=== PATIENT | male | born 1945 | race Caucasian/White ===

== ENCOUNTER 2017-05-24 10:55 | Inpatient (IN) | payer OTHER ==
[~2017-05-24] VITALS: Ht 172.7 cm; Wt 96.8 kg
[2017-05-24] VITALS (8 sets, daily range): BP systolic 111–139; BP diastolic 64–91; PULSE 93–134; TEMP 36.8–38; O2SAT 93–95; Ht 172.7 cm; Wt 96.8 kg
[~2017-05-24 10:55] MED LIST: ALBUAER19 INH; CETI1CAP3 PO; FLUT0.15 NAE
[2017-05-24 11:47] LABS: HEMATOCRIT 45.3 % (42-52); MEAN CELL VOLUME 91.3 fL (80-100); MEAN CORPUSCULAR HEMOGLOBIN 31.9 pg (25-34); MEAN CORPUSCULAR HGB CONC 34.9 g/dl (32-36); PLATELET COUNT 234 K/uL (130-400); RED BLOOD COUNT 4.96 M/uL (4.7-6.1); WHITE BLOOD COUNT 8.53 K/uL (4.8-10.8)
--- NOTE | 2017-05-24 11:47 | DIAGNOSTIC IMAGING REPORT ---
CHEST ONE VIEW PORTABLE CLINICAL HISTORY: Rapid HR cardiac arrhythmia COMPARISON STUDY: 12/06/2015 FINDINGS: Unchanging high density nodule right cardiophrenic angle. Mild fullness of the right hilar pulmonary vasculature. Left hemithoracic region. Unremarkable. IMPRESSION: Possible early congestive failure versus right hilar mass. CT the chest is suggested as follow-up. Electronically signed by: Yon Clifton M.D. 05/24/2017 11:46 AM Dictated Date/Time: 05/24/2017 11:45 AM
[2017-05-24] MEDS ORDERED: IBUP-1050 PO (11:54)
[2017-05-24] MEDS ORDERED: VITACAP26 PO (11:54)
[2017-05-24 11:55] LABS: INR 0.9 (0.9-1.1); PARTIAL THROMBOPLASTIN RATIO 1.1; PROTHROMBIN TIME (PATIENT) 10.1 SECONDS (9.0-12.0)
[2017-05-24] MEDS ORDERED: FEXO1TAB45 PO (11:55)
[2017-05-24] MEDS ORDERED: VANCOMYCIN INJ 2,400 MG in SODIUM CHLORIDE 0.9% 500ML 500 ML IV STA (11:55)
[2017-05-24 11:56] LABS: BUN/CREATININE RATIO 12.7 (10-20); CALCIUM 9.3 mg/dl (8.5-10.1); CREATININE 0.82 mg/dl (0.60-1.40); POTASSIUM 4.1 mmol/L (3.5-5.1)
[2017-05-24] MEDS ORDERED: OPTIRAY 320 IV PRN (12:00)
[2017-05-24 12:01] LABS: ALB/GLOB RATIO 0.8 (0.9-2); CKMB/CK RATIO 0.9 (0-3.0)
[2017-05-24] MEDS ORDERED: METOPROLOL TARTRATE 1 MG/ML VIAL IV STA ×2 (12:12→13:51)
[2017-05-24] MEDS ORDERED: METOPROLOL TARTRATE 1 MG/ML VIAL ONE (12:21)
--- NOTE | 2017-05-24 13:41 | DIAGNOSTIC IMAGING REPORT ---
CT ANGIOGRAM OF THE CHEST CLINICAL HISTORY: Rapid A. fib. Abnormal chest x-ray. Possible hilar mass. COMPARISON STUDY: Chest x-ray dated 05/24/2017 TECHNIQUE: Following the IV administration of 94 mL of Optiray-320, CT angiogram of the thorax was performed from the thoracic inlet to the lung bases utilizing the pulmonary embolus protocol. Images are reviewed in the axial, sagittal, and coronal planes. IV contrast was administered without complication. MIP imaging was performed. CT DOSE: 454.40 mGycm FINDINGS: There is probable cholelithiasis. There is a 32 mm right hilar mass. There is enlarged subcarinal lymph node measuring 15 mm in short axis. Paratracheal lymph nodes are the upper limits of normal in size. There is no evidence of pathologic axillary lymphadenopathy. There is mild ectasia of the ascending thoracic aorta which measures 37 mm in diameter. There were no pulmonary artery filling defects to indicate acute pulmonary embolism. No pleural effusions are visualized. There is lower lobe bronchial wall thickening. There are nodular airspace opacities within the superior segment of the right lower lobe, likely representing a postobstructive pneumonitis.. IMPRESSION: 1. No evidence of acute pulmonary embolism. 2. 32 mm right lower lobe/hilar mass. This should be presumed neoplastic until proven otherwise. Pulmonary consultation is recommended. 3. Lower lobe bronchial wall thickening 4. Mild mediastinal lymphadenopathy 5. Minor nodular airspace opacities within the superior segment of the right lower lobe, likely representing a postobstructive pneumonitis Electronically signed by: Von Jasso M.D. 05/24/2017 1:40 PM Dictated Date/Time: 05/24/2017 1:31 PM
[2017-05-24] MEDS ORDERED: DILTIAZEM HCL 5 MG/ML 5 ML VIAL IV STA (14:20)
--- NOTE | 2017-05-24 14:32 | EMERGENCY ROOM VISIT NOTE ---
History Report prepared by Chelsi: Sammy Muñiz Under the Supervision of: Dr. Susanne Keen M.D. First contact with patient: 11:30 Chief Complaint: CARDIAC ASSESSMENT Stated Complaint: ABNORMAL EKG Nursing Triage Summary: I was sent by [facility] because I have an infection in my right leg, and my heart rate was really fast. nohx of afib. I have no symptoms besides the pain in upper right thigh. hx MRSA. [id number] chest pain, SOB or other cardiac symptoms. History of Present Illness The patient is a 72 year old male who presents to the Emergency Room for evaluation of an abnormal ECG. He was seen at [facility] just prior to arrival for evaluation of an infection of his right thigh, and had an ECG done due to having a rapid heart rate. His ECG appeared to reveal A-fib. The patient has no history of A-fib. He denies any abdominal pain, nausea, vomiting, diarrhea, chest pain, or SOB. He states that his only pain is present in his right thigh. The patient has a history of MRSA. He noticed his infection initially one week ago. He states that he had a fever two and three days ago. The patient is not on any blood thinners. Source of History: patient Onset: Just prior to arrival Quality: other (Abnormal ECG) Timing: other (episode) Associated Symptoms: + fevers (two and three days ago), No chest pain, No SOB, No nausea, No vomiting, No diarrhea Review of Systems See HPI for pertinent positives & negatives. A total of 10 systems reviewed and were otherwise negative. Past Medical & Surgical Medical Problems: (1) Asthma Family History No pertinent family history stated. Social History Smoking Status: Never Smoker Marital Status: Housing Status: lives with family Occupation Status: retired Current/Historical Medications Scheduled Cetirizine Hcl (All Day Allergy), 1 CAP PO DAILY Miscellaneous Medications Fexofenadine Hcl (Cindy), 60 MG PO Ibuprofen (Advil), 200 MG PO Vitamins C & E (Vitamin C) Allergies Coded Allergies: Cat Dander (Verified Allergy, Intermediate, congestion, 12/06/15) Dog Dander (Verified Allergy, Intermediate, asthma, 12/06/15) Molds & Smuts (Verified Allergy, Intermediate, congestion, 12/06/15) POLLEN (Verified Allergy, Intermediate, congestion, 1/17/16) Physical Exam Vital Signs Date Time Temp Pulse Resp B/P (MAP) Pulse Ox O2 Delivery O2 Flow Rate FiO2 05/24/17 14:31 123 18 117/81 94 Room Air 05/24/17 14:14 113 18 121/88 93 Room Air 05/24/17 14:07 125 18 122/77 95 Room Air 05/24/17 14:06 125 122/77 05/24/17 13:49 132 05/24/17 13:48 133 18 126/87 95 Room Air 05/24/17 13:00 142 18 121/73 95 Room Air 05/24/17 12:45 134 18 135/90 95 Room Air 05/24/17 12:31 137 16 115/82 94 Room Air 05/24/17 12:30 146 135/87 05/24/17 12:28 146 18 135/87 96 Room Air 05/24/17 12:07 160 18 120/90 95 Room Air 05/24/17 11:30 163 18 118/90 95 Room Air 05/24/17 11:26 156 18 125/96 94 Room Air 05/24/17 11:22 165 05/24/17 11:15 95 Room Air 05/24/17 11:02 37.1 134 18 131/83 92 Room Air Physical Exam Vital signs reviewed. General: Well-appearing male, in no significant distress. HEENT: No scleral icterus, PERRLA, neck supple. Atraumatic. Cardiovascular: Tachycardic rate with an irregular rhythm Pulmonary: Clear to auscultation bilaterally, normal work of breathing. Abdomen: Soft, nontender, nondistended, positive bowel sounds. Musculoskeletal: Atraumatic, no peripheral edema. Neurologic: Patient awake alert and oriented x 3 Skin: Warm, dry. 6 cm erythematous area with 3 central ulceration-type lesions to the right thigh. No fluctuance or drainage. Medical Decision & Procedures ER Provider Diagnostic Interpretation: Radiology results as stated below per my review and radiologist interpretation: CT ANGIOGRAM OF THE CHEST FINDINGS: There is probable cholelithiasis. There is a 32 mm right hilar mass. There is enlarged subcarinal lymph node measuring 15 mm in short axis. Paratracheal lymph nodes are the upper limits of normal in size. There is no evidence of pathologic axillary lymphadenopathy. There is mild ectasia of the ascending thoracic aorta which measures 37 mm in diameter. There were no pulmonary artery filling defects to indicate acute pulmonary embolism. No pleural effusions are visualized. There is lower lobe bronchial wall thickening. There are nodular airspace opacities within the superior segment of the right lower lobe, likely representing a postobstructive pneumonitis.. IMPRESSION: 1. No evidence of acute pulmonary embolism. 2. 32 mm right lower lobe/hilar mass. This should be presumed neoplastic until proven otherwise. Pulmonary consultation is recommended. 3. Lower lobe bronchial wall thickening 4. Mild mediastinal lymphadenopathy 5. Minor nodular airspace opacities within the superior segment of the right lower lobe, likely representing a postobstructive pneumonitis Electronically signed by: Von Jasso M.D. CHEST ONE VIEW PORTABLE FINDINGS: Unchanging high density nodule right cardiophrenic angle. Mild fullness of the right hilar pulmonary vasculature. Left hemithoracic region. Unremarkable. IMPRESSION: Possible early congestive failure versus right hilar mass. CT the chest is suggested as follow-up. Electronically signed by: Yon Clifton M.D. Laboratory Results 05/24/17 11:20 05/24/17 11:20 Test 05/24/17 11:20 05/24/17 11:23 05/24/17 12:27 Red Blood Count 4.96 M/uL (4.7-6.1) Mean Corpuscular Volume 91.3 fL (80-100) Mean Corpuscular Hemoglobin 31.9 pg (25-34) Mean Corpuscular Hemoglobin Concent 34.9 g/dl (32-36) RDW Standard Deviation 43.8 fL (36.4-46.3) RDW Coefficient of Variation 13.1 % (11.5-14.5) Mean Platelet Volume 9.0 fL (7.4-10.4) Prothrombin Time 10.1 SECONDS (9.0-12.0) Prothromb Time International Ratio 0.9 (0.9-1.1) Activated Partial Thromboplast Time 29.4 SECONDS (21.0-31.0) Partial Thromboplastin Ratio 1.1 Anion Gap 7.0 mmol/L (3-11) Est Creatinine Clear Calc Drug Dose 94.5 ml/min Estimated GFR () 103.8 Estimated GFR (Non- 89.6 BUN/Creatinine Ratio 12.7 (10-20) Calcium Level 9.3 mg/dl (8.5-10.1) Total Bilirubin 0.6 mg/dl (0.2-1) Aspartate Amino Transf (AST/SGOT) 63 U/L (15-37) Alanine Aminotransferase (ALT/SGPT) 124 U/L (12-78) Alkaline Phosphatase 102 U/L (45-117) Total Creatine Kinase 174 U/L (39-308) Total Protein 7.6 gm/dl (6.4-8.2) Albumin 3.3 gm/dl (3.4-5.0) Globulin 4.3 gm/dl (2.5-4.0) Albumin/Globulin Ratio 0.8 (0.9-2) Bedside Troponin I < 0.030 ng/ml (0-0.045) Bedside Lactic Acid Venous 0.82 mmol/L (0.90-1.70) Laboratory results per my review. Medications Administered Medications (Trade) Dose Ordered Sig/Dalia Route Start Time Stop Time Status Last Admin Dose Admin Vancomycin HCl 2400 mg/Sodium Chloride 548 ml @ 200 mls/hr ONE STAT IV 05/24/17 11:55 05/24/17 14:39 DC 05/24/17 12:30 200 MLS/HR Metoprolol Tartrate (Lopressor Iv) 5 mg STK-MED ONCE .ROUTE 05/24/17 12:21 05/24/17 12:22 DC 05/24/17 12:30 5 MG Metoprolol Tartrate (Lopressor Iv) 10 mg NOW STAT IV 05/24/17 13:51 05/24/17 13:52 DC 05/24/17 14:06 10 MG Diltiazem HCl (Cardizem Inj) 20 mg NOW STAT IV 05/24/17 14:20 05/24/17 14:21 DC 05/24/17 14:31 20 MG Sodium Chloride 1,000 ml @ 75 mls/hr [id number] IV 05/24/17 14:42 06/23/17 14:41 05/24/17 16:40 75 MLS/HR ECG Indication: tachycardia Rate (beats per minute): 165 Rhythm: atrial fibrillation (with RVR) Findings: no acute ischemic change, other (previous septal infarct. Non- specific ST changes. ) ED Course 1139: Past medical records reviewed. The patient was evaluated in room A4B. A complete history and physical examination was performed. 1155: Ordered Vancomycin HCl 2400 mg/Sodium Chloride 548 ml @ 200 mls/hr IV. 1212: Ordered Lopressor 5 mg IV. 1351: Ordered Lopressor 10 mg IV. 1416: Upon reevaluation, the patient is resting comfortably. I discussed laboratory and radiographic results with him. He verbalized agreement of the treatment plan. I spoke with Dr. Bean of the [facility] Hospitalist Service. The patient will be evaluated for further management and care. 1420: Ordered Cardizem Inj 20 mg IV. Medical Decision Differential diagnosis: Etiologies such as premature contractions, electrolyte abnormality, cardiac dysrhythmia, thyroid dysfunction, pulmonary embolism, infection, cellulitis, abscess, DVT, gastrointestinal, as well as others were entertained. Blood Pressure Screening: Patient was found to have normal blood pressure on screening and does not require follow-up. Medication Reconciliation: I attest that I have personally reviewed the patient' s current medication list. This patient was evaluated and appeared to be in no significant distress. Patient is found to be in a rapid atrial fib with a rate in the 140s. IV access was obtained and laboratory work was drawn. Patient was given IV metoprolol for rate control. Chest x-ray was performed and reveals a right perihilar mass. EKG reveals nonspecific ST changes. CT scan was performed in follow-up, negative for PE, there is a hilar mass that is concerning. Patient' s laboratory work reveals a normal troponin. Patient was given 20 g of IV Cardizem for rate control after a total of 15 mg of metoprolol was not effective. Patient was given IV vancomycin for the right thigh cellulitis. The patient's case was discussed with the hospitalist service who evaluated him for further management. Consults Time Called: 1401 Consulting Physician: Dr. Vikas Richmond Returned Call: 1400 I reviewed the patient's case with Dr. Bean. Haim will evaluate the patient for further management. Impression Primary Impression: New onset atrial fibrillation Additional Impressions: Pulmonary mass Cellulitis of right thigh History of MRSA infection Critical Care I have personally spent greater than 35 minutes of critical care time in the direct management of this patient. This includes bedside care, interpretation of diagnostic studies, and testing, discussion with consultants, patient, and family members, and other required patient management activities. This 35 minutes is in excess of all separately billable procedures. Scribe Attestation The scribe's documentation has been prepared under my direction and personally reviewed by me in its entirety. I confirm that the note above accurately reflects all work, treatment, procedures, and medical decision making performed by me. Departure Information Dispostion Being Evaluated By Hospitalist Referrals Steffany Curran PA-C (PCP) Patient Instructions My [facility] Problem Qualifiers
[2017-05-24] MEDS ORDERED: ONDANSETRON INJ 2 MG/ML 2 ML VIAL IV PRN (14:45)
--- NOTE | 2017-05-24 15:01 | History and Physical ---
History & Physical Date & Time of Service: May 24, 2017 at 15:01 Chief Complaint: Abnormal Ekg Primary Care Physician: Steffany Curran PA-C History of Present Illness Source: patient Patient is a 72 Yr male with PMH of asthma, allergies,former smoker, H/O MRSA and other problems presents with history of right thigh swelling, redness and discharge. He was initially evaluated at Urgent care center and was thought to have rapid heart rate and was sent to ED for further evaluation. Patient was found to be in Afib with RVR. He states 4 days ago while moving his lawn, he had an injury to his right thigh which resulted in a blister and was oozing some white discharge yesterday. Denies any nausea, vomiting, chest pain, SOB, abd pain, Dizziness, palpitations, wheezing, diarrhea, urinary symptoms. Reports he has postnasal drip, intermittent dry cough and had fever, chills 2 days ago which resolved after taking Advil. He has been following with his [facility] for management of his allergies. Past Medical/Surgical History Medical Problems: (1) Asthma Status: Resolved PMH of asthma, allergies,former smoker, H/O MRSA Past Surgical history: Right hip replacement Family History Father: Prostate Cancer Social History Smoking Status: Former Smoker (Quit in 2012) Alcohol Use: socially Drug Use: none Marital Status: Occupational Status: retired Allergies Coded Allergies: Cat Dander (Verified Allergy, Intermediate, congestion, 12/06/15) Dog Dander (Verified Allergy, Intermediate, asthma, 12/06/15) Molds & Smuts (Verified Allergy, Intermediate, congestion, 12/06/15) POLLEN (Verified Allergy, Intermediate, congestion, 12/06/15) Home Medications Scheduled Cetirizine Hcl (All Day Allergy), 1 CAP PO DAILY Miscellaneous Medications Fexofenadine Hcl (Cindy), 60 MG PO Ibuprofen (Advil), 200 MG PO Vitamins C & E (Vitamin C) Review of Systems See HPI for pertinent positives & negatives. A total of 10 systems reviewed and were otherwise negative. Physical Exam Vital Signs Date Time Temp Pulse Resp B/P (MAP) Pulse Ox O2 Delivery O2 Flow Rate FiO2 05/24/17 14:54 83 18 108/71 95 Room Air 05/24/17 14:31 123 18 117/81 94 Room Air 05/24/17 14:14 113 18 121/88 93 Room Air 05/24/17 14:07 125 18 122/77 95 Room Air 05/24/17 14:06 125 122/77 05/24/17 13:49 132 05/24/17 13:48 133 18 126/87 95 Room Air 05/24/17 13:00 142 18 121/73 95 Room Air 05/24/17 12:45 134 18 135/90 95 Room Air 05/24/17 12:31 137 16 115/82 94 Room Air 05/24/17 12:30 146 135/87 05/24/17 12:28 146 18 135/87 96 Room Air 05/24/17 12:07 160 18 120/90 95 Room Air 05/24/17 11:30 163 18 118/90 95 Room Air 05/24/17 11:26 156 18 125/96 94 Room Air 05/24/17 11:22 165 05/24/17 11:15 95 Room Air 05/24/17 11:02 37.1 134 18 131/83 92 Room Air General Appearance: WD/WN, no apparent distress Head: normocephalic, atraumatic Eyes: normal inspection, PERRL, EOMI, sclerae normal ENT: normal ENT inspection, hearing grossly normal Neck: supple, trachea midline Respiratory/Chest: chest non-tender, no respiratory distress, + wheezing, + pertinent finding (Mild decreased breath sounds) Cardiovascular: no edema, no murmur, + irregularly irregular Abdomen/GI: normal bowel sounds, non tender, soft Back: normal inspection Extremities/Musculoskelatal: normal inspection, no pedal edema, + pertinent finding (erythematous area with central ulceration type lesion on R thigh ) 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1 11.5-14.5 % Platelet Count 234 130-400 K/uL Mean Platelet Volume 9.0 7.4-10.4 fL Prothrombin Time 10.1 9.0-12.0 SECONDS Prothromb Time International Ratio 0.9 0.9-1.1 Activated Partial Thromboplast Time 29.4 21.0-31.0 SECONDS Partial Thromboplastin Ratio 1.1 Sodium Level 136 136-145 mmol/L Potassium Level 4.1 3.5-5.1 mmol/L Chloride Level 103 98-107 mmol/L Carbon Dioxide Level 26 21-32 mmol/L Anion Gap 7.0 3-11 mmol/L Blood Urea Nitrogen 10 7-18 mg/dl Creatinine 0.82 0.60-1.40 mg/dl Est Creatinine Clear Calc Drug Dose 94.5 ml/min Estimated GFR () 103.8 Estimated GFR (Non- 89.6 BUN/Creatinine Ratio 12.7 10-20 Random Glucose 106 70-99 mg/dl Calcium Level 9.3 8.5-10.1 mg/dl Total Bilirubin 0.6 0.2-1 mg/dl Aspartate Amino Transf (AST/SGOT) 63 15-37 U/L Alanine Aminotransferase (ALT/SGPT) 124 12-78 U/L Alkaline Phosphatase 102 45-117 U/L Total Creatine Kinase 174 39-308 U/L Creatine Kinase MB 1.6 0.5-3.6 ng/ml Creatine Kinase MB Ratio 0.9 0-3.0 Total Protein 7.6 6.4-8.2 gm/dl Albumin 3.3 3.4-5.0 gm/dl Globulin 4.3 2.5-4.0 gm/dl Albumin/Globulin Ratio 0.8 0.9-2 Bedside Troponin I < 0.030 0-0.045 ng/ml Bedside Lactic Acid Venous 0.82 0.90-1.70 mmol/L Microbiology Results 05/24/17 Blood Culture, Received Pending 05/24/17 Blood Culture, Received Pending Diagnostic Radiology CXR: Possible early congestive failure versus right hilar mass. CT the chest is suggested as follow-up. CTA: 1. No evidence of acute pulmonary embolism. 2. 32 mm right lower lobe/hilar mass. This should be presumed neoplastic until proven otherwise. Pulmonary consultation is recommended. 3. Lower lobe bronchial wall thickening 4. Mild mediastinal lymphadenopathy 5. Minor nodular airspace opacities within the superior segment of the right lower lobe, likely representing a postobstructive pneumonitis EKG EKG: Atrial fibrillation with rapid ventricular response Impression Assessment and Plan Right Leg Cellulitis H/O MRSA Start on IV vancomycin Will obtain blood/wound cultures No signs of sepsis, Lactate wnl Afib with RVR: New onset Currently rate controlled in ED CHADVasc score:1. will start on Aspirin Lopressor PRN for rate control Check ECHO, cardiac enzymes Consult Cardiology Will consider Cardizem ggt if uncontrolled Right lung mass: ? malignancy Mediastinal adenopathy Former smoker Incidental Finding on CT Will consult Pulmonology for possible bronchoscopy Asthma: Denies any acute issues Mild expiratory wheezing on exam Will start on bronchodilators Continue home inhalers H/O allergies: Follows with an [facility] as outpatient DVT Px: Heparin SQ Code Status: Full code Disposition: Admit in Tele VTE Prophylaxis VTE Risk Assessment Done? Y/N: Yes Risk Level: Moderate
[2017-05-24] MEDS ORDERED: VANCOMYCIN CONSULT ACTIVE PRN (15:26)
[2017-05-24] MEDS ORDERED: ALBUT/IPRATROP 3MG/0.5MG NEB 3 ML VIAL INH SCH (16:00)
[2017-05-24] MEDS ORDERED: ASPIRIN 81 MG ECTAB PO SCH (16:00)
--- NOTE | 2017-05-24 16:21 | Pharmacy Progress Note ---
Pharmacy Abx Initial Consult Date of Service May 24, 2017. Pharmacy Dosing Scope Date of Consult: 05/24/17 Consultation requested by: Dr. Bean Pharmacy is consulted to initiate Vancomycin IV dosing therapy, order appropriate labs and adjust drug dose/frequency. Subjective The patient is a 72 year old male admitted on May 24, 2017 at 14:47. Objective Height (Feet): 5 Height (Inches): 8.00 Weight (Kilograms): 96.600 Vital Signs (Past 12Hrs) Vital Signs Past 12 Hours Date Time Temp Pulse Resp B/P (MAP) Pulse Ox O2 Delivery O2 Flow Rate FiO2 05/24/17 15:58 36.8 93 16 128/85 (99) 95 Room Air 05/24/17 15:15 89 18 120/85 94 Room Air 05/24/17 14:54 83 18 108/71 95 Room Air 05/24/17 14:31 123 18 117/81 94 Room Air 05/24/17 14:14 113 18 121/88 93 Room Air 05/24/17 14:07 125 18 122/77 95 Room Air 05/24/17 14:06 125 122/77 05/24/17 13:49 132 05/24/17 13:48 133 18 126/87 95 Room Air 05/24/17 13:00 142 18 121/73 95 Room Air 05/24/17 12:45 134 18 135/90 95 Room Air 05/24/17 12:31 137 16 115/82 94 Room Air 05/24/17 12:30 146 135/87 05/24/17 12:28 146 18 135/87 96 Room Air 05/24/17 12:07 160 18 120/90 95 Room Air 05/24/17 11:30 163 18 118/90 95 Room Air 05/24/17 11:26 156 18 125/96 94 Room Air 05/24/17 11:22 165 05/24/17 11:15 95 Room Air 05/24/17 11:02 37.1 134 18 131/83 92 Room Air Lab Results (24Hrs) Laboratory Tests (24 Hours) Test 05/24/17 11:20 Total Creatine Kinase 174 U/L (39-308) White Blood Count 8.53 K/uL (4.8-10.8) Micro Results Date/Time Source Procedure Growth Status 05/24/17 12:20 Blood Blood Culture Pending Received 05/24/17 12:10 Blood Blood Culture Pending Received Risk Factors for Resistance * History of MRSA Assessment & Plan Assessment 72 year old male with R thigh Cellulitis. Plan Vancomycin for treatment of Cellulitis. Vancomycin IV * Loading dose: 2400 mg (~ 25 mg/kg) * Maintenance dose: 1500 mg IV (~15 mg/kg) every 12 hours * Goal trough level: 15 to 20 mcg/mL * Estimated P'kinetics: ke = 0.082 /hr, t1/2 = 8.5 hrs. * Trough Vanco level ordered for 05/26/17 before dose at 1200. Pharmacy will continue to follow and will adjust dose/frequency as necessary. Thank you.
[2017-05-24] MEDS: SODIUM CHLORIDE 0.9% 1000ML 1,000 ML IV SCH (16:40)
[2017-05-24] MEDS: METOPROLOL TARTRATE 1 MG/ML VIAL IV PRN ×2 (17:10→18:16)
--- NOTE | 2017-05-24 17:58 | Pulmonary Consultation ---
History General Date of Service: May 24, 2017. Stated Complaint: Cellulitis Of Right Thigh HPI The patient is a 72 year old male who presents to [facility] with complaints of Cellulitis Of Right Thigh. The patient's primary care provider is Steffany Curran PA-C. Pulmonary consultation is requested regarding an abnormal chest x-ray and CAT scan. The history is that the patient was driving his lawn tractor about a week prior to admission. The right side of his leg got scraped with some type of vegetation. He developed some redness and soreness in the area. He developed a pustule. The patient had a history of MRSA infection involving the knee about 8 years ago. He developed a fever 2 or 3 days ago. [facility]. They found that he had a significant elevation of his heart rate. They immediately referred him to the emergency room. Apparently they wanted him to be taken by ambulance but the patient refused and drove to the ER. He was found to have atrial fibrillation with a rapid ventricular response rate. The patient has not noticed any palpitations. He did not have any chest pains. He overall has been feeling well recently. During part of his workup the patient had a chest x-ray done. This suggested a right hilar prominence. Subsequently he had a CAT scan of the chest done. This showed what appears to be a 3.2 cm right hilar mass with an enlarged subcarinal lymph node. Was also an area of probable postobstructive pneumonitis. Patient has a history of asthma since childhood. He states that he grew out of the asthma for his teen years but then it seemed to recur somewhat. He was on allergy shots for many years. When he got off the shots his symptoms recurred. He was back on allergy shots for quite a while. He notices wheezing with exposure to a number of different things including various smells or aromas. Smoke bothers him. Turner's neuroma bother him. Perfumes bother him. He may have also environmental allergies that bother him. He is listed as allergic to cats, dogs, mold, and pollen. The patient has a history of smoking for about 34 years. He averaged between one half and one pack per day. He quit smoking 6 years ago. Patient has not noticed any difficulty with his breathing more than normal. He states he is not significantly short of breath. He has just an occasional cough. This is usually in response to something that he is exposed to he believes. He has never coughed up any blood. His weight has been stable. His appetite is good. His energy level is generally good although it is not as good as he was 15 years ago he states. 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 Review of Systems Gen.: Energy level is fairly good as noted above. The patient lives with his . He's had no recent illnesses. Neurologic: No syncope or near syncope Ophthalmic: No visual complaints ENT some nasal congestion and coryza. The patient states he snores but not as much as his snores. There has been no observed apneas. Cardiac: As noted above in history of present illness Pulmonary: As noted in history of present illness GI: Appetite is good. His been no weight loss. Denies nausea vomiting diarrhea constipation. : The patient noticed in the recent past and increase the frequency of his urination. He also felt that his urine smelled somewhat. He thought he was getting a urine infection. He states he simply increased his water intake. Dermatologic: No rashes Musculoskeletal: No myalgias or arthralgias Endocrine: No lymphadenopathy Past Medical History Past Medical History: Asthma Allergic rhinitis MRSA infection of the knee Past Surgical History: Right total hip replacement 2013 Family History Mother age 88 had CVA Father age 92 heart disease Social History Tobacco-1/2-1 pack per day 34 years EtOH-occasional Smoking Status: Never Smoker Marital status: Occupational Status: retired Allergies Coded Allergies: Cat Dander (Verified Allergy, Intermediate, congestion, 12/06/15) Dog Dander (Verified Allergy, Intermediate, asthma, 12/06/15) Molds & Smuts (Verified Allergy, Intermediate, congestion, 12/06/15) POLLEN (Verified Allergy, Intermediate, congestion, 12/06/15) Current Medications Reported Home Medications Medications Dose Route/Sig Max Daily Dose Days Date Category Cindy (Fexofenadine Hcl) 60 Mg Tab 60 Mg PO 05/24/17 Reported Advil (Ibuprofen) 200 Mg Tab 200 Mg PO 05/24/17 Reported Vitamin C (Vitamins C & E) 1 Cap Cap 05/24/17 Reported All Day Allergy (Cetirizine Hcl) 10 Mg Cap 1 Cap PO DAILY 12/06/15 Reported Physical Physical Exam Vital Signs: Date Time Temp Pulse Resp B/P (MAP) Pulse Ox O2 Delivery O2 Flow Rate FiO2 05/24/17 17:10 117 128/85 05/24/17 15:58 36.8 93 16 128/85 (99) 95 Room Air 05/24/17 15:15 89 18 120/85 94 Room Air 05/24/17 14:54 83 18 108/71 95 Room Air 05/24/17 14:31 123 18 117/81 94 Room Air 05/24/17 14:14 113 18 121/88 93 Room Air 05/24/17 14:07 125 18 122/77 95 Room Air 05/24/17 14:06 125 122/77 05/24/17 13:49 132 05/24/17 13:48 133 18 126/87 95 Room Air 05/24/17 13:00 142 18 121/73 95 Room Air 05/24/17 12:45 134 18 135/90 95 Room Air 05/24/17 12:31 137 16 115/82 94 Room Air 05/24/17 12:30 146 135/87 05/24/17 12:28 146 18 135/87 96 Room Air 05/24/17 12:07 160 18 120/90 95 Room Air 05/24/17 11:30 163 18 118/90 95 Room Air 05/24/17 11:26 156 18 125/96 94 Room Air 05/24/17 11:22 165 05/24/17 11:15 95 Room Air 05/24/17 11:02 37.1 134 18 131/83 92 Room Air The patient is a 72-year-old male who was cooperative alert and oriented. He was in no distress. Pupils were reactive to light. Nasal passages were clear. Mouth exam showed no erythema or exudate. Palpation of the neck reveals no lymph nodes or masses. The chest was of normal expansion development. The heart rate was 112/m. The rhythm was irregularly irregular. The blood pressure was 128/85. Auscultation of the lungs revealed mild wheeze bilaterally on expiration. The breath sounds were diminished. The patient did cough I asked him to set up and take deep breaths. Respiratory rate was 16 breaths per minute and was not labored. The oxygen saturation was 95% on room air. The abdomen is soft. Bowel sounds were present. There was no tenderness to palpation, masses, or organomegaly. Extremities showed no cyanosis clubbing or edema. Diagnostics Labs Results Past 24 Hours Test 05/24/17 11:20 05/24/17 11:23 05/24/17 12:27 05/24/17 17:00 Range/Units White Blood Count 8.53 4.8-10.8 K/uL Red Blood Count 4.96 4.7-6.1 M/uL Hemoglobin 15.8 14.0-18.0 g/dL Hematocrit 45.3 42-52 % Mean Corpuscular Volume 91.3 80-100 fL Mean Corpuscular Hemoglobin 31.9 25-34 pg Mean Corpuscular Hemoglobin Concent 34.9 32-36 g/dl RDW Standard Deviation 43.8 36.4-46.3 fL RDW Coefficient of Variation 13.1 11.5-14.5 % Platelet Count 234 130-400 K/uL Mean Platelet Volume 9.0 7.4-10.4 fL Prothrombin Time 10.1 9.0-12.0 SECONDS Prothromb Time International Ratio 0.9 0.9-1.1 Activated Partial Thromboplast Time 29.4 21.0-31.0 SECONDS Partial Thromboplastin Ratio 1.1 Sodium Level 136 136-145 mmol/L Potassium Level 4.1 3.5-5.1 mmol/L Chloride Level 103 98-107 mmol/L Carbon Dioxide Level 26 21-32 mmol/L Anion Gap 7.0 3-11 mmol/L Blood Urea Nitrogen 10 7-18 mg/dl Creatinine 0.82 0.60-1.40 mg/dl Est Creatinine Clear Calc Drug Dose 94.5 ml/min Estimated GFR () 103.8 Estimated GFR (Non- 89.6 BUN/Creatinine Ratio 12.7 10-20 Random Glucose 106 70-99 mg/dl Calcium Level 9.3 8.5-10.1 mg/dl Total Bilirubin 0.6 0.2-1 mg/dl Aspartate Amino Transf (AST/SGOT) 63 15-37 U/L Alanine Aminotransferase (ALT/SGPT) 124 12-78 U/L Alkaline Phosphatase 102 45-117 U/L Total Creatine Kinase 174 39-308 U/L Creatine Kinase MB 1.6 0.5-3.6 ng/ml Creatine Kinase MB Ratio 0.9 0-3.0 Total Protein 7.6 6.4-8.2 gm/dl Albumin 3.3 3.4-5.0 gm/dl Globulin 4.3 2.5-4.0 gm/dl Albumin/Globulin Ratio 0.8 0.9-2 Bedside Troponin I < 0.030 0-0.045 ng/ml Bedside Lactic Acid Venous 0.82 0.90-1.70 mmol/L Microbiology Results 05/24/17 Blood Culture, Received Pending 05/24/17 Blood Culture, Received Pending Impression Assessment and Plan Impressions: #1 right lung mass-superior segment right lower lobe-suspicious for malignancy #2 mediastinal adenopathy #3 bronchial asthma #4 atrial fibrillation with rapid ventricular response #5 elevation of liver function tests. #6 infection right thigh Comments and recommendations: Patient needs management of his cardiac status. Once his status is stabilized his lung mass should be addressed. Bronchoscopy with EBUS would be advised based upon the x-ray findings. I spoke with Dr. Hines about This patient. Obviously we want to wait until he is cleared from a cardiac perspective. If the patient needs anticoagulation for the atrial fibrillation we would prefer something that could be readily discontinued to do bronchoscopy when the time comes. The patient has had rapid atrial fibrillation. He is ordered nebulizer treatments with albuterol/ipratropium. In light of the rapid rates it would be advised that he be given levalbuterol/ ipratropium for less cardiac irritability.
[2017-05-24] MEDS ORDERED: NURSING VERBAL MED ORDER ONE (18:00)
[2017-05-24] MEDS ORDERED: METOPROLOL TARTRATE 1 MG/ML VIAL IV ONE (18:30)
[2017-05-24] MEDS: LEVALBUTEROL 0.63MG/3 ML NEB INH SCH (19:10)
[2017-05-24] MEDS ORDERED: DILTIAZEM BOLUS / DRIP IV STA (19:40)
[2017-05-24] MEDS: ACETAMINOPHEN 325 MG TAB PO PRN (20:32)
[2017-05-24] MEDS: BUDESONIDE/FORMOTEROL FUMARATE 160/4.5 60 PUFFS/INHALER INH SCH (20:33)
[2017-05-24] MEDS: HEPARIN SOD 5000 UNIT/0.5 ML CARP SQ SCH (22:16)
[2017-05-24] MEDS: DILTIAZEM HCL INJ 125 MG in DEXTROSE 5% 100ML IV PRN (22:17)
[2017-05-25] VITALS (9 sets, daily range): BP systolic 102–124; BP diastolic 63–73; PULSE 54–109; TEMP 36.7–36.9; O2SAT 95–98
[2017-05-25] MEDS ORDERED: VANCOMYCIN INJ 1,500 MG in SODIUM CHLORIDE 0.9% 500ML 500 ML IV SCH ×2
[2017-05-25] MEDS: LEVALBUTEROL 0.63MG/3 ML NEB INH SCH ×4 (01:47→19:00)
[2017-05-25] MEDS ORDERED: NURSING VERBAL MED ORDER ONE ×2 (02:45→14:15)
[2017-05-25] MEDS: DILTIAZEM HCL INJ 125 MG in DEXTROSE 5% 100ML IV PRN ×2 (02:50→11:16)
[2017-05-25] MEDS: ACETAMINOPHEN 325 MG TAB PO PRN ×3 (03:44→19:25)
[2017-05-25] MEDS: SODIUM CHLORIDE 0.9% 1000ML 1,000 ML IV SCH ×2 (06:00→16:35)
[2017-05-25] MEDS: HEPARIN SOD 5000 UNIT/0.5 ML CARP SQ SCH ×2 (06:02→14:35)
[2017-05-25 06:48] LABS: BASO % 0.1 %; BASO ABS # 0.01 K/uL (0-0.2); COMPLETE YES; EOS % 1.7 %; HEMATOCRIT 40.6 % (42-52); IG% 0.2 %; LYMPH ABS # 0.79 K/uL (1.2-3.4); MEAN CELL VOLUME 91.9 fL (80-100); MEAN CORPUSCULAR HEMOGLOBIN 30.1 pg (25-34); MEAN CORPUSCULAR HGB CONC 32.8 g/dl (32-36); MEAN PLATELET VOLUME 8.8 fL (7.4-10.4); MONO % 11.4 %; NEUT % 77.6 %; PLATELET COUNT 213 K/uL (130-400); RED BLOOD COUNT 4.42 M/uL (4.7-6.1); WHITE BLOOD COUNT 8.78 K/uL (4.8-10.8)
[2017-05-25 07:35] LABS: BUN/CREATININE RATIO 14.1 (10-20); CALCIUM 7.9 mg/dl (8.5-10.1); CREATININE 0.74 mg/dl (0.60-1.40); MAGNESIUM 2.3 mg/dl (1.8-2.4); POTASSIUM 3.7 mmol/L (3.5-5.1)
[2017-05-25] MEDS: CETIRIZINE HCL 10 MG TAB PO SCH (08:33)
[2017-05-25] MEDS: FLUTICASONE PROPIONATE NA SPR 16 GM BTL SCH (08:33)
[2017-05-25] MEDS: ASPIRIN 81 MG ECTAB PO SCH (09:33)
[2017-05-25] MEDS: BUDESONIDE/FORMOTEROL FUMARATE 160/4.5 60 PUFFS/INHALER INH SCH ×2 (09:34→20:51)
--- NOTE | 2017-05-25 10:32 | ECHOCARDIOGRAM REPORT ---
*NOTICE TO RECEIVING [employer] This information is strictly Confidential and protected under [place] law. [place] law prohibits you from making any further disclosure of this information unless further disclosure is expressly permitted by the written consent of the person to whom it pertains or is authorized by law. A general authorization for the release of medical or other information is not sufficient for this purpose. Hospital accepts no responsibility if the information is made available to any other person, INCLUDING THE PATIENT. Interpretation Summary * Name: CEE GOEL Study Date: 05/25/2017 07:00 AM BP: 102/65 mmHg * Patient Location: .2E\S\E211\S\1 HR: 71 * : 1945 (M/d/yyy) Gender: Male Height: 68 in * Age: 72 yrs Ethnicity: CA Weight: 212 lb * Ordering Physician: Mak Bean * Referring Physician: Self, Referred * Performed By: Marpiosa Carlson RDCS * * Reason For Study: A-fib * BSA: 2.1 m2 * -- Conclusions -- * The left ventricle is normal in size. * Left ventricular systolic function is normal. * Ejection Fraction = 55-60%. * The right ventricular systolic function is normal. * The left atrial size is normal. * Right atrial size is normal. * No significant valvular pathology. Procedure Details * A complete two-dimensional transthoracic echocardiogram was performed (2D, M-mode, Doppler and color flow Doppler). Left Ventricle * The left ventricle is normal in size. * There is normal left ventricular wall thickness. * Ejection Fraction = 55-60%. * Left ventricular systolic function is normal. * The left ventricular wall motion is normal. Right Ventricle * The right ventricle is normal size. * The right ventricular systolic function is normal. Atria * The left atrial size is normal. * Right atrial size is normal. * There is no evidence of atrial septal defect, but resolution does not allow assessment for a patent foramen ovale. Mitral Valve * The mitral valve anatomy is normal. * Significant mitral regurgitation is absent. Tricuspid Valve * The tricuspid valve is not well visualized, but is grossly normal. * Significant tricuspid regurgitation is absent. Aortic Valve * The aortic valve is tricuspid. The leaflet thickness if normal. There is no aortic stenosis, and no significant insufficiency. * No hemodynamically significant valvular aortic stenosis. * There is no significant aortic regurgitation. Pulmonic Valve * The pulmonic valve is not well visualized. Great Vessels * The aortic root and proximal ascending aorta are normal sized. Pericardium/Pleural * There is no pericardial effusion. MMode 2D Measurements and Calculations IVSd 0.97 cm LVIDd 3.8 cm LVIDs 2.6 cm LVPWd 1.3 cm IVS/LVPW 0.75 FS 33.0 % EDV(Teich) 62.8 ml ESV(Teich) 23.7 ml EF(Teich) 62.3 % EDV(cubed) 55.8 ml ESV(cubed) 16.8 ml EF(cubed) 69.9 % LV mass(C)d 142.0 grams LV mass(C)dI 67.8 grams/m\S\2 CO(Teich) 2.4 l/min CI(Teich) 1.2 l/min/m\S\2 SV(Teich) 39.1 ml SI(Teich) 18.7 ml/m\S\2 CO(cubed) 2.4 l/min CI(cubed) 1.2 l/min/m\S\2 SV(cubed) 39.0 ml SI(cubed) 18.6 ml/m\S\2 Ao root diam 3.3 cm Ao root area 8.8 cm\S\2 ACS 1.9 cm LA dimension 3.0 cm asc Aorta Diam 3.7 cm LA/Ao 0.90 LVOT diam 2.0 cm LVOT area 3.1 cm\S\2 LVAd ap4 23.4 cm\S\2 LVLd ap4 7.5 cm EDV(MOD-sp4) 63.0 ml LVAs ap4 14.2 cm\S\2 LVLs ap4 6.3 cm ESV(MOD-sp4) 27.0 ml EF(MOD-sp4) 57.1 % LVAd ap2 18.3 cm\S\2 LVLd ap2 7.2 cm EDV(MOD-sp2) 41.0 ml LVAs ap2 11.5 cm\S\2 LVLs ap2 6.1 cm ESV(MOD-sp2) 19.0 ml EF(MOD-sp2) 53.7 % CO(MOD-sp4) 2.2 l/min CI(MOD-sp4) 1.1 l/min/m\S\2 SV(MOD-sp4) 36.0 ml SI(MOD-sp4) 17.2 ml/m\S\2 CO(MOD-sp2) 1.4 l/min CI(MOD-sp2) 0.65 l/min/m\S\2 SV(MOD-sp2) 22.0 ml SI(MOD-sp2) 10.5 ml/m\S\2 Doppler Measurements and Calculations MV E max modesta 113.0 cm/sec MV dec time 0.14 sec Ao V2 max 115.4 cm/sec Ao max PG 5.3 mmHg Ao max PG (full) 1.9 mmHg CYNTHIA(V,A) 2.5 cm\S\2 CYNTHIA(V,D) 2.5 cm\S\2 LV V1 max PG 3.4 mmHg LV V1 max 92.3 cm/sec PA V2 max 77.4 cm/sec PA max PG 2.4 mmHg PA acc slope 461.2 cm/sec\S\2 PA acc time 0.11 sec PA pr(Accel) 29.9 mmHg
[2017-05-25] MEDS: VANCOMYCIN INJ 1,750 MG in SODIUM CHLORIDE 0.9% 500ML 500 ML IV SCH ×2 (10:54→23:21)
--- NOTE | 2017-05-25 10:55 | Pulmonology Progress Note ---
Pulmonary Progress Note Date of Service May 25, 2017. Attending Dr. Quiros Subjective The patient denies shortness of breath. He denies any cough. He was moved to a different telemetry unit. His cardiac rates have been more controlled. He remains asymptomatic from a cardiac and pulmonary perspective. Objective The patient is a 72-year-old male who looks younger than his chronologic age. He is cooperative alert and oriented. He is in no distress. Pupils were reactive to light. Palpation of the neck reveals no lymph nodes. Temperature is 36.8. Cardiac rate is 100/m. The rhythm is irregular. Blood pressure was 109/63. Lung navas today revealed less wheezing than yesterday. There is just a very faint end expiratory wheeze. This is related to his known asthma. Oxygen saturation is 96% on room air. Respiratory rate is 16 breaths per minute. Extremities showed no cyanosis clubbing or edema. CBC today shows the hemoglobin is 13.3. It had been 15.8 yesterday. There has been no evidence of bleeding. Assessment & Plan Impressions: #1 right lung mass-superior segment right lower lobe-suspicious for malignancy with possible postobstructive pneumonitis #2 mediastinal adenopathy #3 bronchial asthma #4 atrial fibrillation with rapid ventricular response #5 elevation of liver function tests #6 infection right thigh Comments and recommendations: As noted on the consult yesterday the patient needs to have management of the cardiac status. Once the cardiac problem is stable he should have bronchoscopy done with EBUS. I have spoken with Dr. Hines about performing that procedure. It can be done as an outpatient following discharge. We'll add azithromycin for the possible pneumonitis. He does not have any symptoms suggesting pneumonitis. Data Medications: Current Inpatient Medications Medications (Trade) Dose Ordered Sig/Dalia Route Start Time Stop Time Status Last Admin Dose Admin Ioversol (Optiray 320) 125 ml UD PRN IV 05/24/17 12:00 05/28/17 11:59 Heparin Sodium (Porcine) (Heparin Sq 5000 Unit/0.5ml) 5,000 unit Q8 SQ 05/24/17 22:00 06/23/17 21:59 05/25/17 06:02 5,000 UNIT Sodium Chloride 1,000 ml @ 75 mls/hr [id number] IV 05/24/17 14:42 06/23/17 14:41 05/25/17 06:00 75 MLS/HR Acetaminophen (Tylenol Tab) 650 mg Q4H PRN PO 05/24/17 14:45 06/23/17 14:44 05/25/17 03:44 650 MG Ondansetron HCl (Zofran Inj) 4 mg Q6H PRN IV 05/24/17 14:45 06/23/17 14:44 Vancomycin HCl (Consult) 1 ea UD PRN N/A 05/24/17 15:26 06/23/17 15:25 Metoprolol Tartrate (Lopressor Iv) 2.5 mg Q6 PRN IV 05/24/17 15:00 06/23/17 14:59 05/24/17 18:16 5 MG Aspirin (Ecotrin Tab) 81 mg QAM PO 05/25/17 09:00 06/24/17 08:59 05/25/17 09:33 81 MG Cetirizine HCl (zyrTEC TAB) 10 mg DAILY PO 05/25/17 09:00 06/24/17 08:59 05/25/17 08:33 10 MG Fluticasone Propionate (Flonase Nasal [place]) 2 sprays DAILY NA 05/25/17 09:00 06/24/17 08:59 05/25/17 08:33 2 SPRAYS Budesonide/ Formoterol Fumarate (Symbicort 160/ 4.5 Inh) 2 puffs BID INH 05/24/17 21:00 06/23/17 20:59 05/25/17 09:34 2 PUFFS Levalbuterol (Xopenex 0.63 Mg/ 3 Ml Neb) 0.63 mg Q6R INH 05/24/17 21:00 06/23/17 20:59 05/25/17 07:24 0.63 MG Diltiazem HCl 125 mg/Dextrose 125 ml @ 0 mls/hr Q0M PRN IV 05/24/17 20:30 06/23/17 20:29 05/25/17 02:50 10 MLS/HR Vancomycin HCl 1750 mg/Sodium Chloride 535 ml @ 200 mls/hr Q12H IV 05/25/17 11:00 06/03/17 11:59 Vital Signs: Date Time Temp Pulse Resp B/P (MAP) Pulse Ox O2 Delivery O2 Flow Rate FiO2 05/25/17 08:32 36.8 88 18 109/63 (78) 96 05/25/17 08:00 Room Air 05/25/17 07:24 71 17 96 Room Air 05/25/17 04:29 36.9 101 18 102/65 (77) 96 Room Air 05/25/17 04:00 Room Air 05/25/17 01:47 109 16 96 Room Air 05/24/17 23:59 Room Air 05/24/17 23:51 36.9 107 18 111/64 (80) 93 Room Air 05/24/17 21:17 94 05/24/17 20:20 38.0 124 16 131/82 (98) 94 Room Air 05/24/17 19:26 36.8 134 16 134/84 94 Room Air 05/24/17 19:25 124 20 94 Room Air 05/24/17 19:19 134/84 (101) 05/24/17 18:16 134 139/91 05/24/17 18:14 134 139/91 (107) 94 Room Air 05/24/17 17:10 117 128/85 05/24/17 15:58 36.8 93 16 128/85 (99) 95 Room Air 05/24/17 15:15 89 18 120/85 94 Room Air 05/24/17 14:54 83 18 108/71 95 Room Air 05/24/17 14:31 123 18 117/81 94 Room Air 05/24/17 14:14 113 18 121/88 93 Room Air 05/24/17 14:07 125 18 122/77 95 Room Air 05/24/17 14:06 125 122/77 05/24/17 13:49 132 05/24/17 13:48 133 18 126/87 95 Room Air 05/24/17 13:00 142 18 121/73 95 Room Air 05/24/17 12:45 134 18 135/90 95 Room Air 05/24/17 12:31 137 16 115/82 94 Room Air 05/24/17 12:30 146 135/87 05/24/17 12:28 146 18 135/87 96 Room Air 05/24/17 12:07 160 18 120/90 95 Room Air 05/24/17 11:30 163 18 118/90 95 Room Air 05/24/17 11:26 156 18 125/96 94 Room Air 05/24/17 11:22 165 05/24/17 11:15 95 Room Air 05/24/17 11:02 37.1 134 18 131/83 92 Room Air Laboratory Results: Last 24 Hours Test 05/24/17 11:20 05/24/17 11:23 05/24/17 12:27 05/24/17 17:00 White Blood Count 8.53 K/uL Red Blood Count 4.96 M/uL Hemoglobin 15.8 g/dL Hematocrit 45.3 % Mean Corpuscular Volume 91.3 fL Mean Corpuscular Hemoglobin 31.9 pg Mean Corpuscular Hemoglobin Concent 34.9 g/dl RDW Standard Deviation 43.8 fL RDW Coefficient of Variation 13.1 % Platelet Count 234 K/uL Mean Platelet Volume 9.0 fL Prothrombin Time 10.1 SECONDS Prothromb Time International Ratio 0.9 Activated Partial Thromboplast Time 29.4 SECONDS Partial Thromboplastin Ratio 1.1 Sodium Level 136 mmol/L Potassium Level 4.1 mmol/L Chloride Level 103 mmol/L Carbon Dioxide Level 26 mmol/L Anion Gap 7.0 mmol/L Blood Urea Nitrogen 10 mg/dl Creatinine 0.82 mg/dl Est Creatinine Clear Calc Drug Dose 94.5 ml/min Estimated GFR () 103.8 Estimated GFR (Non- 89.6 BUN/Creatinine Ratio 12.7 Random Glucose 106 mg/dl Calcium Level 9.3 mg/dl Total Bilirubin 0.6 mg/dl Aspartate Amino Transf (AST/SGOT) 63 U/L Alanine Aminotransferase (ALT/SGPT) 124 U/L Alkaline Phosphatase 102 U/L Total Creatine Kinase 174 U/L Creatine Kinase MB 1.6 ng/ml Creatine Kinase MB Ratio 0.9 Total Protein 7.6 gm/dl Albumin 3.3 gm/dl Globulin 4.3 gm/dl Albumin/Globulin Ratio 0.8 Bedside Troponin I < 0.030 ng/ml Bedside Lactic Acid Venous 0.82 mmol/L Test 05/24/17 17:55 05/24/17 23:00 05/24/17 23:13 05/25/17 06:37 Creatine Kinase MB 1.6 ng/ml 1.3 ng/ml Troponin I < 0.015 ng/ml 0.016 ng/ml Creatine Kinase MB Ratio White Blood Count 8.78 K/uL Red Blood Count 4.42 M/uL Hemoglobin 13.3 g/dL Hematocrit 40.6 % Mean Corpuscular Volume 91.9 fL Mean Corpuscular Hemoglobin 30.1 pg Mean Corpuscular Hemoglobin Concent 32.8 g/dl Platelet Count 213 K/uL Mean Platelet Volume 8.8 fL Neutrophils (%) (Auto) 77.6 % Lymphocytes (%) (Auto) 9.0 % Monocytes (%) (Auto) 11.4 % Eosinophils (%) (Auto) 1.7 % Basophils (%) (Auto) 0.1 % Neutrophils # (Auto) 6.81 K/uL Lymphocytes # (Auto) 0.79 K/uL Monocytes # (Auto) 1.00 K/uL Eosinophils # (Auto) 0.15 K/uL Basophils # (Auto) 0.01 K/uL RDW Standard Deviation 44.3 fL RDW Coefficient of Variation 13.2 % Immature Granulocyte % (Auto) 0.2 % Immature Granulocyte # (Auto) 0.02 K/uL Sodium Level 141 mmol/L Potassium Level 3.7 mmol/L Chloride Level 109 mmol/L Carbon Dioxide Level 25 mmol/L Anion Gap 7.0 mmol/L Blood Urea Nitrogen 10 mg/dl Creatinine 0.74 mg/dl Est Creatinine Clear Calc Drug Dose 104.8 ml/min Estimated GFR () 108.3 Estimated GFR (Non- 93.5 BUN/Creatinine Ratio 14.1 Random Glucose 103 mg/dl Calcium Level 7.9 mg/dl Magnesium Level 2.3 mg/dl
[2017-05-25] MEDS ORDERED: VANCOMYCIN TROUGH ONE (11:30)
[2017-05-25] MEDS ORDERED: AZITHROMYCIN 250 MG TAB PO ONE (11:45)
--- NOTE | 2017-05-25 12:07 | Progress Note ---
Medicine Progress Note Date & Time of Visit: May 25, 2017 at 11:38. Subjective Pt was seen and examined getting ready to walk in the hallway Pt said that he feels fine he denies any chest pain, palpitation, dizziness and SOB Objective Last 8 Hrs Date Time Temp Pulse Resp B/P (MAP) Pulse Ox O2 Delivery O2 Flow Rate FiO2 05/25/17 11:33 36.9 54 18 124/66 (85) 96 05/25/17 08:32 36.8 88 18 109/63 (78) 96 05/25/17 08:00 Room Air 05/25/17 07:24 71 17 96 Room Air 05/25/17 04:29 36.9 101 18 102/65 (77) 96 Room Air 05/25/17 04:00 Room Air Physical Exam: General- No acute distress Head- atraumatic Eyes- PERRL, EOMI ENT- oropharynx clear Neck- supple, no JVD Lungs- No crackles, no rales Heart- irregular rhythm; no murmur Abdomen- normal bowel sounds, soft Extremities- no calf tenderness, right anterior thigh erythema cover with dressing Neuro- alert, oriented x 3; PERRL, EOMI; no facial palsy Skin- warm & dry Laboratory Results: Last 24 Hours Test 05/24/17 12:27 05/24/17 17:00 05/24/17 17:55 05/24/17 23:00 Bedside Lactic Acid Venous 0.82 mmol/L Creatine Kinase MB Ratio Creatine Kinase MB 1.6 ng/ml Troponin I < 0.015 ng/ml Test 05/24/17 23:13 05/25/17 06:37 Creatine Kinase MB 1.3 ng/ml Troponin I 0.016 ng/ml White Blood Count 8.78 K/uL Red Blood Count 4.42 M/uL Hemoglobin 13.3 g/dL Hematocrit 40.6 % Mean Corpuscular Volume 91.9 fL Mean Corpuscular Hemoglobin 30.1 pg Mean Corpuscular Hemoglobin Concent 32.8 g/dl Platelet Count 213 K/uL Mean Platelet Volume 8.8 fL Neutrophils (%) (Auto) 77.6 % Lymphocytes (%) (Auto) 9.0 % Monocytes (%) (Auto) 11.4 % Eosinophils (%) (Auto) 1.7 % Basophils (%) (Auto) 0.1 % Neutrophils # (Auto) 6.81 K/uL Lymphocytes # (Auto) 0.79 K/uL Monocytes # (Auto) 1.00 K/uL Eosinophils # (Auto) 0.15 K/uL Basophils # (Auto) 0.01 K/uL RDW Standard Deviation 44.3 fL RDW Coefficient of Variation 13.2 % Immature Granulocyte % (Auto) 0.2 % Immature Granulocyte # (Auto) 0.02 K/uL Sodium Level 141 mmol/L Potassium Level 3.7 mmol/L Chloride Level 109 mmol/L Carbon Dioxide Level 25 mmol/L Anion Gap 7.0 mmol/L Blood Urea Nitrogen 10 mg/dl Creatinine 0.74 mg/dl Est Creatinine Clear Calc Drug Dose 104.8 ml/min Estimated GFR () 108.3 Estimated GFR (Non- 93.5 BUN/Creatinine Ratio 14.1 Random Glucose 103 mg/dl Calcium Level 7.9 mg/dl Magnesium Level 2.3 mg/dl Date/Time Source Procedure Growth Status 05/24/17 12:20 Blood Blood Culture Pending Received 05/24/17 12:10 Blood Blood Culture Pending Received Assessment & Plan Right Leg Cellulitis H/O MRSA Continue IV vancomycin has been afebrile for about 12hrs blood cx pending WBC normal, lactate normal Afib with RVR Rate is btw 95 to 120 CHADVasc score:1, was starting on Aspirin will let cardiology decide for anticoagulant Lopressor PRN for rate control Will consider to start on cardizem drip if rate is uncontrolled Cardiology consulted ECHO showed The left ventricle is normal in size. * Left ventricular systolic function is normal. * Ejection Fraction = 55-60%. * The right ventricular systolic function is normal. * The left atrial size is normal. * Right atrial size is normal. * No significant valvular pathology. Right lung mass Incidental finding on CT scan Mediastinal adenopathy Former smoker Incidental Finding on CT Pulmonary on board recommended bronchoscopy done with EBUS once stable by cardiology Asthma: Denies any acute issues Mild expiratory wheezing on exam albuterol changed to levalbuterol inh stable H/O allergies: Follows with an Transport Aide as outpatient DVT Px: Heparin SQ Code Status: Full code Disposition: continue monitor in telemetry Consultants: cardiology pulmonary Current Inpatient Medications: Current Inpatient Medications Medications (Trade) Dose Ordered Sig/Dalia Route Start Time Stop Time Status Last Admin Dose Admin Ioversol (Optiray 320) 125 ml UD PRN IV 05/24/17 12:00 05/28/17 11:59 Heparin Sodium (Porcine) (Heparin Sq 5000 Unit/0.5ml) 5,000 unit Q8 SQ 05/24/17 22:00 06/23/17 21:59 05/25/17 06:02 5,000 UNIT Sodium Chloride 1,000 ml @ 75 mls/hr [id number] IV 05/24/17 14:42 06/23/17 14:41 05/25/17 06:00 75 MLS/HR Acetaminophen (Tylenol Tab) 650 mg Q4H PRN PO 05/24/17 14:45 06/23/17 14:44 05/25/17 03:44 650 MG Ondansetron HCl (Zofran Inj) 4 mg Q6H PRN IV 05/24/17 14:45 06/23/17 14:44 Vancomycin HCl (Consult) 1 ea UD PRN N/A 05/24/17 15:26 06/23/17 15:25 Metoprolol Tartrate (Lopressor Iv) 2.5 mg Q6 PRN IV 05/24/17 15:00 06/23/17 14:59 05/24/17 18:16 5 MG Aspirin (Ecotrin Tab) 81 mg QAM PO 05/25/17 09:00 06/24/17 08:59 05/25/17 09:33 81 MG Cetirizine HCl (zyrTEC TAB) 10 mg DAILY PO 05/25/17 09:00 06/24/17 08:59 05/25/17 08:33 10 MG Fluticasone Propionate (Flonase Nasal [place]) 2 sprays DAILY NA 05/25/17 09:00 06/24/17 08:59 05/25/17 08:33 2 SPRAYS Budesonide/ Formoterol Fumarate (Symbicort 160/ 4.5 Inh) 2 puffs BID INH 05/24/17 21:00 06/23/17 20:59 05/25/17 09:34 2 PUFFS Levalbuterol (Xopenex 0.63 Mg/ 3 Ml Neb) 0.63 mg Q6R INH 05/24/17 21:00 06/23/17 20:59 05/25/17 07:24 0.63 MG Diltiazem HCl 125 mg/Dextrose 125 ml @ 0 mls/hr Q0M PRN IV 05/24/17 20:30 06/23/17 20:29 05/25/17 11:16 10 MLS/HR Vancomycin HCl 1750 mg/Sodium Chloride 535 ml @ 200 mls/hr Q12H IV 05/25/17 11:00 06/03/17 11:59 05/25/17 10:54 200 MLS/HR Azithromycin (Zithromax Tab) 500 mg 1145 ONCE PO 05/25/17 11:45 05/25/17 11:46 Azithromycin (Zithromax Tab) 250 mg QAM PO 05/26/17 09:00 06/02/17 08:59
[2017-05-25] MEDS ORDERED: METOPROLOL TARTRATE 25 MG TAB PO STA (13:39)
--- NOTE | 2017-05-25 18:13 | Anesthesiology Progress Note ---
Anesthesia Progress Note Date of Service May 25, 2017. Progress Notes 72-year-old male with history significant for asthma well-controlled, atrial fibrillation with RVR on admission currently rate controlled on IV diltiazem and oral metoprolol scheduled for an endobronchial ultrasound for tissue diagnosis of a lung mass tomorrow. The patient is currently rate controlled and asymptomatic and able to obtain at least 4 METS exercise tolerance. Spoke with the patient about performing the E BUS during this admission versus as an outpatient after discharge. Due to the need for tissue diagnosis for further workup of lung mass, agreeable to proceed during this admission. Patient advised on the risks of anesthesia and all questions were answered prior to the close of my interview. Consent was obtained.
[2017-05-25] MEDS: HEPARIN 25,000 UNIT/500ML D5W 500 ML IV PRN (20:52)
[2017-05-25] MEDS ORDERED: METOPROLOL TARTRATE 25 MG TAB PO SCH (21:00)
[2017-05-25 21:06] LABS: BASO % 0.1 %; BASO ABS # 0.01 K/uL (0-0.2); EOS % 3.4 %; HEMATOCRIT 38.7 % (42-52); IG% 0.1 %; LYMPH % 13.8 %; LYMPH ABS # 0.92 K/uL (1.2-3.4); MEAN CORPUSCULAR HEMOGLOBIN 31.3 pg (25-34); MONO % 13.9 %; NEUT % 68.7 %; PLATELET COUNT 221 K/uL (130-400); RED BLOOD COUNT 4.16 M/uL (4.7-6.1); WHITE BLOOD COUNT 6.67 K/uL (4.8-10.8)
[2017-05-25 21:24] LABS: PARTIAL THROMBOPLASTIN RATIO 1.1; PROTHROMBIN TIME (PATIENT) 10.3 SECONDS (9.0-12.0)
[2017-05-25 22:03] LABS: COMPLETE YES; MEAN CORPUSCULAR HGB CONC 33.6 g/dl (32-36)
[2017-05-26] VITALS (11 sets, daily range): BP systolic 96–152; BP diastolic 60–87; PULSE 80–130; TEMP 36.5–37.2; O2SAT 93–96
[2017-05-26] MEDS: DILTIAZEM HCL INJ 125 MG in DEXTROSE 5% 100ML IV PRN ×3 (00:08→18:38)
[2017-05-26] MEDS: LEVALBUTEROL 0.63MG/3 ML NEB INH SCH ×4 (01:44→18:50)
[2017-05-26 03:41] LABS: PARTIAL THROMBOPLASTIN RATIO 1.7
[2017-05-26 03:47] LABS: BUN/CREATININE RATIO 14.1 (10-20); CALCIUM 8.2 mg/dl (8.5-10.1); CREATININE 0.62 mg/dl (0.60-1.40); POTASSIUM 3.8 mmol/L (3.5-5.1)
[2017-05-26] MEDS ORDERED: HEPARIN IV BOLUS 3,000 UNIT in SYRINGE 0 ML IV ONE ×2 (04:00→13:15)
[2017-05-26] MEDS ORDERED: NURSING VERBAL MED ORDER ONE ×2 (04:45)
--- NOTE | 2017-05-26 07:35 | Pulmonology Progress Note ---
Pulmonary Progress Note Date of Service May 26, 2017. Attending Dr. Quiros Subjective Patient noted a mild increasing SOB starting last night with some chest pressure but denies radiation to the neck or left arm Objective 72 male admitted with A-fib and found to have RLL lung mass with me VS: I/O's: +5L Pulse: 88-136 RR: 16-18 Sao2: 93-96 (RA) GEN: Ox3 RESP: bilateral crackles greatest at the basis Thoracic US: Blue protocol: B-lines up the rome-thorax bilaterally Medications: 1) Heparin gtt (currently on) 2) ASA 81mg 3) Vancomycin 4) Flonase 5) Symbicort 6) Xopenex Neb 7) Diltiazem gtt (current @ 15mg/hr) Assessment & Plan 72 male admitted with A-fib and found to have RLL lung mass with mediastinal lymphadenopathy on thoracic CT: 1) Lung Mass: At this time the EBUS/Flexible bronchoscopy which was to be perfromed today is cancealed. The patient is currently on a heparin gtt and via history, physical exam and thoracic US the patient appears to be in mild heart failure. I have placed a consult into Thoracic sugery as I will be out of town next week and the patient still requires evaluation of this mass. 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 I do suggest we place the patient on Lovenox SC at this time to decrease the over all volume of fluid the patient is receiving as he is 5L positive at this time. . Data Medications: Current Inpatient Medications Medications (Trade) Dose Ordered Sig/Dalia Route Start Time Stop Time Status Last Admin Dose Admin Ioversol (Optiray 320) 125 ml UD PRN IV 05/24/17 12:00 05/28/17 11:59 Sodium Chloride 1,000 ml @ 75 mls/hr [id number] IV 05/24/17 14:42 06/23/17 14:41 Future Hold 05/25/17 16:35 75 MLS/HR Acetaminophen (Tylenol Tab) 650 mg Q4H PRN PO 05/24/17 14:45 06/23/17 14:44 05/25/17 19:25 650 MG Ondansetron HCl (Zofran Inj) 4 mg Q6H PRN IV 05/24/17 14:45 06/23/17 14:44 Vancomycin HCl (Consult) 1 ea UD PRN N/A 05/24/17 15:26 06/23/17 15:25 Metoprolol Tartrate (Lopressor Iv) 2.5 mg Q6 PRN IV 05/24/17 15:00 06/23/17 14:59 05/24/17 18:16 5 MG Aspirin (Ecotrin Tab) 81 mg QAM PO 05/25/17 09:00 06/24/17 08:59 05/25/17 09:33 81 MG Cetirizine HCl (zyrTEC TAB) 10 mg DAILY PO 05/25/17 09:00 06/24/17 08:59 05/25/17 08:33 10 MG Fluticasone Propionate (Flonase Nasal [place]) 2 sprays DAILY NA 05/25/17 09:00 06/24/17 08:59 05/25/17 08:33 2 SPRAYS Budesonide/ Formoterol Fumarate (Symbicort 160/ 4.5 Inh) 2 puffs BID INH 05/24/17 21:00 06/23/17 20:59 05/25/17 20:51 2 PUFFS Levalbuterol (Xopenex 0.63 Mg/ 3 Ml Neb) 0.63 mg Q6R INH 05/24/17 21:00 06/23/17 20:59 05/26/17 07:08 0.63 MG Diltiazem HCl 125 mg/Dextrose 125 ml @ 0 mls/hr Q0M PRN IV 05/24/17 20:30 06/23/17 20:29 05/26/17 00:08 10 MLS/HR Vancomycin HCl 1750 mg/Sodium Chloride 535 ml @ 200 mls/hr Q12H IV 05/25/17 11:00 06/03/17 11:59 05/25/17 23:21 200 MLS/HR Azithromycin (Zithromax Tab) 250 mg QAM PO 05/26/17 09:00 06/02/17 08:59 Metoprolol Tartrate (Lopressor Tab) 12.5 mg BID PO 05/25/17 21:00 06/24/17 20:59 05/25/17 20:56 12.5 MG Heparin Sodium/ Dextrose 500 ml @ 32 mls/hr [id number] PRN IV 05/25/17 20:30 06/24/17 20:29 05/25/17 20:52 29 MLS/HR Vital Signs: Date Time Temp Pulse Resp B/P (MAP) Pulse Ox O2 Delivery O2 Flow Rate FiO2 05/26/17 07:08 114 16 93 Room Air 05/26/17 04:26 36.9 113 18 152/87 (108) 93 Room Air 05/26/17 04:00 Room Air 05/26/17 01:44 88 16 95 Room Air 05/26/17 00:06 36.6 94 18 96/77 (83) 95 Room Air 05/25/17 23:59 Room Air 05/25/17 20:00 Room Air 05/25/17 19:26 36.7 91 18 121/73 (89) 98 Room Air 05/25/17 19:00 78 16 96 Room Air 05/25/17 16:04 36.8 94 16 117/72 (87) 95 Room Air 05/25/17 16:00 Room Air 05/25/17 14:20 79 17 96 Room Air 05/25/17 12:00 Room Air 05/25/17 11:33 36.9 54 18 124/66 (85) 96 05/25/17 08:32 36.8 88 18 109/63 (78) 96 05/25/17 08:00 Room Air Laboratory Results: Last 24 Hours Test 05/25/17 20:44 05/26/17 03:19 05/26/17 06:49 White Blood Count 6.67 K/uL Red Blood Count 4.16 M/uL Hemoglobin 13.0 g/dL Hematocrit 38.7 % Mean Corpuscular Volume 93.0 fL Mean Corpuscular Hemoglobin 31.3 pg Mean Corpuscular Hemoglobin Concent 33.6 g/dl Platelet Count 221 K/uL Mean Platelet Volume 9.0 fL Neutrophils (%) (Auto) 68.7 % Lymphocytes (%) (Auto) 13.8 % Monocytes (%) (Auto) 13.9 % Eosinophils (%) (Auto) 3.4 % Basophils (%) (Auto) 0.1 % Neutrophils # (Auto) 4.57 K/uL Lymphocytes # (Auto) 0.92 K/uL Monocytes # (Auto) 0.93 K/uL Eosinophils # (Auto) 0.23 K/uL Basophils # (Auto) 0.01 K/uL RDW Standard Deviation 44.9 fL RDW Coefficient of Variation 13.2 % Immature Granulocyte % (Auto) 0.1 % Immature Granulocyte # (Auto) 0.01 K/uL Prothrombin Time 10.3 SECONDS Prothromb Time International Ratio 1.0 Activated Partial Thromboplast Time 28.2 SECONDS 45.0 SECONDS Partial Thromboplastin Ratio 1.1 1.7 Sodium Level 142 mmol/L Potassium Level 3.8 mmol/L Chloride Level 110 mmol/L Carbon Dioxide Level 26 mmol/L Anion Gap 6.0 mmol/L Blood Urea Nitrogen 9 mg/dl Creatinine 0.62 mg/dl Est Creatinine Clear Calc Drug Dose 125.1 ml/min Estimated GFR () 116.5 Estimated GFR (Non- 100.5 BUN/Creatinine Ratio 14.1 Random Glucose 123 mg/dl Calcium Level 8.2 mg/dl
[2017-05-26] MEDS: ASPIRIN 81 MG ECTAB PO SCH (09:18)
[2017-05-26] MEDS: CETIRIZINE HCL 10 MG TAB PO SCH (09:18)
[2017-05-26] MEDS: FLUTICASONE PROPIONATE NA SPR 16 GM BTL SCH (09:18)
[2017-05-26] MEDS: AZITHROMYCIN 250 MG TAB PO SCH (09:18)
[2017-05-26] MEDS: BUDESONIDE/FORMOTEROL FUMARATE 160/4.5 60 PUFFS/INHALER INH SCH ×2 (09:18→20:41)
[2017-05-26] MEDS: METOPROLOL TARTRATE 1 MG/ML VIAL IV PRN (09:27)
--- NOTE | 2017-05-26 09:44 | Cardiology Follow-Up ---
Subjective General Date of Service: May 26, 2017. Pt evaluation today including: conversation w/ patient, physical exam, chart review, lab review, review of studies, conversation w/ oracle drm consultant, review of inpatient medication list History of Present Illness The patient is a 72 year old male admitted with cellulitis of LE. Incidental finding of atrial fib with RVR and a lung mass. Pt was hemodynamically stable yesterday and I felt he could go to bronchoscopy for biopsy and definitive diagnosis of lung mass before fully A/C and potential cardioversion. Unfortunately, bronchoscopy postponed this AM due to high heart rates perhaps due to volume from IV meds including antibiotics. Pt. comfortable without SOB or NARANJO. No new complaints. Allergies Coded Allergies: Cat Dander (Verified Allergy, Intermediate, congestion, 12/06/15) Dog Dander (Verified Allergy, Intermediate, asthma, 12/06/15) Molds & Smuts (Verified Allergy, Intermediate, congestion, 12/06/15) POLLEN (Verified Allergy, Intermediate, congestion, 12/06/15) Social History Smoking Status: Former Smoker (Quit in 2012) Hx Tobacco Use In Past Year?: No Hx Alcohol Use - Type And Amou: Yes (occasional beer) Hx Substance Use - Type And Am: No Problem List Medical Problems: (1) Asthma exacerbation Status: Acute (2) Cellulitis of right thigh Status: Acute (3) Environmental allergies Status: Acute (4) History of MRSA infection Status: Acute (5) New onset atrial fibrillation Status: Acute (6) Pulmonary mass Status: Acute (7) Pulmonary nodule Status: Acute Physical Exam Vital Signs Last Vital Signs Documentation Date Time Temp Pulse Resp B/P (MAP) Pulse Ox O2 Delivery O2 Flow Rate FiO2 05/26/17 07:46 36.8 130 18 149/66 (93) 96 05/26/17 07:08 Room Air Physical Exam Head: normocephalic ENMT: normal ENT inspection Neck: supple, trachea midline, no masses (No JVD) Lungs: Respiratory effort: good air movement Auscultation: breath sounds normal, no wheezing, no rales/crackles, no rhonchi Cardiovascular: Heart Auscultation: normal S1, normal S2, no murmurs, irregular rate rhythm Abdomen: Inspection & Palpation: soft, non-distended, no masses Liver: no hepatomegaly Musculoskeletal: normal strength (5/5 throughout) Extremities: no edema (cellulitis improving) Neurologic: Gait & Station: normal gait Cranial Nerves: grossly intact Sensation: grossly intact Assessment and Plan Assessment and Plan Meds Administered (Past 24Hrs) Medications (Trade) Dose Ordered Sig/Dalia Route Start Time Stop Time Status Last Admin Dose Admin Vancomycin HCl 2400 mg/Sodium Chloride 548 ml @ 200 mls/hr ONE STAT IV 05/24/17 11:55 05/24/17 14:39 DC 05/24/17 12:30 200 MLS/HR Metoprolol Tartrate (Lopressor Iv) 5 mg STK-MED ONCE .ROUTE 05/24/17 12:21 05/24/17 12:22 DC 05/24/17 12:30 5 MG Metoprolol Tartrate (Lopressor Iv) 10 mg NOW STAT IV 05/24/17 13:51 05/24/17 13:52 DC 05/24/17 14:06 10 MG Diltiazem HCl (Cardizem Inj) 20 mg NOW STAT IV 05/24/17 14:20 05/24/17 14:21 DC 05/24/17 14:31 20 MG Heparin Sodium (Porcine) (Heparin Sq 5000 Unit/0.5ml) 5,000 unit Q8 SQ 05/24/17 22:00 05/25/17 19:32 DC 05/25/17 14:35 5,000 UNIT Sodium Chloride 1,000 ml @ 75 mls/hr [id number] IV 05/24/17 14:42 05/26/17 09:09 DC 05/25/17 16:35 75 MLS/HR Acetaminophen (Tylenol Tab) 650 mg Q4H PRN PO 05/24/17 14:45 06/23/17 14:44 05/25/17 19:25 650 MG Metoprolol Tartrate (Lopressor Iv) 2.5 mg Q6 PRN IV 05/24/17 15:00 06/23/17 14:59 05/24/17 18:16 5 MG Aspirin (Ecotrin Tab) 81 mg TODAY@1600 PO 05/24/17 16:00 05/24/17 23:59 DC 05/24/17 17:07 81 MG Aspirin (Ecotrin Tab) 81 mg QAM PO 05/25/17 09:00 06/24/17 08:59 05/25/17 09:33 81 MG Cetirizine HCl (zyrTEC TAB) 10 mg DAILY PO 05/25/17 09:00 06/24/17 08:59 05/25/17 08:33 10 MG Fluticasone Propionate (Flonase Nasal [place]) 2 sprays DAILY NA 05/25/17 09:00 06/24/17 08:59 05/25/17 08:33 2 SPRAYS Budesonide/ Formoterol Fumarate (Symbicort 160/ 4.5 Inh) 2 puffs BID INH 05/24/17 21:00 06/23/17 20:59 05/25/17 20:51 2 PUFFS Vancomycin HCl 1500 mg/Sodium Chloride 530 ml @ 200 mls/hr Q12H IV 05/25/17 00:00 05/25/17 10:28 DC 05/25/17 00:31 200 MLS/HR Levalbuterol (Xopenex 0.63 Mg/ 3 Ml Neb) 0.63 mg Q6R INH 05/24/17 21:00 06/23/17 20:59 05/26/17 07:08 0.63 MG Diltiazem HCl 125 mg/Dextrose 125 ml @ 0 mls/hr Q0M PRN IV 05/24/17 20:30 06/23/17 20:29 05/26/17 00:08 10 MLS/HR Vancomycin HCl 1750 mg/Sodium Chloride 535 ml @ 200 mls/hr Q12H IV 05/25/17 11:00 06/03/17 11:59 05/25/17 23:21 200 MLS/HR Azithromycin (Zithromax Tab) 500 mg 1145 ONCE PO 05/25/17 11:45 05/25/17 11:46 DC 05/25/17 12:40 500 MG Metoprolol Tartrate (Lopressor Tab) 12.5 mg NOW STAT PO 05/25/17 13:39 05/25/17 14:09 DC 05/25/17 14:30 12.5 MG Metoprolol Tartrate (Lopressor Tab) 12.5 mg BID PO 05/25/17 21:00 05/26/17 09:11 DC 05/25/17 20:56 12.5 MG Heparin Sodium/ Dextrose 500 ml @ 32 mls/hr [id number] PRN IV 05/25/17 20:30 06/24/17 20:29 05/25/17 20:52 29 MLS/HR Diphenhydramine HCl (Benadryl Cap) 25 mg ONE STAT PO 05/25/17 23:53 05/25/17 23:54 DC 05/26/17 00:05 25 MG Heparin Sodium (Porcine) 3000 unit/Syringe 3 ml @ 10 mls/min NOW ONCE IV 05/26/17 04:00 05/26/17 04:01 DC 05/26/17 04:31 10 MLS/MIN Impression: Atrial Fib with RVR Mild CHF due to IV Lung Mass Cellulitis LE Recommendations:Give Lasix this AM. Stop heparin and give DOAC-patient likely to have multiple procedures for lung mass in the future. Additional lopressor for rate control. May go to [facility] and early cardioversion- possibly Monday. Laboratory Results Last 24 Hours Test 05/25/17 20:44 05/26/17 03:19 05/26/17 08:45 White Blood Count 6.67 K/uL Red Blood Count 4.16 M/uL Hemoglobin 13.0 g/dL Hematocrit 38.7 % Mean Corpuscular Volume 93.0 fL Mean Corpuscular Hemoglobin 31.3 pg Mean Corpuscular Hemoglobin Concent 33.6 g/dl Platelet Count 221 K/uL Mean Platelet Volume 9.0 fL Neutrophils (%) (Auto) 68.7 % Lymphocytes (%) (Auto) 13.8 % Monocytes (%) (Auto) 13.9 % Eosinophils (%) (Auto) 3.4 % Basophils (%) (Auto) 0.1 % Neutrophils # (Auto) 4.57 K/uL Lymphocytes # (Auto) 0.92 K/uL Monocytes # (Auto) 0.93 K/uL Eosinophils # (Auto) 0.23 K/uL Basophils # (Auto) 0.01 K/uL RDW Standard Deviation 44.9 fL RDW Coefficient of Variation 13.2 % Immature Granulocyte % (Auto) 0.1 % Immature Granulocyte # (Auto) 0.01 K/uL Prothrombin Time 10.3 SECONDS Prothromb Time International Ratio 1.0 Activated Partial Thromboplast Time 28.2 SECONDS 45.0 SECONDS Partial Thromboplastin Ratio 1.1 1.7 Sodium Level 142 mmol/L Potassium Level 3.8 mmol/L Chloride Level 110 mmol/L Carbon Dioxide Level 26 mmol/L Anion Gap 6.0 mmol/L Blood Urea Nitrogen 9 mg/dl Creatinine 0.62 mg/dl Est Creatinine Clear Calc Drug Dose 125.1 ml/min Estimated GFR () 116.5 Estimated GFR (Non- 100.5 BUN/Creatinine Ratio 14.1 Random Glucose 123 mg/dl Calcium Level 8.2 mg/dl
[2017-05-26] MEDS ORDERED: VANCOMYCIN TROUGH ONE ×3 (10:30→22:30)
[2017-05-26] MEDS ORDERED: FUROSEMIDE INJ 20 MG in SYRINGE 0 ML IV ONE (10:30)
[2017-05-26] MEDS: METOPROLOL TARTRATE 25 MG TAB PO SCH ×2 (10:55→20:41)
[2017-05-26] MEDS: HEPARIN 25,000 UNIT/500ML D5W 500 ML IV PRN ×2 (11:01→13:25)
[2017-05-26] MEDS: VANCOMYCIN INJ 1,750 MG in SODIUM CHLORIDE 0.9% 500ML 500 ML IV SCH ×2 (11:06→23:21)
--- NOTE | 2017-05-26 11:51 | Medical Consult ---
Consultation Note Date of Service May 26, 2017. Consultation Note Thoracic Surgical consultation This is a 72-year-old male who is remarkably active. He quit smoking several years ago. Patient was cutting his grass on a riding tractor and suffered an abrasion to his right thigh which became infected. He had a superficial skin infection with methicillin-resistant staph aureus in the past was concerned about this. He has no other symptoms. He denies fevers or chills although he thinks he may have had a UTI couple weeks ago. When a pustule developed was anterior thigh he went to an urgent care and was sent to the emergency room as he was noted to be in atrial fibrillation. His rate was as high as 160. He was admitted. Chest x-ray and subsequent CT scan showed the patient has a mass involving his bronchus intermedius and right lower lobe and middle lobe. He also has a large subcarinal node. He was seen by Dr. Delroy Quiros and then by Dr. Neal Hines. Plans were made for an endobronchial ultrasound however this was canceled today as his heart rate was in the 120s to 130s and even though he was hemodynamically stable without symptoms anesthesia was concerned about putting him to sleep. I was asked to see him soon after this as Dr. Hines is going on vacation. The patient has no symptoms from this mass. He denies hemoptysis. He's had no productive cough or shortness of breath. He has gained weight. Interestingly enough, he has no symptoms whatsoever with his atrial fibrillation either. Echocardiogram shows normal LV function. I discussed this case with Dr. Pope. Past medical history: Asthma History of cigarette smoking quit 2012 Osteoarthritis MRSA infection of skin over right knee in the past Past surgical history: Right hip replacement Medications: Cetirizine Ibuprofen Questionable allergy shots Allergies: Multiple environmental but no medication allergies Family medical history: The patient's one daughter is healthy. He has no grandchildren. History of prostate cancer in his father. Social history: Patient lives with his . He is physically active. He quit smoking 4 years ago. He is retired. He is independent with activities daily living. Review of systems: Patient denies weight loss. He's had no night sweats. He's had no productive cough. He denies dyspnea on exertion. He's had no bone pain. He denies any GI or symptoms. He did have this pustule on his right anterior thigh which is essentially resurfaced now. He has no erythema. He denies any neurologic symptoms such as amaurosis fugax or transient ischemic attacks. He' s had no seizures. He denies any visual or auditory symptoms. He denies palpitations or chest pain despite the fact these can rapid atrial fibrillation. He's had no visual or auditory symptoms. Physical exam: This is a well-developed well-nourished male who appears younger than his stated age of 72. He is awake conversant and pleasant. His extraocular movements are intact. His pupils are equally round reactive. His sclerae are anicteric. He has no super clavicular cervical lymphadenopathy. He has no nasolabial flattening. His teeth are in excellent repair. He has no oral mucosal lesions. Tongue is midline. He has no carotid bruits. His lungs are clear. He has a regular irregular rhythm at about 100 bpm. He has no significant rub. His abdomen is soft and nontender. He has no evidence of hepatosplenomegaly or ascites. I detect no evidence of abdominal aortic aneurysm. He has no peripheral edema. He has no joint effusions. He has good peripheral pulses. Neurologically he is completely awake alert and oriented. Cranial nerves II through XII are intact. Studies: I reviewed his CT scan and this is almost certainly a non-small lung carcinoma involving the right lower lobe extending up to the bronchus intermedius. Also his subcarinal node (level VII) is enlarged. Assessment/plan: Right lower lobe mass extending up to bronchus intermedius with subcarinal adenopathy. 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 We are probably dealing with a squamous cell carcinoma. He will need pulmonary function studies, a PET scan, and tissue sampling. I explained that an endobronchial ultrasound is in order and I discussed this case with Dr. Pope. I will see him back in the office and set him up for a biopsy in the next week or so. He appears to be an excellent candidate for tri-modality therapy (chemotherapy, radiation, followed by surgery ) in the event his subcarinal node is positive for carcinoma. If the biopsies of the subcarinal node are negative, we will proceed directly with a thoracoscopic were robotic lobectomy in all likelihood.
[2017-05-26 12:51] LABS: PARTIAL THROMBOPLASTIN RATIO 1.7
[2017-05-26] MEDS ORDERED: COUGH DROP (SUGAR FREE) LOZ 24 LOZ/1 BOX ONE (13:50)
[2017-05-26] MEDS: ACETAMINOPHEN 325 MG TAB PO PRN ×2 (13:52→23:22)
[2017-05-26] MEDS ORDERED: WARFARIN SOD 5 MG TAB PO SCH (16:00)
--- NOTE | 2017-05-26 17:45 | Progress Note ---
Medicine Progress Note Date & Time of Visit: May 26, 2017 at 17:23. Subjective Pt was seen and examined Sitting in chair with no distress Pt was upset this morning because his bronchoscopy was cancelled this morning He is on Afib and his HR was not control and fluid overload, bronch had to postponed Pt wanted to transfer to [facility] in [place] because he was not happy with the care he is been getting here I called the admitted physician Dr. Blanton at [facility] and discussed the case with At this time they do not have any bed available at [facility] Dr. Blanton recommended to continue managing the pt in our facility ([facility]) Pt was made aware and agreed to stay to our facility He is been walking in the Hallway Denies any chest pain, palpitation, dizziness and SOB Objective Last 8 Hrs Date Time Temp Pulse Resp B/P (MAP) Pulse Ox O2 Delivery O2 Flow Rate FiO2 05/26/17 16:00 Room Air 05/26/17 14:24 100 16 95 Room Air 05/26/17 12:00 Room Air 05/26/17 11:47 36.5 80 16 138/68 (91) 96 05/26/17 09:27 140 121/81 Physical Exam: General- No acute distress Head- atraumatic Eyes- PERRL, EOMI ENT- oropharynx clear Neck- supple, no JVD Lungs- No crackles, no rales Heart- irregular rhythm; no murmur Abdomen- normal bowel sounds, soft Extremities- no calf tenderness, right anterior thigh erythema cover with dressing Neuro- alert, oriented x 3; PERRL, EOMI; no facial palsy Skin- warm & dry Laboratory Results: Last 24 Hours Test 05/25/17 20:44 05/26/17 03:19 05/26/17 08:45 05/26/17 10:10 White Blood Count 6.67 K/uL Red Blood Count 4.16 M/uL Hemoglobin 13.0 g/dL Hematocrit 38.7 % Mean Corpuscular Volume 93.0 fL Mean Corpuscular Hemoglobin 31.3 pg Mean Corpuscular Hemoglobin Concent 33.6 g/dl Platelet Count 221 K/uL Mean Platelet Volume 9.0 fL Neutrophils (%) (Auto) 68.7 % Lymphocytes (%) (Auto) 13.8 % Monocytes (%) (Auto) 13.9 % Eosinophils (%) (Auto) 3.4 % Basophils (%) (Auto) 0.1 % Neutrophils # (Auto) 4.57 K/uL Lymphocytes # (Auto) 0.92 K/uL Monocytes # (Auto) 0.93 K/uL Eosinophils # (Auto) 0.23 K/uL Basophils # (Auto) 0.01 K/uL RDW Standard Deviation 44.9 fL RDW Coefficient of Variation 13.2 % Immature Granulocyte % (Auto) 0.1 % Immature Granulocyte # (Auto) 0.01 K/uL Prothrombin Time 10.3 SECONDS Prothromb Time International Ratio 1.0 Activated Partial Thromboplast Time 28.2 SECONDS 45.0 SECONDS 42.9 SECONDS Partial Thromboplastin Ratio 1.1 1.7 1.7 Sodium Level 142 mmol/L Potassium Level 3.8 mmol/L Chloride Level 110 mmol/L Carbon Dioxide Level 26 mmol/L Anion Gap 6.0 mmol/L Blood Urea Nitrogen 9 mg/dl Creatinine 0.62 mg/dl Est Creatinine Clear Calc Drug Dose 125.1 ml/min Estimated GFR () 116.5 Estimated GFR (Non- 100.5 BUN/Creatinine Ratio 14.1 Random Glucose 123 mg/dl Calcium Level 8.2 mg/dl Troponin I < 0.015 ng/ml Pro-B-Type Natriuretic Peptide 1513 pg/ml Assessment & Plan Right Leg Cellulitis H/O MRSA Continue IV vancomycin has been afebrile for about 12hrs blood cx shown no growth Wound cx growth coag negative staph WBC normal, lactate normal Afib with RVR Rate is btw 95 to 120 CHADVasc score:1, was starting on Aspirin Was starting on heparin drip that changed to eliquis On lopressor 12.5mg Continue cardizem drip Cardiology consulted plan for CHARMAINE on Monday and possible cardiovert if he does not convert back to NSR Continue monitor in Telemetry ECHO showed The left ventricle is normal in size. * Left ventricular systolic function is normal. * Ejection Fraction = 55-60%. * The right ventricular systolic function is normal. * The left atrial size is normal. * Right atrial size is normal. * No significant valvular pathology. Right lung mass Incidental finding on CT scan Mediastinal adenopathy Former smoker Incidental Finding on CT Pulmonary on board recommended bronchoscopy done with EBUS once stable by cardiology Bronchoscopy postponed this morning Dr. Calvert believes the mass could be carcinoma Pt will undergo many pulmonary workup and procedure in the next few weeks. Asthma: Denies any acute issues Mild expiratory wheezing on exam albuterol changed to levalbuterol inh stable H/O allergies: Follows with an [employer] as outpatient DVT Px: On Eliquis Code Status: Full code Disposition: continue monitor in telemetry Consultants: cardiology pulmonary Thoracic surgeon Current Inpatient Medications: Current Inpatient Medications Medications (Trade) Dose Ordered Sig/Dalia Route Start Time Stop Time Status Last Admin Dose Admin Ioversol (Optiray 320) 125 ml UD PRN IV 05/24/17 12:00 05/28/17 11:59 Acetaminophen (Tylenol Tab) 650 mg Q4H PRN PO 05/24/17 14:45 06/23/17 14:44 05/26/17 13:52 650 MG Ondansetron HCl (Zofran Inj) 4 mg Q6H PRN IV 05/24/17 14:45 06/23/17 14:44 Vancomycin HCl (Consult) 1 ea UD PRN N/A 05/24/17 15:26 06/23/17 15:25 Metoprolol Tartrate (Lopressor Iv) 2.5 mg Q6 PRN IV 05/24/17 15:00 06/23/17 14:59 05/26/17 09:27 2.5 MG Aspirin (Ecotrin Tab) 81 mg QAM PO 05/25/17 09:00 06/24/17 08:59 05/26/17 09:18 81 MG Cetirizine HCl (zyrTEC TAB) 10 mg DAILY PO 05/25/17 09:00 06/24/17 08:59 05/26/17 09:18 10 MG Fluticasone Propionate (Flonase Nasal [place]) 2 sprays DAILY NA 05/25/17 09:00 06/24/17 08:59 05/26/17 09:18 2 SPRAYS Budesonide/ Formoterol Fumarate (Symbicort 160/ 4.5 Inh) 2 puffs BID INH 05/24/17 21:00 06/23/17 20:59 05/26/17 09:18 2 PUFFS Levalbuterol (Xopenex 0.63 Mg/ 3 Ml Neb) 0.63 mg Q6R INH 05/24/17 21:00 06/23/17 20:59 05/26/17 14:24 0.63 MG Diltiazem HCl 125 mg/Dextrose 125 ml @ 0 mls/hr Q0M PRN IV 05/24/17 20:30 06/23/17 20:29 05/26/17 11:00 15 MLS/HR Vancomycin HCl 1750 mg/Sodium Chloride 535 ml @ 200 mls/hr Q12H IV 05/25/17 11:00 06/03/17 11:59 05/26/17 11:06 200 MLS/HR Azithromycin (Zithromax Tab) 250 mg QAM PO 05/26/17 09:00 05/31/17 09:01 05/26/17 09:18 250 MG Heparin Sodium/ Dextrose 500 ml @ 35 mls/hr [id number] PRN IV 05/25/17 20:30 05/26/17 20:00 05/26/17 13:25 35 MLS/HR Metoprolol Tartrate (Lopressor Tab) 25 mg BID PO 05/26/17 09:00 06/24/17 08:59 05/26/17 10:55 25 MG Apixaban (Eliquis Tab) 5 mg BID PO 05/26/17 21:00 06/25/17 20:59 Miscellaneous (Stop Order) 1 ea TODAY@1999 ONCE N/A 05/26/17 20:00 05/26/17 20:01
[2017-05-26] MEDS: APIXABAN 2.5 MG TAB PO SCH (20:41)
[2017-05-27] VITALS (8 sets, daily range): BP systolic 104–129; BP diastolic 62–79; PULSE 58–102; TEMP 36.4–36.9; O2SAT 92–96
[2017-05-27] MEDS: LEVALBUTEROL 0.63MG/3 ML NEB INH SCH ×4 (02:16→19:45)
[2017-05-27] MEDS: DILTIAZEM HCL INJ 125 MG in DEXTROSE 5% 100ML IV PRN ×3 (03:21→20:44)
[2017-05-27 06:53] LABS: HEMATOCRIT 39.3 % (42-52); MEAN CELL VOLUME 91.8 fL (80-100); MEAN CORPUSCULAR HEMOGLOBIN 30.6 pg (25-34); MEAN CORPUSCULAR HGB CONC 33.3 g/dl (32-36); MEAN PLATELET VOLUME 8.8 fL (7.4-10.4); PLATELET COUNT 251 K/uL (130-400); RED BLOOD COUNT 4.28 M/uL (4.7-6.1); WHITE BLOOD COUNT 6.94 K/uL (4.8-10.8)
[2017-05-27 07:03] LABS: PROTHROMBIN TIME (PATIENT) 10.4 SECONDS (9.0-12.0)
[2017-05-27 07:26] LABS: BUN/CREATININE RATIO 12.2 (10-20); CALCIUM 8.5 mg/dl (8.5-10.1); CREATININE 0.68 mg/dl (0.60-1.40); POTASSIUM 3.6 mmol/L (3.5-5.1)
[2017-05-27] MEDS: FLUTICASONE PROPIONATE NA SPR 16 GM BTL SCH (08:04)
[2017-05-27] MEDS: BUDESONIDE/FORMOTEROL FUMARATE 160/4.5 60 PUFFS/INHALER INH SCH ×2 (08:04→20:35)
[2017-05-27] MEDS: ASPIRIN 81 MG ECTAB PO SCH (08:04)
[2017-05-27] MEDS: AZITHROMYCIN 250 MG TAB PO SCH (08:05)
[2017-05-27] MEDS: CETIRIZINE HCL 10 MG TAB PO SCH (08:05)
[2017-05-27] MEDS: APIXABAN 2.5 MG TAB PO SCH ×2 (08:05→20:36)
[2017-05-27] MEDS: METOPROLOL TARTRATE 25 MG TAB PO SCH ×4 (08:05→23:33)
--- NOTE | 2017-05-27 08:29 | Progress Note ---
Progress Note Date of Service May 27, 2017. Progress Note Patient's rate still not well controlled. He remains asymptomatic. His only complaint is he is unable to sleep in the telemetry unit because of the noise and lites. Dr. Pope has brought up the topic of a CHARMAINE and cardioversion which may well be the best step from my standpoint. If this is done on Monday then I will perform an endobronchial ultrasound with biopsy and staging of this cancer on Monday afternoon or Monday. I will coordinate this based on the cardioversion. I explained this to the patient. He understands. Simply holding the NOAC on the day of the procedure would be adequate.
--- NOTE | 2017-05-27 08:31 | Pharmacy Progress Note ---
Pharmacy Abx Dose Progress Nt Date of Service May 27, 2017. Pharmacy Dosing Scope The patient is currently receiving the following antimicrobial agents per Pharmacy consult: Vancomycin 1750 mg IV every 12 hours Objective Height (Feet): 5 Height (Inches): 8.00 Weight (Kilograms): 97.100 Vital Signs (Past 12Hrs) Vital Signs Past 12 Hours Date Time Temp Pulse Resp B/P (MAP) Pulse Ox O2 Delivery O2 Flow Rate FiO2 05/27/17 08:21 36.9 84 18 122/79 (93) 96 05/27/17 07:07 76 15 92 Room Air 05/27/17 04:25 Room Air 05/27/17 03:40 36.6 81 18 108/62 (77) 93 Room Air 05/27/17 00:03 Room Air 05/26/17 23:25 37.2 90 18 99/70 (80) 94 Room Air Lab Results (24Hrs) Laboratory Tests (24 Hours) Test 05/27/17 06:21 White Blood Count 6.94 K/uL (4.8-10.8) Micro Results Date/Time Source Procedure Growth Status 05/24/17 12:20 Blood Blood Culture - Preliminary NO GROWTH TO DATE. Resulted 05/24/17 12:10 Blood Blood Culture - Preliminary NO GROWTH TO DATE. Resulted 05/25/17 12:40 Drainage - Surface Thigh , Right Gram Stain - Final Resulted 05/25/17 12:40 Wound Culture - Preliminary Coag Neg Staphylococcus Resulted Risk Factors for Resistance * Current hospitalization > 5 days * History of infection with a multidrug-resistant organism: MRSA Assessment & Plan Assessment * 72 year old male receiving vancomycin IV for treatment of R thigh cellulitis w/ drainage * Patient does have reported h/o MRSA infxn, however site of this infxn was not mentioned in medical record * Currently BLCX's are negative to date and drainage cx is growing CoN staph * Today is Day # 4 of antimicrobial therapy for cellulitis * Patient is currently afebrile, no leukocytosis noted on labs, HR elevated at times however pt does have a fib * Renal fxn improved over the last 3 days based upon SCr/BUN Plan Vancomycin IV * Trough level of 10.3 mcg/mL is low-therapeutic. Level was drawn prior to the 4th maintenance dose of current regimen. Prior doses hung at appropriate times and level also drawn at appropriate time. * Change to 1600 mg (~16.5mg/kg) IV every 8 hours * Goal trough level for cellulitis : ~15 mcg/mL * Trough level ordered for: 05/28/17 with 4th dose of new regimen Pharmacy will continue to follow and will adjust dose/frequency as necessary. Thank you.
[2017-05-27] MEDS: VANCOMYCIN INJ 1,600 MG in SODIUM CHLORIDE 0.9% 500ML 500 ML IV SCH ×2 (09:46→17:42)
--- NOTE | 2017-05-27 11:23 | Cardiology Follow-Up ---
Subjective Subjective Date of Service: May 27, 2017. Pt evaluation today including: conversation w/ patient, physical exam, chart review, lab review, review of studies, review of inpatient medication list Additional Details: Pt seen and examined, ambulating in hallway. States that he fells great. Denies cp, sob, palpitations, lightheadedness or dizziness. Tele reviewed: afib in 100's-110's. Problem List Medical Problems: (1) Asthma exacerbation Status: Acute (2) Cellulitis of right thigh Status: Acute (3) Environmental allergies Status: Acute (4) History of MRSA infection Status: Acute (5) New onset atrial fibrillation Status: Acute (6) Pulmonary mass Status: Acute (7) Pulmonary nodule Status: Acute Review of Systems Respiratory: No see HPI, No cough, No sputum, No wheezing, No shortness of breath, No dyspnea on exertion, No dyspnea at rest, No hemoptysis, No problem reported Cardiac: No see HPI, No chest pain, No orthopnea, No PND, No edema, No claudication, No palpitations, No problem reported Objective Vital Signs Last Vital Signs Documentation Date Time Temp Pulse Resp B/P (MAP) Pulse Ox O2 Delivery O2 Flow Rate FiO2 05/27/17 08:21 36.9 84 18 122/79 (93) 96 05/27/17 08:00 Room Air Physical Exam: General Appearance: WD/WN, no apparent distress Eyes: bilateral eyes normal inspection, bilateral eyes PERRL, bilateral eyes EOMI ENT: normal ENT inspection, hearing grossly normal, pharynx normal Neck: supple, no adenopathy, thyroid normal, no JVD, no carotid bruits, trachea midline Respiratory/Chest: chest non-tender, lungs clear, normal breath sounds, no respiratory distress, no accessory muscle use Cardiovascular: + irregularly irregular Abdomen: normal bowel sounds, non tender, soft, no organomegaly Extremities: normal inspection, no pedal edema, no calf tenderness 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 new onset afib unclear duration asymptomatic rates remain elevated will increase metoprolol to 25mg q6hrs along with cardizem gtt heparin d/c'ed, haroldo started plan for CHARMAINE directed cardioversion on 05/29
[2017-05-27] MEDS: ACETAMINOPHEN 325 MG TAB PO PRN ×2 (11:37→22:16)
[2017-05-27] MEDS ORDERED: ZOLPIDEM TARTRATE 5 MG TAB PO PRN (12:45)
--- NOTE | 2017-05-27 14:36 | Progress Note ---
Medicine Progress Note Date & Time of Visit: May 27, 2017 at 14:30. Subjective Pt was seen and examined Sitting in chair comfortable with no distress Pt said that he did not sleep well because of the noise and too much in/out in his room Denies any chest pain, palpitation, dizziness and SOB Objective Last 8 Hrs Date Time Temp Pulse Resp B/P (MAP) Pulse Ox O2 Delivery O2 Flow Rate FiO2 05/27/17 14:23 86 15 95 Room Air 05/27/17 12:00 Room Air 05/27/17 11:38 36.8 93 16 129/72 (91) 95 05/27/17 08:21 36.9 84 18 122/79 (93) 96 05/27/17 08:00 Room Air 05/27/17 07:07 76 15 92 Room Air Physical Exam: General- No acute distress Head- atraumatic Eyes- PERRL, EOMI ENT- oropharynx clear Neck- supple, no JVD Lungs- No crackles, no rales Heart- irregular rhythm; no murmur Abdomen- normal bowel sounds, soft Extremities- no calf tenderness, right anterior thigh erythema cover with dressing Neuro- alert, oriented x 3; PERRL, EOMI; no facial palsy Skin- warm & dry Laboratory Results: Last 24 Hours Test 05/26/17 22:27 05/27/17 06:21 Vancomycin Level Trough 10.3 mcg/ml White Blood Count 6.94 K/uL Red Blood Count 4.28 M/uL Hemoglobin 13.1 g/dL Hematocrit 39.3 % Mean Corpuscular Volume 91.8 fL Mean Corpuscular Hemoglobin 30.6 pg Mean Corpuscular Hemoglobin Concent 33.3 g/dl RDW Standard Deviation 44.2 fL RDW Coefficient of Variation 13.2 % Platelet Count 251 K/uL Mean Platelet Volume 8.8 fL Prothrombin Time 10.4 SECONDS Prothromb Time International Ratio 1.0 Sodium Level 141 mmol/L Potassium Level 3.6 mmol/L Chloride Level 107 mmol/L Carbon Dioxide Level 28 mmol/L Anion Gap 6.0 mmol/L Blood Urea Nitrogen 8 mg/dl Creatinine 0.68 mg/dl Est Creatinine Clear Calc Drug Dose 114.2 ml/min Estimated GFR () 112.1 Estimated GFR (Non- 96.8 BUN/Creatinine Ratio 12.2 Random Glucose 94 mg/dl Calcium Level 8.5 mg/dl Assessment & Plan Right Leg Cellulitis H/O MRSA Continue IV vancomycin has been afebrile for about 12hrs blood cx shown no growth Wound cx growth coag negative staph WBC normal, lactate normal significantly improved Plan to change abx to po Afib with RVR Rate is btw 90 to 110 CHADVasc score:1, was starting on Aspirin Was starting on heparin drip that changed to eliquis On lopressor increase to 25mg Continue cardizem drip Cardiology consulted plan for CHARMAINE on Monday and possible cardiovert if he does not convert back to NSR Continue monitor in Telemetry ECHO showed The left ventricle is normal in size. * Left ventricular systolic function is normal. * Ejection Fraction = 55-60%. * The right ventricular systolic function is normal. * The left atrial size is normal. * Right atrial size is normal. * No significant valvular pathology. Right lung mass Incidental finding on CT scan Mediastinal adenopathy Former smoker Incidental Finding on CT Pulmonary on board recommended bronchoscopy done with EBUS once stable by cardiology Bronchoscopy postponed this morning Dr. Calvert believes the mass could be carcinoma Pt will undergo many pulmonary workup and procedure in the next few weeks. 05/[address] Calvert that plan to do bronch with biopsy once rate control Dr. Calvert might consider to get the bronch done on Monday afternoon or next Monday Asthma Denies any acute issues Mild expiratory wheezing on exam albuterol changed to levalbuterol inh stable H/O allergies: Follows with an Radiologist Physician as outpatient DVT Px: On Eliquis Code Status Full code Disposition: continue monitor in telemetry Consultants: cardiology pulmonary Thoracic surgeon Current Inpatient Medications: Current Inpatient Medications Medications (Trade) Dose Ordered Sig/Dalia Route Start Time Stop Time Status Last Admin Dose Admin Ioversol (Optiray 320) 125 ml UD PRN IV 05/24/17 12:00 05/28/17 11:59 Acetaminophen (Tylenol Tab) 650 mg Q4H PRN PO 05/24/17 14:45 06/23/17 14:44 05/27/17 11:37 650 MG Ondansetron HCl (Zofran Inj) 4 mg Q6H PRN IV 05/24/17 14:45 06/23/17 14:44 Vancomycin HCl (Consult) 1 ea UD PRN N/A 05/24/17 15:26 06/23/17 15:25 Metoprolol Tartrate (Lopressor Iv) 2.5 mg Q6 PRN IV 05/24/17 15:00 06/23/17 14:59 05/26/17 09:27 2.5 MG Aspirin (Ecotrin Tab) 81 mg QAM PO 05/25/17 09:00 06/24/17 08:59 05/27/17 08:04 81 MG Cetirizine HCl (zyrTEC TAB) 10 mg DAILY PO 05/25/17 09:00 06/24/17 08:59 05/27/17 08:05 10 MG Fluticasone Propionate (Flonase Nasal [place]) 2 sprays DAILY NA 05/25/17 09:00 06/24/17 08:59 05/27/17 08:04 2 SPRAYS Budesonide/ Formoterol Fumarate (Symbicort 160/ 4.5 Inh) 2 puffs BID INH 05/24/17 21:00 06/23/17 20:59 05/27/17 08:04 2 PUFFS Levalbuterol (Xopenex 0.63 Mg/ 3 Ml Neb) 0.63 mg Q6R INH 05/24/17 21:00 06/23/17 20:59 05/27/17 14:22 0.63 MG Diltiazem HCl 125 mg/Dextrose 125 ml @ 0 mls/hr Q0M PRN IV 05/24/17 20:30 06/23/17 20:29 05/27/17 11:35 15 MLS/HR Azithromycin (Zithromax Tab) 250 mg QAM PO 05/26/17 09:00 05/31/17 09:01 05/27/17 08:05 250 MG Apixaban (Eliquis Tab) 5 mg BID PO 05/26/17 21:00 06/25/17 20:59 05/27/17 08:05 5 MG Vancomycin HCl 1600 mg/Sodium Chloride 532 ml @ 200 mls/hr Q8H IV 05/27/17 10:00 05/29/17 11:59 05/27/17 09:46 200 MLS/HR Metoprolol Tartrate (Lopressor Tab) 25 mg Q6 PO 05/27/17 12:00 06/24/17 08:59 05/27/17 12:17 25 MG Zolpidem Tartrate (Ambien Tab) 5 mg HS PRN PO 05/27/17 12:45 06/26/17 12:44
[2017-05-28] VITALS (8 sets, daily range): BP systolic 111–145; BP diastolic 64–79; PULSE 67–97; TEMP 36.4–36.6; O2SAT 93–95
[2017-05-28] MEDS: LEVALBUTEROL 0.63MG/3 ML NEB INH SCH ×4 (01:45→19:00)
[2017-05-28] MEDS: VANCOMYCIN INJ 1,600 MG in SODIUM CHLORIDE 0.9% 500ML 500 ML IV SCH ×2 (02:13→11:14)
[2017-05-28] MEDS: ACETAMINOPHEN 325 MG TAB PO PRN ×2 (03:07→19:50)
[2017-05-28] MEDS: METOPROLOL TARTRATE 25 MG TAB PO SCH ×3 (06:14→17:16)
[2017-05-28 06:34] LABS: PROTHROMBIN TIME (PATIENT) 10.7 SECONDS (9.0-12.0)
[2017-05-28] MEDS: BUDESONIDE/FORMOTEROL FUMARATE 160/4.5 60 PUFFS/INHALER INH SCH ×2 (07:41→19:50)
[2017-05-28] MEDS: ASPIRIN 81 MG ECTAB PO SCH (07:42)
[2017-05-28] MEDS: CETIRIZINE HCL 10 MG TAB PO SCH (07:42)
[2017-05-28] MEDS: AZITHROMYCIN 250 MG TAB PO SCH (07:42)
[2017-05-28] MEDS: FLUTICASONE PROPIONATE NA SPR 16 GM BTL SCH (07:42)
[2017-05-28] MEDS ORDERED: VANCOMYCIN TROUGH SCH (09:30)
[2017-05-28] MEDS: APIXABAN 2.5 MG TAB PO SCH ×2 (10:17→19:50)
[2017-05-28] MEDS ORDERED: VANCOMYCIN INJ 1,500 MG in SODIUM CHLORIDE 0.9% 500ML 500 ML IV SCH (11:30)
--- NOTE | 2017-05-28 11:43 | Cardiology Follow-Up ---
Subjective Subjective Date of Service: May 28, 2017. Pt evaluation today including: conversation w/ patient, physical exam, chart review, lab review, review of studies, review of inpatient medication list Additional Details: Pt seen and examined, states that he's feeling well, anxious to have all procedures completed and go home. Denies cp, sob, palpitations, lightheadedness or dizziness. Tele reviewed: atrial fibrillation, rate controlled, without other arrhythmia. Problem List Medical Problems: (1) Asthma exacerbation Status: Acute (2) Cellulitis of right thigh Status: Acute (3) Environmental allergies Status: Acute (4) History of MRSA infection Status: Acute (5) New onset atrial fibrillation Status: Acute (6) Pulmonary mass Status: Acute (7) Pulmonary nodule Status: Acute Review of Systems Respiratory: No see HPI, No cough, No sputum, No wheezing, No shortness of breath, No dyspnea on exertion, No dyspnea at rest, No hemoptysis, No problem reported Cardiac: No see HPI, No chest pain, No orthopnea, No PND, No edema, No claudication, No palpitations, No problem reported Objective Vital Signs Last Vital Signs Documentation Date Time Temp Pulse Resp B/P (MAP) Pulse Ox O2 Delivery O2 Flow Rate FiO2 05/28/17 08:00 Room Air 05/28/17 07:29 36.5 77 18 111/78 (89) 95 Physical Exam: General Appearance: WD/WN, no apparent distress Eyes: bilateral eyes normal inspection, bilateral eyes PERRL, bilateral eyes EOMI ENT: normal ENT inspection, hearing grossly normal, pharynx normal Neck: supple, no adenopathy, thyroid normal, no JVD, no carotid bruits, trachea midline Respiratory/Chest: chest non-tender, lungs clear, normal breath sounds, no respiratory distress, no accessory muscle use Cardiovascular: + irregularly irregular Abdomen: normal bowel sounds, non tender, soft, no organomegaly Extremities: normal inspection, no pedal edema, no calf tenderness 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 new onset afib unclear duration asymptomatic rates improved with changing metoprolo to q6hrs on Eliquis anticoagulation, will cont for CHIQUIS/cardioversion will need to hold prior to biopsy plan for chiquis/cardioversion in AM lung biopsy on 05/30 npo after midnight cont to monitor on tele
--- NOTE | 2017-05-28 12:55 | Progress Note ---
Medicine Progress Note Date & Time of Visit: May 28, 2017 at 12:47. Subjective Pt was seen and examined Sitting in chair with no distress watching TV Denies any chest pain, palpitation, dizziness and SOB Pt is looking forward to have CHARMAINE done and cardioversion in am. Objective Last 8 Hrs Date Time Temp Pulse Resp B/P (MAP) Pulse Ox O2 Delivery O2 Flow Rate FiO2 05/28/17 12:01 36.5 89 18 119/79 (92) 94 05/28/17 08:00 Room Air 05/28/17 07:29 36.5 77 18 111/78 (89) 95 Room Air 05/28/17 06:59 67 14 93 Room Air Physical Exam: General- No acute distress Head- atraumatic Eyes- PERRL, EOMI ENT- oropharynx clear Neck- supple, no JVD Lungs- No crackles, no rales Heart- irregular rhythm; no murmur Abdomen- normal bowel sounds, soft Extremities- no calf tenderness, right anterior thigh erythema cover with dressing Neuro- alert, oriented x 3; PERRL, EOMI; no facial palsy Skin- warm & dry Laboratory Results: Last 24 Hours Test 05/28/17 05:58 05/28/17 09:16 Prothrombin Time 10.7 SECONDS Prothromb Time International Ratio 1.0 Vancomycin Level Trough 19.6 mcg/ml Assessment & Plan Right Leg Cellulitis H/O MRSA Continue IV vancomycin has been afebrile for about 12hrs blood cx shown no growth Wound cx growth coag negative staph WBC normal, lactate normal significantly improved Plan to change vanco to PO doxy and Augmentin Afib with RVR Rate is btw 80 to 90, better controlled CHADVasc score:1, was starting on Aspirin Was starting on heparin drip that changed to eliquis On lopressor increase to 25mg Continue cardizem drip Continue Eliquis NPO after midnight for CHARMAINE/ Cardioversion in am Cardiology consulted plan for CHARMAINE on Monday and possible cardiovert if he does not convert back to NSR Continue monitor in Telemetry ECHO showed The left ventricle is normal in size. * Left ventricular systolic function is normal. * Ejection Fraction = 55-60%. * The right ventricular systolic function is normal. * The left atrial size is normal. * Right atrial size is normal. * No significant valvular pathology. Right lung mass Incidental finding on CT scan Mediastinal adenopathy Former smoker Incidental Finding on CT Pulmonary on board recommended bronchoscopy done with EBUS once stable by cardiology Bronchoscopy postponed this morning Dr. Calvert believes the mass could be carcinoma Pt will undergo many pulmonary workup and procedure in the next few weeks. 05/[address] Calvert that plan to do bronch with biopsy once rate control Dr. 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 DVT Px: On Eliquis Code Status Full code Disposition: continue monitor in telemetry Consultants: cardiology pulmonary Thoracic surgeon Current Inpatient Medications: Current Inpatient Medications Medications (Trade) Dose Ordered Sig/Dalia Route Start Time Stop Time Status Last Admin Dose Admin Acetaminophen (Tylenol Tab) 650 mg Q4H PRN PO 05/24/17 14:45 06/23/17 14:44 05/28/17 03:07 650 MG Ondansetron HCl (Zofran Inj) 4 mg Q6H PRN IV 05/24/17 14:45 06/23/17 14:44 Vancomycin HCl (Consult) 1 ea UD PRN N/A 05/24/17 15:26 06/23/17 15:25 Metoprolol Tartrate (Lopressor Iv) 2.5 mg Q6 PRN IV 05/24/17 15:00 06/23/17 14:59 05/26/17 09:27 2.5 MG Aspirin (Ecotrin Tab) 81 mg QAM PO 05/25/17 09:00 06/24/17 08:59 05/28/17 07:42 81 MG Cetirizine HCl (zyrTEC TAB) 10 mg DAILY PO 05/25/17 09:00 06/24/17 08:59 05/28/17 07:42 10 MG Fluticasone Propionate (Flonase Nasal [place]) 2 sprays DAILY NA 05/25/17 09:00 06/24/17 08:59 05/28/17 07:42 2 SPRAYS Budesonide/ Formoterol Fumarate (Symbicort 160/ 4.5 Inh) 2 puffs BID INH 05/24/17 21:00 06/23/17 20:59 05/28/17 07:41 2 PUFFS Levalbuterol (Xopenex 0.63 Mg/ 3 Ml Neb) 0.63 mg Q6R INH 05/24/17 21:00 06/23/17 20:59 05/28/17 06:58 0.63 MG Diltiazem HCl 125 mg/Dextrose 125 ml @ 0 mls/hr Q0M PRN IV 05/24/17 20:30 06/23/17 20:29 05/27/17 20:44 15 MLS/HR Azithromycin (Zithromax Tab) 250 mg QAM PO 05/26/17 09:00 05/31/17 09:01 05/28/17 07:42 250 MG Apixaban (Eliquis Tab) 5 mg BID PO 05/26/17 21:00 06/25/17 20:59 05/28/17 10:17 5 MG Metoprolol Tartrate (Lopressor Tab) 25 mg Q6 PO 05/27/17 12:00 06/24/17 08:59 05/28/17 06:14 25 MG Zolpidem Tartrate (Ambien Tab) 5 mg HS PRN PO 05/27/17 12:45 06/26/17 12:44 Vancomycin HCl 1500 mg/Sodium Chloride 530 ml @ 200 mls/hr Q8H IV 05/28/17 20:00 06/03/17 19:59
--- NOTE | 2017-05-28 13:36 | Pharmacy Progress Note ---
Pharmacy Abx Dose Progress Nt Date of Service May 28, 2017. Pharmacy Dosing Scope The patient is currently receiving the following antimicrobial agents per Pharmacy consult: Vancomycin 1600 mg IV every 8 hours Objective Height (Feet): 5 Height (Inches): 8.00 Weight (Kilograms): 97.100 Vital Signs (Past 12Hrs) Vital Signs Past 12 Hours Date Time Temp Pulse Resp B/P (MAP) Pulse Ox O2 Delivery O2 Flow Rate FiO2 05/28/17 12:01 36.5 89 18 119/79 (92) 94 05/28/17 08:00 Room Air 05/28/17 07:29 36.5 77 18 111/78 (89) 95 Room Air 05/28/17 06:59 67 14 93 Room Air 05/28/17 04:25 36.6 70 18 122/68 (86) 95 Room Air 05/28/17 04:25 95 Room Air Micro Results Date/Time Source Procedure Growth Status 05/24/17 12:20 Blood Blood Culture - Preliminary NO GROWTH TO DATE. Resulted 05/24/17 12:10 Blood Blood Culture - Preliminary NO GROWTH TO DATE. Resulted 05/25/17 12:40 Drainage - Surface Thigh , Right Gram Stain - Final Complete 05/25/17 12:40 Wound Culture - Final Coag Neg Staphylococcus Complete Risk Factors for Resistance * Current hospitalization > 5 days * History of infection with a multidrug-resistant organism: MRSA Assessment & Plan Assessment * 72 year old male receiving vancomycin IV for treatment of R thigh cellulitis in a patient w/ a h/o R hip replacement * Today is day # 5 of antimicrobial therapy * The patient is currently afebrile and WBC was WNL on last CBC (yesterday); VS are also stable * CoN Staph growing in surface drainage cx; BLCX's are negative * Renal fxn stable/unchanged Plan Vancomycin IV * Trough level of 19.6 mcg/mL is therapeutic however at upper end of goal range. Level drawn at appropriate time. Prior doses also hung at appropriate times. * Change to 1500 mg IV every 8 hours * Goal trough level for cellulitis : 10 to 20 mcg/mL * Trough level ordered for: 05/30/17 Pharmacy will continue to follow and will adjust dose/frequency as necessary. Thank you.
--- NOTE | 2017-05-28 15:06 | Pulmonology Progress Note ---
Pulmonary Progress Note Date of Service May 28, 2017. Attending Dr. Hines Subjective Patient is doing well today able ambulate with no signs of respiratory insufficiency Objective VS: I/O's: +10L Pulse: 67-89 RR: 14-18 Sao2: 93-95 (RA) GEN: Ox3 RESP: Minimal crackles at the bases bilaterally otherwise clear to auscultation CARDS: Irregularly irregular Assessment & Plan 72 male admitted with A-fib and found to have RLL lung mass with mediastinal lymphadenopathy on thoracic CT: 1) Lung Mass: This will be out next week on vacation workup of the right lower lobe mass in the mediastinal lymphadenopathy will be performed by Dr. Potts with [facility] of the thoracic surgery Department. 2) Sign Off: At this time pulmonary will sign off. Please contact us if new issues pankaj . Data Medications: Current Inpatient Medications Medications (Trade) Dose Ordered Sig/Dalia Route Start Time Stop Time Status Last Admin Dose Admin Acetaminophen (Tylenol Tab) 650 mg Q4H PRN PO 05/24/17 14:45 06/23/17 14:44 05/28/17 03:07 650 MG Ondansetron HCl (Zofran Inj) 4 mg Q6H PRN IV 05/24/17 14:45 06/23/17 14:44 Vancomycin HCl (Consult) 1 ea UD PRN N/A 05/24/17 15:26 06/23/17 15:25 Metoprolol Tartrate (Lopressor Iv) 2.5 mg Q6 PRN IV 05/24/17 15:00 06/23/17 14:59 05/26/17 09:27 2.5 MG Aspirin (Ecotrin Tab) 81 mg QAM PO 05/25/17 09:00 06/24/17 08:59 05/28/17 07:42 81 MG Cetirizine HCl (zyrTEC TAB) 10 mg DAILY PO 05/25/17 09:00 06/24/17 08:59 05/28/17 07:42 10 MG Fluticasone Propionate (Flonase Nasal [place]) 2 sprays DAILY NA 05/25/17 09:00 06/24/17 08:59 05/28/17 07:42 2 SPRAYS Budesonide/ Formoterol Fumarate (Symbicort 160/ 4.5 Inh) 2 puffs BID INH 05/24/17 21:00 06/23/17 20:59 05/28/17 07:41 2 PUFFS Levalbuterol (Xopenex 0.63 Mg/ 3 Ml Neb) 0.63 mg Q6R INH 05/24/17 21:00 06/23/17 20:59 05/28/17 14:05 0.63 MG Diltiazem HCl 125 mg/Dextrose 125 ml @ 0 mls/hr Q0M PRN IV 05/24/17 20:30 06/23/17 20:29 05/27/17 20:44 15 MLS/HR Azithromycin (Zithromax Tab) 250 mg QAM PO 05/26/17 09:00 05/31/17 09:01 05/28/17 07:42 250 MG Apixaban (Eliquis Tab) 5 mg BID PO 05/26/17 21:00 06/25/17 20:59 05/28/17 10:17 5 MG Metoprolol Tartrate (Lopressor Tab) 25 mg Q6 PO 05/27/17 12:00 06/24/17 08:59 05/28/17 06:14 25 MG Zolpidem Tartrate (Ambien Tab) 5 mg HS PRN PO 05/27/17 12:45 06/26/17 12:44 Vancomycin HCl 1500 mg/Sodium Chloride 530 ml @ 200 mls/hr Q8H IV 05/28/17 20:00 06/03/17 19:59 I & O: 24-Hour Column 05/29/17 08:00 Intake Total 828 ml Output Total 300 ml Balance 528 ml Vital Signs: Date Time Temp Pulse Resp B/P (MAP) Pulse Ox O2 Delivery O2 Flow Rate FiO2 05/28/17 14:05 76 16 93 Room Air 05/28/17 12:01 36.5 89 18 119/79 (92) 94 05/28/17 08:00 Room Air 05/28/17 07:29 36.5 77 18 111/78 (89) 95 Room Air 05/28/17 06:59 67 14 93 Room Air 05/28/17 04:25 36.6 70 18 122/68 (86) 95 Room Air 05/28/17 04:25 95 Room Air 05/28/17 00:00 36.4 79 18 126/64 (84) 95 Room Air 05/28/17 00:00 95 Room Air 05/27/17 20:15 36.4 73 18 119/70 (86) 94 Room Air 05/27/17 20:15 94 Room Air 05/27/17 19:50 102 18 95 Room Air 05/27/17 16:00 36.7 58 18 104/71 (82) 94 05/27/17 16:00 Room Air Laboratory Results: Last 24 Hours Test 05/28/17 05:58 05/28/17 09:16 Prothrombin Time 10.7 SECONDS Prothromb Time International Ratio 1.0 Vancomycin Level Trough 19.6 mcg/ml
[2017-05-28] MEDS: VANCOMYCIN INJ 1,500 MG in SODIUM CHLORIDE 0.9% 500ML 500 ML IV SCH (19:54)
[2017-05-29] VITALS (9 sets, daily range): BP systolic 100–130; BP diastolic 64–80; PULSE 68–114; TEMP 36.3–37.6; O2SAT 93–95
[2017-05-29] MEDS: METOPROLOL TARTRATE 25 MG TAB PO SCH ×3 (00:23→12:00)
[2017-05-29] MEDS: LEVALBUTEROL 0.63MG/3 ML NEB INH SCH ×4 (02:13→19:21)
[2017-05-29] MEDS: VANCOMYCIN INJ 1,500 MG in SODIUM CHLORIDE 0.9% 500ML 500 ML IV SCH ×2 (04:15→20:00)
[2017-05-29 06:55] LABS: CREATININE 0.75 mg/dl (0.60-1.40)
[2017-05-29 07:06] LABS: PROTHROMBIN TIME (PATIENT) 10.7 SECONDS (9.0-12.0)
[2017-05-29] MEDS: BUDESONIDE/FORMOTEROL FUMARATE 160/4.5 60 PUFFS/INHALER INH SCH ×2 (08:36→20:35)
[2017-05-29] MEDS: FLUTICASONE PROPIONATE NA SPR 16 GM BTL SCH (08:36)
[2017-05-29] MEDS: APIXABAN 2.5 MG TAB PO SCH ×2 (08:37→20:42)
[2017-05-29] MEDS: CETIRIZINE HCL 10 MG TAB PO SCH (08:37)
[2017-05-29] MEDS: ASPIRIN 81 MG ECTAB PO SCH (08:37)
[2017-05-29] MEDS: AZITHROMYCIN 250 MG TAB PO SCH (08:38)
--- NOTE | 2017-05-29 09:02 | Progress Note ---
Progress Note Date of Service May 29, 2017. Progress Note Mr. Zuleta was seen today prior to his CHARMAINE and tentative cardioversion. At this point, he is eager to be discharged. I will discuss this with cardiology however the lung biopsy to be done as an outpatient. If the plan on cardiology' s part is to keep him overnight for monitoring, I can do the EBUS tomorrow and then discharge him or I can simply bring him back later in the week. He is eager to go home and I may allow him to be discharged and simply bring him back which is his preference. Clinically he is stable.
--- NOTE | 2017-05-29 11:26 | Progress Note ---
Progress Note Date of Service May 29, 2017. Progress Note Discussed with Dr. Flores from cardiology. He is extremely concerned about not stopping anticoagulation for 1 month after performing cardioversion, with good reason. At this point I'm going to go ahead and take him to the operating room and perform an endobronchial ultrasound to stage this cancer. He will not be required to miss any anticoagulation for the next month while we work him up the pulmonary function studies and a PET scan. As he is nothing by mouth I have discussed this with the operating room we will go ahead and do this today.
[2017-05-29] MEDS ORDERED: PROPOFOL IV EMULSION 10 MG/ML 20 ML VIAL IV ONE ×2 (11:46→12:57)
[2017-05-29] MEDS ORDERED: LIDOCAINE HCL 2% 2 ML VIAL (20MG/ML) ONE (11:46)
[2017-05-29] MEDS ORDERED: ONDANSETRON INJ 2 MG/ML 2 ML VIAL ONE (11:46)
[2017-05-29] MEDS ORDERED: FENTANYL CITRATE INJ 50 MCG/1 ML 2 ML VIAL ONE (11:46)
--- NOTE | 2017-05-29 12:07 | Cardiology Follow-Up ---
Subjective General Date of Service: May 29, 2017. Chief Complaint: follwo up AF Pt evaluation today including: conversation w/ patient, physical exam History of Present Illness The patient is a 72 year old male seen in follow up. Patient states he's feeling well today. He denies any subjective palpitations. He denies any cough. He denies shortness of breath. The wound on his thigh which prompted his initial medical evaluation is improving well on vancomycin and azithromycin. Allergies Coded Allergies: Cat Dander (Verified Allergy, Intermediate, congestion, 12/06/15) Dog Dander (Verified Allergy, Intermediate, asthma, 12/06/15) Molds & Smuts (Verified Allergy, Intermediate, congestion, 12/06/15) POLLEN (Verified Allergy, Intermediate, congestion, 12/06/15) Social History Smoking Status: Former Smoker (Quit in 2012) Hx Tobacco Use In Past Year?: No Hx Alcohol Use - Type And Amou: Yes (occasional beer) Hx Substance Use - Type And Am: No Problem List Medical Problems: (1) Asthma exacerbation Status: Acute (2) Cellulitis of right thigh Status: Acute (3) Environmental allergies Status: Acute (4) History of MRSA infection Status: Acute (5) New onset atrial fibrillation Status: Acute (6) Pulmonary mass Status: Acute (7) Pulmonary nodule Status: Acute Physical Exam Vital Signs Last Vital Signs Documentation Date Time Temp Pulse Resp B/P (MAP) Pulse Ox O2 Delivery O2 Flow Rate FiO2 05/29/17 11:40 36.6 82 18 130/76 (94) 94 05/29/17 08:55 Room Air Physical Exam Head: normocephalic ENMT: normal ENT inspection Neck: supple, trachea midline, no masses (No JVD) Lungs: Respiratory effort: good air movement Auscultation: breath sounds normal, no wheezing, no rales/crackles, no rhonchi Cardiovascular: Heart Auscultation: normal S1, normal S2, no murmurs, irregular rate rhythm Abdomen: Inspection & Palpation: soft, non-distended, no masses Liver: no hepatomegaly Musculoskeletal: normal strength (5/5 throughout) Extremities: no edema (cellulitis improving) Neurologic: Gait & Station: normal gait Cranial Nerves: grossly intact Sensation: grossly intact Assessment and Plan Assessment and Plan Impression: 72-year-old male who initially presented to an urgent care center on 05/24/17 for concerns of a wound to his right upper thigh. He had a past MRSA infection and this made him concerned when he saw drainage from his eye wound which took place from a puncture from a stick while he was doing yard work. He had initially been assessed at an urgent care center and when his vital signs were taken history found to have a rapid and irregular heart rate of 160+ beats per minute. He was referred to the emergency department and EKG performed on arrival confirm the diagnosis of atrial fibrillation with rapid ventricular response. CT of the chest performed initially to rule out pulmonary embolism noted findings of a 3 cm lung mass. Mass biopsy by endobronchial ultrasound was canceled earlier this hospital stay due to atrial fibrillation with rapid ventricular rate. The patient has been asymptomatic from a heart rate/cardiac standpoint with no symptoms of angina, palpitations, or heart failure, and his heart rates are now better controlled although he is still on high-dose diltiazem infusion at 12.5 mg per hour. His metoprolol tartrate 25 mg every 6 hours, and I anticipate that he has finally had enough doses of metoprolol that this has reached more of a steady state and his body and therefore at the rate is controlled at rest at 70 bpm. Discussion/recommendations: Earlier this hospital stay and had been discussed that since his atrial fibrillation was of unknown chronicity that transesophageal echocardiogram would be necessary before any cardioversion. When his heart rates remain elevated, there is discussion about proceeding with transesophageal echocardiogram cardioversion to help stabilize his heart rate prior to repeat attempt at lung biopsy. I discussed the case with Dr. Calvert of thoracic surgery however, as per treatment guidelines, typically anticoagulation should not be discontinued or held in for a brief interval of time for 1 month post cardioversion due to high risk of embolic stroke in the first days after cardioversion and therefore if we proceeded with cardioversion we would have to delay his lung biopsy for 4 weeks. After having this discussion, it was determined that it would be prudent to proceed with another attempt at lung biopsy today with his heart rates well controlled with medications and then we can turn our attention back to the AF. Patient is agreeable. Will reassess patient post biopsy and determine if rate control and anticoagulation with future CV (if deemed necessary) after 3-4 weeks of anticoagulation would be prudent or CHARMAINE CV this admission after biopsy results are back will be best. It is noted that once cardioversion takes place , would not want to hold his anticoagulation within next 30 days, so biopsy results may be necessary to guide if we need additional invasive procedure to the lung mass. Master Flores, DO Laboratory Results Last 24 Hours Test 05/29/17 06:11 Prothrombin Time 10.7 SECONDS Prothromb Time International Ratio 1.0 Creatinine 0.75 mg/dl Est Creatinine Clear Calc Drug Dose 103.5 ml/min Estimated GFR () 107.7 Estimated GFR (Non- 92.9
[2017-05-29] MEDS ORDERED: CEFAZOLIN SOD 1 GM VIAL ONE (12:40)
[2017-05-29] MEDS ORDERED: LARYING-O-JET KIT (LTA) ONE ×2 (12:40)
[2017-05-29] MEDS ORDERED: PHENYLEPHRINE HCL INJ 10 MG/ML VIAL ONE ×2 (12:41→12:57)
[2017-05-29] MEDS ORDERED: ONDANSETRON INJ 2 MG/ML 2 ML VIAL IV PRN (12:45)
[2017-05-29] MEDS ORDERED: FENTANYL CITRATE INJ 50 MCG/1 ML 2 ML VIAL IV PRN (12:45)
[2017-05-29] MEDS ORDERED: EpHEDrine SULFATE INJ 50 MG/ML AMP IV PRN (12:45)
[2017-05-29] MEDS ORDERED: ATROPINE SULFATE 0.1 MG/ML 5ML SYR IV PRN (12:45)
--- NOTE | 2017-05-29 14:26 | Anesthesiology Progress Note ---
Anesthesia Post Op Note Date & Time May 29, 2017 at 14:26 Vital Signs Pain Intensity: 0 Vital Signs Past 12 Hours Date Time Temp Pulse Resp B/P (MAP) Pulse Ox O2 Delivery O2 Flow Rate FiO2 05/29/17 14:20 92 16 117/71 96 Oxymask 10 05/29/17 14:10 90 16 117/78 97 Oxymask 10 05/29/17 14:00 90 16 114/65 96 Oxymask 10 05/29/17 13:51 36.2 87 16 128/74 91 Oxymask 10 05/29/17 12:00 Room Air 05/29/17 11:40 36.6 82 18 130/76 (94) 94 05/29/17 08:55 68 20 94 Room Air 05/29/17 08:00 Room Air 05/29/17 07:41 36.3 82 18 125/72 (89) 95 Room Air 05/29/17 04:15 Room Air 05/29/17 04:15 36.9 78 16 114/74 (87) 95 Room Air Notes Mental Status: alert / awake / arousable, participated in evaluation Pt Amnestic to Procedure: Yes Nausea / Vomiting: adequately controlled Pain: adequately controlled Airway Patency, RR, SpO2: stable & adequate BP & HR: stable & adequate Hydration State: stable & adequate Anesthetic Complications: no major complications apparent
--- NOTE | 2017-05-29 14:28 | DIAGNOSTIC IMAGING REPORT ---
CHEST ONE VIEW PORTABLE CLINICAL HISTORY: Post bronchoscopy. COMPARISON STUDY: Chest CT May 24, 2017. FINDINGS: There is no pneumothorax. Asymmetric right hilar enlargement due to the right lower lobe mass shown on exam of May 24, 2017 is again noted. Cardiac size is normal. Mild left basilar opacity favors atelectasis. There is mild interstitial thickening. IMPRESSION: 1. No pneumothorax. 2. Redemonstration of the right lower lobe mass with asymmetric right hilar enlargement. Electronically signed by: Clifford Nunes M.D. 05/29/2017 2:27 PM Dictated Date/Time: 05/29/2017 2:11 PM
--- NOTE | 2017-05-29 15:02 | Cardiology Progress Note ---
Cardiology Progress Note Date of Service May 29, 2017. Cardiology Progress Note Pt has returned to room 211 from the OR s/p EBUS with biopsy. Telemetry reveals continued AF at 88 -101 bpm. BP is stable. Remains on diltiazem infusion at 12.5 mg /hour. Plan: Wean diltiazem gtt from 12.5 mg/hr to 7.5 mg /hour. Change metoprolol tartrate from 25 mg PO 6 hours to 50 mg BID. Start short acting oral diltiazem , 30 mg TID, first dose now. Will reassess heart rates as we come down on metoprolol. Master Flores, DO
[2017-05-29] MEDS ORDERED: DILTIAZEM HCL 30 MG TAB PO ONE (15:30)
--- NOTE | 2017-05-29 16:07 | [facility] Operative Report ---
Operative Report Date of Service May 29, 2017. 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 Gen. anesthesia was induced. A laryngeal mask airway was placed however, he did not get a good seal. We then converted him over to endotracheal intubation with a 8.5 endotracheal tube. Endobronchial ultrasound scope was then placed. I did see an endobronchial lesion in the right lower lobe bronchus. Attention was first turned towards the left. A cell no other endobronchial lesions down into the tertiary airways. Under ultrasound guidance I biopsied the left level X lymph nodes as well as the left level IV lymph nodes. Level X nodes were small and I did not get good biopsy specimens over we get good biopsy specimens from the left level IV lymph nodes and these appear to be negative. I then biopsied the level VII area under ultrasound guidance per 10 separate biopsies 5 on the left and 5 on the right. I was happy that we had good biopsy specimens with no evidence of malignancy. I then biopsied the right level IV nodes as well as the right level II. Again we had good lymph node specimens but did not see evidence of malignancy. I finally biopsied the mass itself under ultrasound guidance and this indeed is non-small cell lung cancer. As we had a diagnosis I did not feel that we needed to biopsy this endobronchial abnormality. I suctioned out some blood from both airways but it was really quite a dry procedure with very little in the way of any bleeding. He tolerated quite well and was extubated in the room. He was stable and was transferred to the postanesthesia care unit. I attest to the content of the Intraoperative Record and any orders documented therein. Any exceptions are noted below.
--- NOTE | 2017-05-29 16:50 | Cardiology Progress Note ---
Cardiology Progress Note Date of Service May 29, 2017. Cardiology Progress Note Patient reassessed post EBUS/ biopsy. Findings compatible with non small cell lung CA, lymph note negative. Surgical resection planned as outpt, but will need a PET scan and PFTs prior. Will plan to try to wean cardizem and rate control with oral metoprolol and ditiazem overnight, but I anticipate that if rates remain elevated off of IV diltiazem will need CHARMAINE CV tomorrow, then 4 weeks of uninterrupted anticoagulation prior to stopping anticoagulation for lung surgery. Cardioversion would be performed to allow adequate HR control for lung surgery. If we can rate control the AF effectively without the IV diltiazem , rate control would be another option, and we would revisit the idea of CV if necessary after lung surgery. Will make NPO after MN and plan on CHARMAINE CV tomorrow, 05/30. I discussed plan with Dr Calvert by telephone, and he is OK with resuming Eliquis. Master Flores, DO
--- NOTE | 2017-05-29 18:16 | Progress Note ---
Medicine Progress Note Date & Time of Visit: May 29, 2017 at 18:03. Subjective Pt was seen and examined sitting in bed with no distress he is very eager to go home Denies any chest pain, palpitation, dizziness and SOB Objective Last 8 Hrs Date Time Temp Pulse Resp B/P (MAP) Pulse Ox O2 Delivery O2 Flow Rate FiO2 05/29/17 16:00 Room Air 05/29/17 15:37 36.4 92 20 119/72 (88) 93 Oxymask 10.0 05/29/17 14:30 36.2 97 16 118/78 98 Oxymask 10 05/29/17 14:20 92 16 117/71 96 Oxymask 10 05/29/17 14:10 90 16 117/78 97 Oxymask 10 05/29/17 14:00 90 16 114/65 96 Oxymask 10 05/29/17 13:51 36.2 87 16 128/74 91 Oxymask 10 05/29/17 12:00 Room Air 05/29/17 11:40 36.6 82 18 130/76 (94) 94 Physical Exam: General- No acute distress Head- atraumatic Eyes- PERRL, EOMI ENT- oropharynx clear Neck- supple, no JVD Lungs- No crackles, no rales Heart- irregular rhythm; no murmur Abdomen- normal bowel sounds, soft Extremities- no calf tenderness, right anterior thigh erythema cover with dressing Neuro- alert, oriented x 3; PERRL, EOMI; no facial palsy Skin- warm & dry Laboratory Results: Last 24 Hours Test 05/29/17 06:11 Prothrombin Time 10.7 SECONDS Prothromb Time International Ratio 1.0 Creatinine 0.75 mg/dl Est Creatinine Clear Calc Drug Dose 103.5 ml/min Estimated GFR () 107.7 Estimated GFR (Non- 92.9 Assessment & Plan Right Leg Cellulitis H/O MRSA Continue IV vancomycin has been afebrile for about 12hrs blood cx shown no growth Wound cx growth coag negative staph WBC normal, lactate normal significantly improved Abx changed from vanco to PO doxy and Augmentin Afib with RVR Rate is btw 90 to 100 CHADVasc score:1, was starting on Aspirin Was starting on heparin drip that changed to eliquis On lopressor increase to 25mg Continue cardizem drip Continue Eliquis NPO after midnight for CHARMAINE/ Cardioversion in am Cardiology consulted plan for CHARMAINE on Monday and possible cardiovert if he does not convert back to NSR Continue monitor in Telemetry 05/[address] Flores No recommendation to stop the eliquis after the CHARMAINE and cardiovert to perform lung biopsy Will plan for CHARMAINE and Cardioversion tomorrow NPO after midnight Cardiology Plan to wean him off the cardizem drip ECHO showed The left ventricle is normal in size. * Left ventricular systolic function is normal. * Ejection Fraction = 55-60%. * The right ventricular systolic function is normal. * The left atrial size is normal. * Right atrial size is normal. * No significant valvular pathology. Right lung mass Incidental finding on CT scan Mediastinal adenopathy Former smoker Incidental Finding on CT Pulmonary on board recommended bronchoscopy done with EBUS once stable by cardiology Bronchoscopy postponed this morning Dr. Calvert believes the mass could be carcinoma Pt will undergo many pulmonary workup and procedure in the next few weeks. 05/[address] 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 hope to convert back to NSR when we can do the eliquis for about 4-6 weeks Asthma Denies any acute issues Mild expiratory wheezing on exam albuterol changed to levalbuterol inh stable H/O allergies: Follows with an [employer] as outpatient DVT Px: On Eliquis Code Status Full code Disposition: continue monitor in telemetry Consultants: cardiology pulmonary Thoracic surgeon Current Inpatient Medications: Current Inpatient Medications Medications (Trade) Dose Ordered Sig/Dalia Route Start Time Stop Time Status Last Admin Dose Admin Acetaminophen (Tylenol Tab) 650 mg Q4H PRN PO 05/24/17 14:45 06/23/17 14:44 05/28/17 19:50 650 MG Ondansetron HCl (Zofran Inj) 4 mg Q6H PRN IV 05/24/17 14:45 06/23/17 14:44 Vancomycin HCl (Consult) 1 ea UD PRN N/A 05/24/17 15:26 06/23/17 15:25 Metoprolol Tartrate (Lopressor Iv) 2.5 mg Q6 PRN IV 05/24/17 15:00 06/23/17 14:59 05/26/17 09:27 2.5 MG Aspirin (Ecotrin Tab) 81 mg QAM PO 05/25/17 09:00 06/24/17 08:59 05/29/17 08:37 81 MG Cetirizine HCl (zyrTEC TAB) 10 mg DAILY PO 05/25/17 09:00 06/24/17 08:59 05/29/17 08:37 10 MG Fluticasone Propionate (Flonase Nasal [place]) 2 sprays DAILY NA 05/25/17 09:00 06/24/17 08:59 05/28/17 07:42 2 SPRAYS Budesonide/ Formoterol Fumarate (Symbicort 160/ 4.5 Inh) 2 puffs BID INH 05/24/17 21:00 06/23/17 20:59 05/29/17 08:36 2 PUFFS Levalbuterol (Xopenex 0.63 Mg/ 3 Ml Neb) 0.63 mg Q6R INH 05/24/17 21:00 06/23/17 20:59 05/29/17 08:55 0.63 MG Diltiazem HCl 125 mg/Dextrose 125 ml @ 0 mls/hr Q0M PRN IV 05/24/17 20:30 06/23/17 20:29 05/27/17 20:44 15 MLS/HR Azithromycin (Zithromax Tab) 250 mg QAM PO 05/26/17 09:00 05/31/17 09:01 05/29/17 08:38 250 MG Apixaban (Eliquis Tab) 5 mg BID PO 05/26/17 21:00 06/25/17 20:59 Future hold 05/29/17 08:37 5 MG Zolpidem Tartrate (Ambien Tab) 5 mg HS PRN PO 05/27/17 12:45 06/26/17 12:44 Vancomycin HCl 1500 mg/Sodium Chloride 530 ml @ 200 mls/hr Q8H IV 05/28/17 20:00 06/03/17 19:59 05/29/17 04:15 200 MLS/HR Ondansetron HCl (Zofran Inj) 4 mg ONE PRN IV 05/29/17 12:45 Metoprolol Tartrate (Lopressor Tab) 50 mg BID PO 05/29/17 21:00 06/28/17 20:59 Diltiazem HCl (Cardizem Tab) 30 mg TID PO 05/29/17 21:00 06/28/17 20:59
[2017-05-29] MEDS: DILTIAZEM HCL 30 MG TAB PO SCH (20:41)
[2017-05-29] MEDS: METOPROLOL TARTRATE 50 MG TAB PO SCH (20:42)
[2017-05-29] MEDS: ACETAMINOPHEN 325 MG TAB PO PRN (20:43)
[2017-05-29] MEDS: DILTIAZEM HCL INJ 125 MG in DEXTROSE 5% 100ML IV PRN (20:59)
[2017-05-30] VITALS (9 sets, daily range): BP systolic 94–120; BP diastolic 54–92; PULSE 73–108; TEMP 36.6–36.8; O2SAT 93–97
[2017-05-30] MEDS: VANCOMYCIN INJ 1,500 MG in SODIUM CHLORIDE 0.9% 500ML 500 ML IV SCH ×2 (01:37→10:09)
[2017-05-30] MEDS ORDERED: COUGH DROP (SUGAR FREE) LOZ 24 LOZ/1 BOX ONE (01:46)
[2017-05-30] MEDS: LEVALBUTEROL 0.63MG/3 ML NEB INH SCH ×3 (01:53→14:36)
[2017-05-30] MEDS ORDERED: VANCOMYCIN TROUGH ONE ×3 (03:30→07:30)
[2017-05-30] MEDS: BUDESONIDE/FORMOTEROL FUMARATE 160/4.5 60 PUFFS/INHALER INH SCH (06:14)
[2017-05-30 07:25] LABS: HEMATOCRIT 40.7 % (42-52); MEAN CELL VOLUME 93.6 fL (80-100); MEAN CORPUSCULAR HEMOGLOBIN 30.8 pg (25-34); MEAN CORPUSCULAR HGB CONC 32.9 g/dl (32-36); MEAN PLATELET VOLUME 8.7 fL (7.4-10.4); PLATELET COUNT 288 K/uL (130-400); RED BLOOD COUNT 4.35 M/uL (4.7-6.1); WHITE BLOOD COUNT 9.44 K/uL (4.8-10.8)
[2017-05-30 07:34] LABS: PROTHROMBIN TIME (PATIENT) 10.8 SECONDS (9.0-12.0)
[2017-05-30 08:00] LABS: BUN/CREATININE RATIO 17.1 (10-20); CALCIUM 8.6 mg/dl (8.5-10.1); CREATININE 0.79 mg/dl (0.60-1.40); POTASSIUM 4.2 mmol/L (3.5-5.1)
[2017-05-30] MEDS ORDERED: PROPOFOL IV EMULSION 10 MG/ML 20 ML VIAL IV ONE ×2 (08:10→08:14)
[2017-05-30] MEDS ORDERED: LIDOCAINE HCL 1% 20 ML VIAL ONE (08:11)
[2017-05-30] MEDS ORDERED: LIDOCAINE 2% 20 MG/ML 5ML SYR ONE (08:12)
[2017-05-30] MEDS ORDERED: LIDOCAINE HCL 2% VISC SOLN 20 ML UDC ONE (08:16)
[2017-05-30] MEDS: APIXABAN 2.5 MG TAB PO SCH (08:17)
--- NOTE | 2017-05-30 08:45 | Cardiology Procedure Brief Nt ---
Preliminary Cardiology Note Procedure Date May 30, 2017. Pre-Procedure Diagnosis atrial fibrillation Post-Procedure Diagnosis No LA, RUPALI thrombus, successful cardioversion to SR Procedure(s) Performed CHARMAINE guided CV Senior Clinical Study Manager Ruth Flores DO Quality Control Scientist(s) NA Estimated Blood Loss none Preliminary Findings No LA, RUPALI appendage thrombus. Countershocks of 300 J, 360 J administered, with successful conversion from AF to SR with the second (360 J dose) synchronized shock. Recommendations continue metoprolol, Eliquis, and oral cardizem, DC IV cardizem. 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
[2017-05-30] MEDS: METOPROLOL TARTRATE 1 MG/ML VIAL IV PRN (08:50)
--- NOTE | 2017-05-30 08:56 | Anesthesiology Progress Note ---
Anesthesia Post Op Note Date & Time May 30, 2017 at 08:56 Vital Signs Pain Intensity: 0 Vital Signs Past 12 Hours Date Time Temp Pulse Resp B/P (MAP) Pulse Ox O2 Delivery O2 Flow Rate FiO2 05/30/17 08:52 69 16 112/73 (86) 93 Room Air 73 05/30/17 08:41 75 16 106/88 (94) 93 Room Air 05/30/17 08:36 77 16 100/70 97 Nasal Cannula 4 05/30/17 08:30 77 16 103/72 97 Nasal Cannula 4 05/30/17 08:23 108 16 120/87 97 Nasal Cannula 4 05/30/17 04:00 36.6 83 17 100/64 (76) 95 Nasal Cannula 3.0 05/30/17 04:00 Nasal Cannula 3.0 05/30/17 01:54 81 16 95 Nasal Cannula 3.0 05/30/17 00:00 36.8 76 18 94/54 (67) 94 Nasal Cannula 3.0 05/29/17 23:59 Nasal Cannula 3.0 05/29/17 23:21 36.6 83 16 100/64 95 Nasal Cannula 3.0 Notes Mental Status: alert / awake / arousable, participated in evaluation Pt Amnestic to Procedure: Yes Nausea / Vomiting: adequately controlled Pain: adequately controlled Airway Patency, RR, SpO2: stable & adequate BP & HR: stable & adequate Hydration State: stable & adequate Anesthetic Complications: no major complications apparent
[2017-05-30] MEDS ORDERED: VANCOMYCIN INJ 1,500 MG in SODIUM CHLORIDE 0.9% 500ML 500 ML IV SCH (09:00)
[2017-05-30] MEDS ORDERED: EpHEDrine SULFATE INJ 50 MG/ML AMP IV PRN (09:00)
[2017-05-30] MEDS ORDERED: FENTANYL CITRATE INJ 50 MCG/1 ML 2 ML VIAL IV PRN (09:00)
[2017-05-30] MEDS ORDERED: ATROPINE SULFATE 0.1 MG/ML 5ML SYR IV PRN (09:00)
[2017-05-30] MEDS ORDERED: METOPROLOL TARTRATE 1 MG/ML VIAL IV STA (09:14)
--- NOTE | 2017-05-30 09:19 | Procedure Note ---
Procedure Note Procedure Date May 30, 2017. Procedure Description Procedure Name: CHARMAINE guided direct current cardioversion Procedure time out: side/site verified, patient ID confirmed, correct procedure Consent obtained: written Time of procedure: 07:24 Performed by: attending Indications: diagnostic, therapeutic Contraindications: none Description: Pre-Procedure Diagnosis atrial fibrillation of unknown chronicity with rapid ventricular rate, refractory to medication therapy Post-Procedure Diagnosis No LA, RUPALI thrombus, successful cardioversion to SR Procedure(s) Performed CHARMAINE guided CV Sponsorship Coordinator Ruth Flores DO Store Shopper(s) not apical Estimated Blood Loss none Procedure: No LA, RUPALI appendage thrombus. Countershocks of 300 J, 360 J administered, with successful conversion from AF to SR with the second (360 J dose) synchronized shock. Recommendations continue metoprolol, Eliquis, and oral cardizem, DC IV cardizem. 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
[2017-05-30] MEDS ORDERED: VANCOMYCIN TROUGH SCH (09:30)
[2017-05-30] MEDS: CETIRIZINE HCL 10 MG TAB PO SCH (09:32)
[2017-05-30] MEDS: DILTIAZEM HCL 30 MG TAB PO SCH (09:32)
[2017-05-30] MEDS: AZITHROMYCIN 250 MG TAB PO SCH (09:32)
[2017-05-30] MEDS: ASPIRIN 81 MG ECTAB PO SCH (09:32)
--- NOTE | 2017-05-30 09:32 | Progress Note ---
Progress Note Date of Service May 30, 2017. Progress Note Pt. currently off floor getting cardioversion. Discussed with his at bedside--he will need a PET scan and PFT an then follow-up with Dr. Calvert ( approx. 1 month from now) Our office will arrange the previously mentioned studies and appointment.
[2017-05-30] MEDS: METOPROLOL TARTRATE 50 MG TAB PO SCH (09:33)
[2017-05-30] MEDS: FLUTICASONE PROPIONATE NA SPR 16 GM BTL SCH (09:34)
--- NOTE | 2017-05-30 10:29 | Progress Note ---
Progress Note Date of Service May 30, 2017. Progress Note I had a long discussion with the patient and his this morning. He is now in sinus rhythm after his cardioversion. I also discussed this case with Dr. Flores. I explained the preliminary reports on the fine-needle aspirations of multiple lymph node levels do not indicate metastatic disease. I also explained that we had to wait until the cellblock came out to know for sure however. My plan at this point would be to offer surgery initially and then determine our course based on the pathology. I believe this patient is going to need a bilobectomy. I also believe he is resectable. We do want to do a PET scan and a MRI of his brain in addition to pulmonary function studies before proceeding. We will also check a Biodesix once he is out of the hospital. I will see him back in the office in about 2 weeks.
--- NOTE | 2017-05-30 11:01 | Cardiology Follow-Up ---
Subjective General Date of Service: May 30, 2017. Chief Complaint: follwo up AF History of Present Illness The patient is a 72 year old male seen in follow-up. Patient tolerated transesophageal echocardiogram guided cardioversion well today and remains in sinus rhythm. Post procedure EKG performed this morning revealed sinus rhythm at 74 bpm, age-indeterminate septal infarction pattern, corrected QT interval 439 ms. Compared to prior EKG sinus rhythm had replaced atrial fibrillation and the ventricular rate was 45 bpm lower. Allergies Coded Allergies: Cat Dander (Verified Allergy, Intermediate, congestion, 12/06/15) Dog Dander (Verified Allergy, Intermediate, asthma, 12/06/15) Molds & Smuts (Verified Allergy, Intermediate, congestion, 12/06/15) POLLEN (Verified Allergy, Intermediate, congestion, 12/06/15) Social History Smoking Status: Former Smoker Hx Tobacco Use In Past Year?: No Hx Alcohol Use - Type And Amou: Yes (occasional beer) Hx Substance Use - Type And Am: No Problem List Medical Problems: (1) Asthma exacerbation Status: Acute (2) Cellulitis of right thigh Status: Acute (3) Environmental allergies Status: Acute (4) History of MRSA infection Status: Acute (5) New onset atrial fibrillation Status: Acute (6) Pulmonary mass Status: Acute (7) Pulmonary nodule Status: Acute Physical Exam Vital Signs Last Vital Signs Documentation Date Time Temp Pulse Resp B/P (MAP) Pulse Ox O2 Delivery O2 Flow Rate FiO2 05/30/17 08:52 69 16 112/73 (86) 93 Room Air 73 05/30/17 08:36 4 05/30/17 04:00 36.6 Physical Exam Head: normocephalic ENMT: normal ENT inspection Neck: supple, trachea midline, no masses (No JVD) Lungs: Respiratory effort: good air movement Auscultation: breath sounds normal, no wheezing, no rales/crackles, no rhonchi Cardiovascular: Heart Auscultation: RRR, normal S1, normal S2, no murmurs Abdomen: Inspection & Palpation: soft, non-distended, no masses Liver: no hepatomegaly Musculoskeletal: normal strength (5/5 throughout) Extremities: pertinent finding (trace ankle edema) Neurologic: Gait & Station: normal gait Cranial Nerves: grossly intact Sensation: grossly intact Assessment and Plan Assessment and Plan Impression: 72-year-old male who initially presented to an urgent care center on 05/24/17 for concerns of a wound to his right upper thigh. He had a past MRSA infection and this made him concerned when he saw drainage from his eye wound which took place from a puncture from a stick while he was doing yard work. He had initially been assessed at an urgent care center and when his vital signs were taken history found to have a rapid and irregular heart rate of 160+ beats per minute. He was referred to the emergency department and EKG performed on arrival confirm the diagnosis of atrial fibrillation with rapid ventricular response. CT of the chest performed initially to rule out pulmonary embolism noted findings of a 3 cm right lower lobe lung mass. -Biopsy performed 05/30/17 suggest non-small cell lung carcinoma, preliminary results reveal clean lymph nodes. -Thoracic surgery plans bilobectomy, surgery will have to be delayed until 4 weeks post cardioversion to allow 4 weeks of uninterrupted anticoagulation. Recommendations: Discontinue aspirin 81 mg daily. Discontinue IV and oral Cardizem. . From an atrial fibrillation standpoint and plan on discharging patient on metoprolol tartrate 100 mg twice a day and Eliquis 5 mg twice a day for stroke prophylaxis. Outpatient cardiology follow-up with me has been requested for 2 weeks from now. If the patient remains in sinus rhythm, he to delay surgery until one month post cardioversion to allow for weeks of uninterrupted anticoagulation with Eliquis. Pt to complete course of oral antibiotics for cellulitis. Terms of preoperative evaluation. The patient has normal wall motion on his resting echo and no symptoms to suggest angina. I believe that the septal infarction pattern noted on his EKG post-cardioversion is likely false positive finding. Her preoperative cardiac assessment will be reassessed as an outpatient in 2 weeks. Hopeful that we will be old to proceed to thoracic surgery without further cardiac testing. Laboratory Results Last 24 Hours Test 05/30/17 07:02 05/30/17 09:15 White Blood Count 9.44 K/uL Red Blood Count 4.35 M/uL Hemoglobin 13.4 g/dL Hematocrit 40.7 % Mean Corpuscular Volume 93.6 fL Mean Corpuscular Hemoglobin 30.8 pg Mean Corpuscular Hemoglobin Concent 32.9 g/dl RDW Standard Deviation 46.0 fL RDW Coefficient of Variation 13.3 % Platelet Count 288 K/uL Mean Platelet Volume 8.7 fL Prothrombin Time 10.8 SECONDS Prothromb Time International Ratio 1.0 Sodium Level 140 mmol/L Potassium Level 4.2 mmol/L Chloride Level 105 mmol/L Carbon Dioxide Level 29 mmol/L Anion Gap 6.0 mmol/L Blood Urea Nitrogen 14 mg/dl Creatinine 0.79 mg/dl Est Creatinine Clear Calc Drug Dose 98.2 ml/min Estimated GFR () 105.4 Estimated GFR (Non- 91.0 BUN/Creatinine Ratio 17.1 Random Glucose 101 mg/dl Calcium Level 8.6 mg/dl Vancomycin Level Trough 19.1 mcg/ml
--- NOTE | 2017-05-30 11:57 | TEE ---
*NOTICE TO RECEIVING [employer] This information is strictly Confidential and protected under [place] law. [place] law prohibits you from making any further disclosure of this information unless further disclosure is expressly permitted by the written consent of the person to whom it pertains or is authorized by law. A general authorization for the release of medical or other information is not sufficient for this purpose. Hospital accepts no responsibility if the information is made available to any other person, INCLUDING THE PATIENT. Interpretation Summary * Name: CEE GOEL Study Date: 05/30/2017 07:24 AM BP: 108/76 mmHg * Patient Location: .2E\S\E211\S\1 HR: 93 * : 1945 (M/d/yyy) Gender: Male Height: 68 in * Age: 72 yrs Ethnicity: CA Weight: 214 lb * Ordering Physician: Daniel Flores * Referring Physician: Self, Referred * Performed By: Mariposa Carlson RDCS * * Reason For Study: Focused CHARMAINE evaluation of left atrial appendage prior to cardioversion * BSA: 2.1 m2 * -- Conclusions -- * A focussed study was performed to exclude the presence of left atrial and left atrial appendage thrombus prior to direct current cardioversion. * Limited 2D views were obtained. * No left atrial mass or thrombus visualized. * No thrombus is detected in the left atrial appendage. Procedure Details * The transesophageal portion of this study was personally supervised by the undersigned interpreting physician. * CHARMAINE Probe #2 utilized for procedure. * The study was performed in Cardiac Catheterization Lab. * Time out was conducted by the physician, nurse, and health records technology teacher with positive identification of patient and procedure. * Informed consent for Transesophageal Echocardiogram was obtained prior to the procedure. * An intravenous line was placed. A topical anesthetic agent was used for oropharangeal anesthesia. A bite block was inserted. * Sedation performed by the anesthesia department. * The patient's vital signs, including blood pressure, heart rate, pulse oximetry and cardiac rhythm were monitored throughout the procedure . * The posterior oropharynx was anesthetized using a topical anesthetic spray. A bite guard was inserted. * A multifrequency, multiplane transesopheageal echocardiographic endoscope was inserted and manipulated in the standard fashion to achieve multiplane views. * The transesophageal probe was passed without difficulty. * Limited views were obtained. * The patient tolerated the procedure well without evidence of orophangeal or esophageal trauma. * 08:18 Sedation start time 08:23 Probe inserted 08:36 Probe out * A 2D transesophageal echocardiogram was performed. Atria * The left atrial size is normal. * No left atrial mass or thrombus visualized. * No thrombus is detected in the left atrial appendage.
[2017-05-30] MEDS ORDERED: METOPROLOL TARTRATE 25 MG TAB PO SCH (12:00)
--- NOTE | 2017-05-30 14:07 | Progress Note ---
Medicine Progress Note Date & Time of Visit: May 30, 2017 at 13:48. Subjective Pt was seen and examined Sitting in chair very comfortable with no distress Pt is very eager to go home today upon entered his room he said that is ready to leave he had a fever last night and does not want to stay in the hospital longer denies any chest pain, palpitation, dizziness, SOB, fever and chills Objective Last 8 Hrs Date Time Temp Pulse Resp B/P (MAP) Pulse Ox O2 Delivery O2 Flow Rate FiO2 05/30/17 12:00 36.8 73 16 118/92 (101) 96 Nasal Cannula 3.0 05/30/17 12:00 Nasal Cannula 3.0 05/30/17 08:52 69 16 112/73 (86) 93 Room Air 73 05/30/17 08:50 75 111/60 05/30/17 08:41 75 16 106/88 (94) 93 Room Air 05/30/17 08:36 77 16 100/70 97 Nasal Cannula 4 05/30/17 08:30 77 16 103/72 97 Nasal Cannula 4 05/30/17 08:23 108 16 120/87 97 Nasal Cannula 4 05/30/17 08:00 Nasal Cannula 3.0 Physical Exam: General- No acute distress Head- atraumatic Eyes- PERRL, EOMI ENT- oropharynx clear Neck- supple, no JVD Lungs- No crackles, no rales Heart- irregular rhythm; no murmur Abdomen- normal bowel sounds, soft Extremities- no calf tenderness, right anterior thigh erythema cover with dressing Neuro- alert, oriented x 3; PERRL, EOMI; no facial palsy Skin- warm & dry Laboratory Results: Last 24 Hours Test 05/30/17 07:02 05/30/17 09:15 White Blood Count 9.44 K/uL Red Blood Count 4.35 M/uL Hemoglobin 13.4 g/dL Hematocrit 40.7 % Mean Corpuscular Volume 93.6 fL Mean Corpuscular Hemoglobin 30.8 pg Mean Corpuscular Hemoglobin Concent 32.9 g/dl RDW Standard Deviation 46.0 fL RDW Coefficient of Variation 13.3 % Platelet Count 288 K/uL Mean Platelet Volume 8.7 fL Prothrombin Time 10.8 SECONDS Prothromb Time International Ratio 1.0 Sodium Level 140 mmol/L Potassium Level 4.2 mmol/L Chloride Level 105 mmol/L Carbon Dioxide Level 29 mmol/L Anion Gap 6.0 mmol/L Blood Urea Nitrogen 14 mg/dl Creatinine 0.79 mg/dl Est Creatinine Clear Calc Drug Dose 98.2 ml/min Estimated GFR () 105.4 Estimated GFR (Non- 91.0 BUN/Creatinine Ratio 17.1 Random Glucose 101 mg/dl Calcium Level 8.6 mg/dl Vancomycin Level Trough 19.1 mcg/ml Date/Time Source Procedure Growth Status 05/30/17 09:33 Blood Blood Culture Pending Received 05/30/17 09:15 Blood Blood Culture Pending Received Assessment & Plan Right Leg Cellulitis H/O MRSA Continue IV vancomycin has been afebrile for about 12hrs blood cx shown no growth Wound cx growth coag negative staph WBC normal, lactate normal significantly improved Received vanco for 7 days Abx changed from vanco to PO doxy and Augmentin upon discharge Afib with RVR Rate is btw 90 to 100 CHADVasc score:1, was starting on Aspirin Was starting on heparin drip that changed to eliquis On lopressor increase to 25mg Continue cardizem drip Continue Eliquis NPO after midnight for CHARMAINE/ Cardioversion in am Cardiology consulted plan for CHARMAINE on Monday and possible cardiovert if he does not convert back to NSR Continue monitor in Telemetry 05/[address] Flores No recommendation to stop the eliquis after the CHARMAINE and cardiovert to perform lung biopsy Will plan for CHARMAINE and Cardioversion tomorrow NPO after midnight Cardiology Plan to wean him off the cardizem drip 05/30 s/p CHARMAINE and cardioversion this morning CHARMAINE showed * No left atrial mass or thrombus visualized. * No thrombus is detected in the left atrial appendage. remain on NSR Cardizem drip and Cardizem PO discontinued case discussed with cardiology Dr. Flores who recommended to discharge on metoprol 100 mg BID and eliquis 5 mg BID for stoke prophylaxis Outpatient cardiology follow-up with Cardiology in 2 weeks from now. ECHO showed The left ventricle is normal in size. * Left ventricular systolic function is normal. * Ejection Fraction = 55-60%. * The right ventricular systolic function is normal. * The left atrial size is normal. * Right atrial size is normal. * No significant valvular pathology. Right lung mass Incidental finding on CT scan Mediastinal adenopathy Former smoker Incidental Finding on CT Pulmonary on board recommended bronchoscopy done with EBUS once stable by cardiology Bronchoscopy postponed this morning Dr. Calvert believes the mass could be carcinoma Pt will undergo many pulmonary workup and procedure in the next few weeks. 05/30 S/P bronch day [address] Calvert Bronch showed: Non-small cell lung carcinoma right lower lobe No evidence of mediastinal metastases on rapid on-site evaluation preliminary report showed multiple lymph node levels that do not indicate metastatic disease. Surgical resection planned as outpt, but pt will need pulmonary work up such as PET scan and PFTs Eliquis will need to hold for the surgery. Follow up with thoracic surgery Dr. valderrama in 2 weeks Will plan for bilobectomy surgery Preoperative cardiac assessment will be reassessed as an outpatient in 2 weeks for the lung surgery Asthma Denies any acute issues Mild expiratory wheezing on exam albuterol changed to levalbuterol inh stable H/O allergies: Follows with an Recreation Officer as outpatient DVT Px: On Eliquis Code Status Full code Disposition: D/C home today Consultants: cardiology pulmonary Thoracic surgeon Current Inpatient Medications: Current Inpatient Medications Medications (Trade) Dose Ordered Sig/Dalia Route Start Time Stop Time Status Last Admin Dose Admin Acetaminophen (Tylenol Tab) 650 mg Q4H PRN PO 05/24/17 14:45 06/23/17 14:44 05/29/17 20:43 650 MG Ondansetron HCl (Zofran Inj) 4 mg Q6H PRN IV 05/24/17 14:45 06/23/17 14:44 Vancomycin HCl (Consult) 1 ea UD PRN N/A 05/24/17 15:26 06/23/17 15:25 Metoprolol Tartrate (Lopressor Iv) 2.5 mg Q6 PRN IV 05/24/17 15:00 06/23/17 14:59 05/30/17 08:50 5 MG Cetirizine HCl (zyrTEC TAB) 10 mg DAILY PO 05/25/17 09:00 06/24/17 08:59 05/30/17 09:32 10 MG Fluticasone Propionate (Flonase Nasal [place]) 2 sprays DAILY NA 05/25/17 09:00 06/24/17 08:59 05/30/17 09:34 2 SPRAYS Budesonide/ Formoterol Fumarate (Symbicort 160/ 4.5 Inh) 2 puffs BID INH 05/24/17 21:00 06/23/17 20:59 05/30/17 06:14 2 PUFFS Levalbuterol (Xopenex 0.63 Mg/ 3 Ml Neb) 0.63 mg Q6R INH 05/24/17 21:00 06/23/17 20:59 05/30/17 01:53 0.63 MG Azithromycin (Zithromax Tab) 250 mg QAM PO 05/26/17 09:00 05/31/17 09:01 05/30/17 09:32 250 MG Apixaban (Eliquis Tab) 5 mg BID PO 05/26/17 21:00 06/25/17 20:59 Future hold 05/30/17 08:17 5 MG Zolpidem Tartrate (Ambien Tab) 5 mg HS PRN PO 05/27/17 12:45 06/26/17 12:44 Ondansetron HCl (Zofran Inj) 4 mg ONE PRN IV 05/29/17 12:45 Vancomycin HCl 1500 mg/Sodium Chloride 530 ml @ 200 mls/hr Q8H IV 05/30/17 02:00 06/03/17 19:59 05/30/17 10:09 200 MLS/HR Fentanyl Citrate (Fentanyl Inj) 50 mcg Q5M PRN IV 05/30/17 09:00 05/30/17 14:00 Ephedrine Sulfate (EpHEDrine SULFATE INJ) 5 mg Q5M PRN IV 05/30/17 09:00 05/30/17 14:00 Atropine Sulfate (Atropine Sulfate 0.1MG/Ml Inj) 0.5 mg Q1M PRN IV 05/30/17 09:00 05/30/17 14:00 Metoprolol Tartrate (Lopressor Tab) 100 mg BID PO 05/30/17 21:00 06/29/17 20:59
[2017-05-30] MEDS ORDERED: LPR100 PO (14:15)
[2017-05-30] MEDS ORDERED: DOXY-300 PO (14:19)
[2017-05-30] MEDS ORDERED: APIX1TAB3 PO (14:19)
[2017-05-30] MEDS ORDERED: AMOX875T PO (14:19)
--- NOTE | 2017-05-30 14:33 | Discharge Instructions ---
Discharge Instructions Date of Service May 30, 2017. Admission Reason for Admission: Cellulitis Of Right Thigh To Be Done In Or Discharge Discharge Diagnosis / Problem: Right Thight Cellulitis, New Onset of Afib, Non- small cell lung carcinoma Discharge Goals Goal(s): Improve function, Improve disease control Activity Recommendations Activity Limitations: resume your previous activity (as tolerated) . Instructions / Follow-Up Instructions / Follow-Up Follow up with your primary care provider Dr. Adkins (February's colleague) on @ 10:35 am Follow up with Cardiology Dr. Flores in 2 weeks Follow up with thoracic surgery Dr. Calvert in 2 weeks Complete course of antibiotic with Augmentin and Doxycycline No NSAIDs while on Eliquis ( aspirin, ibuprofen, motrin, naproxen, aleve) Medication Instructions: Eliquis It is an anticoagulant for stroke prophylaxis. Anticoagulants will thin your blood to help prevent new clots. * You should take her medication exactly as directed. * Never skip a dose. * Never take a double dose. If you miss a dose, take it as soon as you remember. Call your Primary Care doctor if you experience any of the following: * Swelling or Pain in your leg * Sudden, continuous pain deep in a muscle * Pain that worsens when you are active or when you stand still for a long time * Chest Pain * Sudden Shortness of Breath * Rapid or pounding heart beat * Fainting * Dizziness * Cough with blood or bloody sputum * Sweating more than normal * Bruises * Heavy or uncontrolled bleeding * Blood in your urine, stool or vomit * Black or tarry stools Follow Up: It is important for you to keep your follow up appointments with your medical provider. Current Hospital Diet Patient's current hospital diet: AHA Diet (Heart Healthy) Discharge Diet Recommended Diet: AHA Diet (Heart Healthy) Procedures Procedures Performed: Endobronchial Ultrasound with biopsies Pending Studies Studies pending at discharge: yes List of pending studies: Lung biopsy report Medical Emergencies . Who to Call and When: Medical Emergencies: If at any time you feel your situation is an emergency, please call 911 immediately. . Non-Emergent Contact Non-Emergency issues call your: Primary Care Provider Call Non-Emergent contact if: you have a fever, you have any medication questions . . "Provider Documentation" section prepared by Pilo Smith. . VTE Core Measure Inpt VTE Proph given/why not?: Other Anticoagulation
[2017-05-30] MEDS ORDERED: METOPROLOL TARTRATE 100 MG TAB PO SCH (21:00)
[2017-05-31] MEDS ORDERED: VANCOMYCIN TROUGH ONE (09:30)
--- NOTE | 2017-06-02 08:04 | Discharge Summary ---
Discharge Summary Date of Service Jun 02, 2017. Discharge Summary Admission Date: May 24, 2017 at 14:47 Discharge Date: May 30, 2017 Discharge Disposition: Home Principal Diagnosis: New Onset of Afib Secondary Diagnoses/Problems: Right Thigh Cellulitis Non-small cell lung carcinoma Asthma Procedures: CHARMAINE with cardioversion Bronch with biopsy CT ANGIOGRAM OF THE CHEST CLINICAL HISTORY: Rapid A. fib. Abnormal chest x-ray. Possible hilar mass. COMPARISON STUDY: Chest x-ray dated 05/24/2017 TECHNIQUE: Following the IV administration of 94 mL of Optiray-320, CT angiogram of the thorax was performed from the thoracic inlet to the lung bases utilizing the pulmonary embolus protocol. Images are reviewed in the axial, sagittal, and coronal planes. IV contrast was administered without complication. MIP imaging was performed. CT DOSE: 454.40 mGycm FINDINGS: There is probable cholelithiasis. There is a 32 mm right hilar mass. There is enlarged subcarinal lymph node measuring 15 mm in short axis. Paratracheal lymph nodes are the upper limits of normal in size. There is no evidence of pathologic axillary lymphadenopathy. There is mild ectasia of the ascending thoracic aorta which measures 37 mm in diameter. There were no pulmonary artery filling defects to indicate acute pulmonary embolism. No pleural effusions are visualized. There is lower lobe bronchial wall thickening. There are nodular airspace opacities within the superior segment of the right lower lobe, likely representing a postobstructive pneumonitis.. IMPRESSION: 1. No evidence of acute pulmonary embolism. 2. 32 mm right lower lobe/hilar mass. This should be presumed neoplastic until proven otherwise. Pulmonary consultation is recommended. 3. Lower lobe bronchial wall thickening 4. Mild mediastinal lymphadenopathy 5. Minor nodular airspace opacities within the superior segment of the right lower lobe, likely representing a postobstructive pneumonitis Electronically signed by: Von Jasso M.D. 05/24/2017 1:40 PM Dictated Date/Time: 05/24/2017 1:31 PM Consultations: cardiology pulmonary Thoracic surgeon Medication Reconciliation New Medications: Amoxicillin & Pot Clavulanate (Augmentin 875-125 mg) 1 Tab Tab 875 MG PO BID for 3 Days, #6 TAB Doxycycline (Monohydrate) (Doxycycline) 100 Mg Cap 1 TAB PO BID for 3 Days Apixaban (Eliquis) 5 Mg Tab 5 MG PO BID for 30 Days, #60 TAB Metoprolol Tartrate (Metoprolol Tartrate) 100 Mg Tab 100 MG PO BID for 30 Days, #60 TAB Continued Medications: Cetirizine Hcl (All Day Allergy) 10 Mg Cap 1 CAP PO DAILY Fexofenadine Hcl (Cindy) 60 Mg Tab 60 MG PO, TAB Vitamins C & E (Vitamin C) 1 Cap Cap Discontinued Medications: Ibuprofen (Advil) 200 Mg Tab 200 MG PO, TAB Admission Information HPI (per Admitting provider): Patient is a 72 Yr male with PMH of asthma, allergies,former smoker, H/O MRSA and other problems presents with history of right thigh swelling, redness and discharge. He was initially evaluated at Urgent care center and was thought to have rapid heart rate and was sent to ED for further evaluation. Patient was found to be in Afib with RVR. He states 4 days ago while moving his lawn, he had an injury to his right thigh which resulted in a blister and was oozing some white discharge yesterday. Denies any nausea, vomiting, chest pain, SOB, abd pain, Dizziness, palpitations, wheezing, diarrhea, urinary symptoms. Reports he has postnasal drip, intermittent dry cough and had fever, chills 2 days ago which resolved after taking Advil. 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 Physical Exam (per Admitting): General Appearance: WD/WN, no apparent distress Head: normocephalic, atraumatic Eyes: normal inspection, PERRL, EOMI, sclerae normal ENT: normal ENT inspection, hearing grossly normal Neck: supple, trachea midline Respiratory/Chest: chest non-tender, no respiratory distress, + wheezing, + pertinent finding (Mild decreased breath sounds) Cardiovascular: no edema, no murmur, + irregularly irregular Abdomen/GI: normal bowel sounds, non tender, soft Back: normal inspection Extremities/Musculoskelatal: normal inspection, no pedal edema, + pertinent finding (erythematous area with central ulceration type lesion on R thigh ) Neurologic/Psych: 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, no motor/sensory deficits, alert , normal mood/affect, oriented x 3 Skin: normal color, warm/dry, + pertinent finding (Erythematous lesion on R thigh ) Hospital Course Right Leg Cellulitis H/O MRSA Continue IV vancomycin has been afebrile for about 12hrs blood cx shown no growth Wound cx growth coag negative staph WBC normal, lactate normal significantly improved Received vanco for 7 days Abx changed from vanco to PO doxy and Augmentin upon discharge Afib with RVR Rate is btw 90 to 100 CHADVasc score:1, was starting on Aspirin Was starting on heparin drip that changed to eliquis On lopressor increase to 25mg Continue cardizem drip Continue Eliquis NPO after midnight for CHARMAINE/ Cardioversion in am Cardiology consulted plan for CHARMAINE on Monday and possible cardiovert if he does not convert back to NSR Continue monitor in Telemetry 05/[address] Flores No recommendation to stop the eliquis after the CHARMAINE and cardiovert to perform lung biopsy Will plan for CHARMAINE and Cardioversion tomorrow NPO after midnight Cardiology Plan to wean him off the cardizem drip 05/30 s/p CHARMAINE and cardioversion this morning CHARMAINE showed * No left atrial mass or thrombus visualized. * No thrombus is detected in the left atrial appendage. remain on NSR Cardizem drip and Cardizem PO discontinued case discussed with cardiology Dr. lFores who recommended to discharge on metoprol 100 mg BID and eliquis 5 mg BID for stoke prophylaxis Outpatient cardiology follow-up with Cardiology in 2 weeks from now. ECHO showed The left ventricle is normal in size. * Left ventricular systolic function is normal. * Ejection Fraction = 55-60%. * The right ventricular systolic function is normal. * The left atrial size is normal. * Right atrial size is normal. * No significant valvular pathology. Right lung mass Incidental finding on CT scan Mediastinal adenopathy Former smoker Incidental Finding on CT Pulmonary on board recommended bronchoscopy done with EBUS once stable by cardiology Bronchoscopy postponed this morning Dr. Calvert believes the mass could be carcinoma Pt will undergo many pulmonary workup and procedure in the next few weeks. 05/30 S/P bronch day [address] Calvert Bronch showed: Non-small cell lung carcinoma right lower lobe No evidence of mediastinal metastases on rapid on-site evaluation preliminary report showed multiple lymph node levels that do not indicate metastatic disease. Surgical resection planned as outpt, but pt will need pulmonary work up such as PET scan and PFTs Eliquis will need to hold for the surgery. Follow up with thoracic surgery Dr. valderrama in 2 weeks Will plan for bilobectomy surgery Preoperative cardiac assessment will be reassessed as an outpatient in 2 weeks for the lung surgery Asthma Denies any acute issues Mild expiratory wheezing on exam albuterol changed to levalbuterol inh stable H/O allergies: Follows with an [employer] Car [employer]ic as outpatient DVT Px: On Eliquis Code Status Full code Disposition: D/C home today Total time spent on discharge = 35 minutes This includes examination of the patient, discharge planning, medication reconciliation, and communication with other providers. Discharge Instructions Discharge Instructions Date of Service May 30, 2017. Admission Reason for Admission: Cellulitis Of Right Thigh To Be Done In Or Discharge Discharge Diagnosis / Problem: Right Thigh Cellulitis, New Onset of Afib, Non- small cell lung carcinoma Discharge Goals Goal(s): Improve function, Improve disease control Activity Recommendations Activity Limitations: resume your previous activity (as tolerated) . Instructions / Follow-Up Instructions / Follow-Up Follow up with your primary care provider Dr. Adkins (February's colleague) on @ 10:35 am Follow up with Cardiology Dr. Flores in 2 weeks Follow up with thoracic surgery Dr. Calvert in 2 weeks Complete course of antibiotic with Augmentin and Doxycycline No NSAIDs while on Eliquis ( aspirin, ibuprofen, motrin, naproxen, aleve) Medication Instructions: Eliquis It is an anticoagulant for stroke prophylaxis. Anticoagulants will thin your blood to help prevent new clots. * You should take her medication exactly as directed. * Never skip a dose. * Never take a double dose. If you miss a dose, take it as soon as you remember. Call your Primary Care doctor if you experience any of the following: * Swelling or Pain in your leg * Sudden, continuous pain deep in a muscle * Pain that worsens when you are active or when you stand still for a long time * Chest Pain * Sudden Shortness of Breath * Rapid or pounding heart beat * Fainting * Dizziness * Cough with blood or bloody sputum * Sweating more than normal * Bruises * Heavy or uncontrolled bleeding * Blood in your urine, stool or vomit * Black or tarry stools Follow Up: It is important for you to keep your follow up appointments with your medical provider. Current Hospital Diet Patient's current hospital diet: AHA Diet (Heart Healthy) Discharge Diet Recommended Diet: AHA Diet (Heart Healthy) Procedures Procedures Performed: Endobronchial Ultrasound with biopsies Pending Studies Studies pending at discharge: yes List of pending studies: Lung biopsy report Medical Emergencies . Who to Call and When: Medical Emergencies: If at any time you feel your situation is an emergency, please call 911 immediately. . Non-Emergent Contact Non-Emergency issues call your: Primary Care Provider Call Non-Emergent contact if: you have a fever, you have any medication questions . . "Provider Documentation" section prepared by Pilo Smith. . VTE Core Measure Inpt VTE Proph given/why not?: Other Anticoagulation Signed: Signed: The status of this report is Draft * If report status is Draft, the document has not been finalized by the responsible provider. Additional Copies To Cecily Adkins,Steffany Kennedy PA-C
[2017-06-20] MEDS ORDERED: CHOL1000 PO (09:05)
[2017-06-20] MEDS ORDERED: B-CO1CAP3 PO (09:05)
[2017-07-28] MEDS ORDERED: ASCA500 PO (09:36)
[2017-07-28] MEDS ORDERED: VNTHFA/IN INH (09:36)
[2017-07-28] MEDS ORDERED: SYMIN160 INH (09:36)
[2017-07-28] MEDS ORDERED: ONDA8TAB6 PO (09:37)
[2017-07-28] MEDS ORDERED: PROC1TAB5 PO (09:37)
[2017-07-28] MEDS ORDERED: FLUT0.15 INTNAS (10:07)
[2017-07-28] MEDS ORDERED: APIX1TAB3 PO (10:07)
[2017-07-28] MEDS ORDERED: IPRASOL4 INH (10:07)
[2017-07-28] MEDS ORDERED: TRAM-10 PO (10:07)
[2017-07-28] MEDS ORDERED: DIPH25CA65 PO (10:07)
[2017-07-28] MEDS ORDERED: DXM/4 PO (10:07)
[2017-07-28] MEDS ORDERED: ALBUAER INH (10:07)
[2017-07-28] MEDS ORDERED: ACET325T96 PO (10:07)
== END 2017-05-30 14:59 | disposition home or self-care (01) | DRG 264 ==
LOC: C.EDB 10:57 → C.MED 14:47 → EDBEDREQ 14:50 → ENRESERV 15:22 → C.2E 21:38
PROVIDERS: ADMIT Internal Medicine; ATTEND Internal Medicine
PROC: 07B74ZX Excision of Thorax Lymphatic, Percutaneous Endoscopic Approach, Diagnostic (ICD-10-PCS; principal; 2017-05-29 07:30)
PROC: 0BBF8ZX Excision of Right Lower Lung Lobe, Via Natural or Artificial Opening Endoscopic, Diagnostic (ICD-10-PCS; principal; 2017-05-29 07:30)
PROC: 5A2204Z Restoration of Cardiac Rhythm, Single (ICD-10-PCS; 2017-05-30)
DX: I48.91 Unspecified atrial fibrillation (principal); L03.115 Cellulitis of right lower limb; C34.31 Malignant neoplasm of lower lobe, right bronchus or lung; B95.8 Unspecified staphylococcus as the cause of diseases classified elsewhere; J45.909 Unspecified asthma, uncomplicated; Z87.891 Personal history of nicotine dependence; Z86.14 Personal history of Methicillin resistant Staphylococcus aureus infection

== ENCOUNTER → 2017-06-08 | Outpatient (CLI) | payer OTHER ==
[~2017-06-08] MED LIST changes: +ACET325T96 PO; +ALBUAER INH; -ALBUAER19 INH; +APIX1TAB3 PO; +ASCA500 PO; +B-CO1CAP3 PO; +CHOL1000 PO; +DIPH25CA65 PO; +DOXY-300 PO; +DXM/4 PO; +FEXO1TAB45 PO; +FLUT0.15 INTNAS; -FLUT0.15 NAE; +GADAVIST IV PRN; +IPRASOL4 INH; +LPR100 PO; +ONDA8TAB6 PO; +PROC1TAB5 PO; +SYMIN160 INH; +TRAM-10 PO; +VITACAP26 PO; +VNTHFA/IN INH
--- NOTE | 2017-06-08 10:07 | DIAGNOSTIC IMAGING REPORT ---
BRAIN COMBO CLINICAL HISTORY: 72 years-old Male presenting with lung cancer, clinical concern for metastatic disease. TECHNIQUE: Multisequence, multiplanar MR imaging of the brain was performed before and after the administration of intravenous contrast. IV contrast: 9.5 mL of Gadavist. COMPARISON: None. FINDINGS: Normal midline sagittal structures. Sandoval-white matter differentiation preserved. No restricted diffusion to suggest acute ischemia. No midline shift or mass effect. No hemorrhage or extra-axial fluid collection. Apparent focus of enhancement along the medial right temporal lobe is felt to most likely represent volume averaging of a crossing vessel. No convincing evidence of suspicious nodular enhancement to suggest intracranial metastatic disease. T2 skull base flow voids preserved. Bone marrow signal intensity within the calvarium normal. Paranasal sinuses and mastoid air cells grossly clear. Orbits normal. Upper cervical spine demonstrates degenerative changes of the atlantoaxial articulation. IMPRESSION: No evidence of intracranial metastatic disease. No acute intracranial pathology. Electronically signed by: Erasmo Huang M.D. 06/08/2017 10:06 AM Dictated Date/Time: 06/08/2017 9:57 AM
== END | disposition home or self-care (01) ==
LOC: C.MRIBC 09:07
PROVIDERS: ATTEND Surgery
DX: C34.90 Malignant neoplasm of unspecified part of unspecified bronchus or lung (principal)

== ENCOUNTER → 2017-06-14 | Outpatient (CLI) | payer OTHER ==
[~2017-06-14] MED LIST changes: -GADAVIST IV PRN
--- NOTE | 2017-06-14 13:26 | DIAGNOSTIC IMAGING REPORT ---
PET/CT CLINICAL HISTORY: Non-small cell lung cancer. COMPARISON STUDY: Chest CT dated 05/24/2017. TECHNIQUE: One hour following the IV administration of 12.20 mCi of F-18 FDG, PET/CT examination was performed from the orbital meatal line through the bony pelvis. Noncontrast CT is performed for the purposes of anatomic correlation and attenuation correction. Note that this does not reflect a diagnostic CT examination. Images were reviewed on a separate [employer] independent workstation. Fused images were obtained. Standard uptake values reported are maximum values within the region of interest expressed in gm/mL. FINDINGS: PET FINDINGS: Head and neck: There is expected physiologic activity within the visualized brain parenchyma at the skull base and the salivary glands. Thorax: Evaluation of the thorax demonstrates expected physiologic myocardial activity. There is a 3.9 x 3.3 cm spiculated mass lesion the infrahilar right lower lobe along the major fissure. This is markedly FDG avid with a maximum SUV of 9.8 and approaches the right hilum. No FDG avid mediastinal or hilar lymph nodes are identified. No additional pulmonary lesion is seen. Prominent AP window nodes measure up to 10 mm in short axis a subcarinal node on image #74 measures 1.5 cm in short axis. These were not demonstrably FDG avid. Abdomen and pelvis: There is expected activity within the liver, spleen, kidneys, renal collecting system, and bladder. Low-level bowel activity is likely within physical limits. Unenhanced CT images: The salivary glands and thyroid gland are normal as imaged. No cervical lymphadenopathy is seen. There is atherosclerotic calcification of the thoracic aorta which is normal in caliber and demonstrates bovine variant arch anatomy. The heart is mildly enlarged and without pericardial effusion. There are coronary artery calcifications. No axillary lymphadenopathy is seen. Emphysema is noted. There is no airspace consolidation typical for pneumonia or pleural effusion. See above under PET findings for assessment of pulmonary lesions. The unenhanced liver, gallbladder, spleen, adrenal glands, pancreas, and kidneys are grossly unremarkable. The abdominal aorta is normal in caliber noting mild to moderate atherosclerotic calcification. There is no bowel obstruction. Colonic fecal retention is observed. No intraperitoneal free air or abdominal ascites is identified. There is a small fat-containing umbilical hernia. There is no abdominal, pelvic, or inguinal lymphadenopathy. A fat-containing left inguinal hernia is identified. A bladder calculus is noted. The prostate and seminal vesicles are normal as imaged. A right hip arthroplasty is in place. There are healed right-sided rib fractures. No lytic or blastic lesions are seen. Mild mucosal thickening is seen in the left maxillary antrum. IMPRESSION: 1. There is a 3.9 cm spiculated infrahilar mass in the right lower lobe. This is FDG avid and consistent with the reported history of lung cancer. 2. No FDG avid mediastinal or hilar lymph nodes are identified. Prominent mediastinal lymph nodes detailed above showed no discernible FDG uptake. 3. There is no evidence of extrathoracic metastatic disease. 4. Cardiomegaly and emphysema. 5. Additional findings as above. Electronically signed by: Luis Antonio Ruiz M.D. 06/14/2017 1:25 PM Dictated Date/Time: 06/14/2017 1:14 PM
== END | disposition home or self-care (01) ==
LOC: C.PET 09:00
PROVIDERS: ATTEND Surgery
DX: C34.31 Malignant neoplasm of lower lobe, right bronchus or lung (principal)

== ENCOUNTER 2017-10-19 20:23 | Emergency (ER) | payer OTHER ==
[~2017-10-19] VITALS: Ht 172.7 cm; Wt 97.4 kg
[~2017-10-19 20:23] MED LIST changes: -CETI1CAP3 PO; -DOXY-300 PO; -VITACAP26 PO; -VNTHFA/IN INH
[2017-10-19 20:49] VITALS: TEMP 36.4; Ht 172.7 cm; Wt 97.4 kg
[2017-10-19 21:32] LABS: URINE APPEARANCE CLEAR (CLEAR); URINE BILIRUBIN NEG (NEG); URINE COLOR YELLOW; URINE EPITHELIAL CELL AUTO 0-5 /lpf (0-5); URINE NITRITE NEG (NEG); URINE PH 6.5 (4.5-7.5); UROBILINOGEN NEG (NEG); ZZURINE CULT IF INDIC CATH NO
--- NOTE | 2017-10-19 22:02 | EMERGENCY ROOM VISIT NOTE ---
History First contact with patient: 21:41 Chief Complaint: UNABLE TO VOID Stated Complaint: CONSTIPATION,BLADDER WON'T DRAIN Nursing Triage Summary: Patient had a surgical right endarterectomy yesterday at [facility]. Patient states "I haven't really been able to urinate well since I was discharged home. I am dribbling some but not urinating a stream. I have a lot of abdominal distention and pain. I have a lot of rectal pressure. I can't tell if I need to move my bowels or just urinate." Last BM was on Monday. History of Present Illness The patient is a 72 year old male who presents to the Emergency Room with complaints of unable to urinate for the last 2 days. The patient reports having an endarterectomy performed at [facility] yesterday morning. He underwent general anesthesia. The patient had some dribbling of urine yesterday morning. He has been unable to urinate since. He denies any blood or dysuria. He denies any flank pain, fever or chills. No nausea or vomiting. He is passing gas. No bowel movements yet. Review of Systems 10 system review performed and negative unless noted in HPI or below Past Medical/Surgical History Medical Problems: (1) Asthma Paroxysmal A. fib Heart disease Vascular disease Social History Smoking Status: Former Smoker Drug Use: none Marital Status: Housing Status: lives with family Occupation Status: retired Current/Historical Medications Scheduled Apixaban (Eliquis), 5 MG PO BID Ascorbic Acid (Vitamin C), 1 TAB PO DAILY B-Complex Vitamins (B Complex), 1 CAP PO DAILY Budesonide/Formoterol Fumarate (Symbicort 160/4.5 Inhaler ), 2 PUFFS INH BID Cholecalciferol (Vitamin D3), 1 TAB PO DAILY Dexamethasone (Decadron), 20 MG PO DIRECTED Lisinopril (Prinivil), 1 TAB PO DAILY Metoprolol Tartrate (Metoprolol Tartrate), 100 MG PO BID Scheduled PRN Acetaminophen Tab (Tylenol), 650 MG PO Q6H PRN for Pain Albuterol Sulfate (Proventil Hfa), 2 PUFFS INH Q4H PRN for SOB/Wheezing Diphenhydramine Hcl (Benadryl Allergy), 2 CAP PO HS PRN for Nasal Congestion Fexofenadine Hcl (Cindy), 180 MG PO DAILY PRN for Seasonal Allergies Fluticasone Propionate (Nasal) (Flonase Allergy Relief), 1 SPRAY INTNAS DAILY PRN for Nasal Congestion Ipratropium-Albuterol (Duoneb), 1 TREATMENT INH Q4H PRN for SOB/Wheezing Ondansetron Hcl (Zofran), 8 MG PO Q8 PRN for Nausea Prochlorperazine Maleate (Compazine), 1 TAB PO Q6 PRN for Nausea or Vomiting Physical Exam Vital Signs Date Time Temp Pulse Resp B/P (MAP) Pulse Ox O2 Delivery O2 Flow Rate FiO2 10/19/17 22:21 78 18 131/69 94 Room Air 10/19/17 20:49 36.4 81 18 119/74 89 Room Air Physical Exam VITALS: Vitals are noted on the nurse's note and reviewed by myself. Vital signs stable. GENERAL: 72-year-old male, in no acute distress, nondiaphoretic, well-developed well-nourished. SKIN: Large surgical incision noted over the right carotid. The incision is intact. No drainage noted. HEAD: Normocephalic atraumatic. HEART: Regular rate and rhythm without murmurs gallops or rubs. LUNGS: Clear to auscultation bilaterally without wheezes, rales or rhonchi. No accessory muscle use. ABDOMEN: Positive bowel sounds x 4.Soft, nontender, without organomegaly. No guarding or rebound tenderness. MUSCULOSKELETAL: No muscle atrophy, erythema, or edema noted. Strength 5/5 throughout. NEURO: Patient was alert and oriented to person place and time. Normal sensation to touch. No focal neurological deficits. Medical Decision & Procedures Laboratory Results Test 10/19/17 21:10 Urine Color YELLOW Urine Appearance CLEAR (CLEAR) Urine pH 6.5 (4.5-7.5) Urine Specific [place] 1.010 (1.000-1.030) Urine Protein NEG (NEG) Urine Glucose (UA) NEG (NEG) Urine Ketones NEG (NEG) Urine Occult Blood 1+ (NEG) Urine Nitrite NEG (NEG) Urine Bilirubin NEG (NEG) Urine Urobilinogen NEG (NEG) Urine Leukocyte Esterase NEG (NEG) Urine WBC (Auto) 0 /hpf (0-5) Urine RBC (Auto) 0-4 /hpf (0-4) Urine Hyaline Casts (Auto) 0 /lpf (0-5) Urine Epithelial Cells (Auto) 0-5 /lpf (0-5) Urine Bacteria (Auto) NEG (NEG) ED Course The patient was seen and examined A Durant catheter was inserted A urinalysis was performed and reviewed. The case was discussed with supervising physician, Dr. Massey, who is in agreement with my plan. The Durant catheter was removed Discharge instructions were reviewed, and the patient was discharged in good condition Medical Decision Differential diagnosis: Urinary retention, infection, neurologic compromise, adverse effect of medication, renal failure This patient is a 72-year-old male that presents to the emergency department with complaints of difficulty urinating for the last 2 days. He underwent a right endarterectomy yesterday. He had not urinated normally since yesterday morning. The patient has had difficulty urinating with general anesthesia in the past. It does not seem to be pain medication related, as the patient has not taken any narcotics. A Durant catheter was inserted in the emergency department. He put out over a liter of urine. He felt much better. His urinalysis does not appear infected. He does not have any systemic symptoms such as fever, chills, dysuria, hematuria, flank pain, nausea or vomiting. I believe he is stable to be discharged home. I did suggest that the patient be discharged with a Durant catheter. The patient was not in agreement with this plan. He was cautioned on the risks of having to return to the emergency department for insertion of another catheter if he cannot urinate in the next 8 hours. He is willing to take this risk. I also suggested self-catheterization , which she also was resistant to. He was also instructed to follow-up with his primary care physician, and contact a surgeon to let him know that he was evaluated here for this problem. This chart was completed in part utilizing [employer] Speech Voice Recognition software. Attempts were made to minimize the grammatical errors, random word insertions, pronoun errors and incomplete sentences. Any formal questions or concerns about the content, text or information contained within the body of this dictation should be directly addressed to the provider for clarification. Medication Reconcilliation Current Medication List: was personally reviewed by me Blood Pressure Screening Patient's blood pressure: Normal blood pressure Impression Primary Impression: Postoperative urinary retention Departure Information Dispostion Home / Self-Care Condition GOOD Referrals Steffany Curran PA-C (PCP) Patient Instructions My [facility] Additional Instructions You were evaluated in the emergency department for difficulty urinating. A Durant catheter was inserted. A large amount of urine was relieved from your bladder. Your difficulty urinating is likely related to surgery/general anesthesia Please follow-up with your primary care physician in the next 48 hours for recheck. Please return to the emergency department if you are unable to urinate for 8 hours, experience any significant abdominal pain, or any other new or concerning symptoms.
[2017-10-19] MEDS ORDERED: LISI10TA PO (22:05)
[2017-10-19 22:19] LABS: MANUAL MICROSCOPIC REQUIRED? NO; REVIEW REQ? NO
[2017-10-19 22:21] VITALS: BP 131/69; PULSE 78; O2SAT 94
== END 2017-10-19 22:55 | disposition home or self-care (01) ==
LOC: C.EDB 20:24
DX: R33.9 Retention of urine, unspecified (principal); J45.909 Unspecified asthma, uncomplicated; I48.91 Unspecified atrial fibrillation; I51.9 Heart disease, unspecified; I99.9 Unspecified disorder of circulatory system; Z87.891 Personal history of nicotine dependence

== ENCOUNTER → 2017-10-31 | Outpatient (CLI) | payer OTHER ==
[~2017-10-31] MED LIST changes: +ACET-1693 PO; -ACET325T96 PO; +IPRA-64 INH; -IPRASOL4 INH; +LISI10TA PO; +ONDA-170 PO; -ONDA8TAB6 PO; +PROC10TA PO; -PROC1TAB5 PO; -TRAM-10 PO
[2017-10-31 14:32] VITALS: BP 131/74; PULSE 92; TEMP 37.5; O2SAT 91
--- NOTE | 2017-10-31 16:08 | Radiation Oncology Follow-Up ---
Radiation Oncology Follow-Up Date of Visit Oct 31, 2017. 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 Radiation completed 09/25/2017. He received 7000 cGy. Last Edited By: Kaylyn Aggarwal on Oct 03, 2017 08:42 History of Present Illness Mr. Zuleta has a prior smoking history having smoked half pack a day for 30 years. He quit 6 years ago. The patient was being seen for a skin cellulitis and went to a medical clinic. They noted a rapid heart rate and elevated blood pressure and send him to [facility] for further evaluation and workup. A chest x-ray was performed on 05/24/2017 as part of the standard workup. This showed fullness in the right hilar region. CT scan was suggested. A CT angiogram of the chest was performed on 05/24/2017. This revealed a 3.2 cm right hilar mass. There was an enlarged subcarinal lymph node measuring 1.5 cm. Paratracheal lymph nodes with the upper limit of normal in size. There was no evidence of pathologic axillary adenopathy. He was also found to have an elevated or grade and a rhythm that was irregularly irregular and was found to be in A. fib. On 05/29/2017 patient underwent an endobronchial ultrasound with biopsies by Dr. Calvert. An endobronchial lesion was noted in the right lower lobe bronchus. No other endobronchial lesions were identified. Biopsies of the right lower lobe mass and lymph nodes were performed. Fine-needle EBUS of the L 10 lymph node showed no malignant cells. Fine-needle EBUS of the L4 lymph node showed rare clusters of epithelial cells suspicious for metastatic carcinoma. Fine-needle EBUS of station 7 was negative for metastatic carcinoma. Fine-needle EBUS of the R4 endobronchial lymph node was negative for metastatic carcinoma. Fine-needle biopsy the right lower lobe mass revealed moderately differentiated squamous cell carcinoma. Case: [id number]. Fine-needle EBUS of the R2 lymph nodes were suspicious for metastatic carcinoma and the fine-needle EBUS of the R 10 lymph node revealed atypical squamous cells consistent with metastatic carcinoma. Patient went on to have additional staging procedures. On June 08 he underwent an MRI of the brain which showed no evidence of intracranial metastatic disease. On 06/14/2017 the patient underwent a PET/CT scan. This showed a 3.9 x 3.3 cm spiculated mass lesion in the infra-hilar right lower lobe along the major fissure. There was marked FDG avidity with a maximum SUV of 9.8 and approaches the right hilum. There was no FDG avid mediastinal or hilar lymph nodes identified. No additional pulmonary lesions were seen. Prominent AP window nodes up to 1 cm in short axis and a subcarinal node measuring 1.5 cm in short axis were noted. These were not demonstrably FDG avid. The remainder of the PET scan was unremarkable. The patient was seen by Dr. Nick Tapia on 06/15/2017. He noted that the patient had at least a T2a N1 M0 squamous cell carcinoma, stage IIA and very possibly a T2a N3b, stage IIIB squamous cell carcinoma. Patient has been scheduled to see Dr. Leo at [facility], thoracic surgeon, to evaluate the role of surgery. We were asked to see the patient to evaluate the potential role of adjuvant or definitive radiation along with chemotherapy if appropriate. He completed combined radiation and chemotherapy. Radiation was completed 09/25. He received 7000 cGy. Interim History Over this past month he feels that his respiratory status is stable. He has not had any increased shortness of breath. Denies any dysphagia. He had some redness to the skin on his back which resolved. He had some mild itching. He had seen his laser beam color scanner operator Dr. Mondragon. He evaluated his carotids and her bruit. He was referred to Dr. Cordero in [place]. He recently underwent a right carotid endarterectomy. He has done well post surgery. He did have an episode of urinary retention and presented to the emergency room. Straight catheterization was performed. Following this he has had some urinary difficulty. He stated he is steadily improving. He is now being followed in medical oncology by Dr. Brunson. He has 3 remaining cycles of chemotherapy. He is tolerating this well. He is anxious to know his current outcome from treatment. Allergies Coded Allergies: Molds & Smuts (Verified Allergy, Intermediate, congestion, 10/19/17) POLLEN (Verified Allergy, Intermediate, congestion, 10/19/17) Home Medications Scheduled Apixaban (Eliquis), 5 MG PO BID Ascorbic Acid (Vitamin C), 1 TAB PO DAILY B-Complex Vitamins (B Complex), 1 CAP PO DAILY Budesonide/Formoterol Fumarate (Symbicort 160/4.5 Inhaler ), 2 PUFFS INH BID Cholecalciferol (Vitamin D3), 1 TAB PO DAILY Dexamethasone (Decadron), 20 MG PO DIRECTED Lisinopril (Prinivil), 1 TAB PO DAILY Metoprolol Tartrate (Metoprolol Tartrate), 100 MG PO BID Scheduled PRN Acetaminophen Tab (Tylenol), 650 MG PO Q6H PRN for Pain Albuterol Sulfate (Proventil Hfa), 2 PUFFS INH Q4H PRN for SOB/Wheezing Diphenhydramine Hcl (Benadryl Allergy), 2 CAP PO HS PRN for Nasal Congestion Fexofenadine Hcl (Cindy), 180 MG PO DAILY PRN for Seasonal Allergies Fluticasone Propionate (Nasal) (Flonase Allergy Relief), 1 SPRAY INTNAS DAILY PRN for Nasal Congestion Ipratropium-Albuterol (Duoneb), 1 TREATMENT INH Q4H PRN for SOB/Wheezing Ondansetron Hcl (Zofran), 8 MG PO Q8 PRN for Nausea Prochlorperazine Maleate (Compazine), 1 TAB PO Q6 PRN for Nausea or Vomiting Review of Systems Gastrointestinal: Symptoms: Constipation GI Comments: takes meds as needed Oral: Other Oral Symptoms: "sore throat has gone since surgery " Respiratory: Symptoms: Dry Cough, SOB With Exertion, Productive Cough Sputum Character: occ clear sputum Other Respiratory: " nose is dripping now " Urinary: Symptoms: Nocturia Comments: pain when [address] st starts to urinate, getting better , nocturia times 2 -3 Skin: Other Skin Symptoms: right neck incision is healing from surgery Physical Exam Vital Signs Date Time Temp Pulse Resp B/P (MAP) Pulse Ox O2 Delivery O2 Flow Rate FiO2 10/31/17 14:32 37.5 92 20 131/74 91 Fatigue: None General Appearance: no apparent distress Eyes: normal inspection, EOMI ENT: normal ENT inspection, hearing grossly normal Neck: + pertinent finding (healing incision of the right neck from recent carotid endarterectomy) Respiratory/Chest: lungs clear, no respiratory distress, no accessory muscle use, + decreased breath sounds Cardiovascular: regular rate, rhythm, no gallop, no murmur Extremities: no pedal edema Neurologic/Psychiatric: no motor/sensory deficits, alert, normal mood/affect Skin: warm/dry Pain Management Patient Reports Pain: No Side: Bilateral Patient Preferred Pain Scale: 0 - 10 Initial Pain Intensity: 0.0 Pain Management Plan He denies pain therefore requires no pain management. Laboratory Laboratory Results: not applicable Pathology Pathology Results: not applicable Imaging Imaging Studies: not applicable Assessment & Plan Plan: Patient was seen and examined by Dr. Cavazos. He wished to review his response to treatment. He'll be continuing chemotherapy with Dr. Brunson. He has 3 remaining cycles. We discussed that he will have follow-up imaging. This is usually ordered through medical oncology. We asked him to return to our office in 6 months. Today we completed a cancer survivorship care plan. A copy of the document was given to the patient. Assessment & Plan (Attending) Mr. Zuleta has completed radiation and continues with systemic chemotherapy under the care of Dr. Ru Brunson. He was seen today for his one-month follow- up and is doing well. He was very interested in receiving information on the response of his tumor to the treatment he has received to date. I was able to pull up are imaging that we took on the first day of treatment and compared it to the imaging that we took on the final day of treatment. I reviewed these images with him on the screen. They clearly showed a very good response with marked reduction in tumor volume. I also told him that it was likely that he would continue to have a response due to the ongoing effects of the radiation and the ongoing chemotherapy that she is receiving. Patient wanted to know what his status was today as the images I reviewed were from a month ago. I told him that it is customary to complete his course of chemotherapy prior to performing additional imaging. However I suggested that he raised this issue with Dr. Brunson. He was to receive a course of chemotherapy this week but due to a cold it has been put off until next week. He indicated that he would talk with either Dr. Boy is a nurse when he goes in next week for his next course of chemotherapy. We will continue to see him in follow-up in 6 months time or earlier if requested. Thank you for allowing us to participate in the care of this patient. This chart was completed in part utilizing [employer] Speech Voice Recognition software. Attempts were made to minimize the grammatical errors, random word insertions, pronoun errors and incomplete sentences. Any formal questions or concerns about the content, text or information contained within the body of this dictation should be directly addressed to the provider for clarification. Manny Cavazos MD Department of Radiation Oncology [facility] Total Time In Follow-Up I spent 15 minutes speaking to the patient and performing examination. I spent 15 minutes reviewing information in completing this note. Total Time (Attending) In Follow-Up I spent 15 minutes reviewing his images with him and 5 minutes reviewing his records and preparation of this document. WAGNER Copy To Daniel Gaming M.D.; Ru Brunson M.D.; Steffany Curran PA-C
== END | disposition home or self-care (01) ==
LOC: C.ONC 14:26
PROVIDERS: ATTEND Physician Assistant Medical
DX: Z08 Encounter for follow-up examination after completed treatment for malignant neoplasm (principal); Z92.3 Personal history of irradiation; Z85.118 Personal history of other malignant neoplasm of bronchus and lung

== ENCOUNTER → 2018-01-01 | Outpatient (CLI) | payer OTHER ==
[~2018-01-01] MED LIST changes: -IPRA-64 INH; +IPRASOL4 INH; -ONDA-170 PO; +ONDA8TAB6 PO; -PROC10TA PO; +PROC1TAB5 PO
--- NOTE | 2018-01-01 14:45 | DIAGNOSTIC IMAGING REPORT ---
PET/CT HISTORY: LUNG CANCER TECHNIQUE: PET/CT was performed from the base of the skull through the pelvis following the intravenous administration of 10.9 mCi of F18-FDG. Non-contrast CT imaging was performed over the same range without breath-hold for attenuation correction of PET images and anatomic correlation, but not for primary interpretation as it is not of standard diagnostic quality. CT DOSE: COMPARISON: PET CT 06/14/2017. FINDINGS: HEAD AND NECK: There is no FDG-avid disease or significant lymphadenopathy in the imaged portions of the head and the neck. CHEST: Interval development of a small to moderate right pleural effusion. This demonstrates minimal FDG uptake with an SUV max of 1.8. The right infrahilar mass has significantly decreased in size and FDG uptake. This is difficult to measure due to the motion artifact but is approximately 1.7 cm, previous measuring 3.9 cm. This demonstrates an SUV max of 2.6. There are new patchy groundglass airspace opacities within the right midlung zone which demonstrate mild FDG uptake with SUV max of 2.4. This favors a radiation pneumonitis. No FDG avid or enlarged mediastinal or hilar lymph nodes. Subcentimeter mediastinal lymph nodes do not meet CT criteria for pathologic involvement. These have decreased in size. ABDOMEN/PELVIS: Below the diaphragm, tracer is distributed physiologically in the gastrointestinal and genitourinary tracts. There is no significant lymphadenopathy and no FDG-avid disease. MUSCULOSKELETAL: There is no FDG-avid or destructive bone lesion. Right total hip arthroplasty. IMPRESSION: 1. Decrease in size and FDG uptake within the 1.7 cm right infrahilar mass. 2. Decrease in size in the subcentimeter mediastinal lymph nodes. No abnormal FDG uptake. 3. Interval development of a small to moderate right pleural effusion. 4. New patchy groundglass airspace opacities demonstrating mild FDG uptake within the right lung. This favors radiation pneumonitis. Electronically signed by: Robi Marinelli M.D. 01/01/2018 2:43 PM Dictated Date/Time: 01/01/2018 2:20 PM
== END | disposition home or self-care (01) ==
LOC: C.PET 09:36
PROVIDERS: ATTEND Internal Medicine Hematology
DX: C34.31 Malignant neoplasm of lower lobe, right bronchus or lung (principal); C77.1 Secondary and unspecified malignant neoplasm of intrathoracic lymph nodes

== ENCOUNTER → 2018-03-28 | Outpatient (CLI) | payer OTHER ==
[~2018-03-28] MED LIST changes: +ONDA-170 PO; -ONDA8TAB6 PO; +OPTIRAY 320 IV PRN
--- NOTE | 2018-03-28 08:57 | DIAGNOSTIC IMAGING REPORT ---
CT (CHEST) THORAX WITH CT DOSE: 642.16 mGy.cm HISTORY: Lung carcinoma RT LUNG CA,METS TO INTRATHORACIC TECHNIQUE: Multiaxial CT images of the chest were performed following the intravenous administration of contrast. A dose lowering technique was utilized adhering to the principles of ALARA. COMPARISON: 01/01/2018 FINDINGS: Mild interval decrease in volume of right pleural effusion. The 1.7 cm right hilar lesion is considerably diminished in volume with minimal residual. There are findings of persistent right perihilar interstitial change is statistically felt to Ray relate to radiation fibrotic change. The left lung is considered clear. There is no significant left parenchymal nodularity. Several small mediastinal nodes are present which appear stable. There is no progressive mediastinal adenopathy. Thoracic aorta is unremarkable in overall course and caliber. Moderate degenerative changes thoracic spine with no true lytic or blastic process. IMPRESSION: 1. Improved exam. 2. Right pleural effusion is diminished in volume. 3. 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 4. Considerable decrease and or near complete resolution of a right hilar lesion. 5. Unchanging mild mediastinal adenopathy. The above report was generated using voice recognition software. It may contain grammatical, syntax or spelling errors. Electronically signed by: Yon Clifton M.D. 03/28/2018 8:55 AM Dictated Date/Time: 03/28/2018 8:39 AM
== END | disposition home or self-care (01) ==
LOC: C.CTS 08:11
PROVIDERS: ATTEND Internal Medicine Hematology
DX: C34.31 Malignant neoplasm of lower lobe, right bronchus or lung (principal); C77.1 Secondary and unspecified malignant neoplasm of intrathoracic lymph nodes; J90 Pleural effusion, not elsewhere classified; R91.8 Other nonspecific abnormal finding of lung field

== ENCOUNTER 2021-11-26 05:55 | Inpatient (IN) ==
[2021-11-26 06:03] VITALS: TEMP 97.7
[2021-11-26 06:30] LABS: Base Excess ABG 5.1 mEq/L (-9-1.8); HCO3 ABG 31 mmol/L (19-24); PCO2 ABG 49 mmHg (35-46); PO2 ABG 81 mmHg (80-95); pH ABG 7.42 (7.35-7.45)
[2021-11-26 06:34] LABS: Allen Test POS (Pos)
[2021-11-26 06:35] LABS: Basophils # (auto) 0.01 K/uL (0-0.2); Basophils % (auto) 0.1 %; Eosinophils # (auto) 0.21 K/uL (0-0.5); Eosinophils % (auto) 1.7 %; Hematocrit (blood only) 45.7 % (42-52); Hemoglobin 14.9 g/dL (14.0-18.0); Immature Granulocytes # (auto) 0.03 K/uL (0.00-0.02); Immature Granulocytes % (auto) 0.2 %; Lymphocytes # (auto) 0.81 K/uL (1.2-3.4); Lymphocytes % (auto) 6.5 %; Mean Corpuscular Hgb Conc 32.6 g/dL (32-36); Mean Corpuscular Volume 98.3 fL (80-100); Mean Platelet Volume 9.1 fL (7.4-10.4); Monocytes # (auto) 1.38 K/uL (0.11-0.59); Monocytes % (auto) 11.2 %; Neutrophils # (auto) 9.93 K/uL (1.4-6.5); Neutrophils % (auto) 80.3 %; Platelet Count 282 K/uL (130-400); RDW Coefficient of Variation 13.7 % (11.5-14.5); RDW Standard Deviation 48.7 fL (36.4-46.3); Red Blood Count 4.65 M/uL (4.7-6.1); White Blood Count 12.37 K/uL (4.8-10.8)
--- NOTE | 2021-11-26 06:39 | Emergency Department Note ---
Impression & Plan Acute respiratory failure with hypoxia, Community acquired pneumonia, COPD (chronic obstructive pulmonary disease) ED Provider Note NAME: CEE GOEL AGE: 76 SEX: M : 1945 ARRIVES VIA: Walk-In INFORMANT: Patient, ED PROVIDER(S): Willy Keating MD Chief Complaint: Shortness of breath, cough HPI: Patient does state that he was developing a upper respiratory infection just beginning over the weekend. The patient felt as though he had some postnasal drip and then developed a productive cough. Patient subsequently had increasing rhinorrhea. Patient does have a history of COPD. The patient denies any chest pains with the exception of a coughing fit that caused some left-sided chest discomfort last night and believes that he pulled a muscle. Patient denies any fevers or chills. Patient is vaccinated for Covid and flu. Patient is compliant with his medications and does take his Coumadin. No history of DVT or PE. Patient denies any leg swelling calf pain recent surgeries procedures or hospitalizations or recent travel. Patient did take a nebulizer treatment prior to arrival and had improvement in symptoms. ROS: See HPI for pertinent positives and negatives. A total of 10 systems were reviewed and otherwise negative. Past medical history: See below Surgical history: See below Social history: See below Physical Exam: GENERAL: NAD, [wearing a mask,] non-toxic. EYE EXAM: Normal conjunctiva. PERRL, no anisocoria and EOM's grossly intact w/o pain. NECK: Supple, no nuchal rigidity, no adenopathy, non-tender. No signs of meningismus. LUNGS: Scant wheezes throughout. Normal chest wall mechanics. HEART: NSR, no MRG. ABDOMEN: Abdomen soft, non-tender, normo-active bowel sounds, no masses, no rebound or guarding. BACK: No CVA TTP. SKIN: No rashes and no bruising. UPPER EXTREMITIES: Upper extremities are grossly normal. LOWER EXTREMITIES: Grossly normal, no edema. NEURO EXAM: A&O x3, cranial nerves II-XII grossly intact, normal speech, moves all 4 extremities on command w/o issue. Differential diagnoses: Reactive airway disease, pneumonia, pneumothorax, COPD, CHF, infections, cardiac ischemia, pulmonary embolism, musculoskeletal, gastrointestinal, as well as other pathologies. Course: Patient was seen and evaluated the bedside. Full history physical exam was performed. [EKG interpreted by me] Normal sinus rhythm, rate of 70, normal intervals, normal axis, T wave inversion in aVL T wave inversion in V6. Slight depressions in the lateral leads. Depressions are slightly changed from comparison EKG completed July 11, 2021. Imaging Studies: See Below [Cardiac monitoring: An order was placed for continuous cardiac monitoring. The monitor shows a rate of 65 with sinus rhythm.] MDM: Patient was seen due to concern for possible infectious process and associated COPD exacerbation. Blood work was obtained patient did have a chest x-ray completed. Patient was treated symptomatically but declined a DuoNeb as he had taken 1 just prior to arrival.. The patient's kidney function is unremarkable with mild hypokalemia. Patient did have an ABG showed normal PO2 and pH on 2 L. Patient's INR was 3.7. Troponin not detectable. Urinalysis does not show evidence of blood or infection. RSV flu and Covid negative patient did have a CTA of the chest which showed no evidence of PE but does have possible infectious or inflammatory process. Patient did receive Rocephin and azithromycin. I did speak the on-call hospitalist AZ Lugo and the patient was to be admitted by Dr. Collado. After consultation with the hospitalist the patient wanted to leave AGAINST MEDICAL ADVICE. I did discuss the risks and benefits of inpatient versus outpatient treatment after discussing the possible risks of leaving he would still prefer to leave AGAINST MEDICAL ADVICE. Patient reportedly had already had cefdinir and prednisone sent as an outpatient so azithromycin was also sent. There were difficulty in having the patient discharge instructions sent. I did call the pharmacy noted to have the prescription displayed. The patient did undergo a two-step and did have oxygen written for which the patient was supplied with at the time that he left AGAINST MEDICAL ADVICE. Patient is to have a follow-up on Monday per inpatient [facility] team. Critical Care: I have personally spent 36 minutes of critical care time in direct management of this patient. This includes bedside care, interpretation of diagnostic studies, and testing, discussion with consultants, patient, and family members, and other require inpatient management activities. This 36 minutes is in excess of all separately billable procedures. 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 IMMUNIZATION THERAPY. Surgical History History of CEA (carotid endarterectomy) RIGHT History of colonoscopy History of total hip arthroplasty RIGHT Family History Mother Stroke Social History Smoking Status: Former smoker Second Hand Exposure: No; Hx Alcohol Use: Yes Alcohol type: beer Hx Substance Use: No Preferred Language: Wallisian Communication Ability: Effective Visual Impairment: Limited Microsoft Developer Required: No Beliefs That Will Affect Care: None Current Living Situation: Spouse Feels Safe at Home: Yes Assistive Devices: Walker Allergies Allergies Allergy/AdvReac Type Severity Reaction Status Date / Time mold Allergy Intermediate congestion Verified 07/11/21 10:03 pollen extracts Allergy Intermediate congestion Verified 07/11/21 10:03 Home Meds Home Medications Medication Instructions Recorded Confirmed albuterol sulfate 90 mcg/actuation 2 puff INHALATION Q4H PRN 10/25/18 11/26/21 aerosol inhaler (Ventolin HFA) ascorbic acid (vitamin C) 1,000 mg 1 g PO QAM 10/25/18 11/26/21 tablet (Vitamin C) budesonide-formoterol HFA 160 2 puff INHALATION BID 10/25/18 11/26/21 mcg-4.5 mcg/actuation aerosol inhaler metoprolol tartrate 100 mg tablet 100 mg PO BID 10/25/18 11/26/21 montelukast 10 mg tablet 10 mg PO QAM 10/25/18 11/26/21 vitamin B complex 1 tab PO QAM 10/25/18 11/26/21 warfarin 5 mg tablet (Jantoven) See Rx Instructions .ROUTE .COMPLEX 10/25/18 11/26/21 aspirin 81 mg chewable tablet 81 mg PO QAM 10/29/18 11/26/21 atorvastatin 20 mg tablet (Lipitor) 20 mg PO QAM 07/11/21 11/26/21 furosemide 20 mg tablet (Lasix) 40 mg PO BID 07/11/21 11/26/21 potassium chloride 10 mEq 10 meq PO DAILY 11/26/21 11/26/21 capsule,extended release tamsulosin 0.4 mg capsule 0.4 mg PO HS 11/26/21 11/26/21 Results & Data (ED) Vital Signs Vital Signs - 24 hr 11/26/21 06:00 11/26/21 06:15 11/26/21 06:17 Temperature 36.5 C Temperature Source Temporal Artery Scan Pulse Rate 71 68 Pulse Rate [Finger] 68 Pulse Rhythm Regular Respiratory Rate 22 Respiratory Depth Normal Blood Pressure 132/70 Blood Pressure [Right Arm] 132/77 Blood Pressure Mean 90 Blood Pressure Mean [Right Arm] 95 Pulse Oximetry 84 L 96 95 Oxygen Delivery Method Room Air Nasal Cannula Nasal Cannula Oxygen Flow Rate 2 2 Sepsis Recent Fever Within 48 Hours No Sepsis New/Unexplained Change in Mental Status N/A Sepsis Action Taken by Nursing No Action Required Oxygen Flow Rate - Titration 2 Pulse Oximetry Post Tiitration 96 Home Medications Current Medication List: was personally reviewed by me Laboratory Data Attestation: I reviewed the patient's lab results. Result diagrams: 11/26/21 06:20 11/26/21 06:20 Lab Results 11/26/21 11/26/21 11/26/21 Range/Units 06:16 06:20 06:20 WBC 12.37 H (4.8-10.8) K/uL RBC 4.65 L (4.7-6.1) M/uL Hgb 14.9 (14.0-18.0) g/dL Hct 45.7 (42-52) % MCV 98.3 (80-100) fL MCH 32.0 (25-34) pg MCHC 32.6 (32-36) g/dL RDW Std Deviation 48.7 H (36.4-46.3) fL RDW Coeff of Marco Antonio 13.7 (11.5-14.5) % Plt Count 282 (130-400) K/uL MPV 9.1 (7.4-10.4) fL Immature Gran % (Auto) 0.2 % Neut % (Auto) 80.3 % Lymph % (Auto) 6.5 % Young % (Auto) 11.2 % Eos % (Auto) 1.7 % Baso % (Auto) 0.1 % Neut # (Auto) 9.93 H (1.4-6.5) K/uL Lymph # (Auto) 0.81 L (1.2-3.4) K/uL Young # (Auto) 1.38 H (0.11-0.59) K/uL Eos # (Auto) 0.21 (0-0.5) K/uL Baso # (Auto) 0.01 (0-0.2) K/uL Immature Gran # (Auto) 0.03 H (0.00-0.02) K/uL PT 33.7 H (9.0-12.0) Seconds INR 3.7 H (0.9-1.1) APTT 50.6 H* (21.0-31.0) Seconds PTT Ratio 1.9 ABG pH 7.42 (7.35-7.45) ABG pCO2 49 H (35-46) mmHg ABG pO2 81 (80-95) mmHg ABG HCO3 31 H (19-24) mmol/L ABG O2 Saturation 96.0 H (90-95) % ABG Base Excess 5.1 H (-9-1.8) mEq/L Huy Test POS (Pos) Barometric Pressure 728.9 mm/Hg Oxygen Given 2 L/MIN Sodium (136-145) mmol/L Potassium (3.5-5.1) mmol/L Chloride (98-107) mmol/L Carbon Dioxide (21-32) mmol/L Anion Gap (3-11) BUN (7-18) mg/dl Creatinine (0.6-1.4) mg/dl Est Cr Clr Drug Dosing ml/min Est GFR ( Amer) ml/min Est GFR (Non-Af Amer) ml/min BUN/Creatinine Ratio (10-20) Glucose (70-99) mg/dl Calcium (8.5-10.1) mg/dl Total Bilirubin (0.2-1) mg/dl AST (15-37) U/L ALT (12-78) Alkaline Phosphatase (45-117) U/L Troponin I (0-0.045) ng/ml NT-Pro-B Natriuret Pep (0-900) pg/ml Total Protein (6.4-8.2) gm/dl Albumin (3.4-5.0) gm/dl Globulin (2.5-4.0) gm/dl Albumin/Globulin Ratio (0.9-2) 11/26/21 Range/Units 06:20 WBC (4.8-10.8) K/uL RBC (4.7-6.1) M/uL Hgb (14.0-18.0) g/dL Hct (42-52) % MCV (80-100) fL MCH (25-34) pg MCHC (32-36) g/dL RDW Std Deviation (36.4-46.3) fL RDW Coeff of Marco Antonio (11.5-14.5) % Plt Count (130-400) K/uL MPV (7.4-10.4) fL Immature Gran % (Auto) % Neut % (Auto) % Lymph % (Auto) % Young % (Auto) % Eos % (Auto) % Baso % (Auto) % Neut # (Auto) (1.4-6.5) K/uL Lymph # (Auto) (1.2-3.4) K/uL Young # (Auto) (0.11-0.59) K/uL Eos # (Auto) (0-0.5) K/uL Baso # (Auto) (0-0.2) K/uL Immature Gran # (Auto) (0.00-0.02) K/uL PT (9.0-12.0) Seconds INR (0.9-1.1) APTT (21.0-31.0) Seconds PTT Ratio ABG pH (7.35-7.45) ABG pCO2 (35-46) mmHg ABG pO2 (80-95) mmHg ABG HCO3 (19-24) mmol/L ABG O2 Saturation (90-95) % ABG Base Excess (-9-1.8) mEq/L Huy Test (Pos) Barometric Pressure mm/Hg Oxygen Given Sodium 134 L (136-145) mmol/L Potassium 3.3 L (3.5-5.1) mmol/L Chloride 97 L (98-107) mmol/L Carbon Dioxide 30 (21-32) mmol/L Anion Gap 7.0 (3-11) BUN 13 (7-18) mg/dl Creatinine 1.06 (0.6-1.4) mg/dl Est Cr Clr Drug Dosing 67.7 ml/min Est GFR ( Amer) 79.7 ml/min Est GFR (Non-Af Amer) 68.8 ml/min BUN/Creatinine Ratio 12.6 (10-20) Glucose 103 H (70-99) mg/dl Calcium 9.4 (8.5-10.1) mg/dl Total Bilirubin 0.8 (0.2-1) mg/dl AST 32 (15-37) U/L ALT 33 (12-78) Alkaline Phosphatase 85 (45-117) U/L Troponin I < 0.015 (0-0.045) ng/ml NT-Pro-B Natriuret Pep 157 (0-900) pg/ml Total Protein 8.2 (6.4-8.2) gm/dl Albumin 2.9 L (3.4-5.0) gm/dl Globulin 5.3 H (2.5-4.0) gm/dl Albumin/Globulin Ratio 0.5 L (0.9-2) Administered Medications Discontinued Medications Azithromycin (Azithromycin 250 Mg Tab) 500 mg PO NOW ONE Stop: 11/26/21 07:16 Last Admin: 11/26/21 07:57 Dose: 500 mg Documented by: [id number] Magnesium Sulfate/Dextrose (Magnesium Sulfate / D5w) 1 gm in 100 mls @ 100 mls/hr IV NOW STA Stop: 11/26/21 07:43 Last Infusion: 11/26/21 07:52 Dose: 0 mls/hr Documented by: [id number] Admin: 11/26/21 06:51 Dose: 100 mls/hr Documented by: [id number] Ceftriaxone Sodium (Rocephin) 2,000 mg in 70 mls @ 140 mls/hr IV NOW STA Stop: 11/26/21 07:44 Last Infusion: 11/26/21 08:32 Dose: 0 mls/hr Documented by: [id number] Admin: 11/26/21 07:57 Dose: 140 mls/hr Documented by: [id number] Ioversol (Optiray 320 125ml) 121 ml IV ONCE ONE Stop: 11/26/21 08:13 Last Admin: 11/26/21 08:13 Dose: 121 ml Documented by: [id number] Methylprednisolone (Methylprednisolone 125 Mg/2 Ml Vial) 60 mg IV NOW STA Stop: 11/26/21 06:44 Last Admin: 11/26/21 06:51 Dose: 60 mg Documented by: [id number] Potassium Chloride (Potassium Chloride Crtab 20 Meq Tabcr) 40 meq PO ONE ONE Stop: 11/26/21 08:44 Last Admin: 11/26/21 09:44 Dose: 40 meq Documented by: [id number] Imaging Data Radiologist's Impression: Chest X-Ray 11/26/21 06:05 XR chest 1V portable HISTORY: 76 years-old Male sob acute shortness of breath COMPARISON: CTA chest and chest radiograph 07/11/2021 TECHNIQUE: Portable AP view of the chest FINDINGS: Cardiac silhouette is enlarged. Masslike opacity of the right hilum has mildly decreased in size from prior. Small right pleural effusion with persistent right lung base consolidation. No pneumothorax. There are new ill-defined airspace opacities of the left lung base. Emphysema with chronic interstitial coarsening. Degenerative changes of the shoulders and spine. IMPRESSION: 1. Masslike opacity of the right hilum is redemonstrated and appears mildly decreased in size from prior. 2. Small right pleural effusion with right lung base consolidation redemonstrated. 3. Emphysema with new ill-defined left basilar opacities which should be correlated clinically to exclude an infectious or inflammatory pneumonitis. ACT 112: Negative or not required by law. The above report was generated using voice recognition software. It may contain grammatical, syntax or spelling errors. Electronically signed by: Iraj Eng M.D. 11/26/2021 6:56 AM Chest CTA 11/26/21 07:13 CT angio chest PE protocol CLINICAL HISTORY: PE TECHNIQUE: Multidetector row helical CT of the chest was performed. Coronal and sagittal reformations were obtained. Coronal and sagittal MIPS were obtained from the axial data set and were submitted for review. Automated dose lowering techniques and/or adjustment according to patient size were utilized for this exam. Comparison: Comparison is made to CT chest 07/11/2021 FINDINGS: Lungs and pleura: Scarring and pleural thickening most prominent in the right perihilar region is again seen compatible with postradiation changes. There are a few scattered groundglass opacities most prominent most prominent in the left lung. Heart and pericardium: Heart size is normal. No pericardial effusion. Vessels: No evidence of pulmonary embolism. Mediastinum and fara: Subcentimeter lymph nodes are seen. Chest wall and lower neck: Unremarkable. Abdomen: Unremarkable. Bones: Degenerative changes in the thoracic spine. IMPRESSION: 1. Redemonstration of posttreatment scarring changes. There is no evidence of pulmonary embolism. 2. A few scattered groundglass opacities are seen which may be secondary to infectious/inflammatory process. ACT 112: Negative or not required by law. Electronically signed by: Woo Can M.D. 11/26/2021 8:38 AM Discharge Plan Visit Data Chief Complaint: Respiratory Problems Stated Complaint: PNEUMONIA-COUGH,SOB,ACHES ED Provider: Willy Keating Discharge Problem: Acute respiratory failure with hypoxia, Community acquired pneumonia, COPD (chronic obstructive pulmonary disease) Patient Disposition: Against Medical Advice Condition: Fair Discharge Instructions Interventions: ED AMA/LWBS Discharge Assessment Last Done: 11/26/21 12:52
[2021-11-26] MEDS ORDERED: methylPREDNISolone 125 MG/2 ML VIAL IV STA (06:43)
[2021-11-26] MEDS ORDERED: MAGNESIUM SULFATE / D5W 1 GM/100 ML BAG IV STA (06:44)
--- NOTE | 2021-11-26 06:58 | XRay Report ---
XR chest 1V portable HISTORY: 76 years-old Male sob acute shortness of breath COMPARISON: CTA chest and chest radiograph 07/11/2021 TECHNIQUE: Portable AP view of the chest FINDINGS: Cardiac silhouette is enlarged. Masslike opacity of the right hilum has mildly decreased in size from prior. Small right pleural effusion with persistent right lung base consolidation. No pneumothorax. There are new ill-defined airspace opacities of the left lung base. Emphysema with chronic interstiti al coarsening. Degenerative changes of the shoulders and spine. IMPRESSION: 1. Masslike opacity of the right hilum is redemonstrated and appears mildly decreased in size from pr ior. 2. Small right pleural effusion with right lung base consolidation redemonstrated. 3. Emphysema with new ill-defined left basilar opacities which should be correlated clinically to exc lude an infectious or inflammatory pneumonitis. ACT 112: Negative or not required by law. The above report was generated using voice recognition software. It may contain grammatical, syntax o r spelling errors. Electronically signed by: Iraj Eng M.D. 11/26/2021 6:56 AM
[2021-11-26 07:01] LABS: Alanine Aminotransferase 33 (12-78); Albumin Level 2.9 gm/dl (3.4-5.0); Aspartate Aminotransferase 32 U/L (15-37); BUN Creatinine Ratio 12.6 (10-20); Blood Urea Nitrogen 13 mg/dl (7-18); Calcium 9.4 mg/dl (8.5-10.1); Carbon Dioxide 30 mmol/L (21-32); Chloride 97 mmol/L (98-107); Creatinine Clr Calc Pharmacy 67.7 ml/min; Est GFR (African American) 79.7 ml/min; Est GFR (Non-African American) 68.8 ml/min; Glucose 103 mg/dl (70-99); Potassium 3.3 mmol/L (3.5-5.1); Sodium 134 mmol/L (136-145)
[2021-11-26 07:06] LABS: Albumin Globulin Ratio 0.5 (0.9-2); Alkaline Phosphatase 85 U/L (45-117); Bilirubin,Total 0.8 mg/dl (0.2-1); Globulin 5.3 gm/dl (2.5-4.0); INR 3.7 (0.9-1.1); NT Pro B Type Natriuretic Pept 157 pg/ml (0-900); Partial Thromboplastin Ratio 1.9; Prothrombin Time 33.7 Seconds (9.0-12.0); Total Protein 8.2 gm/dl (6.4-8.2); Troponin I < 0.015 ng/ml (0-0.045)
[2021-11-26 07:11] LABS: Partial Thromboplastin Time 50.6 Seconds (21.0-31.0)
[2021-11-26] MEDS ORDERED: AZITHROMYCIN 250 MG TAB PO ONE (07:15)
[2021-11-26] MEDS ORDERED: cefTRIAXone SODIUM 2,000 MG/70 ML BAG IV STA (07:15)
[2021-11-26 07:16] LABS: Influenza A virus by PCR Negative (Neg); Influenza B virus by PCR Negative (Neg); RSV by PCR Negative (Neg); SARS CoV2 RNA(COVID-19) InHosp NEGATIVE (Negative)
[2021-11-26] MEDS ORDERED: OPTIRAY 320 125ml IV ONE (08:12)
[2021-11-26 08:37] LABS: Appearance Urine Clear (Clear); Bilirubin Urine Negative (Negative); Blood Urine Negative (Negative); Color Urine Yellow; Glucose Urine UA Negative (Negative); Ketones Urine Negative (Negative); Leukocyte Esterase Urine Negative (Negative); Nitrite Urine Negative (Negative); Protein Urine Negative (Negative); Specific Gravity Urine 1.019 (1.000-1.030); Urobilinogen Urine Negative (Negative); pH Urine 6.5 (4.5-7.5)
--- NOTE | 2021-11-26 08:40 | CT Scan Report ---
CT angio chest PE protocol CLINICAL HISTORY: PE TECHNIQUE: Multidetector row helical CT of the chest was performed. Coronal and sagittal reformations were obtained. Coronal and sagittal MIPS were obtained from the axial data set and were submitted fo r review. Automated dose lowering techniques and/or adjustment according to patient size were utiliz ed for this exam. Comparison: Comparison is made to CT chest 07/11/2021 FINDINGS: Lungs and pleura: Scarring and pleural thickening most prominent in the right perihilar region is aga in seen compatible with postradiation changes. There are a few scattered groundglass opacities most p rominent most prominent in the left lung. Heart and pericardium: Heart size is normal. No pericardial effusion. Vessels: No evidence of pulmonary embolism. Mediastinum and fara: Subcentimeter lymph nodes are seen. Chest wall and lower neck: Unremarkable. Abdomen: Unremarkable. Bones: Degenerative changes in the thoracic spine. IMPRESSION: 1. Redemonstration of posttreatment scarring changes. There is no evidence of pulmonary embolism. 2. A few scattered groundglass opacities are seen which may be secondary to infectious/inflammatory process. ACT 112: Negative or not required by law. Electronically signed by: Woo Can M.D. 11/26/2021 8:38 AM
[2021-11-26] MEDS ORDERED: POTASSIUM CHLORIDE CRTAB 20 MEQ TABCR PO ONE (08:43)
--- NOTE | 2021-11-26 10:24 | Hospitalist Consultation ---
Date of Consultation November 26, 2021 Assessment & Plan (1) Acute respiratory failure with hypoxia: (2) Community acquired pneumonia: (3) Chronic diastolic CHF (congestive heart failure): (4) Paroxysmal atrial fibrillation: (5) COPD (chronic obstructive pulmonary disease): 76-year-old male with PMH lung cancer s/p radiation, chemotherapy, immunotherapy under observation since June 2019, COPD, history of right-sided pleural effusion, paroxysmal atrial fibrillation anticoagulated on Coumadin, chronic diastolic CHF, and other problems listed below who presents to the ED for evaluation of cough and shortness of breath. Patient was notably hypoxic on room air at 87%, currently requiring 2 L of oxygen via nasal cannula to maintain saturations. Hypoxia likely multifactorial due to left basilar pneumonia and mild COPD exacerbation. Patient eager to be discharged home. Patient is also insisting on driving himself home. Would recommend admission to the hospital for acute hypoxic respiratory failure due to pneumonia and COPD exacerbation however patient insists on going home. Patient is agreeable to sign AMA papers. Risks were explained to the patient and he was instructed to return back to the ED with worsening symptoms. Two-step oxygen evaluation was ordered and patient requires 2 L of oxygen via nasal cannula at rest and with ambulation. Prescription for oxygen was provided to case management who will arrange for home O2. Patient's PCP has already sent the patient cefdinir and prednisone taper, would recommend adding a azithromycin. PCP follow-up appointment was also made for the patient on 11/29/2021. Plan was discussed with Dr. Keating in the ED who will arrange for AMA paperwork and will send the prescription for a azithromycin to patient's pharmacy. Supervising Physician Co-Signing Physician Notes Attending Addendum: delayed entry date of service noted above care coordinated with [place] hermosillo please refer to her notes for full details, I agree with her notes patient chart and records reviewed by myself as well patient not seen as he already left the hospital before I was able to see him ASSESSMENT AND PLAN Left sided Pneumonia Hypoxia Cefdinir + Azithro, Prednisone taper, oxygen supplement ff up with PCP within 1 week patient signed out AMA despite explanation of risks other diagnoses and plan of care as per [place] Hermosillo's notes Erasmo Collado MD History of Present Illness Reason for Consultation: Pneumonia, hypoxia, evaluate for admission Requesting Physician: Dr. Keating Attending Physician: Erasmo Collado MD History of Present Illness 76-year-old male with PMH lung cancer s/p radiation, chemotherapy, immunotherapy under observation since June 2019, COPD, history of right-sided pleural effusion, paroxysmal atrial fibrillation anticoagulated on Coumadin, chronic diastolic CHF, and other problems listed below who presents to the ED for evaluation of cough and shortness of breath. Patient reports he has been feeling sick for the past 1 week. He reports progressive worsening shortness of breath and cough. Cough has been mostly nonproductive. Patient denies fevers and chills. Had a telehealth visit with PCP yesterday and was prescribed cefdinir and prednisone taper. Patient has not picked up this prescription yet. Patient denies chest pain and palpitations. No lower extremity edema or orthopnea. No lightheadedness, dizziness, diaphoresis, syncopal events. Reports a good appetite and denies abdominal pain, nausea, vomiting, diarrhea. No urinary symptoms. In the ED, patient was found to be hypoxic on room air at 87% and is requiring 2 L of oxygen via nasal cannula to maintain saturations. CXR is suggestive of a left basilar pneumonia. WBC 12 K, does not appear septic. Patient was given p.o. azithromycin, IV ceftriaxone, IV magnesium, IV Solu- Medrol. Allergies Allergy/AdvReac Type Severity Reaction Status Date / Time mold Allergy Intermediate congestion Verified 07/11/21 10:03 pollen extracts Allergy Intermediate congestion Verified 07/11/21 10:03 Home Medications Medication Instructions Recorded Confirmed Type albuterol sulfate 90 mcg/actuation 2 puff INHALATION Q4H PRN 10/25/18 11/26/21 History aerosol inhaler (Ventolin HFA) ascorbic acid (vitamin C) 1,000 mg 1 g PO QAM 10/25/18 11/26/21 History tablet (Vitamin C) budesonide-formoterol HFA 160 2 puff INHALATION BID 10/25/18 11/26/21 History mcg-4.5 mcg/actuation aerosol inhaler metoprolol tartrate 100 mg tablet 100 mg PO BID 10/25/18 11/26/21 History montelukast 10 mg tablet 10 mg PO QAM 10/25/18 11/26/21 History vitamin B complex 1 tab PO QAM 10/25/18 11/26/21 History warfarin 5 mg tablet (Jantoven) See Rx Instructions .ROUTE .COMPLEX 10/25/18 11/26/21 History aspirin 81 mg chewable tablet 81 mg PO QAM 10/29/18 11/26/21 History atorvastatin 20 mg tablet (Lipitor) 20 mg PO QAM 07/11/21 11/26/21 History furosemide 20 mg tablet (Lasix) 40 mg PO BID 07/11/21 11/26/21 History potassium chloride 10 mEq 10 meq PO DAILY 11/26/21 11/26/21 History capsule,extended release tamsulosin 0.4 mg capsule 0.4 mg PO HS 11/26/21 11/26/21 History Patient History Medical History Chronic diastolic CHF (congestive heart failure) COPD (chronic obstructive pulmonary disease) Obesity Osteoarthritis Paroxysmal atrial fibrillation Pleural effusion 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 IMMUNIZATION THERAPY. Surgical History History of CEA (carotid endarterectomy) RIGHT History of colonoscopy History of total hip arthroplasty RIGHT Family History Mother Stroke Social History Smoking Status: Former smoker Second Hand Exposure: No; Hx Alcohol Use: Yes Alcohol type: beer Hx Substance Use: No Preferred Language: Citizen Of [place] Communication Ability: Effective Visual Impairment: Limited Mortgage Field Inspector Required: No Beliefs That Will Affect Care: None Current Living Situation: Spouse Feels Safe at Home: Yes Assistive Devices: Walker Review of Systems Review of Systems: ROS per HPI, all other systems reviewed and negative Physical Exam Constitutional: WD/WN, vitals as above Eyes: PERRL, conjunctivae normal, anicteric sclerae ENMT: external ear and nose normal, oropharynx normal Respiratory: normal respiratory effort; no respiratory distress Auscultation: + diminished lung sounds (Left base) Cardiovascular: Rate/Rhythm: regular rate and regular rhythm Vessels: normal peripheral pulses Extremities: no edema Gastrointestinal (Abdomen): normal bowel sounds, soft, nontender, no hepatosplenomegaly Musculoskeletal: no cyanosis or clubbing, extremities motor strength 5/5 Skin: no rashes, warm and dry Neurologic: PERRL, EOMI, accommodation nl, no face palsy, no dysarthria Psychiatric: A+Ox3, euthymic affect Results & Data Results & Data ([facility]) Vital Signs (Past 12 Hours) Vital Signs Temp Pulse Pulse Pulse Pulse Pulse Pulse 11/26/21 09:20 71 78 78 70 11/26/21 08:00 72 11/26/21 06:17 68 11/26/21 06:15 68 11/26/21 06:00 36.5 C 71 Resp Resp Resp Resp Resp BP BP 11/26/21 09:20 16 20 18 16 11/26/21 08:00 19 148/87 H 11/26/21 06:17 11/26/21 06:15 132/77 11/26/21 06:00 22 132/70 Pulse Ox Pulse Ox Pulse Ox Pulse Ox Pulse Ox 11/26/21 09:20 90 91 90 87 L 11/26/21 08:00 94 11/26/21 06:17 95 11/26/21 06:15 96 11/26/21 06:00 84 L Laboratory Results Short CBC 11/26/21 Range/Units 06:20 WBC 12.37 H (4.8-10.8) K/uL Hgb 14.9 (14.0-18.0) g/dL Hct 45.7 (42-52) % Plt Count 282 (130-400) K/uL BMP 11/26/21 06:20 Sodium 134 L Potassium 3.3 L Chloride 97 L Carbon Dioxide 30 BUN 13 Creatinine 1.06 Glucose 103 H Calcium 9.4 Cardiac Enzymes 11/26/21 Range/Units 06:20 Troponin I < 0.015 (0-0.045) ng/ml Liver Function 11/26/21 Range/Units 06:20 Total Bilirubin 0.8 (0.2-1) mg/dl AST 32 (15-37) U/L ALT 33 (12-78) Alkaline Phosphatase 85 (45-117) U/L Albumin 2.9 L (3.4-5.0) gm/dl Urine 11/26/21 Range/Units 08:30 Urine Color Yellow Urine Appearance Clear (Clear) Urine pH 6.5 (4.5-7.5) Ur Specific [place] 1.019 (1.000-1.030) Urine Protein Negative (Negative) Urine Glucose (UA) Negative (Negative) Diagnostic Findings Chest X-Ray 11/26/21 06:05 XR chest 1V portable HISTORY: 76 years-old Male sob acute shortness of breath COMPARISON: CTA chest and chest radiograph 07/11/2021 TECHNIQUE: Portable AP view of the chest FINDINGS: Cardiac silhouette is enlarged. Masslike opacity of the right hilum has mildly decreased in size from prior. Small right pleural effusion with persistent right lung base consolidation. No pneumothorax. There are new ill-defined airspace opacities of the left lung base. Emphysema with chronic interstitial coarsening. Degenerative changes of the shoulders and spine. IMPRESSION: 1. Masslike opacity of the right hilum is redemonstrated and appears mildly decreased in size from prior. 2. Small right pleural effusion with right lung base consolidation redemonstrated. 3. Emphysema with new ill-defined left basilar opacities which should be correlated clinically to exclude an infectious or inflammatory pneumonitis. ACT 112: Negative or not required by law. The above report was generated using voice recognition software. It may contain grammatical, syntax or spelling errors. Electronically signed by: Iraj Eng M.D. 11/26/2021 6:56 AM Chest CTA 11/26/21 07:13 CT angio chest PE protocol CLINICAL HISTORY: PE TECHNIQUE: Multidetector row helical CT of the chest was performed. Coronal and sagittal reformations were obtained. Coronal and sagittal MIPS were obtained from the axial data set and were submitted for review. Automated dose lowering techniques and/or adjustment according to patient size were utilized for this exam. Comparison: Comparison is made to CT chest 07/11/2021 FINDINGS: Lungs and pleura: Scarring and pleural thickening most prominent in the right perihilar region is again seen compatible with postradiation changes. There are a few scattered groundglass opacities most prominent most prominent in the left lung. Heart and pericardium: Heart size is normal. No pericardial effusion. Vessels: No evidence of pulmonary embolism. Mediastinum and fara: Subcentimeter lymph nodes are seen. Chest wall and lower neck: Unremarkable. Abdomen: Unremarkable. Bones: Degenerative changes in the thoracic spine. IMPRESSION: 1. Redemonstration of posttreatment scarring changes. There is no evidence of pulmonary embolism. 2. A few scattered groundglass opacities are seen which may be secondary to infectious/inflammatory process. ACT 112: Negative or not required by law. Electronically signed by: Woo Can M.D. 11/26/2021 8:38 AM
[2021-11-26 12:55] VITALS: BP 138/74; PULSE 74; O2SAT 95
--- NOTE | 2021-11-26 16:15 | Electrocardiogram Report ---
Test Reason : Blood Pressure : / mmHG Vent. Rate : 070 BPM Atrial Rate : 070 BPM P-R Int : 160 ms QRS Dur : 094 ms QT Int : 368 ms P-R-T Axes : 060 059 105 degrees QTc Int : 397 ms Normal sinus rhythm Anteroseptal infarct , age undetermined Nonspecific ST and T wave abnormality Abnormal ECG When compared with ECG of 11-JUL-2021 08:29, Anteroseptal infarct is now Present ST now depressed in Lateral leads Nonspecific T wave abnormality now evident in Lateral leads Confirmed by Grabeil Myrick ([id number]) on 11/26/2021 4:15:17 PM Referred By: Confirmed By:Grabiel Myrick
== END 2021-11-26 12:53 | disposition left against medical advice (07) | DRG 189 ==
LOC: ED 05:55 → EDINP 07:33 → UNDODISIN 09:56 → EDINP 12:52
DX: J18.9 Pneumonia, unspecified organism; J44.1 Chronic obstructive pulmonary disease with (acute) exacerbation; Z68.31 Body mass index [BMI] 31.0-31.9, adult; E66.9 Obesity, unspecified; I50.32 Chronic diastolic (congestive) heart failure; Z87.891 Personal history of nicotine dependence; Z96.641 Presence of right artificial hip joint; Z79.01 Long term (current) use of anticoagulants; Z85.118 Personal history of other malignant neoplasm of bronchus and lung; J44.0 Chronic obstructive pulmonary disease with (acute) lower respiratory infection; J96.01 Acute respiratory failure with hypoxia; I48.0 Paroxysmal atrial fibrillation

== ENCOUNTER 2024-04-30 12:38 | Inpatient (IN) ==
--- NOTE | 2024-04-30 13:06 | Emergency Department Note ---
Impression & Plan Acute respiratory failure with hypoxia and hypercapnia, COPD (chronic obstructive pulmonary disease), Shortness of breath, Hypokalemia, Paroxysmal atrial fibrillation ED Provider Note NAME: CEE GOEL AGE: 79 SEX: M : 1945 ARRIVES VIA: Walk-In INFORMANT: Patient ED PROVIDER(S): Jose Francisco Chaney MD CHIEF COMPLAINT: shortness of breath, chest pain PLAN: Disposition: Admit MEDICAL DECISION MAKING: The patient is a pleasant 79-year-old gentleman with past medical history of COPD, diastolic CHF, paroxysmal atrial fibrillation on warfarin who presents to the department via walk-in for evaluation of worsening shortness of breath and chest tightness/pain since Monday reports developing a flare of his allergies and sinus congestion which then went to his chest. Reports thick productive grayish sputum. He denies fevers. He denies nausea, vomiting, diarrhea or urinary symptoms. He reports he does have 2 L home oxygen which he uses mostly at night and rarely during the day. He reports he continues to take his diuretic and his weight has remained consistently stable. He reports his INR is also consistently stable around 2.2 On my evaluation the patient is in no acute distress, afebrile with O2 saturation 94% on room air placed on oxymask. Respiratory rate is 26. He has wheezes and rhonchi bilateral mid to lower lung navas. He appears clinically dry. EKG without overt acute ischemia. Chest x-ray demonstrates stable similar findings compared to 2022 with right lung volume loss with right Alexi diaphragmatic elevation and trace right pleural effusion along the right midlung and right basilar consolidation. This is better characterized on CT described as scarring and pleural thickening in the right perihilar region and right lower lung compatible with posttreatment changes. Atelectasis is seen in the left lower lung with superimposed pneumonia considered but interpreted to be less likely. WBC 15 K with neutrophil predominance though no left shift. H/H and platelets normal limits. INR subtherapeutic 1.6. VBG with mild CO2 retention with normal pH. Chemistry with bicarbonate 35 suggestive of chronic hypercapnia. Potassium 3.3 and electrolytes otherwise unremarkable. Total bilirubin 2.0, nonspecific and LFTs otherwise normal. High-sensitivity troponin 10.8, within normal limits. BNP is 430 in setting of the patient's history of CHF and atrial fibrillation. Lipase is not elevated. Procalcitonin is not elevated. Respiratory viral consuls BioFire was negative. Blood cultures were obtained and empiric treatment for community-acquired pneumonia was initiated with ceftriaxone and doxycycline at this time. Patient was additionally treated with Solu-Medrol, DuoNeb quadrant, guaifenesin. Given the patient's increased oxygen requirement he does agree with plan for admission for further management. Case was discussed with Mila Baker PAC with [facility] hospitalist, who will evaluate the patient for admission. Further management per admitting team. Triage Nursing notes reviewed and agree them. Prior/external medical records reviewed Vital Signs: reviewed Differential diagnosis: Reactive airway disease, pneumonia, pneumothorax, COPD, CHF, infections, cardiac ischemia, pulmonary embolism, musculoskeletal, gastrointestinal, as well as other pathologies. ER treatment provided: See below. Diagnostics interpreted by me: ECG: Normal sinus rhythm, 73 bpm, nonspecific ST abnormality, no overt ST elevation or depression, QTc 409, QRS 84. Cardiac Monitoring: An order for continuous cardiac monitoring was placed and demonstrated Normal sinus rhythm, 73 bpm Laboratory studies: See below Imaging studies: See below Consultation(s): Case was discussed with Mila Whitmore PAC with [facility] hospitalist, who will evaluate the patient for admission. HPI: The patient is a pleasant 79-year-old gentleman with past medical history of COPD, diastolic CHF, paroxysmal atrial fibrillation on warfarin who presents to the department via walk-in for evaluation of worsening shortness of breath and chest tightness/pain since Monday reports developing a flare of his allergies and sinus congestion which then went to his chest. Reports thick productive grayish sputum. He denies fevers. He denies nausea, vomiting, diarrhea or urinary symptoms. He reports he does have 2 L home oxygen which he uses mostly at night and rarely during the day. He reports he continues to take his diuretic and his weight has remained consistently stable. He reports his INR is also consistently stable around 2.2 ROS: See above HPI for pertinent positives & negatives. A total of 10 systems reviewed and were otherwise negative. VITALS:See Below PHYSICAL EXAMINATION: GENERAL: Awake, alert, in no distress HENT: Normocephalic, atraumatic. Oropharynx with dry mucous membranes and otherwise unremarkable. EYES: Normal conjunctiva. Sclera non-icteric. NECK: Supple. No nuchal rigidity. FROM. No JVD. RESPIRATORY: Wheezing rhonchi bilateral mid to lower lung navas. CARDIAC: Regular rate, normal rhythm. Extremities warm and well perfused. Pulses equal. ABDOMEN: Soft, non-distended. No tenderness to palpation. No rebound or guarding. No masses. MUSCULOSKELETAL: Chest examination reveals no tenderness. The back is symmetrical on inspection without obvious abnormality. There is no CVA tenderness to palpation. No joint edema. LOWER EXTREMITIES: Calves are equal size bilaterally and non-tender. No edema. No discoloration. NEURO: Normal sensorium. No sensory or motor deficits noted. SKIN: No rash or jaundice noted. Jose Francisco Chaney MD Past Med/Surg History Problem List (Updated 05/01/24 @ 03:33 by Jose Francisco Chaney MD) Paroxysmal atrial fibrillation (Acute) Acute respiratory failure with hypoxia and hypercapnia (Acute) Acute respiratory failure with hypercapnia Hypokalemia (Acute) COPD exacerbation Encounter for pre-operative examination HLD (hyperlipidemia) Obesity (BMI 30-39.9) Community acquired pneumonia (Acute) Acute respiratory failure with hypoxia (Acute) Environmental allergies Pneumonia Shortness of breath (Acute) COPD (chronic obstructive pulmonary disease) (Acute) Medical History Chronic diastolic CHF (congestive heart failure) Paroxysmal atrial fibrillation 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 IMMUNIZATION THERAPY. Carotid artery disease s/p right CEA 2017 BPH (benign prostatic hyperplasia) Atrial fibrillation follows with [facility] Cardiology. on warfarin. History of cardioversion On home O2 2 lpm qHS and PRN Asthma pt reports rare use of PRN inh Obesity Surgical History History of thoracentesis History of left knee surgery History of CEA (carotid endarterectomy) RIGHT History of total hip arthroplasty RIGHT History of colonoscopy Family History Mother Stroke Social History Smoking Status: Former smoker Tobacco Type: Cigarettes Age Quit Using Tobacco: 62; packs per day: 0.5; Cigarettes Per Day: 1 PPD; Second Hand Exposure: No; Do You Dip or Chew Tobacco: No; Hx Alcohol Use: Yes Alcohol type: beer Hx Substance Use: No Preferred Language: Burkinan Communication Ability: Effective Visual Impairment: Limited Hospice Care Consultant Required: No Beliefs That Will Affect Care: None Current Living Situation: Alone Feels Safe at Home: Yes Assistive Devices: Glasses and Oxygen - at Night Allergies Allergies Allergy/AdvReac Type Severity Reaction Status Date / Time mold Allergy Intermediate congestion Verified 07/31/23 10:05 pollen extracts Allergy Intermediate congestion Verified 07/31/23 10:05 Home Meds Home Medications Medication Instructions Recorded Confirmed metoprolol tartrate 100 mg tablet 100 mg PO BID 10/25/18 04/30/24 montelukast 10 mg tablet 10 mg PO QAM 10/25/18 04/30/24 warfarin 5 mg tablet (Jantoven) See Rx Instructions .Route .COMPLEX 10/25/18 04/30/24 atorvastatin 20 mg tablet (Lipitor) 20 mg PO QAM 07/11/21 04/30/24 furosemide 20 mg tablet (Lasix) 40 mg PO PM 07/11/21 04/30/24 potassium chloride 10 mEq 10 meq PO QAM 11/26/21 04/30/24 capsule,extended release tamsulosin 0.4 mg capsule 0.4 mg PO QAM 11/26/21 04/30/24 albuterol sulfate 90 mcg/actuation 2 puff inhalation Q4H PRN 06/02/22 04/30/24 aerosol inhaler (Proventil HFA) shortness of breath or wheezing ascorbic acid (vitamin C) 500 mg 500 mg PO QAM 06/02/22 04/30/24 capsule aspirin 81 mg tablet,delayed 81 mg PO QPM 06/02/22 04/30/24 release (Enteric Coated Aspirin) budesonide 160 mcg-glycopyr 9 2 inh inhalation BID 06/02/22 04/30/24 mcg-formot 4.8 mcg/actuation HFA inhaler (Breztri Aerosphere) cholecalciferol (vitamin D3) 25 25 mcg PO QAM 06/02/22 04/30/24 mcg (1,000 unit) tablet cyanocobalamin (vitamin B-12) 250 250 mcg PO QAM 06/02/22 04/30/24 mcg tablet diphenhydramine HCl 25 mg capsule 50 mg PO HS PRN Rhinitis 06/02/22 04/30/24 (Allergy (diphenhydramine)) fexofenadine 180 mg tablet 180 mg PO DAILY PRN allergies 06/02/22 04/30/24 (Allergy Relief (fexofenadine)) fluticasone propionate 50 1 spray intranasal DAILY PRN nasal 06/02/22 04/30/24 mcg/actuation nasal congestion spray,suspension (Allergy Relief (fluticasone)) ipratropium 0.5 mg-albuterol 3 mg 3 ml inhalation Q6H PRN sob 06/02/22 04/30/24 (2.5 mg base)/3 mL nebulization soln furosemide 20 mg tablet 60 mg PO DAILY 04/30/24 04/30/24 levothyroxine 50 mcg capsule 50 mcg PO DAILY 04/30/24 04/30/24 Results & Data (ED) Vital Signs Vital Signs - 24 hr 04/30/24 12:41 04/30/24 12:52 04/30/24 13:00 Temperature 36.5 C Temperature Source Temporal Artery Scan Pulse Rate 75 Pulse Rate from SpO2 Sensor Pulse Rhythm Regular Respiratory Rate 26 H Respiratory Effort / Characteristics Short of Breath Respiratory Depth Normal Blood Pressure 103/64 Blood Pressure Mean 77 Pulse Oximetry 82 L 94 84 L Oxygen Delivery Method Nasal Cannula Oxymask Nasal Cannula Oxygen Flow Rate 4 8 4 Sepsis Recent Fever Within 48 Hours No Sepsis New/Unexplained Change in Mental Status No Sepsis Action Taken by Nursing No Action Required Oxygen Flow Rate - Titration 8 Pulse Oximetry Post Tiitration 94 04/30/24 13:09 04/30/24 13:41 Temperature Temperature Source Pulse Rate 71 70 Pulse Rate from SpO2 Sensor 71 Pulse Rhythm Respiratory Rate 21 Respiratory Effort / Characteristics Respiratory Depth Blood Pressure 121/75 Blood Pressure Mean 90 Pulse Oximetry 94 Oxygen Delivery Method Oxygen Flow Rate Sepsis Recent Fever Within 48 Hours Sepsis New/Unexplained Change in Mental Status Sepsis Action Taken by Nursing Oxygen Flow Rate - Titration Pulse Oximetry Post Tiitration Laboratory Data Attestation: I reviewed the patient's lab results. 04/30/24 12:56 04/30/24 12:56 Lab Results 04/30/24 04/30/24 Range/Units 12:56 15:22 WBC 15.05 H (4.8-10.8) K/ul RBC 4.92 (4.70-6.10) M/uL Hgb 15.2 (14.0-18.0) g/dl Hct 46.3 (42.0-52.0) % MCV 94.1 (80.0-100.0) fL MCH 30.9 (25.0-34.0) pg MCHC 32.8 (32.0-36.0) g/dL RDW Std Deviation 48.2 H (36.4-46.3) fL RDW Coeff of Marco Antonio 14.0 (11.5-14.5) % Plt Count 189 (130-400) K/uL MPV 9.7 (9.4-12.4) fL Immature Gran % (Auto) 0.4 % Neut % (Auto) 88.2 % Lymph % (Auto) 2.9 % [place] % (Auto) 8.3 % Eos % (Auto) 0.1 % Baso % (Auto) 0.1 % Neut # (Auto) 13.26 H (1.40-6.50) K/uL Lymph # (Auto) 0.44 L (1.20-3.40) K/uL [place] # (Auto) 1.25 H (0.11-0.59) K/uL Eos # (Auto) 0.02 (0.00-0.50) K/uL Baso # (Auto) 0.02 (0.00-0.20) K/uL Immature Gran # (Auto) 0.06 (0.01-0.20) K/uL PT 16.2 H (9.0-12.0) Seconds INR 1.6 H (0.9-1.1) VBG pH 7.40 (7.36-7.41) VBG pCO2 61 H (38-50) mmHg VBG pO2 26 mmHg VBG HCO3 38 mmol/L VBG O2 Saturation < 60.0 % VBG Base Excess 10.5 mEq/L Sodium 138 (136-145) mmol/L Potassium 3.3 L (3.5-5.1) mmol/L Chloride 95 L (98-107) mmol/L Carbon Dioxide 35 H (21-32) mmol/L Anion Gap 8 (3-11) BUN 19 (6-23) mg/dl Creatinine 1.16 (0.6-1.4) mg/dl Est Cr Clr Drug Dosing 60.0 ml/min Est GFR ( Amer) 70.0 ml/min Est GFR (Non-Af Amer) 60.4 ml/min BUN/Creatinine Ratio 16.4 (10-20) Glucose 135 H (70-99(Fasting)) mg/dl Lactate 1.7 (0.4-2.0) mmol/L Calcium 9.2 (8.6-10.3) mg/dl Magnesium 1.8 (1.7-2.4) mg/dl Total Bilirubin 2.0 H (0.2-1.0) mg/dl AST 15 (13-39) U/L ALT 14 (7-52) U/L Alkaline Phosphatase 64 (34-104) U/L Troponin I High Sens 10.8 (0-20) pg/ml B-Natriuretic Peptide 436 H (0-100) pg/ml Total Protein 7.7 (6.0-8.3) gm/dl Albumin 4.1 (3.4-5.0) gm/dl Globulin 3.6 (2.5-4.0) gm/dl Albumin/Globulin Ratio 1.1 (0.9-2) Lipase < 3 L (11-82) U/L Procalcitonin 0.10 (0-0.5) ng/ml Adenovirus (PCR) Not Detected (NotDetected) B. pertussis DNA (PCR) Not Detected (NotDetected) B.parapertussis DNA PCR Not Detected (NotDetected) C. pneumoniae DNA (PCR) Not Detected (NotDetected) Coronavirus OC43 (PCR) Not Detected (NotDetected) Coronavirus HKU1 (PCR) Not Detected (NotDetected) Coronavirus 229E (PCR) Not Detected (NotDetected) SARS-CoV-2 (PCR) Not Detected (NotDetected) Coronavirus NL63 (PCR) Not Detected (NotDetected) Human Metapneumovir PCR Not Detected (NotDetected) Influenza Type A (PCR) Not Detected (NotDetected) Influenza Type B (PCR) Not Detected (NotDetected) M. pneumoniae (PCR) Not Detected (NotDetected) Parainfluenza 1 (PCR) Not Detected (NotDetected) Parainfluenza 2 (PCR) Not Detected (NotDetected) Parainfluenza 3 (PCR) Not Detected (NotDetected) Parainfluenza 4 (PCR) Not Detected (NotDetected) RSV (PCR) Not Detected (NotDetected) Entero/Rhino (PCR) Not Detected (NotDetected) Administered Medications Albuterol (Albut/Ipratrop 3mg/0.5mg Neb 3 Ml Vial) 3 ml NEB QIDR SABAS; Protocol Stop: 05/30/24 19:07 Last Admin: 04/30/24 20:13 Dose: Not Given Documented By: KYP Aspirin (Aspirin 81 Mg Ectab) 81 mg PO QPM [facility] Stop: 05/30/24 20:59 Last Admin: 04/30/24 20:02 Dose: 81 mg Documented By: SRW Budesonide (Budesonide 0.5 Mg/2 Ml Vial (Pulmicort)) 0.5 mg NEB BIDR [facility] Stop: 05/30/24 18:59 Last Admin: 04/30/24 20:12 Dose: 0.5 mg Documented By: AUGUST Fexofenadine HCl (Fexofenadine Hcl 180 Mg Tab) 180 mg PO DAILY [facility] Stop: 05/30/24 18:37 Last Admin: 04/30/24 20:04 Dose: 180 mg Documented By: SRW Formoterol Fumarate (Formoterol 20 Mcg/2 Ml Vial) 20 mcg NEB BIDR [facility] Stop: 05/30/24 20:59 Last Admin: 04/30/24 20:12 Dose: 20 mcg Documented By: AUGUST Guaifenesin (Guaifenesin 600 Mg Tabcr) 1,200 mg PO Q12 [facility] Stop: 05/30/24 20:59 Last Admin: 04/30/24 20:03 Dose: 1,200 mg Documented By: SRW Metoprolol Tartrate (Metoprolol Tartrate 100 Mg Tab) 100 mg PO BID [facility] Stop: 05/30/24 20:59 Last Admin: 04/30/24 20:02 Dose: 100 mg Documented By: SRW Warfarin Sodium (Warfarin Sod 5 Mg Tab) 7.5 mg PO [id number] [facility] Stop: 05/30/24 19:29 Last Admin: 04/30/24 20:03 Dose: 7.5 mg Documented By: SRW Discontinued Medications Albuterol (Albut/Ipratrop 3mg/0.5mg Neb 3 Ml Vial) 3 ml NEB NOW STA; Protocol Stop: 04/30/24 13:06 Last Admin: 04/30/24 13:32 Dose: 3 ml Documented By: ADRIANNA Guaifenesin (Guaifenesin 600 Mg Tabcr) 1,200 mg PO NOW STA Stop: 04/30/24 13:06 Last Admin: 04/30/24 13:32 Dose: 1,200 mg Documented By: ADRIANNA Sodium Chloride (Nss) 500 mls @ 999 mls/hr IV .Q31M ONE Stop: 04/30/24 13:37 Last Infusion: 04/30/24 14:38 Dose: Infused Documented By: Admin: 04/30/24 13:38 Dose: 999 mls/hr Documented By: ADRIANNA Potassium Chloride (K Pilo / Wtr) 10 meq in 100 mls @ 100 mls/hr IV Q1H SABAS Stop: 04/30/24 15:59 Last Infusion: 04/30/24 16:52 Dose: Infused Documented By: Admin: 04/30/24 15:43 Dose: 100 mls/hr Documented By: Infusion: 04/30/24 15:43 Dose: Infused Documented By: Admin: 04/30/24 14:43 Dose: 100 mls/hr Documented By: MIGUELITO Ceftriaxone Sodium (Rocephin) 2,000 mg in 50 mls @ 100 mls/hr IV NOW STA Stop: 04/30/24 16:07 Last Infusion: 04/30/24 16:31 Dose: Infused Documented By: Admin: 04/30/24 15:49 Dose: 100 mls/hr Documented By: MIGUELITO Doxycycline Hyclate 100 mg/ (Dextrose) 100 mls @ 50 mls/hr IV ONE ONE Stop: 04/30/24 20:44 Last Infusion: 04/30/24 21:36 Dose: Infused Documented By: Admin: 04/30/24 19:40 Dose: 50 mls/hr Documented By: ISMAEL Azithromycin 500 mg/ Dextrose 255 mls @ 127.5 mls/hr IV NOW STA Stop: 04/30/24 21:06 Last Infusion: 04/30/24 23:50 Dose: Infused Documented By: Admin: 04/30/24 20:51 Dose: 127.5 mls/hr Documented By: ISMAEL Ioversol (Optiray 320 150ml) 112 ml IV ONCE ONE Stop: 04/30/24 14:28 Last Admin: 04/30/24 14:28 Dose: 112 ml Documented By: DILMA Methylprednisolone (Methylprednisolone 125 Mg/2 Ml Vial) 125 mg IV NOW STA Stop: 04/30/24 13:06 Last Admin: 04/30/24 13:32 Dose: 125 mg Documented By: ADRIANNA Metoprolol Tartrate (Metoprolol Tartrate 1 Mg/Ml Vial) 5 mg IV NOW STA Stop: 04/30/24 16:10 Last Admin: 04/30/24 16:35 Dose: Not Given Documented By: NRB Imaging Data Radiologist's Impression: Chest CTA 04/30/24 13:54 CT angio chest PE protocol CLINICAL HISTORY: cp, sob, hypoxia, r/o PE TECHNIQUE: Multidetector row helical CT of the chest was performed with angiographic protocol. Coronal and sagittal reformations were obtained. Coronal and sagittal MIPS were obtained from the axial data set and were submitted for review. Automated dose lowering techniques and/or adjustment according to patient size were utilized for this exam. CT DOSE: 754.16 mGy.cm Comparison: Comparison is made to CTA chest 11/26/2021 FINDINGS: Lungs and pleura: Scarring and pleural thickening in the right perihilar region and right lower lung compatible with posttreatment changes. Atelectasis in the left lower lobe is increased from prior exam. Heart and pericardium: Cardiomegaly is seen with biatrial enlargement. Vessels: No evidence of pulmonary embolism. Mediastinum and fara: Subcentimeter lymph nodes are seen. Chest wall and lower neck: Unremarkable. Abdomen: Unremarkable. Bones: Mild degenerative changes are seen. IMPRESSION: No evidence of pulmonary embolus. Redemonstration of postradiation changes. Atelectasis in the left lower lung is seen, superimposed pneumonia is considered less likely. ACT 112: Negative or not required by law. Electronically signed by: Woo Can M.D. 04/30/2024 2:59 PM Discharge Plan Visit Data Chief Complaint: Shortness of Breath/Dyspnea Stated Complaint: TROUBLE BREATHING, SINUS, PAIN IN CHEST ED Provider: Jose Francisco Chaney Discharge Problem: Acute respiratory failure with hypoxia and hypercapnia, COPD (chronic obstructive pulmonary disease), Shortness of breath, Hypokalemia, Paroxysmal atrial fibrillation Patient Disposition: Admitted As Inpatient Discharge Instructions Interventions: ED Discharge Assessment Last Done: 04/30/24 17:44 Discharge Problem: COPD (chronic obstructive pulmonary disease) Qualifiers: COPD type: COPD with acute exacerbation Qualified Code(s): J44.1 - Chronic obstructive pulmonary disease with (acute) exacerbation
[2024-04-30 13:24] LABS: Basophils # (auto) 0.02 K/uL (0.00-0.20); Basophils % (auto) 0.1 %; Eosinophils # (auto) 0.02 K/uL (0.00-0.50); Eosinophils % (auto) 0.1 %; Hematocrit (blood only) 46.3 % (42.0-52.0); Hemoglobin 15.2 g/dl (14.0-18.0); Immature Granulocytes # (auto) 0.06 K/uL (0.01-0.20); Immature Granulocytes % (auto) 0.4 %; Lymphocytes # (auto) 0.44 K/uL (1.20-3.40); Lymphocytes % (auto) 2.9 %; Mean Corpuscular Hemoglobin 30.9 pg (25.0-34.0); Mean Corpuscular Hgb Conc 32.8 g/dL (32.0-36.0); Mean Corpuscular Volume 94.1 fL (80.0-100.0); Mean Platelet Volume 9.7 fL (9.4-12.4); Monocytes # (auto) 1.25 K/uL (0.11-0.59); Monocytes % (auto) 8.3 %; Neutrophils # (auto) 13.26 K/uL (1.40-6.50); Neutrophils % (auto) 88.2 %; Platelet Count 189 K/uL (130-400); RDW Standard Deviation 48.2 fL (36.4-46.3); Red Blood Count 4.92 M/uL (4.70-6.10); White Blood Count 15.05 K/ul (4.8-10.8)
[2024-04-30 13:31] LABS: Anion Gap 8 (3-11); BUN Creatinine Ratio 16.4 (10-20); Blood Urea Nitrogen 19 mg/dl (6-23); Calcium 9.2 mg/dl (8.6-10.3); Carbon Dioxide 35 mmol/L (21-32); Chloride 95 mmol/L (98-107); Est GFR (Non-African American) 60.4 ml/min; Glucose 135 mg/dl (70-99(Fasting)); Potassium 3.3 mmol/L (3.5-5.1); Sodium 138 mmol/L (136-145)
[2024-04-30] MEDS: methylPREDNISolone 125 MG/2 ML VIAL IV STA (13:32)
[2024-04-30] MEDS: ALBUT/IPRATROP 3MG/0.5MG NEB 3 ML VIAL NEB STA (13:32)
[2024-04-30] MEDS: guaiFENesin 600 MG TABCR PO STA (13:32)
--- NOTE | 2024-04-30 13:36 | XRay Report ---
XR chest 1V portable HISTORY: 79 years-old Male Chest pain, nonspecific COMPARISON: Chest CT 03/06/2023 TECHNIQUE: AP view of the chest FINDINGS: Masslike right hilar prominence redemonstrated. The heart is upper limits of normal in size. Pulmonar y emphysema. Right lung volume loss with right hemidiaphragmatic elevation and trace right pleural ef fusion redemonstrated along with right midlung and right basilar consolidation. The left lung is gene rally clear. Bones appear grossly intact. IMPRESSION: 1. Emphysema without acute process of the chest. 2. Unchanged appearance of the right hemithorax and right hilum. ACT 112: Negative or not required by law. The above report was generated using voice recognition software. It may contain grammatical, syntax o r spelling errors. Electronically signed by: Iraj Eng M.D. 04/30/2024 1:35 PM
[2024-04-30 13:37] LABS: Troponin I High Sensitivity 10.8 pg/ml (0-20)
[2024-04-30 13:38] LABS: Alanine Aminotransferase 14 U/L (7-52); Albumin Globulin Ratio 1.1 (0.9-2); Albumin Level 4.1 gm/dl (3.4-5.0); Alkaline Phosphatase 64 U/L (34-104); Aspartate Aminotransferase 15 U/L (13-39); Globulin 3.6 gm/dl (2.5-4.0); Lipase < 3 U/L (11-82); Total Protein 7.7 gm/dl (6.0-8.3)
[2024-04-30] MEDS: SODIUM CHLORIDE 0.9% 500 ML IV ONE (13:38)
[2024-04-30 13:39] LABS: INR 1.6 (0.9-1.1); Prothrombin Time 16.2 Seconds (9.0-12.0)
[2024-04-30 14:01] LABS: Adenovirus PCR Not Detected (NotDetected); Bordetella parapertussis PCR Not Detected (NotDetected); Bordetella pertussis PCR Not Detected (NotDetected); Chlamydia pneumoniae PCR Not Detected (NotDetected); Coronavirus 229E PCR Not Detected (NotDetected); Coronavirus CoV-2 (COVID19)PCR Not Detected (NotDetected); Coronavirus HKU1 PCR Not Detected (NotDetected); Coronavirus NL63 PCR Not Detected (NotDetected); Coronavirus OC43PCR Not Detected (NotDetected); Human Metapneumovirus PCR Not Detected (NotDetected); Influenza A PCR Not Detected (NotDetected); Influenza B PCR Not Detected (NotDetected); Mycoplasma pneumoniae PCR Not Detected (NotDetected); Parainfluenza Virus 1 PCR Not Detected (NotDetected); Parainfluenza Virus 2 PCR Not Detected (NotDetected); Parainfluenza Virus 3 PCR Not Detected (NotDetected); Parainfluenza Virus 4 PCR Not Detected (NotDetected); Respiratory Syncytial VirusPCR Not Detected (NotDetected); Rhinovirus/Enterovirus PCR Not Detected (NotDetected)
[2024-04-30] MEDS: OPTIRAY 320 150ml IV ONE (14:28)
[2024-04-30] MEDS: POTASSIUM CHLORIDE / WTR 10 MEQ/100 ML PLCT IV SCH (14:43)
--- NOTE | 2024-04-30 15:01 | CT Scan Report ---
CT angio chest PE protocol CLINICAL HISTORY: cp, sob, hypoxia, r/o PE TECHNIQUE: Multidetector row helical CT of the chest was performed with angiographic protocol. [place] l and sagittal reformations were obtained. Coronal and sagittal MIPS were obtained from the axial ramses a set and were submitted for review. Automated dose lowering techniques and/or adjustment according to patient size were utilized for this exam. CT DOSE: 754.16 mGy.cm Comparison: Comparison is made to CTA chest 11/26/2021 FINDINGS: Lungs and pleura: Scarring and pleural thickening in the right perihilar region and right lower lung compatible with posttreatment changes. Atelectasis in the left lower lobe is increased from prior exa m. Heart and pericardium: Cardiomegaly is seen with biatrial enlargement. Vessels: No evidence of pulmonary embolism. Mediastinum and fara: Subcentimeter lymph nodes are seen. Chest wall and lower neck: Unremarkable. Abdomen: Unremarkable. Bones: Mild degenerative changes are seen. IMPRESSION: No evidence of pulmonary embolus. Redemonstration of postradiation changes. Atelectasis in the left l ower lung is seen, superimposed pneumonia is considered less likely. ACT 112: Negative or not required by law. Electronically signed by: Woo Can M.D. 04/30/2024 2:59 PM
[2024-04-30 15:10] LABS: Magnesium 1.8 mg/dl (1.7-2.4)
[2024-04-30 15:32] LABS: Base Excess VBG 10.5 mEq/L; HCO3 VBG 38 mmol/L; Oxygen Saturation VBG < 60.0 %; PCO2 VBG 61 mmHg (38-50); PO2 VBG 26 mmHg
[2024-04-30] MEDS ORDERED: DOXYCYCLINE HYCLATE 100 MG in DEXTROSE 5% MINI-B 100 ML IV STA (15:37)
[2024-04-30] MEDS: cefTRIAXone SODIUM 2,000 MG/50 ML BAG IV STA (15:49)
--- NOTE | 2024-04-30 16:21 | History & Physical Report ---
Date of Service April 30, 2024 Assessment & Plan (1) Acute respiratory failure with hypercapnia: (2) COPD exacerbation: (3) Hypokalemia: (4) Chronic diastolic CHF (congestive heart failure): (5) Paroxysmal atrial fibrillation: (6) HLD (hyperlipidemia): (7) Carotid artery disease: Plan This is a 79-year-old male who has a significant past medical history of PAF, chronic diastolic CHF, R carotid stenosis s/p CEA 2017, COPD, right lower lobe lung CA, HLD, hypothyroidism, tobacco use disorder who presents to ED 2/2 SOB. Acute hypoxic respiratory failure with hypercapnia COPD exacerbation Admit to telemetry Continue supplemental oxygen, titrate for saturations between 90 and 92% He is on oxygen at baseline, 2 L at at bedtime & 3 to 4 L with exertion IV Solu-Medrol 40 mg every 8 hours IV azithromycin 500 mg x 1 now followed by 250 mg orally for the next 4 days Pulmonary toilet with incentive spirometer, flutter valve and Mucinex Budesonide/formoterol nebulizers Scheduled DuoNeb PAF Continue metoprolol and warfarin INR is subtherapeutic at 1.6 Continue home regimen of 5 mg Monday, 7.5 mg all other days Chronic diastolic heart failure slightly dry on exam hold lasix this evening, re evaluate in a.m. to determine when to resume continue metoprolol, asa, statin daily weight strict intake and output R carotid artery stenosis s/p CEA continue statin, follows [facility] Hx of RLL Lung ca in 2017 s/p chemo, radiation and immunotherapy on observation status with oncology, Dr. cha Hypothyroidism continue levothyroxine DVT ppx: Continue warfarin, INR in a.m. Dispo: tele PCP: Steffany Curran PA-C FULL CODE Pt was seen and examined in collaboration with Dr. Shane, please see addendum A total of 65 minutes was spent coordinating, documenting, and providing care for this patient excluding time spent in the performance of separately billed services. This included personally viewing all current laboratories and imaging studies, medication reconciliation, outpatient chart review, and discussion with specialists. History of Present Illness Chief Complaint: Increasing SOB. Primary Care Provider: Steffany Curran PA-C This is a 79-year-old male who has a significant past medical history of PAF, chronic diastolic CHF, R carotid stenosis s/p CEA 2016, COPD, right lower lobe lung CA, HLD, hypothyroidism, tobacco use disorder who presents to ED 2/2 SOB. He recently had to stop his allergy injections. Last Monday he sat on the porch and it was very windy. The next day he woke up he had a lot of sinus drainage. This then progressed to his chest. He has been complaining of increased SOB with exertion and at rest. Upon arrival to ED he was hypoxic requiring supplemental oxygen. He does utilize 2L at HS, and during the day depends on activity. With activity he uses 3-4L. He has hx of COPD exac in the past. He states he requires antibiotics and steroids. He has never required hospitalized for COPD in the past. Spring and fall tend to be the worst. He does have a productive cough. "I feel I have a sinus infection." He denies any sick contacts as he lives alone. He has been compliant with his maintenance inhaler. He also has been using nebulizer 4x a day. 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 He underwent chemotherapy with paclitaxel and carboplatin and concomitant radiation therapy as well as 1 year of immunotherapy. He is currently on observation followed by Dr. Cha. He was last seen and evaluated by Dr. Cha in March. He last had a follow up CT in February of 2024 and will have a repeat in 6 months. Allergies Allergy/AdvReac Type Severity Reaction Status Date / Time mold Allergy Intermediate congestion Verified 07/31/23 10:05 pollen extracts Allergy Intermediate congestion Verified 07/31/23 10:05 Home Medications Medication Instructions Recorded Confirmed Type metoprolol tartrate 100 mg tablet 100 mg PO BID 10/25/18 04/30/24 History montelukast 10 mg tablet 10 mg PO QAM 10/25/18 04/30/24 History warfarin 5 mg tablet (Jantoven) See Rx Instructions .Route .COMPLEX 10/25/18 04/30/24 History atorvastatin 20 mg tablet (Lipitor) 20 mg PO QAM 07/11/21 04/30/24 History furosemide 20 mg tablet (Lasix) 40 mg PO PM 07/11/21 04/30/24 History potassium chloride 10 mEq 10 meq PO QAM 11/26/21 04/30/24 History capsule,extended release tamsulosin 0.4 mg capsule 0.4 mg PO QAM 11/26/21 04/30/24 History albuterol sulfate 90 mcg/actuation 2 puff inhalation Q4H PRN 06/02/22 04/30/24 History aerosol inhaler (Proventil HFA) shortness of breath or wheezing ascorbic acid (vitamin C) 500 mg 500 mg PO QAM 06/02/22 04/30/24 History capsule aspirin 81 mg tablet,delayed 81 mg PO QPM 06/02/22 04/30/24 History release (Enteric Coated Aspirin) budesonide 160 mcg-glycopyr 9 2 inh inhalation BID 06/02/22 04/30/24 History mcg-formot 4.8 mcg/actuation HFA inhaler (Breztri Aerosphere) cholecalciferol (vitamin D3) 25 25 mcg PO QAM 06/02/22 04/30/24 History mcg (1,000 unit) tablet cyanocobalamin (vitamin B-12) 250 250 mcg PO QAM 06/02/22 04/30/24 History mcg tablet diphenhydramine HCl 25 mg capsule 50 mg PO HS PRN Rhinitis 06/02/22 04/30/24 History (Allergy (diphenhydramine)) fexofenadine 180 mg tablet 180 mg PO DAILY PRN allergies 06/02/22 04/30/24 History (Allergy Relief (fexofenadine)) fluticasone propionate 50 1 spray intranasal DAILY PRN nasal 06/02/22 04/30/24 History mcg/actuation nasal congestion spray,suspension (Allergy Relief (fluticasone)) ipratropium 0.5 mg-albuterol 3 mg 3 ml inhalation Q6H PRN sob 06/02/22 04/30/24 History (2.5 mg base)/3 mL nebulization soln furosemide 20 mg tablet 60 mg PO DAILY 04/30/24 04/30/24 History levothyroxine 50 mcg capsule 50 mcg PO DAILY 04/30/24 04/30/24 History Past Med/Surg History Problem List (Updated 04/30/24 @ 17:02 by Mlia Govea PA-C) Acute respiratory failure with hypercapnia Hypokalemia COPD exacerbation Encounter for pre-operative examination HLD (hyperlipidemia) Obesity (BMI 30-39.9) Community acquired pneumonia (Acute) Acute respiratory failure with hypoxia (Acute) Environmental allergies Pneumonia Shortness of breath COPD (chronic obstructive pulmonary disease) (Acute) Medical History (Updated 04/30/24 @ 17:02 by Mila Govea PA-C) Chronic diastolic CHF (congestive heart failure) Paroxysmal atrial fibrillation 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 IMMUNIZATION THERAPY. Carotid artery disease s/p right CEA 2017 BPH (benign prostatic hyperplasia) Atrial fibrillation follows with [facility] Cardiology. on warfarin. History of cardioversion On home O2 2 lpm qHS and PRN Asthma pt reports rare use of PRN inh Obesity Surgical History History of thoracentesis History of left knee surgery History of CEA (carotid endarterectomy) RIGHT History of total hip arthroplasty RIGHT History of colonoscopy Family History Mother Stroke Social History Smoking Status: Never smoker Tobacco Type: Cigarettes Age Quit Using Tobacco: 62; packs per day: 0.5; Second Hand Exposure: No; Do You Dip or Chew Tobacco: No; Hx Alcohol Use: Yes Alcohol type: beer and wine Hx Substance Use: No Preferred Language: [place] Communication Ability: Effective Visual Impairment: Limited Outfitter Cabin Required: No Beliefs That Will Affect Care: None Current Living Situation: Spouse Feels Safe at Home: Yes Assistive Devices: Glasses and Oxygen - at Night Review of Systems Review of Systems: All systems reviewed & are unremarkable except as noted in HPI & below Physical Exam Physical Exam: please refer to Dr. Shane addendum for physical exam findings. Results & Data Results & Data Vital Signs (Past 12 Hours) Vital Signs Temp Pulse Resp BP Pulse Ox O2 Del Method O2 Flow Rate 04/30/24 13:41 70 04/30/24 13:00 84 L Nasal Cannula 4 04/30/24 12:52 94 Oxymask 8 04/30/24 12:41 36.5 C 75 26 H 103/64 82 L Nasal Cannula 4 Diagnostic Findings Chest X-Ray 04/30/24 12:47 XR chest 1V portable HISTORY: 79 years-old Male Chest pain, nonspecific COMPARISON: Chest CT 03/06/2023 TECHNIQUE: AP view of the chest FINDINGS: Masslike right hilar prominence redemonstrated. The heart is upper limits of normal in size. Pulmonary emphysema. Right lung volume loss with right hemidiaphragmatic elevation and trace right pleural effusion redemonstrated along with right midlung and right basilar consolidation. The left lung is generally clear. Bones appear grossly intact. IMPRESSION: 1. Emphysema without acute process of the chest. 2. Unchanged appearance of the right hemithorax and right hilum. ACT 112: Negative or not required by law. The above report was generated using voice recognition software. It may contain grammatical, syntax or spelling errors. Electronically signed by: Iraj Eng M.D. 04/30/2024 1:35 PM Chest CTA 04/30/24 13:54 CT angio chest PE protocol CLINICAL HISTORY: cp, sob, hypoxia, r/o PE TECHNIQUE: Multidetector row helical CT of the chest was performed with angiographic protocol. Coronal and sagittal reformations were obtained. Coronal and sagittal MIPS were obtained from the axial data set and were submitted for review. Automated dose lowering techniques and/or adjustment according to patient size were utilized for this exam. CT DOSE: 754.16 mGy.cm Comparison: Comparison is made to CTA chest 11/26/2021 FINDINGS: Lungs and pleura: Scarring and pleural thickening in the right perihilar region and right lower lung compatible with posttreatment changes. Atelectasis in the left lower lobe is increased from prior exam. Heart and pericardium: Cardiomegaly is seen with biatrial enlargement. Vessels: No evidence of pulmonary embolism. Mediastinum and fara: Subcentimeter lymph nodes are seen. Chest wall and lower neck: Unremarkable. Abdomen: Unremarkable. Bones: Mild degenerative changes are seen. IMPRESSION: No evidence of pulmonary embolus. Redemonstration of postradiation changes. Atelectasis in the left lower lung is seen, superimposed pneumonia is considered less likely. ACT 112: Negative or not required by law. Electronically signed by: Woo Can M.D. 04/30/2024 2:59 PM Medications Administered Medication List Discontinued Medications Albuterol (Albut/Ipratrop 3mg/0.5mg Neb 3 Ml Vial) 3 ml NEB NOW STA; Protocol Stop: 04/30/24 13:06 Last Admin: 04/30/24 13:32 Dose: 3 ml Documented By: ADRIANNA Guaifenesin (Guaifenesin 600 Mg Tabcr) 1,200 mg PO NOW STA Stop: 04/30/24 13:06 Last Admin: 04/30/24 13:32 Dose: 1,200 mg Documented By: ADRIANNA Sodium Chloride (Nss) 500 mls @ 999 mls/hr IV .Q31M ONE Stop: 04/30/24 13:37 Last Infusion: 04/30/24 14:38 Dose: Infused Documented By: Admin: 04/30/24 13:38 Dose: 999 mls/hr Documented By: ADRIANNA Potassium Chloride (K Pilo / Wtr) 10 meq in 100 mls @ 100 mls/hr IV Q1H SABAS Stop: 04/30/24 15:59 Last Infusion: 04/30/24 16:52 Dose: Infused Documented By: Admin: 04/30/24 15:43 Dose: 100 mls/hr Documented By: Infusion: 04/30/24 15:43 Dose: Infused Documented By: NRMaulik Admin: 04/30/24 14:43 Dose: 100 mls/hr Documented By: MIGUELITO Ceftriaxone Sodium (Rocephin) 2,000 mg in 50 mls @ 100 mls/hr IV NOW STA Stop: 04/30/24 16:07 Last Infusion: 04/30/24 16:31 Dose: Infused Documented By: NRMaulik Admin: 04/30/24 15:49 Dose: 100 mls/hr Documented By: MIGUELITO Ioversol (Optiray 320 150ml) 112 ml IV ONCE ONE Stop: 04/30/24 14:28 Last Admin: 04/30/24 14:28 Dose: 112 ml Documented By: DILMA Methylprednisolone (Methylprednisolone 125 Mg/2 Ml Vial) 125 mg IV NOW STA Stop: 04/30/24 13:06 Last Admin: 04/30/24 13:32 Dose: 125 mg Documented By: ADRIANNA Metoprolol Tartrate (Metoprolol Tartrate 1 Mg/Ml Vial) 5 mg IV NOW STA Stop: 04/30/24 16:10 Last Admin: 04/30/24 16:35 Dose: Not Given Documented By: NRB ECG Additional Comments: I have independently reviewed and interpreted patient's admitting EKG which revealed: 73 NSR, no st t wave change, normal QTC interval COVID-19 Results Results COVID-19 Adm Lab Results: RBC 4.92 M/uL (4.70-6.10) 04/30/24 WBC 15.05 K/ul (4.8-10.8) H 04/30/24 Hgb 15.2 g/dl (14.0-18.0) 04/30/24 Hct 46.3 % (42.0-52.0) 04/30/24 Plt Count 189 K/uL (130-400) 04/30/24 Neutrophils (%) (Auto) 88.2 % 04/30/24 Lymphocytes (%) (Auto) 2.9 % 04/30/24 Eosinophils # (Auto) 0.02 K/uL (0.00-0.50) 04/30/24 Immature Granulocyte % (Auto) 0.4 % 04/30/24 Neutrophils # (Auto) 13.26 K/uL (1.40-6.50) H 04/30/24 Lymphocytes # (Auto) 0.44 K/uL (1.20-3.40) L 04/30/24 Eosinophils # (Auto) 0.02 K/uL (0.00-0.50) 04/30/24 Basophils # (Auto) 0.02 K/uL (0.00-0.20) 04/30/24 Immature Granulocyte # (Auto) 0.06 K/uL (0.01-0.20) 4 Na 138 mmol/L (136-145) 04/30/24 K 3.3 mmol/L (3.5-5.1) L 04/30/24 Cl 95 mmol/L (98-107) L 04/30/24 CO2 35 mmol/L (21-32) H 04/30/24 Anion Gap 8 (3-11) 04/30/24 BUN 19 mg/dl (6-23) 04/30/24 Creatinine 1.16 mg/dl (0.6-1.4) 04/30/24 BUN/Creatinine Ratio 16.4 (10-20) 04/30/24 Glucose Level 135 mg/dl (70-99(Fasting)) H 04/30/24 Ca 9.2 mg/dl (8.6-10.3) 04/30/24 Total Bilirubin 2.0 mg/dl (0.2-1.0) H 04/30/24 AST/SGOT 15 U/L (13-39) 04/30/24 ALT/SGPT 14 U/L (7-52) 04/30/24 Alkaline Phosphatase 64 U/L (34-104) 04/30/24 Total Protein 7.7 gm/dl (6.0-8.3) 04/30/24 Albumin 4.1 gm/dl (3.4-5.0) 04/30/24 Globulin 3.6 gm/dl (2.5-4.0) 04/30/24 Albumin/Globulin Ratio 1.1 (0.9-2) 04/30/24 Procalcitonin 0.10 ng/ml (0-0.5) 04/30/24 INR 1.6 (0.9-1.1) H 04/30/24 Adenovirus (PCR) Not Detected (NotDetected) 04/30/24 B. parapertussis DNA (PCR) Not Detected (NotDetected) 04/20 12/13 B. pertussis DNA (PCR) Not Detected (NotDetected) 04/30/24 C. pneumoniae DNA (PCR) Not Detected (NotDetected) 4 Coronavirus Type OC43 (PCR) Not Detected (NotDetected) 10/13 Coronavirus Type HKU1 (PCR) Not Detected (NotDetected) 10/13 Coronavirus Type 229E (PCR) Not Detected (NotDetected) 10/13 COVID-19 PCR Not Detected (NotDetected) 04/30/24 Coronavirus Type NL63 (PCR) Not Detected (NotDetected) 10/13 Human Metapneumovirus (PCR) Not Detected (NotDetected) 10/13 Influenza Virus Type A (PCR) Not Detected (NotDetected) Influenza Virus Type B (PCR) Not Detected (NotDetected) M. pneumoniae (PCR) Not Detected (NotDetected) 04/30/24 Parainfluenza Type 1 (PCR) Not Detected (NotDetected) 04/20 12/13 Parainfluenza Type 2 (PCR) Not Detected (NotDetected) 04/20 12/13 Parainfluenza Type 3 (PCR) Not Detected (NotDetected) 04/20 12/13 Parainfluenza Type 4 (PCR) Not Detected (NotDetected) 04/20 12/13 RSV (PCR) Not Detected (NotDetected) 04/30/24 Enterovirus/Rhinovirus (PCR) Not Detected (NotDetected) Chest X-Ray 04/30/24 Code Status & VTE Plan Code Status FULL CODE VTE Prophylaxis Plan VTE Prophylaxis will be ordered: No Reason for no VTE drug order: Treatment not indicated Supervising Physician Co-Signing Physician Notes I have seen and discussed the case with the collaborating advanced practitioner. I agree with the above H&P. I have reviewed and confirmed the patients medical history, the findings on physical examination, and the patients diagnosis and treatment plan with Jeferson KIM and agree with the information documented. Mr. Zuleta is a 79-year-old male who has a significant past medical history of PAF, chronic diastolic CHF, R carotid stenosis s/p CEA 2016, COPD, right lower lobe lung CA, HLD, hypothyroidism, tobacco use disorder who presents to ED 2/2 SOB. admitted for acute on chronic resp failure 2/2 copd exacerbation. GENERAL APPEARANCE: AxOx4, generally well-appearing male, no acute distress. HEENT: NC, AT. MMM. EOMI, clear conjunctiva, oropharynx clear. NECK: Supple without lymphadenopathy. No stiffness or restricted ROM. HEART: Normal rate and regular rhythm, normal S1/S1, no m/r/g LUNGS: scattered rhonchi and wheezing, nonrebreather in place, saturating in mid 90s ABDOMEN: Soft, nontender, nondistended with good bowel sounds heard. BACK: No CVAT, no obvious deformity. EXTREMITIES: Without cyanosis, clubbing or edema. NEUROLOGICAL: Grossly nonfocal. Alert and oriented, moving all 4 extremities. Skin: Warm and dry without any rash. : #Acute on chronic hypoxic respiratory failure with hypercapnia #COPD exacerbation Admit to telemetry Continue supplemental oxygen, titrate for saturations between 90 and 92% He is on oxygen at baseline, 2 L at at bedtime & 3 to 4 L with exertion IV Solu-Medrol 40 mg every 8 hours IV azithromycin 500 mg x 1 now followed by 250 mg orally for the next 4 days Pulmonary toilet with incentive spirometer, flutter valve and Mucinex Budesonide/formoterol nebulizers Scheduled DuoNeb rest of plan as above I spent a total of 25 minutes coordinating, documenting, and providing care for this patient excluding time spent in the performance of separately billed services. All of the aforementioned completed outside of collaborating with the assigned advanced practitioner for a full treatment plan. I have reviewed the advanced practitioner's documentation, and I agree with, and take responsibility for the plan of care
[2024-04-30] MEDS: METOPROLOL TARTRATE 1 MG/ML VIAL IV STA (16:35)
--- NOTE | 2024-04-30 17:12 | Electrocardiogram Report ---
Test Reason : Blood Pressure : / mmHG Vent. Rate : 073 BPM Atrial Rate : 073 BPM P-R Int : 172 ms QRS Dur : 084 ms QT Int : 372 ms P-R-T Axes : 034 035 082 degrees QTc Int : 409 ms Normal sinus rhythm Nonspecific ST abnormality When compared with ECG of 26-NOV-2021 06:13, No significant change was found Confirmed by Partha Martinez ([id number]) on 04/30/2024 5:12:24 PM Referred By: REFERRED SELF Confirmed By:Ras Martinez
[2024-04-30] MEDS ORDERED: Nursing to Pharmacy Communication SCH (18:00)
[2024-04-30] MEDS ORDERED: FAMOTIDINE 20 MG TAB PO PRN (18:38)
[2024-04-30] MEDS ORDERED: ACETAMINOPHEN 325 MG TAB PO PRN (18:38)
[2024-04-30] MEDS ORDERED: POLYETHYLENE (MIRALAX) 17 GM PACK PO PRN (18:38)
[2024-04-30] MEDS ORDERED: ALUMINUM/MAGNESIUM SUSP 30 ML UDC PO PRN (18:38)
[2024-04-30] MEDS ORDERED: MAGNESIUM HYDROXIDE SUSP 30 ML UDC PO PRN (18:38)
[2024-04-30] MEDS ORDERED: ONDANSETRON INJ 2 MG/ML 2 ML VIAL IV PRN (18:38)
[2024-04-30] MEDS ORDERED: FLUTICASONE PROPIONATE NA SPR 16 GM BTL PRN (18:38)
[2024-04-30] MEDS: DOXYCYCLINE HYCLATE 100 MG in DEXTROSE 5% MINI-B 100 ML IV ONE (19:40)
[2024-04-30] MEDS: METOPROLOL TARTRATE 100 MG TAB PO SCH (20:02)
[2024-04-30] MEDS: ASPIRIN 81 MG ECTAB PO SCH (20:02)
[2024-04-30] MEDS: guaiFENesin 600 MG TABCR PO SCH (20:03)
[2024-04-30] MEDS: WARFARIN SOD 5 MG TAB PO SCH (20:03)
[2024-04-30] MEDS: FEXOFENADINE HCL 180 MG TAB PO SCH (20:04)
[2024-04-30] MEDS: FORMOTEROL 20 MCG/2 ML VIAL NEB SCH (20:12)
[2024-04-30] MEDS: BUDESONIDE 0.5 MG/2 ML VIAL (PULMICORT) NEB SCH (20:12)
[2024-04-30] MEDS: ALBUT/IPRATROP 3MG/0.5MG NEB 3 ML VIAL NEB SCH (20:13)
[2024-04-30] MEDS: AZITHROMYCIN 500 MG in DEXTROSE 5% 250 ML IV STA (20:51)
[2024-05-01] MEDS: LEVOTHYROXINE SODIUM 50 MCG TABLET PO SCH (05:37)
[2024-05-01 06:40] LABS: Hematocrit (blood only) 41.2 % (42.0-52.0); Hemoglobin 13.4 g/dl (14.0-18.0); Mean Corpuscular Hemoglobin 30.9 pg (25.0-34.0); Mean Corpuscular Hgb Conc 32.5 g/dL (32.0-36.0); Mean Corpuscular Volume 94.9 fL (80.0-100.0); Mean Platelet Volume 9.6 fL (9.4-12.4); Platelet Count 152 K/uL (130-400); RDW Coefficient of Variation 13.7 % (11.5-14.5); RDW Standard Deviation 48.3 fL (36.4-46.3); Red Blood Count 4.34 M/uL (4.70-6.10); White Blood Count 9.91 K/ul (4.8-10.8)
[2024-05-01 06:56] LABS: Prothrombin Time 20.4 Seconds (9.0-12.0)
[2024-05-01 07:02] LABS: Albumin Globulin Ratio 1.1 (0.9-2); Albumin Level 3.4 gm/dl (3.4-5.0); BUN Creatinine Ratio 20.8 (10-20); Bilirubin,Total 0.5 mg/dl (0.2-1.0); Calcium 8.5 mg/dl (8.6-10.3); Creatinine Clr Calc Pharmacy 71.2 ml/min; Est GFR (Non-African American) 75.9 ml/min; Globulin 3.2 gm/dl (2.5-4.0); Magnesium 2.1 mg/dl (1.7-2.4); Potassium 3.8 mmol/L (3.5-5.1); Total Protein 6.6 gm/dl (6.0-8.3)
[2024-05-01 07:13] LABS: Basophils # (auto) 0.01 K/uL (0.00-0.20); Basophils % (auto) 0.1 %; Immature Granulocytes # (auto) 0.04 K/uL (0.01-0.20); Immature Granulocytes % (auto) 0.4 %; Lymphocytes # (auto) 0.36 K/uL (1.20-3.40); Lymphocytes % (auto) 3.6 %; Monocytes # (auto) 0.51 K/uL (0.11-0.59); Monocytes % (auto) 5.1 %; Neutrophils # (auto) 8.99 K/uL (1.40-6.50); Neutrophils % (auto) 90.8 %; RBC Morphology Unremarkable
[2024-05-01 08:35] LABS: Estimated Average Glucose 123 mg/dl; Hemoglobin A1C 5.9 % (4.5-5.6)
[2024-05-01] MEDS: TAMSULOSIN HCL 0.4 MG CAP PO SCH (08:41)
[2024-05-01] MEDS: ATORVASTATIN 20 MG TAB PO SCH (08:42)
[2024-05-01] MEDS: AZITHROMYCIN 250 MG TAB PO SCH (08:42)
[2024-05-01] MEDS: POTASSIUM CHLORIDE 10 MEQ TABCR PO SCH (08:42)
[2024-05-01] MEDS: methylPREDNISolone 40 MG in SYRINGE 0 ML IV SCH (08:43)
--- OUTSIDE RECORDS SUMMARY | 2024-05-01 14:38 | External Medical Summary | Summary of Care ---
Author Name Unknown Organization [facility] Address [address] [place] [address] Phone [phone] Care Team Providers Care [employer] Salesperson Name Role Phone Steffany Curran PA-C Primary Care Provider [phone] Reason for Referral * Precert (Within 10 days (routine)) - Authorized Specialty Diagnoses / Procedures Referred By Contac t Referred To Contact Radiology Diagnoses History of lung cancer Pleural effusion on right Encounter for follow-up examination after completed treatment for malignant neoplasm Procedures CT CHEST W CONTRAST Ru Brunson MD [address] [place] [id number] Referral ID Status Reason Start Date Expiration Date V isits Requested Visits Authorized [id number] Authorized 03/27/2024 999 999 Reason for Visit * Reason Comments Follow Up 6 month Encounter Details Date Type Department Care Team (Late st Contact Info) Description 03/27/2024 1:45 PM EDT Office Visit Hematology/Oncology [facility] [address] [place] [id number] Ru Brunson MD [address] [place] [id number] Encounter for follow-up examination after completed treatment for malignant neoplasm*; History of lung cancer; Pleural effusion on right Allergies Active Allergy Reactions Criticality Noted Date Comments Dust 05/13/2020 Molds & Smuts 05/13/2020 Pollen 03/06/2013 RAGWEED Ragweed 05/13/2020 documented as of this encounter (statuses as of 03/27/2024) Medications Medication Sig Dispensed Refills Start Date End Date Status BENADRYL 25 MG PO CAPS Take 2 Capsules by mouth at bedtime as needed for Rhinitis. 0 Active fexofenadine (ORLANDO) 180 MG Tablet Take 1 Tablet by mouth daily as needed. 0 Active albuterol (PROVENTIL HFA) 108 (90 BASE) MCG/ACT inhaler Inhale 2 Puffs by mouth every 4 hours as needed. Shortness of breath or wheezing 0 Active fluticasone (FLONASE) 50 MCG/ACT nasal spray Administer 1 [place] into nostril daily as needed. 0 Active saline (OCEAN) 0.65 % nasal spray Administer 1 [place] into nostril as needed. 0 Active vitamin b-12 (CYANOCOBALAMIN) 250 MCG TABS Take 1 Tablet by mouth in the morning. 0 Active Ascorbic Acid (VITAMIN C) 500 MG CAPS Take by mouth. 0 Active Vitamin D, Cholecalciferol, 1000 UNITS TABS Take by mouth. 0 Active Nebulizers (NEBULIZER COMPRESSOR) MISCIndications:Acute bronchospasm,Malignan t neoplasm of lower lobe of lung, unspecified laterality (HCC) Inhale via nebulizer. Use as directed. 1 Each 1 07/22/2017 Active Montelukast Sodium 10 MG Oral Tablet Take 1 Tablet by mouth in the morning. 0 Active aspirin enteric coated 81 MG TBEC Take 1 Tab by mouth daily. 30 Tab 11 07/03/2018 Active Acetaminophen 500 MG Oral Tablet Take 2 Tablets by mouth every 6 hours as needed for Pain. 0 Active Levothyroxine Sodium 50 MCG Oral Tablet (Levoxyl)Indications: Hypothyroidism due to medication Take by mouth 1 Tablet in the morning. (at least 30 min prior to breakfast or other meds). 30 Tablet 11 05/11/2022 Active Azelastine HCl 0.1 % Nasal SolutionIndications:C hronic rhinitis Administer into nostril 1 [place] in the morning AND 1 [place] before bedtime. 90 mL 3 05/18/2022 Active Breztri Aerosphere 160-9-4.8 MCG/ACT Inhalation Aerosol (Budeson-Glycopyrrol- Formoterol) Inhale by mouth 2 Puffs 2 times a day . 0 08/09/2022 Active Amoxicillin 500 MG Oral Capsule (Amoxil) TAKE 1 CAPSULE (500 MG) BY ORAL ROUTE 2 TIMES PER DAY. START THIS 2 DAYS BEFORE TOOTH EXTRACTION. 0 01/11/2023 Active Potassium Chloride ER 10 MEQ Oral Capsule Extended ReleaseIndications:Ch ronic diastolic heart failure due to valvular disease (HCC) Take 1 Capsule by mouth in the morning. 90 Capsule 3 07/10/2023 Active Tamsulosin HCl 0.4 MG Oral Capsule (Flomax) Take 1 Capsule by mouth in the morning. 90 Capsule 3 07/10/2023 Active Furosemide 20 MG Oral Tablet (Lasix) Take 3 tabs in the AM and 2 tabs in the PM 450 Tablet 3 07/13/2023 Active Metoprolol Tartrate 100 MG Oral Tablet (Lopressor)Indication s:Paroxysmal atrial fibrillation (HCC) Take 1 Tablet by mouth in the morning and 1 Tablet before bedtime. 180 Tablet 3 08/21/2023 Active Atorvastatin Calcium 20 MG Oral Tablet (Lipitor)Indications: Dyslipidemia TAKE 1 TABLET BY MOUTH EVERY DAY IN THE MORNING 90 Tablet 3 09/01/2023 Active oxygen IN GASIndications:COPD, group B, by GOLD 2017 classification ([facility]) Administer 5 L/min(Oxygen) into nostril continuous. 1 Each 0 11/21/2023 Active Ipratropium-Albuterol 0.5-2.5 (3) MG/3ML Inhalation Solution (Duoneb)Indications:A cute bronchospasm,Malignan t neoplasm of lower lobe of lung, unspecified laterality ([facility]) INHALE 3 ML (1 VIAL) VIA NEBULIZER IN THE MORNING THEN 3 ML AT NOON AND 3 ML IN THE EVENING AND 3 ML BEFORE BEDTIME 360 mL 5 02/29/2024 Active Warfarin Sodium 5 MG Oral Tablet (Coumadin)Indications :Paroxysmal atrial fibrillation (HCC) TAKE 1 TABLET (=5MG) BY MOUTH ON MONDAYS, WEDNESDAYS AND FRIDAYS, THEN TAKE 1 AND 1/2 TABLET (=7.5MG) ON ALL OTHER DAYS OR DIRECTED BY CLINIC 115 Tablet 3 03/26/2024 Active Hospital, Clinic, or Other Facility Administered Medication Ordered Dose Route Frequency Start Date End Date Status Acetaminophen (Tylenol) tab 650 mgIndications:COVID-19 virus infection 650 mg OR ONCE PRN 12/15/2020 Active documented as of this encounter (statuses as of 03/27/2024) Active Problems Problem Noted Date Diagnosed Date Status post carotid endarterectomy 03/06/2024 Traumatic rupture of left patellar tendon 2022 PAD (peripheral artery disease) 02/02/2022 Hypothyroidism 12/01/2021 Chronic diastolic heart failure 11/25/2021 Pneumothorax on right 06/04/2020 Dyslipidemia, goal LDL below 70 11/26/2019 COPD, group B, by GOLD 2017 classification 11/26 Diastolic dysfunction 07/03/2018 Pleural effusion, right 04/04/2018 Carotid stenosis, non-symptomatic, bilateral 11/2016 Primary cancer of right lower lobe of lung 08/03 Encounter for antineoplastic chemotherapy 2016 Paroxysmal atrial fibrillation 06/01/2017 Moderate persistent asthma without complication 02/10/2017 S/P total hip arthroplasty 06/03/2014 Overview: Right 05/20/2014 Dr Gage [facility] OTHER*[id number] 04/23/2014 Allergic rhinitis 12/23/2005 ADVANCE DIRECTIVE INFORMATION 10/05/2005 Overview: Yes, Patient instructed to provide copy of advance directive for provider to review and to be scanned into Electronic Medical Record Tobacco use disorder 01/15/2001 History of lung cancer Palliative care encounter documented as of this encounter (statuses as of 03/27/2024) Resolved Problems Problem Noted Date Diagnosed Date Resolved Date Non-small cell cancer of right lung 11/25/2021 07/13/2023 Chemotherapy-induced neuropathy 07/08/2019 12/01/2021 Right carotid bruit 09/19/2017 01/07/20 19 Metastatic cancer to intrath oracic lymph nodes 08/03/2017 07/13/2023 Malignant neoplasm of lower lobe of lung 07/17/2017 12/03/2018 Abnormal EKG 06/13/2017 01/11/2019 Osteoarthritis of hip 04/13/20142018 Overview: ICD-10 update of inactive term Colon polyps 03/12/2013 01/11/2019 Overview: 03/12/13: Hyperplastic polyp, repeat in 5 years MRSA (methicillin resistant Staphylococcus aureus) infection 05/26/2009 04/23/2020 Asthma with severity to be determined 12/23/2005 02/10/2017 Overview: ICD-10 update of inactive term documented as of this encounter (statuses as of 03/27/2024) Immunizations Name Administration Dates Next Due COVID-19 mRNA, LNP-s, No Pre serve, 2-Dose Series (Moderna) 10/15/2021,03/10/2021,02/10/2021 Covid-19, Mrna, Lnp-s, Pf, B ivalent, 30 Mcg, IM, 12 yrs and above (Pfizer) 10/18/2022 Pneumococcal Conjugate Vacc, 13 Valent (Prevnar) 08/09/2016 Pneumococcal Polysaccharide PPV23 (Pneumovax) 03/13/2013,11/20/2012 Season Influenza, Quad, PF, Adjuvanted, 65+ Yrs, IM (FLUAD) 07/23/2020 Seasonal Influenza, PF, 6 M & above, IM , (FluLaval or Fluzone) 08/31/2018 Seasonal Influenza, Quadriva lent Hd (Fluzone Hd) 09/08/2022,07/29/2021 Seasonal Influenza, Quadriva lent, No Preserve, IM 08/01/2016,10/01/2015 Seasonal Influenza, Split, I IV3, With Preserve, Inj 10/01/2014,09/16/2013 09/16/2014 Seasonal Influenza, Trivalen t, Adjuvanted, 65+ yrs 09/09/2019 TDAP (age 10 and older)(Boostrix) 04/20/2020 Tetanus Toxid Adsorbed 03/13/2013 Varicella Zoster Vaccine (Adult) 09/20/2011 Zoster Vaccine Recombinant (Shingrix) 06/26/2020 ,04/20/2020 documented as of this encounter Social History Tobacco Use Types Packs/Day Years Used Date Smoking Tobacco: Former Cigarettes 1 30 0 11/26/1982 - 11/26/2012 Smokeless Tobacco: Never Alcohol Use Standard Drinks/Week Comments Yes 0 (1 standard drink = 0.6 oz pur e alcohol) 5 drinks/wk PHQ-2 Answer Date Recorded PHQ Adult Total Score 0 11/16/2022 Hunger Vital Sign Answer Date Recorded Within the past 12 months, y ou worried that your food would run out before you got the money to buy more. Never true 06/29/20 23 Within the past 12 months, t he food you bought just didn't last and you didn't have money to get more. Never true 06/29/2023 Sex and Gender Information Value Date Recorded Sex Assigned at Male 10/31/2019 8:22 AM EST Gender Identity Male 10/31/2019 8:22 AM EST Sexual Orientation Choose not to disclose 2018 8:22 AM EST Job Start Date Occupation Industry Not on file Not on file Not on file documented as of this encounter Last Filed Vital Signs Vital Sign Reading Time Taken Comments Blood Pressure 117/69 03/27/2024 1:41 PM EDT Pulse 66 03/27/2024 1:41 PM EDT Temperature 36.6 C (97.9 F) 03/27/2024 1:41 PM ED T Respiratory Rate 18 03/27/2024 1:41 PM EDT Oxygen Saturation 93% 03/27/2024 1:41 PM EDT 93 on 2L Inhaled Oxygen Concentration - - Weight 91.7 kg (202 lb 1.6 oz) 03/27/2024 1:41 P M EDT Height - - Body Mass Index 31.65 07/13/2023 8:54 AM EDT documented in this encounter Functional Status Functional Status Response Date of Assess ment Are you deaf or do you have serious difficulty h earing? No 06/04/2020 Are you blind or do you have serious difficulty seeing, even when wearing glasses? No 06/04/2020 Do you have serious difficul ty walking or climbing stairs? (5 years old or older) No 06/04/2020 Do you have difficulty dress ing or bathing? (5 years old or older) No 06/04/2020 Because of a physical, menta l, or emotional condition, do you have difficulty doing errands alone such as visiting a doctor s office or shopping? (15 years old or older) No 06/04/20 20 Cognitive Status Response Date of Assessm ent Because of a physical, menta l, or emotional condition, do you have serious difficulty concentrating, remembering, or making decisions? 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 3.9 cm close to the right hilum (May,). Right pleural effusion, cytology negative for malignancy. (02/2021). COPD, he is using oxygen at nighttime at 2 liters/minute. Now he has portable oxygen. CURRENT TREATMENT: Observation since June 2019. . Previous treatment: -Combined chemotherapy with weekly paclitaxel (80 mg/m2) and carboplatin (AUC of 2), started on 08/09/2017 (started by Dr. Tapia). He completed weekly paclitaxel and carboplatin chemotherapy on 09/13/2017. He completed concomitant radiation treatment on 09/25/2017. Paclitaxel carboplatin every 3 weekly , started on 11/07/17, 2 cycles completed 11/29/17 He completed 1 year of Durvalumab on 07/01/2019. DIAGNOSTIC WORKUP: He had some right thigh infection and then he was found to have asymptomatic at fibrillation in theoffice visit, he was then sent to the hospital for further evaluation of atrial fibrillation and found to have right lung mass, he was seen by Dr. Calvert. Had a bronchoscopic evaluation. 1) Moderately differentiated squamous cell carcinoma RLL 2) R2 node--few atypical squamous cells suspicious for metastatic cancer 3) R4 node--negative 4) R10 node--few atypical squamous cells suspicious for metastatic cancer 5) Station 7 node--negative 6) L4 node--rare clusters of epithelial cells suspicious for metastatic cancer 7) L10 node--negative -MRI of the brain--> negative. PET-CT scan showed 3.9 x 3.3 cm spiculated mass infrahilar right lower lobe along with major fissure. No FDG avid mediastinal hilar lymphadenopathy noted. Prominent AP window lymph node measuring up to 1 cm noted. Subcarinal lymph node measures 1.5 cm in short axis which is not FDG avid. He was seen by Dr. Leo, underwent additional mediastinoscopy evaluation which was reported to be negative. 07/17/2017: He underwent bronchoscopic, right thoracoscopy with exploration and the lymph violeta biopsy by Dr. Uriarte, findings:There was a bulky tumor in the right hilum which was in the fissure encroaching upon the right middle lobe airway such that the right middle and right lower lobectomy would have been required for negative margin, because of his poor pulmonary function test, he was not a candidate for that so surgery was aborted. PATHOLOGY: -Right lower lobe FNA--> moderate differentiated squamous cell carcinoma (05/29/2017). -R 10, R2, L4 lymph node--> few atypical squamous cells suspicious for metastatic carcinoma (05/29/2017) - mediastinal lymph violeta biopsy from level 2, level 4, level 7--> negative. (07/04/2017) - level 9 R, level 11R and level 8 R--> benign lymph nodes. (07/17/2017). OTHER IMPORTANT HISTORY: -Atrial fibrillation, he is on oral Coumadin. -Right carotid artery stenosis. Interval history: He has come to the clinic for the follow-up, presently he is under observation since June 2019, earlier he had increasing right pleural effusion, he had a thoracocentesis, cytology negative for malignant cells, about 450 mL of the fluid removed, at present he does not have any new pulmonary symptoms, he is on Lasix, no increasing leg edema, mild shortness of breath on exertion, not on oxygen treatment on regular basis but he does use oxygen during the nighttime, stable weight around 202 lb, ECOG PS 1, no diarrhea, no constipation,. no new abdominal symptoms, no pain at any site,, has some mild tingling and numbness of extremities which is gradually getting better, but It has not affected his daily routine activities. He denies any increasing headache. He is also on oral Coumadin for underlying cardiac condition ( atrial fibrillation) no new bleedingcomplications. Past Medical History: Diagnosis Date Allergic rhinitis Asthma, severity to be determined Benign neoplasm of colon 03/12/13 COLONOSCOPY FLEXIBLE PROXIMAL DIAGNOSTIC performed by Mariela Bustamante DO at [facility],, HYPERPLASTIC POLYPS REPEAT COLONOSCOPY IN 5 YEAR Colon polyps 03/12/2013 hyperplastic, repeat 5 years Moderate persistent asthma without complication 02/10/2017 MRSA (methicillin resistant Staphylococcus aureus) infection 05/26/2009 Osteoarthritis of hip 04/13/2014 ICD-10 update of inactive term S/P total hip arthroplasty 06/03/2014 Right 05/20/2014 Dr Gage [facility] Tobacco use disorder 01/15/2001 Past Surgical History: Procedure Laterality Date BRONCHOSCOPY, DIAGNOSTIC 07/04/2017 BRONCHOSCOPY DIAGNOSTIC WITH OR WITHOUT WASHING performed by Jamal Leo MD at [facility] COLONOSCOPY, DIAGNOSTIC (RECTUM) 03/12/2013 COLONOSCOPY FLEXIBLE PROXIMAL DIAGNOSTIC performed by Mariela Bustamante DO at [facility],, HYPERPLASTIC POLYPS REPEAT COLONOSCOPY IN 5 YEARS COLONOSCOPY, DIAGNOSTIC (RECTUM) 09/27/2018 hyperplastic & tubulovillous adenoma polyps, repeat 1 yr/COLONOSCOPY FLEXIBLE PROXIMAL DIAGNOSTIC performed by Mariela Bustamante DO at [facility]COPY [facility] MEDIASTINOSCOPY; W/ BIOPSY MEDIASTINAL MASS N/A 07/04/2017 MEDIASTINOSCOPY; INCLUDES BIOPSY(IES) OF MEDIASTINAL MASS performed by Jamal Leo MD at [facility] THORACOSCOPY, DIAGNOSTIC, LUNGS Right 07/17/2017 THORACOSCOPY DIAGNOSTIC WITHOUT BIOPSY performed by Jamal Leo MD at [facility] THROMBOENDARECTOMY W/PATCH,NECK INCISION Right 10/18/2017 right carotid endarterectomy with pericardial patch angioplasty performed by Daniel Gaming MD at [facility] TOTAL HIP REPLACEMENT & PROSTHESIS 05/20/2014 ARTHROPLASTY TOTAL HIP performed by Flakito Gage DO at [facility] Current Outpatient Medications Medication Sig Dispense Refill predniSONE (DELTASONE) 10 MG Tablet Take 5 tabs for 2 days, 4 tabs for 2 days, 3 tabs for 2 days, 2tabs for 2 days 1 tab for 2 days 30 Tab 0 acetaminophen (TYLENOL EXTRA STRENGTH) 500 MG Tablet Take 1,000 mg by mouth every 6 hours as neededfor Pain. docusate sodium (COLACE) 100 MG Capsule Take 100 mg by mouth 2 times a day as needed for Constipation. lisinopril (PRINIVIL) 2.5 MG Tablet Take 2.5 mg by mouth daily. atorvaSTATin (LIPITOR) 10 MG Tablet take 1 tablet by mouth once daily 30 Tab 11 metoprolol tartrate (LOPRESSOR) 100 MG Tablet Take 1 Tab by mouth 2 times a day. 60 Tab 5 ondansetron (ZOFRAN) 8 MG Tablet Take 1 Tab by mouth every 8 hours as needed for Nausea. 30 Tab 6 aspirin enteric coated 81 MG TBEC Take 1 Tab by mouth daily. 30 Tab 11 furosemide (LASIX) 20 MG Tablet Take 1 Tab by mouth daily. 30 Tab 5 warfarin sodium (COUMADIN) 5 MG Tablet Take 2 Tabs by mouth every evening. Or as directed. 60 Tab 11 montelukast (SINGULAIR) 10 MG Tablet Take 10 mg by mouth at bedtime. albuterol-ipratropium (DUONEB) 2.5-0.5 MG/3ML nebulizer solution Inhale 3 mL via nebulizer 4 times a day. 120 Vial 3 Nebulizers (NEBULIZER COMPRESSOR) MISC Inhale via nebulizer. Use as directed. 1 Each 1 Ascorbic Acid (VITAMIN C) 500 MG CAPS Take by mouth. vitamin b-12 (CYANOCOBALAMIN) 250 MCG TABS Take 250 mcg by mouth daily. Vitamin D, Cholecalciferol, 1000 UNITS TABS Take by mouth. albuterol (PROVENTIL HFA) 108 (90 BASE) MCG/ACT inhaler Inhale 2 Puffs by mouth every 4 hours as needed. Shortness of breath or wheezing budesonide-formoterol (SYMBICORT) 160-4.5 MCG/ACT inhaler Inhale 2 Puffs by mouth 2 times a day. fexofenadine ([place]LANDO) 180 MG Tablet Take 180 mg by mouth daily as needed. fluticasone (FLONASE) 50 MCG/ACT nasal spray Administer 1 [place] into nostril daily as needed. saline (OCEAN) 0.65 % nasal spray Administer 1 [place] into nostril as needed. BENADRYL 25 MG PO CAPS 2 caps at bedtime as needed On exam: BP 117/69 (BP Site: Left Arm, BP Position: Sitting, BP Cuff Size: Regular) | Pulse 66 | Temp 36.6 C (97.9 F) (Tympanic) | Resp 18 | Wt 91.7 kg (202 lb 1.6 oz) | SpO2 93% Comment: 93 on 2L | BMI 31.65 kg/m | BSA 2.08 m There were no vitals taken for this visit. Constitutional: Patient is alert, cooperative and oriented. Patient is in no acute distress. ENT: Buccal mucosa is pink and negative for ulceration. Posterior pharynx is clear. Neck: No cervical or supraclavicular adenopathy. Lungs: Diminished to auscultation posteriorly bilaterally. Few crepitations noted in the left scapular region. Cardiovascular: Regular rate and rhythm. Abdomen: Nontender and nondistended to palpation. The liver and spleen were not palpable. Neurological: No gross focal neurological deficit; walks with a normal gait. Extremities: No edema or clubbing. Left lower extremity in knee brace following recent surgery. Integumentary: No skin rash. LABORATORY DATA: Blood workup done on 07/13/2023: -BUN/Creat: 13/0.9, Calcium 9.1, normal LFT -WBC 7800, H&H of 15.8/49, Platelet count 192 k -PSA --> 1.54. IMAGING: -PET-CT scan done on 01/01/2018--> interval development of moderate right pleural effusion which is not significantly FDG avid, right infrahilar soft tissue masses decrease in the size, difficult to measure but appears to be around 1.7 cm, it was around 3.9 cm earlier, radiation induced pneumonitis noted in the right lung, no FDG avid mediastinal or hilar lymph nodes noted no suspicious findings noted in the abdomen. No bony lesions noted. -CT scan of the chest with intravenous contrast done on 03/28/2018--> right pleural effusion slightly decreased, post radiation changes noted in the right lung perihilar region, considerable decrease/resolution of the previously noted right hilar lesion. Unchanged mild mediastinal lymphadenopathy noted -CT scan of chest done on 07/05/2018--> right central peribronchovascular soft tissue thickening noted, previously noted right infrahilar soft tissue thickening has decrease in the size. No enlarged lymph nodes noted, stable small right pleural effusion noted moderate stenosis of the proximal SMAnoted. CT scan of the chest (01/04/2019) - Stable peribronchovascular soft tissue thickening suggest posttreatment changes. - No lymphedenopathy - Small stable right pleural effusion noted. - 4 cm borderline aneurysmal validation of the ascending aorta noted - [id number] stenosis proximal superior mesenteric artery noted. PET-CT scan (09/28/2019) -no metabolic active disease noted anywhere else. CT chest(04/14/2020) 1. A moderate sized partially loculated right pleural effusion has increased in size since the prior PET-CT. 2. Increased right middle lobe volume loss. Increased soft tissue fullness posterior to the bronchus intermedius. Although the finding may be related to adjacent atelectasis, recurrent disease is difficult to exclude PET CT(04/22/2020) - No FDG avid malignancy. Mild circumferential wall thickening of the sigmoid colon with increased FDG activity. Clinical correlation for colitis is recommended. PET-CT scan (04/26/2021: -post treatment changes in the right lung. No metabolic active disease noted anywhere else. CT chest (03/02/2022: 1. Soft tissue density surrounding the right hilar structures and extending into superior segment of right lower lobe similar to prior exam. 2. Small right pleural effusion with pleural thickening. Pleural fluid has improved since prior exam. 3. Heterogeneous enhancement of gallbladder fundus may represent a gallbladder mass versus folding. Non-emergent ultrasound could be considered to further define. CT chest with intravenous contrast (08/29/2022: 1. No significant change in right hilar/perihilar masslike density. Small lung nodules not significantly changed. No new suspicious lung nodule. 2. No significant change in the soft tissue density in the fundus of the stomach. Follow-up as per the recommendations of ultrasound dated 03/23/2022. 3. No significant change in mild dilatation of ascending aorta. CT chest (03/06/2023) -1. Stable posttherapy changes at the right hilum and throughout the right mid and lower lung field. No evidence of recurrent neoplastic disease identified within the limits the study. CT chest ( 03/19/2024) 1. Marginally increased smooth pleural thickening and fluid along the right mediastinal pleura; favor an inflammatory etiology noting the pre-existing stable pleural thickening and fluid. No specificevidence for recurrent thoracic malignancy. Recommend a follow-up CT of the chest in 3-6 months. 2. Otherwise stable radiation fibrosis in the right lung. ASSESSMENT AND PLAN: 78-year-old male, a case of right lower lobe squamous cell carcinoma, no definite mediastinal lymphnodal involvement earlier, because of bulky tumor, he was not considered for surgical intervention,he completed combined chemotherapy with weekly paclitaxel and carboplatin along with radiation treatment as Sep 2017. Recently imaging study showed right carotid stenosis, he was seen by vascular surgeon, right carotid endarterectomy on 10/18/17. He received 2 additional consolidative chemotherapy treatment with paclitaxel and carboplatin, Lastcycle received on 11/29/2017. He had increasing neuropathy symptoms and so decided to discontinue chemotherapy treatment He had a follow-up PET-CT scan which shows interval decrease in the previously noted right infrahilar mass, was measuring approximately 1.7 cm, new moderate right pleural effusion noted. He was seen by Dr. Leo underwent thoracocentesis on the right side, pleural cytology negative for malignancy (01/11/2018). Follow-up CT scan of chest done on 07/02/2018, overall stable small right pleural effusion, stable findings noted in the chest, no evidence of disease progression noted. He completed 1 year of immunotherapy with Durvalumab in June 2019. Follow-up PET-CT scan showed no evidence of FDG avid disease noted anywhere else (04/2021) Imaging study showed increasing right pleural effusion, seen by Pulmonary, had thoracocentesis, cytology negative for malignant cells. Last thoracentesis was in February 2021, once again cytology negative. Recently he had a follow-up CT scan recently in 02/2024, It showed stable findings. No increasing pleural effusion noted. Some thickening of the pleura noted, suggested another CT chest in about [address] chest in about 6 months. He will have kidney function test before that. Planning tosee him in [address] Ru Brunson Hem/Onc (This note was completed using the dictation program Fluency Direct. As such, there may be misspellings, word substitutions, or other variations that should not change the essence of the clinical content of this encounter note. If there is need for further clarification, please direct questions to the provider listed above.) documented in this encounter Nursing Notes * Yanet Irene MED ASSIST - 03/27/2024 1:42 PM EDT Patient identifed by name and birthdate Do you have any concerns about pain management for today's visit? No Living Will or Advance Directive for Health Care as noted on the problem list. [facility] is a way you can talk to your provider on line through e-mail. Would you like to sign up? I can activate it for you? ALREADY ACTIVE Filed Vitals: 03/27/24 1341 BP: 117/69 Pulse: 66 Resp: 18 Temp: 36.6 C (97.9 F) TempSrc: Tympanic SpO2: 93% Weight: 91.7 kg (202 lb 1.6 oz) Patient was instructed to not get up on the exam table/exam chair until directed and assisted by their provider; patient is to remain seated in the chair/ wheelchair/ exam table/ exam chair for fall prevention and safety reasons. Patient is aware to have assistance to step down off exam table/exam chair with personnel. Patient voiced full comprehension of instructions. documented in this encounter Plan of Treatment Upcoming Encounters Date Type Department Care Team (Late st Contact Info) Description 05/06/2024 9:10 AM EDT Anticoagulation Pharmacy, [facility] [place] [address] [place] [address] [address] Pharmacist1, [facility] [address] [place] [address] [address] 09/23/2024 8:30 AM EST Imaging Radiology [address], [place] [address] [facility] [place] [address] 10/01/2024 10:45 AM EST Office Visit Hematology/Oncology [facility] [place] [address] [place] [address] Ru Brunson MD [address] [place] [address] Scheduled Orders Name Type Priority Associated Diagnoses Orde r Schedule CT CHEST W CONTRAST Medical Imaging Routine History of lung cancer Pleural effusion on right Encounter for follow-up examination after completed treatment for malignant neoplasm Expected: 03/27/2024, Expires: 03/27/2025 CREATININE Lab STAT History of lung cancer Pleural effusion on right Encounter for follow-up examination after completed treatment for malignant neoplasm Expected: 09/27/2024, Expires: 04/27/2025 Health Maintenance Due Date Last Done Comments COVID-19 Vaccine (2022-12 4 season) 2023 10/18/2022, 10/15/2021, 03/10/2021, Additional history exists Depression Screening 11/16/2023 11/16/2022 TSH 07/13/2024 07/13/2023, 06/20, 06/17/2019, Additional history exists Influenza Vaccine (FLU shot) (Season Ended) 2024 09/08/2022, 07/29/2021, 07/23/2020, Additional history exists O2 ASSESSMENT COMPLETED IN P AST YEAR FOR COPD 09/26/2024 09/26/2023 Zoster Vaccines Completed 06/26/2020, 11/2019, 09/20/2011 documented as of this encounter Medical Devices Implanted Type Area Senior Drafter Device Identifier Shelf Expiration Date Model / Serial / Lot Shell Sz 56mm - [id number] Implanted:Qty: 1 on 05/20/2014 at [place] [facility] [place]: Hip BA : ORTHOPAEDICS 02/17/2019 502-03-56E / / [id number] Trident Acetabular X3 0 36 E - [id number] Implanted:Qty: 1 on 05/20/2014 at [place] [facility] [place] Right: Hip BA : ORTHOPAEDICS 04/19/2019 623-00-36E / / [id number] Screw Bone Cancell 5143-1464-1 - [id number] Implanted:Qty: 1 on 05/20/2014 at [place] [facility] [place] Right: Hip HOWMEDICA 05/19/2018 6367-5968- 1 / / [id number] Accolade Ii 132 Deg Sz 5 - [id number] Implanted:Qty: 1 on 05/20/2014 at [place] [facility] [place] Right: Hip BA : ORTHOPAEDICS 03/19/2018 [id number] / / [id number] Hip Hd Nk Alumina Mod D 36/+5 - [id number] Implanted:Qty: 1 on 05/20/2014 at [place] [facility] [place] Right: Hip BA : ORTHOPAEDICS 02/17/2019 6570-0-236 / / [id number] Patch Xenosure 0.6qnd2ut - [id number] Implanted:Qty: 1 on 10/18/2017 by Daniel Gaming MD at [place] [facility] Right: Carotid [employer] 06/16/2023 E0.8P8 / / [id number] documented as of this encounter Visit Diagnoses Diagnosis Encounter for follow-up examination after completed treatment for malignant neoplasm- Primary Unspecified follow-up examination History of lung cancer Personal history of malignant neoplasm of bronchus and lung Pleural effusion on right Unspecified pleural effusion documented in this encounter Advance Directives Documents on File Type Date Recorded Patient Security Systems Integrator Expl anation Advance Directives and Living Will 06/01/2017 LIVING WILL LIVING W ILL Power of Electrician Locomotive 06/01/2017 POWER OF A [facility] POWER OF CORE CUTTER Latest Code Status on File Code Status Date Activated Date Inactivated Comments Full Code 06/04/2020 1:20 PM 06/10/2020 8:51 PM This order reflects the patients wishes and were consensually agreed upon. Question Answer Comments Discussion of Advance Directives occurred with: Patient Code Status History Code Status Date Activated Date Inactivated Comments Full Code 06/04/2020 9:52 AM 06/04/2020 1:20 PM This order reflects the patients wishes and were consensually agreed upon. Full Code 10/18/2017 1:56 PM 10/19/2017 2:13 PM Thi s order reflects the patients wishes and were consensually agreed upon. Full Code 07/17/2017 2:54 PM 07/18/2017 3:56 PM Question Answer Comments Discussion of Advance Directives occurred with: Not Discussed Full Code 05/20/2014 4:50 PM 05/23/2014 5:38 PM . Question Answer Comments Discussion of Advance Directives occurred with: Not Discussed Care Teams Electric Motors Salesperson Relationship Specialty Start Date End Date Bina February Ulises, JUDY [address] [place] [address] PCP - General Physician Surgical Training Specialist 12/31/18 documented as of this encounter"
--- OUTSIDE RECORDS SUMMARY | 2024-05-01 14:39 | External Medical Summary | Summary of Care ---
Author Name Unknown Organization [facility] Address [address] [place] [address] Phone [phone] Care Team Providers Care Aircraft Systems Technician Name Role Phone Steffany Curran PA-C Primary Care Provider [phone] Reason for Visit * Reason Comments Medication Refill Encounter Details Date Type Department Care Team (Late st Contact Info) Description 02/28/2024 Refill Family Practice [facility] [address] [place] [address] Steffany Curran PA-C [address] [place] [address] Acute bronchospasm; Malignant neoplasm of lower lobe of lung, unspecified laterality (HCC) Allergies Active Allergy Reactions Criticality Noted Date Comments Dust 05/13/2020 Molds & Smuts 05/13/2020 Pollen 03/06/2013 RAGWEED Ragweed 05/13/2020 documented as of this encounter (statuses as of 02/29/2024) Medications Medication Sig Dispensed Refills Start Date [...] (FLONASE) 50 MCG/ACT nasal spray Administer 1 [place] into nostril daily as needed. 0 Active saline (OCEAN) 0.65 % nasal spray Administer 1 [place] into nostril as needed. 0 Active vitamin b-12 (CYANOCOBALAMIN) 250 MCG TABS Take 1 Tablet by mouth in the morning. 0 Active Ascorbic Acid (VITAMIN C) 500 MG CAPS Take by mouth. 0 Active Vitamin D, Cholecalciferol, 1000 UNITS TABS Take by mouth. 0 Activ e Nebulizers (NEBULIZER COMPRESSOR) MISCIndications:Acu te bronchospasm,Malign ant neoplasm of lower lobe of lung, unspecified [...] Active Levothyroxine Sodium 50 MCG Oral Tablet (Levoxyl)Indication s:Hypothyroidism due to medication Take by mouth 1 Tablet in the morning. (at least 30 min prior to breakfast or other meds). 30 Tablet 11 05/11/2022 Active Azelastine HCl 0.1 % Nasal SolutionIndications :Chronic rhinitis Administer into nostril 1 [place] in the morning AND 1 [place] before bedtime. 90 mL 3 05/18/2022 Active Breztri Aerosphere 160-9-4.8 MCG/ACT Inhalation Aerosol (Budeson-Glycopyrro l-Formoterol) Inhale by mouth 2 Puffs 2 times a day . 0 08/09/2022 Active Amoxicillin 500 MG Oral Capsule (Amoxil) TAKE 1 CAPSULE (500 MG) BY ORAL ROUTE 2 TIMES PER DAY. START THIS 2 DAYS BEFORE TOOTH EXTRACTION. 0 01/11/2023 Active Warfarin Sodium 5 MG Oral Tablet (Coumadin)Indicatio ns:Paroxysmal atrial fibrillation (HCC) TAKE 1 TABLET (=5MG) BY MOUTH ON MONDAYS, Wednesdays AND FRIDAYS, THEN TAKE 1 AND 1/2 TABLET (=7.5MG) ON ALL OTHER DAYS OR DIRECTED BY CLINIC 115 Tablet 3 04/19/2023 Active Potassium Chloride ER 10 MEQ Oral Capsule Extended ReleaseIndications: Chronic diastolic heart failure due to valvular disease [...] Active Metoprolol Tartrate 100 MG Oral Tablet (Lopressor)Indicati ons:Paroxysmal atrial fibrillation (HCC) Take 1 Tablet by mouth in the morning and 1 Tablet before bedtime. 180 Tablet 3 08/21/2023 Active Atorvastatin Calcium 20 MG Oral Tablet (Lipitor)Indication s:Dyslipidemia TAKE 1 TABLET BY MOUTH EVERY DAY IN THE MORNING 90 Tablet 3 09/01/2023 Active oxygen IN GASIndications:COPD , group B, by GOLD 2017 classification ([facility]) Administer 5 L/min(Oxygen) into nostril continuous. 1 Each 0 11/21/2023 Active Ipratropium-Albuter ol 0.5-2.5 (3) MG/3ML Inhalation Solution (Duoneb)Indications :Acute bronchospasm,Malign ant neoplasm of lower lobe of lung, unspecified laterality (HCC) INHALE 3 ML (1 VIAL) VIA NEBULIZER IN THE MORNING THEN 3 ML AT NOON AND 3 ML IN THE EVENING AND 3 ML BEFORE BEDTIME 360 mL 5 02/29/2024 Active Ipratropium-Albuter ol 0.5-2.5 (3) MG/3ML Inhalation Solution (Duoneb)Indications :Acute bronchospasm,Malign ant neoplasm of lower lobe of lung, unspecified laterality (HCC) INHALE 3 ML (1 VIAL) VIA NEBULIZER IN THE MORNING THEN 3 ML AT NOON AND 3 ML IN THE EVENING AND 3 ML BEFORE BEDTIME 360 mL 5 01/09/2023 4 Discontinue d(Refill) Hospital, Clinic, or Other Facility Administered Medication Ordered Dose Route Frequency Start Date End Date Status Acetaminophen (Tylenol) tab 650 mgIndications:COVID-19 virus infection 650 mg OR ONCE PRN 12/15/2020 Active documented as of this encounter (statuses as of 02/29/2024) Active Problems Problem Noted Date Diagnosed Date Traumatic rupture of left patellar tendon 2022 [...] arthroplasty 06/03/2014 Overview: Right 05/20/2014 Dr Gage [facility] RESEARCH OTHER*[id number] 04/23/2014 Allergic rhinitis 12/23/2005 ADVANCE DIRECTIVE INFORMATION 10/05/2005 Overview: Yes, Patient instructed to provide copy of advance directive for provider to review and to be scanned into Electronic Medical Record Tobacco use disorder 01/15/2001 History of lung cancer Palliative care encounter documented as of this encounter (statuses as of 02/29/2024) Resolved Problems Problem Noted Date Diagnosed Date [...] as of this encounter (statuses as of 02/29/2024) Immunizations Name Administration Dates Next Due COVID-19 [...] on file documented as of this encounter Functional Status Functional Status Response [...] (15 years old or older) No 06/04/20 Cognitive Status Response Date of Assessm ent Because of a physical, menta l, or emotional condition, do you have serious difficulty concentrating, remembering, or making decisions? (5 years old or older) No 06/04/2020 documented as of this encounter Miscellaneous Notes * Telephone Encounter - Christy Encarnacion RPh - 02/29/2024 2:29 PM EDTSigned Prescriptions: Disp Refills Ipratropium-Albuterol 0.5-2.5 (3) MG/3ML I*360 mL 5 Sig: INHALE 3 ML (1 VIAL) VIA NEBULIZER IN THE MORNING THEN 3 ML AT NOON AND 3 ML IN THE EVENING AND 3 ML BEFOREBEDTIMEAuthorizing Provider: STEFFANY CURRAN AOrdering User: CHRISTY ENCARNACION documented in this encounter Plan of Treatment Upcoming Encounters Date Type Department Care Team (Late st Contact Info) Description 03/01/2024 10:30 AM EDT Imaging [facility], [address] [facility] [address] 03/01/2024 11:30 AM EDT Imaging Vascular Lab, [address] [place] [address] 03/06/2024 9:10 AM EDT Office Visit Vascular Surgery, [address] [place] [address] Daniel Gaming MD [address] [place] [address] 03/14/2024 9:00 AM EDT Laboratory Laboratory [facility] [address] [place] [place] [id number] [place] [facility] [address] [place] [address] 03/19/2024 10:30 AM EDT Imaging Radiology [facility] 132 [facility] [place] [address] 03/27/2024 1:30 PM EDT Anticoagulation Pharmacy, [facility] [address] [address] Pharmacist1, [facility] [address] [facility] [place] [address] 03/27/2024 1:45 PM EDT Office Visit Hematology/Oncology [facility] [place] [address] [place] [phone] Ru Brunson MD [address] [place] [address] Health Maintenance Due Date Last Done Comments COVID-19 Vaccine (2022-2 4 season) 2023 10/18/2022, 10/15/2021, 03/10/2021, Additional history exists Depression Screening 11/16/2023 11/16/2022 TSH 07/13/2024 07/13/2023, 06/20, 06/17/2019, Additional history exists Influenza Vaccine (FLU shot) (Season Ended) 2024 09/08/2022, 07/29/2021, 07/23/2020, Additional history exists O2 ASSESSMENT COMPLETED IN P AST YEAR FOR COPD 09/26/2024 09/26/2023 Zoster Vaccines Completed 06/26/2020, 11/2019, 09/20/2011 documented as of this encounter Medical Devices Implanted Type Area Measuring Machine Tender Device Identifier Shelf Expiration Date Model / Serial / Lot Shell Sz 56mm - [id number] Implanted:Qty: 1 on 05/20/2014 at [place] [facility] [place] Right: Hip BA : ORTHOPAEDICS 02/17/2019 502-03-56E / / [id number] Trident Acetabular X3 0 36 E - [id number] Implanted:Qty: 1 on 05/20/2014 at OR [facility] Right: Hip BA : ORTHOPAEDICS 04/19/2019 623-00-36E / / [id number] Screw Bone Cancell 0556-6261-1 - [id number] Implanted:Qty: 1 on 05/20/2014 at OR [facility] Right: Hip [employer] 05/19/201820290660-9007- 1 / / [id number] Accolade Ii 132 Deg 5 - [id number] Implanted:Qty: 1 on 05/20/2014 at [facility] Right: Hip BA : ORTHOPAEDICS 03/19/2018 3345-5041 / / [id number] Hip Hd Nk Alumina Mod D 36/+5 - [id number] Implanted:Qty: 1 on 05/20/2014 at OR [facility] Right: Hip BA : ORTHOPAEDICS 02/17/2019 6570-0-236 / / [id number] Patch Xenosure 0.6cli8wq - [id number] Implanted:Qty: 1 on 10/18/2017 by Daniel Gaming MD at OR [facility] Right: Carotid [employer] 06/16/2023 E0.8P8 / / [id number] documented as of this encounter Visit Diagnoses Diagnosis Acute bronchospasm Malignant neoplasm of lower lobe of lung, unspecified laterality (HCC) documented in this encounter Advance Directives Documents on File Type Date Recorded Patient [place] Expl anation Advance Directives and Living Will 06/01/2017 LIVING WILL LIVING W ILL Power of Disability Advocate 06/01/2017 POWER OF A TTORNEY DURABLE HEALTH CARE POWER OF STOCK PLAN ADMINISTRATOR Latest Code Status on File Code Status [...] Directives occurred with: Not Discussed Care Teams Aircraft Systems Technician Relationship Specialty Start Date End Date Steffany Curran PA-C [address] [place] [address] PCP - General Physician Medical Esthetician 12/31/18 documented as of this encounter
--- OUTSIDE RECORDS SUMMARY | 2024-05-01 14:39 | External Medical Summary ---
Author Name Unknown Address Unknown Organization [facility] [place] [place] [address] Laboratory Report Ordering Provider Test Date Status REBECCA SMITH 03/14/2024 08:59:26 Final Observation Date Value Abnormality Reference (Units ) Status Creatinine 03/14/2024 08:59:26 1.0 0.6-1.2 (mg/dL) Final Glomerular filtration rate/1.73 sq M.predicted [Volume Rate/Area] in Serum, Plasma or Blood by Creatinine-based formula (CKD-EPI) 03/14/2024 08:59:26 77 >=60 (mL/min) Final eGFR is calculated based on the CKD-EPI 2020 equation Performing Location [facility] [place] [address]
--- OUTSIDE RECORDS SUMMARY | 2024-05-01 14:39 | External Medical Summary | Summary of Care ---
Author Name Unknown Organization [facility] Address [address] [place] [address] Phone [phone] Care Team Providers Care Silver Lap Machine Tender Name Role Phone Steffany Curran PA-C Primary Care Provider [phone] Reason for Visit * Reason Onset Date Comments Appointment 03/27/2024 Encounter Details Date Type Department Care Team (Late st Contact Info) Description 03/27/2024 Telephone Hematology/Oncology [facility] 200 [facility] [place] [address] Ru Brunson MD 200 [facility] [place] [address] Appointment Allergies Active Allergy Reactions Criticality Noted Date [...] (FLONASE) 50 MCG/ACT nasal spray Administer 1 [place] into nostril daily as needed. 0 Active saline (OCEAN) 0.65 % nasal spray Administer 1 [place] into nostril as needed. 0 Active vitamin [...] SolutionIndications:C hronic rhinitis Administer into nostril 1 [place] in the morning AND 1 [place] before bedtime. 90 mL 3 05/18/2022 Active [...] GASIndications:COPD, group B, by GOLD 2017 classification (HCC) Administer 5 L/min(Oxygen) into nostril continuous. 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 [...] encounter Miscellaneous Notes * Telephone Encounter - Allyson Ortiz OSA - 03/27/2024 1:[address] scheduled Pt made aware Prep given documented in this encounter Plan of Treatment Upcoming Encounters Date Type Department Care Team (Late st Contact Info) Description 05/06/2024 9:10 AM EDT Anticoagulation Pharmacy, [facility] [address] [place] [address] Pharmacist1, [facility] [address] [place] [address] [address] 09/23/2024 8:30 AM EST Imaging Radiology [address] 132 [facility] [place] [address] 10/01/2024 10:45 AM EST Office Visit Hematology/Oncology [facility] [place] [address] [place] [address] [phone] Ru Brunson MD [address] [place] [address] [address] Health Maintenance Due Date Last Done Comments [...] this encounter Medical Devices Implanted Type Area Stress Engineer Device Identifier Shelf Expiration Date Model / Serial / Lot Shell Sz 56mm - [id number] Implanted:Qty: 1 on [place]/20/2014 [place] [facility] [place] Hip BA : ORTHOPAEDICS 02/17/2019 502-03-56E / / [id number] Trident Acetabular X3 0 36 E - [id number] Implanted:Qty: 1 on 05/20/2014 [place] [facility] [place] Hip BA : ORTHOPAEDICS 04/19/2019 623-00-36E / / [id number] Screw Bone Cancell 2141-1515-1 - [id number] Implanted:Qty: 1 on 05/20/2014 [place] [facility] [place]: Hip [employer] 05/19/20180742-0242- 1 / / [id number] Accolade Ii 132 Deg Sz 5 - [id number] Implanted:Qty: 1 on 05/20/2014 [place] [facility] [place]: Hip BA : ORTHOPAEDICS 03/19/2018 0404-4957 / / [id number] Hip Hd Nk Alumina Mod D 36/+5 - [id number] Implanted:Qty: 1 on 05/20/2014 [place] [facility] [place]: Hip BA : ORTHOPAEDICS 02/17/2019 6570-0-236 / / [id number] Patch Xenosure 0.5ide9xo - [id number] Implanted:Qty: 1 on 10/18/2017 by Daniel Gaming MD [place] [facility] [place]: Carotid [employer] 06/16/2023 E0.8P8 / / [id number] documented as of this encounter Advance Directives Documents on File Type Date Recorded Patient Motor Vehicle Field Representative Expl anation Advance Directives and Living Will 06/01/2017 LIVING WILL LIVING W ILL Power of Java Xml Developer 06/01/2017 POWER OF A TTORNEY DURABLE HEALTH CARE POWER OF SERVICE CREW SUPERVISOR Latest Code Status on File Code Status [...] Directives occurred with: Not Discussed Care Teams Silver Lap Machine Tender Relationship Specialty Start Date End Date Bina February JUDY [place] [address] [place] [address] PCP - General Physician Sign Designer 12/31/18 documented as of this encounter
--- OUTSIDE RECORDS SUMMARY | 2024-05-01 14:39 | External Medical Summary ---
Author Name Unknown Address Unknown Organization [facility] [place] [address] Laboratory Report Ordering Provider Test Date Status DELPHINE OTERO V 03/27/2024 13:28:33 Final Therapeutic ranges for non-o perative patients:
Prophylaxsis/treatment of DVT: (Range:2.0-3.0)
Treatment of pulmonary embolism:(Range:2.0-3.0)
Prevention of systemic embolism from:
-tissue heart valves
-acute myocardial infarction
-valvular heart disease
-atrial fibrillation
(Range: 2.0-3.0)
Mechanical prosthetic valves: (Range: 2.5-3.5) Observation Date Value Abnormality Reference (Units ) Status INR in Capillary blood by Coagulation assay 03/27/2024 13:28:33 1.6 (INR) Final Performing Location [facility] [place] [place] [address]
--- OUTSIDE RECORDS SUMMARY | 2024-05-01 14:39 | External Medical Summary | Summary of Care ---
Author Name Unknown Organization [facility] Address [address] [place] [address] Phone [phone] Care Team Providers Care Equipment Or Machinery Cleaner Name Role Phone Steffany Curran PA-C Primary Care Provider [phone] Reason for Visit * Reason Comments Follow Up Encounter Details Date Type Department Care Team (Latest Contact Info) Description 03/06/2024 9:10 AM EDT Office Visit Vascular Surgery, [facility] [address] [facility] [place] [address] Daniel Gaming MD [address] [place] [address] Carotid stenosis, non-symptomatic, bilateral*; PAD (peripheral artery disease) ([facility]); Tobacco use disorder; Dyslipidemia, goal LDL below 70; Status post carotid endarterectomy Allergies Active Allergy Reactions Criticality Noted Date Comments Dust 05/13/2020 Molds & Smuts 05/13/2020 Pollen 03/06/2013 RAGWEED Ragweed 05/13/2020 documented as of this encounter (statuses as of 03/06/2024) Medications Medication Sig Dispensed Refills Start Date [...] (FLONASE) 50 MCG/ACT nasal spray Administer 1 [place] into nostril daily as needed. 0 Active saline (OCEAN) 0.65 % nasal spray Administer 1 [place] into nostril as needed. 0 Active vitamin [...] SolutionIndications:C hronic rhinitis Administer into nostril 1 [place] in the morning AND 1 [place] before bedtime. 90 mL 3 05/18/2022 Active [...] GASIndications:COPD, group B, by GOLD 2017 classification ([facility]) Administer 5 L/min(Oxygen) into nostril continuous. 1 Each 0 11/21/2023 Active Ipratropium-Albuterol 0.5-2.5 (3) MG/3ML Inhalation Solution (Duoneb)Indications:A cute bronchospasm,Malignan t neoplasm of lower lobe of lung, unspecified laterality ([facility]) INHALE 3 ML (1 VIAL) VIA NEBULIZER IN THE MORNING THEN 3 ML AT NOON AND 3 ML IN THE EVENING AND 3 ML BEFORE BEDTIME 360 mL 5 02/29/2024 Active Hospital, Clinic, or Other Facility Administered Medication Ordered Dose Route Frequency Start Date End Date Status Acetaminophen (Tylenol) tab 650 mgIndications:COVID-19 virus infection 650 mg OR ONCE PRN 12/15/2020 Active documented as of this encounter (statuses as of 03/06/2024) Active Problems Problem Noted Date Diagnosed Date [...] arthroplasty 06/03/2014 Overview: Right 05/20/2014 Dr Gage [facility] OTHER*[id number] 04/23/2014 Allergic rhinitis 12/23/2005 ADVANCE DIRECTIVE INFORMATION 10/05/2005 Overview: Yes, Patient instructed to provide copy of advance directive for provider to review and to be scanned into Electronic Medical Record Tobacco use disorder 01/15/2001 History of lung cancer Palliative care encounter documented as of this encounter (statuses as of 03/06/2024) Resolved Problems Problem Noted Date Diagnosed Date [...] as of this encounter (statuses as of 03/06/2024) Immunizations Name Administration Dates Next Due COVID-19 mRNA, LNP-s, No Pre serve, 2-Dose Series (Moderna) 10/15/2021,03/10/2021,02/10/2021 Covid-19, Mrna, Lnp-s, Pf, B ivalent, 30 Mcg, IM, 12 yrs and above ([facility]) 10/18/2022 Pneumococcal Conjugate Vacc, 13 Valent (Prevnar) [...] 0 11/26/1982 - 11/26/2012 Smokeless Tobacco: Never Tobacco Cessation:Counseling Given: No Alcohol Use Standard Drinks/Week Comments Yes 0 [...] Sign Reading Time Taken Comments Blood Pressure 126/70 03/06/2024 9:33 AM EDT Pulse 70 03/06/2024 9:33 AM EDT Temperature 36.1 C (97 F) 03/06/2024 9:33 AM EDT Respiratory Rate - - Oxygen Saturation - - Inhaled Oxygen Concentration - - Weight 94.2 kg (207 lb 9.6 oz) 03/06/2024 9:33 A M EDT Height - - Body Mass Index 32.51 07/13/2023 8:54 AM EDT documented in this [...] as of this encounter Progress Notes * Jamal Barnett PA-C - 03/06/2024 9:10 AM EDT Date of Service: 03/06/2024 9:04 AM Steve Zuleta is a 78 year old male. Referring Physician: JUDY Maldonado Dr. (Cardiology) Chief Complaint: Surveillance of carotid disease (S/P right CEA in 2017). Also being seen for suspected PAD HPI: Evaluated by Dr. Flores, who noted a right carotid bruit. A carotid duplex was obtained which revealed MARIAA 70-99% stenosis, and LICA without any significant stenosis. Underwent right carotid endarterectomy with pericardial patch angioplasty 10/18/[address] Gaming. CAROTID DISEASE: Patient denies recent TIA, recent stroke and recent amaurosis fugax. Carotid duplex exam at [facility] identified the right internal carotid with less than 50% stenosis and the left internal carotid with less than 50% stenosis. PAD Limited by copd No symptoms Current Outpatient Medications Medication Sig Dispense Refill BENADRYL 25 MG PO CAPS Take 2 Capsules by mouth at bedtime as needed for Rhinitis. fexofenadine (ORLANDO) 180 MG Tablet Take 1 Tablet by mouth daily as needed. albuterol (PROVENTIL HFA) 108 (90 BASE) MCG/ACT inhaler Inhale 2 Puffs by mouth every 4 hours as needed. Shortness of breath or wheezing fluticasone (FLONASE) 50 MCG/ACT nasal spray Administer 1 [place] into nostril daily as needed. saline (OCEAN) 0.65 % nasal spray Administer 1 [place] into nostril as needed. vitamin b-12 (CYANOCOBALAMIN) 250 MCG TABS Take 1 Tablet by mouth in the morning. Ascorbic Acid (VITAMIN C) 500 MG CAPS Take by mouth. Vitamin D, Cholecalciferol, 1000 UNITS TABS Take by mouth. Nebulizers (NEBULIZER COMPRESSOR) MISC Inhale via nebulizer. Use as directed. 1 Each 1 Montelukast Sodium 10 MG Oral Tablet Take 1 Tablet by mouth in the morning. aspirin enteric coated 81 MG TBEC Take 1 Tab by mouth daily. 30 Tab 11 Acetaminophen 500 MG Oral Tablet Take 2 Tablets by mouth every 6 hours as needed for Pain. Levothyroxine Sodium 50 MCG Oral Tablet (Levoxyl) Take by mouth 1 Tablet in the morning. (at least 30 min prior to breakfast or other meds). 30 Tablet 11 Azelastine HCl 0.1 % Nasal Solution Administer into nostril 1 [place] in the morning AND 1 [place] before bedtime. 90 mL 3 Breztri Aerosphere 160-9-4.8 MCG/ACT Inhalation Aerosol (Guhdhod-Xpjsgiqtkhr-Ofdmefijta) Inhale by mouth 2 Puffs 2 times a day . Amoxicillin 500 MG Oral Capsule (Amoxil) TAKE 1 CAPSULE (500 MG) BY ORAL ROUTE 2 TIMES PER DAY. START THIS 2 DAYS BEFORE TOOTH EXTRACTION. Warfarin Sodium 5 MG Oral Tablet (Coumadin) TAKE 1 TABLET (=5MG) BY MOUTH ON MONDAYS, Wednesdays AND FRIDAYS, THEN TAKE 1 AND 1/2 TABLET (=7.5MG) ON ALL OTHER DAYS OR DIRECTED BY CLINIC 115 Tablet3 Potassium Chloride ER 10 MEQ Oral Capsule Extended Release Take 1 Capsule by mouth in the morning. 90 Capsule 3 Tamsulosin HCl 0.4 MG Oral Capsule (Flomax) Take 1 Capsule by mouth in the morning. 90 Capsule 3 Furosemide 20 MG Oral Tablet (Lasix) Take 3 tabs in the AM and 2 tabs in the PM 450 Tablet 3 Metoprolol Tartrate 100 MG Oral Tablet (Lopressor) Take 1 Tablet by mouth in the morning and 1 Tablet before bedtime. 180 Tablet 3 Atorvastatin Calcium 20 MG Oral Tablet (Lipitor) TAKE 1 TABLET BY MOUTH EVERY DAY IN THE MORNING 90Tablet 3 oxygen IN GAS Administer 5 L/min(Oxygen) into nostril continuous. 1 Each 0 Ipratropium-Albuterol 0.5-2.5 (3) MG/3ML Inhalation Solution (Duoneb) INHALE 3 ML (1 VIAL) VIA NEBULIZER IN THE MORNING THEN 3 ML AT NOON AND 3 ML IN THE EVENING AND 3 ML BEFORE BEDTIME 360 mL 5 Current Facility-Administered Medications Medication Dose Route Frequency Provider Last Rate Last Admin Acetaminophen (Tylenol) tab 650 mg 650 mg Oral Once PRN Valentin Carrizales MD Review of patient's allergies indicates: Allergen Reactions Dust Molds & Smuts Pollen RAGWEED Ragweed Patient Active Problem List Diagnosis Code Tobacco use disorder F17.200 ADVANCE DIRECTIVE INFORMATION Allergic rhinitis J30.9 FORCE T[facility] RESEARCH OTHER*[id number] S/P total hip arthroplasty Z96.649 Moderate persistent asthma without complication J45.40 Paroxysmal atrial fibrillation (HCC) I48.0 Primary cancer of right lower lobe of lung ([facility]) C34.31 Encounter for antineoplastic chemotherapy Z51.11 Carotid stenosis, non-symptomatic, bilateral I65.23 Pleural effusion, right J90 Diastolic dysfunction I51.89 Dyslipidemia, goal LDL below 70 E78.5 COPD, group B, by GOLD 2017 classification ([facility]) J44.9 Pneumothorax on right J93.9 History of lung cancer Z85.118 Palliative care encounter Z51.5 Chronic diastolic heart failure ([facility]) I50.32 Hypothyroidism E03.9 PAD (peripheral artery disease) ([facility]) I73.9 Traumatic rupture of left patellar tendon S86.812A Past Medical History: Diagnosis Date Allergic rhinitis Asthma, severity to be determined Benign neoplasm of colon 03/12/13 COLONOSCOPY FLEXIBLE PROXIMAL DIAGNOSTIC performed by Mariela Bustamante DO at [facility],, HYPERPLASTIC POLYPS REPEAT COLONOSCOPY IN 5 YEAR BPH (benign prostatic hyperplasia) Chronic diastolic heart failure due to valvular disease (HCC) 05/13/2020 Colon polyps 03/12/2013 hyperplastic, repeat 5 years COPD, group B, by GOLD 2017 classification (HCC) 11/26/2019 Diastolic dysfunction 07/03/2018 History of lung cancer Hypothyroid 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) 08/03/2017 Moderate persistent asthma without complication 02/10/2017 MRSA (methicillin resistant Staphylococcus aureus) infection 05/26/2009 Osteoarthritis of hip 04/13/2014 ICD-10 update of inactive term Paroxysmal atrial fibrillation (HCC) 06/01/2017 Pneumothorax on right 06/04/2020 Primary cancer of right lower lobe of lung (HCC) 08/03/2017 S/P total hip arthroplasty 06/03/2014 Right 05/20/2014 Dr Gage [facility] Tobacco use disorder 01/15/2001 Past Surgical History: Procedure Laterality Date BRONCHOSCOPY, DIAGNOSTIC 07/04/2017 BRONCHOSCOPY DIAGNOSTIC WITH OR WITHOUT WASHING performed by Jamal Leo MD at [facility] COLONOSCOPY, DIAGNOSTIC (RECTUM) 03/12/2013 COLONOSCOPY FLEXIBLE PROXIMAL DIAGNOSTIC performed by Mariela Bustamante DO at [facility],, HYPERPLASTIC POLYPS REPEAT COLONOSCOPY IN 5 YEARS COLONOSCOPY, DIAGNOSTIC (RECTUM) 09/27/2018 hyperplastic & tubulovillous adenoma polyps, repeat 1 yr/COLONOSCOPY FLEXIBLE PROXIMAL DIAGNOSTIC performed by Mariela Bustamante DO at [facility]COPY [facility] INFORMATION Left 2017 "blew out my knee, had surgery to repair ligaments and tendons." MEDIASTINOSCOPY; W/ BIOPSY MEDIASTINAL MASS N/A 07/04/2017 MEDIASTINOSCOPY; INCLUDES BIOPSY(IES) OF MEDIASTINAL MASS performed by Jamal Leo MD at [place] [facility] REMOVE SMALL BLADDER STONE, SIMPLE N/A 11/04/2019 LITHOLAPAXY SIMPLE performed by Margarita Colvin MD at [facility] SURGICAL PROCEDURE ONLY Left 07/31/2023 Inguinal Hernia Repair (Left) by Dr. Gian Calvillo THORACOSCOPY, DIAGNOSTIC, LUNGS Right 07/17/2017 THORACOSCOPY DIAGNOSTIC WITHOUT BIOPSY performed by Jamal Leo MD at [facility] THROMBOENDARECTOMY W/PATCH,NECK INCISION Right 10/18/2017 right carotid endarterectomy with pericardial patch angioplasty performed by Daniel Gaming MD at [facility] TOTAL HIP REPLACEMENT & PROSTHESIS 05/20/2014 ARTHROPLASTY TOTAL HIP performed by Flakito Gage DO at [facility] Family History Problem Relation Age of Onset Diabetes Grandfather (Paternal) Other (colon cancer) Father Other (prostate cancer) Father Glaucoma Father Arthritis Mother Stroke Mother Asthma Daughter Allergies Daughter rhinitis Social History Socioeconomic History Marital status: Spouse name: Not on file Number of children: Not on file Years of education: Not on file Highest education level: Not on file Occupational History Not on file Tobacco Use Smoking status: Former Current packs/day: 0.00 Average packs/day: 1 pack/day for 30.0 years (30.0 ttl pk-yrs) Types: Cigarettes Start date: 11/26/1982 Quit date: 11/26/2012 Years since quittin.2 Smokeless tobacco: Never Vaping Use Vaping Use: Never used Substance and Sexual Activity Alcohol use: Yes Comment: 5 drinks/wk Drug use: No Sexual activity: Yes Partners: Female Other Topics Concern Not on file Social History Narrative [facility] INFORMATION ENIVIRONMENTAL HISTORY: House: Two Story Type of Heating System: Heat pump Air Conditioning: Yes Central Basement: None Home have cockroaches: No Irritants in the home: None Patient's bedroom: FLOOR: second TYPE OF CAMELIA: Carpeting Beds: AMOUNT : 1 TYPE OF BEDS: Mattress and Box spring Pillows: AMOUNT: 2 TYPE OF PILLOWS: Synthetic (hypoallergenic, polyester) Bedroom contains: Minimal items Pets: 1 dog(s) [place] 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 Entered By: Gm Copeland MD 12/23/2005 Social Determinants of Health Financial Resource Strain: Not on file Food Insecurity: No Food Insecurity (06/29/2023) Hunger Vital Sign Worried About Running Out of Food in the Last Year: Never true Ran Out of Food in the Last Year: Never true Transportation Needs: Not on file Physical Activity: Not on file Stress: Not on file Social Connections: Not on file Intimate Partner Violence: Not on file Housing Stability: Not on file Vaping/E-Cigarette Substances Nicotine No Other No Flavoring No THC No Cannabidiol (CBD) No Vaping/E-Cigarette Devices Disposable No Pre-filled or Refillable Cartridge No Refillable Tank No Pre-filled Pod No REVIEW OF SYSTEMS: Constitutional: Denies fever, denies chills. Eyes: Denies amaurosis Cardiovascular: Denies chest pains, denies LA. Respiratory: Denies shortness of breath, reports NARANJO. Gastrointestinal: Denies melena. Genitourinary: Denies hematuria. Musculoskeletal: Denies arthritis. Skin: Denies rash, denies skin cancer, denies ulcers. Neurological:Denies TIA, denies CVA. Endocrine: Denies DM, reports hyperlipidemia. Hematologic: Reports anemia from cancer treatments. GENERAL MULTI-SYSTEM PHYSICAL EXAM: VITAL SIGNS: There were no vitals taken for this visit. GENERAL MULTI-SYSTEM PHYSICAL EXAM: ADDITIONAL VS: pulse regular. GENERAL: Normal grooming habits, no acute distress and appears stated age. NECK: Faint right CEA scar RESPIRATORY: respiratory effort normal and breath sounds normal. CARDIOVASCULAR: no edema and no varicosities. GASTROINTESTINAL: no tenderness and abdominal aorta not palpable. LYMPHATIC: cervical lymph nodes normal. SKIN: no ulcers, no rash, no induration, capillary refill normal and no dependent rubor. PSYCHIATRIC: orientation to time, place and person normal and recent and remote memory normal. EYES: conjunctivae normal, eye lids normal, pupils normal and irises normal. NEUROLOGIC: CN and motor function grossly intact PULSE SCALE: Carotid Right:----Bruit: Yes Left:----Bruit: No Radial Right: 3 Left: 2 Femoral Right: 3 Left: 3 Popliteal Right: 2 Left: 2 Dorsalis Pedis Right: 0 Left: 0 Posterior Tibial Right:0 Left: 0 PULSE SCALE: 4=Aneurysmal; 3=Normal; 2=Diminished; 1=Barely Palpable; 0=Absent DIAGNOSTIC STUDIES: 03/01/24 Carotid Duplex: MARIAA 75/25, LICA 75/21, UI R vert, RSCA patent, ante L vert 03/01/24 DEB: MC/MC, ATs are triphasic, PTs are biphasic, R Negra is biphasic, L Negra is absent strong B/L great toe PPGs The above diagnostic images were directly visualized and independently interpreted by me on 03/06/2024 with results as above 01/26/22 Carotid duplex: right 75/24 and left 77/27 04/26/21 PET scan: no aneurysms 01/27/20: Carotid Duplex: MARIAA 69/22, LICA 72/35 09/28/19: PET-CT: No metabolically active disease is identified based on today's PET-CT scan. 08/14/19: CT: No AAA 12/25/18: Carotid Duplex: MARIAA 76/25, LICA 80/33 11/27/17: Carotid Duplex: MARIAA 152/47, LICA 98/34 09/22/2017 CTA head/neck: Significant stenosis at the origin of the right internal carotid artery, with greater than 80% narrowing. No significant stenosis on the left. 09/20/17: Carotid Duplex: MARIAA 357/117, LICA 84/37 IMPRESSIONS: S/P right carotid endarterectomy with pericardial patch angioplasty 10/18/[address] Gaming. Widely patent. Asymptomatic <50% left carotid stenosis. PAD with no symptoms (limited by COPD) Result of recent DEB reveal B/L MC with good doppler flows of ATs/PTs/great toes No AAA, per 2019 CT. Non small cell lung CA. S/P chemotherapy/radiation. Severe COPD. Former smoker. A fib- on Coumadin (followed by Dr. Flores) HTN Dyslipidemia S/P right hip replacement. PLAN: The patient was counseled regarding the pathophysiology and natural history of carotid disease, as well as the symptoms of CVA/TIA/amaurosis fugax. The patient was counseled regarding the pathophysiology and natural history of peripheral vascular disease, as well as the interventional and noninterventional therapeutic options. For both, continue medical management and surveillance Continue ASA 81 mg for platelet inhibition/atherosclerosis/PAD Continue Lipitor 20 mg for dyslipidemia/hyperlipidemia & pleiotropic benefits of statins On warfarin sodium, for cAFib RTC in [address] Gaming at [facility] with carotid duplex and DEB completed a week or so prior at [facility]. The patient was seen and examined with Daniel Barnett PA-C I have reviewed the advanced practitioner's documentation on the date of service referenced in note, and I agree with, and take responsibility for the plan of care. S/p right CEA 2017 by Amberly Asymptomatic PAD No AAA on scan No BAG TURNER symptoms Duplex good this visit F/u 2 years with repeat studies Daniel Gaming MD Section of Vascular [place] [address] [phone] documented in this encounter Nursing Notes * eMry Fatima LPN - 03/06/2024 9:36 AM EDT Reviewed the option of transferring scripts to [facility] pharmacy with patient and / or family. Mery Fatima LPN documented in this encounter Plan of Treatment Upcoming Encounters Date Type Department Care Team (Late st Contact Info) Description 03/14/2024 9:00 AM EDT Laboratory Laboratory [facility] [place] [place] [address] [place] [address] [facility] [address] [place] [address] 03/19/2024 10:30 AM EDT Imaging Radiology [facility] [facility] [place] [address] [facility] [place] [address] 03/27/2024 1:30 PM EDT Anticoagulation Pharmacy, [facility] [address] [facility] [place] [address] Pharmacist1, [facility] [address] [facility] [place] [address] 03/27/2024 1:45 PM EDT Office Visit Hematology/Oncology [facility] [address] [facility] [place] [phone] Ru Brunson MD [address] [facility] [place] [address] Scheduled Orders Name Type Priority Associated Diagnoses Orde r Schedule VASC DUPLEX CAROTID BILAT Medical Imaging Routine PAD (peripheral artery disease) (HCC) Tobacco use disorder Carotid stenosis, non-symptomatic, bilateral Dyslipidemia, goal LDL below 70 Status post carotid endarterectomy Ordered: 03/06/2024 VASC ANKLE BRACHIAL INDICES WITHOUT PPG (PAD) Medical Imaging Routine PAD (peripheral artery disease) (HCC) Tobacco use disorder Carotid stenosis, non-symptomatic, bilateral Dyslipidemia, goal LDL below 70 Status post carotid endarterectomy Ordered: 03/06/2024 Health Maintenance Due Date Last Done Comments COVID-19 Vaccine (5 2022-2 4 season) 2023 10/18/2022, 10/15/2021, 03/10/2021, Additional history exists Depression Screening 11/16/2023 11/16/2022 TSH 07/13/2024 07/13/2023, 06/20, 06/17/2019, Additional history exists Influenza Vaccine (FLU shot) (Season Ended) 2024 09/08/2022, 07/29/2021, 07/23/2020, Additional history exists O2 ASSESSMENT COMPLETED IN P AST YEAR FOR COPD 09/26/2024 09/26/2023 Zoster Vaccines Completed 06/26/2020, 11/2019, 09/20/2011 documented as of this encounter Medical Devices Implanted Type Area Environmental Health Nurse Device Identifier Shelf Expiration Date Model / Serial / Lot Shell Sz 56mm - [id number] Implanted:Qty: 1 on 05/20/2014 at [place] [facility] Right: Hip AB : ORTHOPAEDICS 02/17/2019 [id number] / / [id number] Trident Acetabular X3 0 36 E - [id number] Implanted:Qty: 1 on 05/20/2014 at [place] [facility] Right: Hip BA : ORTHOPAEDICS 04/19/2019 [id number] / / [id number] Screw Bone Cancell 3175-9501-1 - [id number] Implanted:Qty: 1 on 05/20/2014 at [place] [facility] Right: Hip [employer] 05/19/[id number]- [id number] / / [id number] Accolade Ii 132 Deg Sz 5 - [id number] Implanted:Qty: 1 on 05/20/2014 at [place] [facility] Right: Hip BA : ORTHOPAEDICS 03/19/2018 [id number] / / [id number] Hip Hd Nk Alumina Mod D 36/+5 - [id number] Implanted:Qty: 1 on 05/20/2014 at [place] [facility] Right: Hip BA : ORTHOPAEDICS 02/17/2019 [id number] / / [id number] Patch Xenosure 0.2uum2zg - [id number] Implanted:Qty: 1 on 10/18/2017 by Daniel Gaming MD at [place] [facility] Right: Carotid [employer] 06/16/2023 E0.8P8 / / [id number] documented as of this encounter Visit Diagnoses Diagnosis Carotid stenosis, non-symptomatic, bilateral- Primary PAD (peripheral artery disease) (HCC) Peripheral vascular disease, unspecified Tobacco use disorder Dyslipidemia, goal LDL below 70 Other and unspecified hyperlipidemia Status post carotid endarterectomy Other postprocedural status documented in this encounter Advance Directives Documents on File Type Date Recorded Patient Vibration Analyst Expl anation Advance Directives and Living Will 06/01/2017 LIVING WILL LIVING W ILL Power of Inspector Process 06/01/2017 POWER OF A [facility] DURABLE [facility] POWER OF METAL CASKET MAKER Latest Code Status on File Code Status [...] Directives occurred with: Not Discussed Care Teams Equipment Or Machinery Cleaner Relationship Specialty Start Date End Date Lonifebruary JUDY [address] [place], [place] [address] PCP - General Physician Immigration Case Worker 12/31/18 documented as of this encounter
--- OUTSIDE RECORDS SUMMARY | 2024-05-01 14:39 | External Medical Summary | Summary of Care ---
Author Name Unknown Organization [facility] Address [address] [place] [address] Phone [phone] Care Team Providers Care Claims Attorney Name Role Phone Steffany Curran PA-C Primary Care Provider [phone] Reason for Visit * Reason Comments eRx-Medication Refill Encounter Details Date Type Department Care Team (Late st Contact Info) Description 03/26/2024 Refill Family Practice [facility] [address] [place] [address] Steffany Curran PA-C [address] [place] [address] Paroxysmal atrial fibrillation (HCC) Allergies Active Allergy Reactions Criticality Noted Date Comments Dust 05/13/2020 Molds & Smuts 05/13/2020 Pollen 03/06/2013 RAGWEED Ragweed 05/13/2020 documented as of this encounter (statuses as of 03/26/2024) Medications Medication Sig Dispensed Refills Start Date [...] (FLONASE) 50 MCG/ACT nasal spray Administer 1 [place] into nostril daily as needed. 0 Active saline (OCEAN) 0.65 % nasal spray Administer 1 [place] into nostril as needed. 0 Active vitamin [...] nebulizer. Use as directed. 1 Each 1 7 Active Montelukast Sodium 10 MG Oral Tablet Take 1 Tablet by mouth in the morning. 0 Active aspirin enteric coated 81 MG TBEC Take 1 Tab by mouth daily. 30 Tab 11 8 Active Acetaminophen 500 MG Oral Tablet Take 2 Tablets by mouth every 6 hours as needed for Pain. 0 Active Levothyroxine Sodium 50 MCG Oral Tablet (Levoxyl)Indication s:Hypothyroidism due to medication Take by mouth 1 Tablet in the morning. (at least 30 min prior to breakfast or other meds). 30 Tablet 11 2 Active Azelastine HCl 0.1 % Nasal SolutionIndications :Chronic rhinitis Administer into nostril 1 [place] in the morning AND 1 [place] before bedtime. 90 mL 3 2 Active Breztri Aerosphere 160-9-4.8 MCG/ACT Inhalation Aerosol (Budeson-Glycopyrro l-Formoterol) Inhale by mouth 2 Puffs 2 times a day . 0 2 Active Amoxicillin 500 MG Oral Capsule (Amoxil) TAKE 1 CAPSULE (500 MG) BY ORAL ROUTE 2 TIMES PER DAY. START THIS 2 DAYS BEFORE TOOTH EXTRACTION. 0 3 Active Potassium Chloride ER 10 MEQ Oral Capsule Extended ReleaseIndications: Chronic diastolic heart failure due to valvular disease (HCC) Take 1 Capsule by mouth in the morning. 90 Capsule 3 3 Active Tamsulosin HCl 0.4 MG Oral Capsule (Flomax) Take 1 Capsule by mouth in the morning. 90 Capsule 3 3 Active Furosemide 20 MG Oral Tablet (Lasix) Take 3 tabs in the AM and 2 tabs in the PM 450 Tablet 3 3 Active Metoprolol Tartrate 100 MG Oral Tablet (Lopressor)Indicati ons:Paroxysmal atrial fibrillation (HCC) Take 1 Tablet by mouth in the morning and 1 Tablet before bedtime. 180 Tablet 3 3 Active Atorvastatin Calcium 20 MG Oral Tablet (Lipitor)Indication s:Dyslipidemia TAKE 1 TABLET BY MOUTH EVERY DAY IN THE MORNING 90 Tablet 3 3 Active oxygen IN GASIndications:COPD , group B, by GOLD 2017 classification ([facility]) Administer 5 L/min(Oxygen) into nostril continuous. 1 Each 0 4 Active Ipratropium-Albuter ol 0.5-2.5 (3) MG/3ML Inhalation Solution (Duoneb)Indications :Acute bronchospasm,Malign ant neoplasm of lower lobe of lung, unspecified laterality ([facility]) INHALE 3 ML (1 VIAL) VIA NEBULIZER IN THE MORNING THEN 3 ML AT NOON AND 3 ML IN THE EVENING AND 3 ML BEFORE BEDTIME 360 mL 5 4 Active Warfarin Sodium 5 MG Oral Tablet (Coumadin)Indicatio ns:Paroxysmal atrial fibrillation (HCC) TAKE 1 TABLET (=5MG) BY MOUTH ON MONDAYS, WEDNESDAYS AND FRIDAYS, THEN TAKE 1 AND 1/2 TABLET (=7.5MG) ON ALL OTHER DAYS OR DIRECTED BY CLINIC 115 Tablet 3 4 Active Warfarin Sodium 5 MG Oral Tablet (Coumadin)Indicatio ns:Paroxysmal atrial fibrillation (HCC) TAKE 1 TABLET (=5MG) BY MOUTH ON MONDAYS, Wednesdays AND FRIDAYS, THEN TAKE 1 AND 1/2 TABLET (=7.5MG) ON ALL OTHER DAYS OR DIRECTED BY CLINIC 115 Tablet 3 3 03/26/20 24 Discontinued Hospital, Clinic, or Other Facility Administered Medication Ordered Dose Route Frequency Start Date End Date Status Acetaminophen (Tylenol) tab 650 mgIndications:COVID-19 virus infection 650 mg OR ONCE PRN 12/15/2020 Active documented as of this encounter (statuses as of 03/26/2024) Active Problems Problem Noted Date Diagnosed Date [...] arthroplasty 06/03/2014 Overview: Right 05/20/2014 Dr Gage [facility] [place] [facility] [place] OTHER*[id number] 04/23/2014 Allergic rhinitis 12/23/2005 ADVANCE DIRECTIVE INFORMATION 10/05/2005 Overview: Yes, Patient instructed to provide copy of advance directive for provider to review and to be scanned into Electronic Medical Record Tobacco use disorder 01/15/2001 History of lung cancer Palliative care encounter documented as of this encounter (statuses as of 03/26/2024) Resolved Problems Problem Noted Date Diagnosed Date [...] as of this encounter (statuses as of 03/26/2024) Immunizations Name Administration Dates Next Due COVID-19 [...] encounter Miscellaneous Notes * Telephone Encounter - Elizabeth Marte RPh - 03/26/2024 9:26 PM EDT Signed Prescriptions: Disp Refills Warfarin Sodium 5 MG Oral Tablet (Coumadin)115 Ta*3 Sig: TAKE 1 TABLET (=5MG) BY MOUTH ON MONDAYS, WEDNESDAYS AND FRIDAYS, THEN TAKE 1 AND 1/2 TABLET (=7.5MG) ON ALL OTHER DAYS OR DIRECTED BY CLINICAuthorizing Provider: STEFFANY CURRAN AOrdering User: ELIZABETH MARTE documented in this encounter Plan of Treatment Upcoming Encounters Date Type Department Care Team (Late st Contact Info) Description 03/27/2024 1:30 PM EDT Anticoagulation Pharmacy, [facility] [address] [place] [address] Pharmacist1, [facility] [address] [facility] [place] [address] 03/27/2024 1:45 PM EDT Office Visit Hematology/Oncology [employer] 200 [facility] [place] [phone] Ru Brunson MD 200 [facility] [place] [address] Health Maintenance Due Date Last Done Comments [...] this encounter Medical Devices Implanted Type Area Analysis Evaluator Device Identifier Shelf Expiration Date Model / Serial / Lot Shell Sz 56mm - [id number] Implanted:Qty: 1 on 05/20/2014 [place] [facility] [place]: Hip BA : ORTHOPAEDICS 02/17/2019 502-03-56E / / [id number] Trident Acetabular X3 0 36 E - [id number] Implanted:Qty: 1 on 05/20/2014 [place] [facility] [place]: Hip BA : ORTHOPAEDICS 04/19/2019 623-00-36E / / [id number] Screw Bone Cancell 1998-8549-1 - [id number] Implanted:Qty: 1 on 05/20/2014 at [place] [facility] [place]: Hip [employer] 05/19/201820291419-2599- 1 / / [id number] Accolade Ii 132 Deg Sz 5 - [id number] Implanted:Qty: 1 on 05/20/2014 at [facility] Right: Hip BA : ORTHOPAEDICS 03/19/2018 [id number] / / [id number] Hip Hd Nk Alumina Mod D 36/+5 - [id number] Implanted:Qty: 1 on 05/20/2014 at [facility] Right: Hip BA : ORTHOPAEDICS 02/17/2019 6570-0-236 / / [id number] Patch Xenosure 0.4cby1jc - [id number] Implanted:Qty: 1 on 10/18/2017 by Daniel Gaming MD at [facility] Right: Carotid [employer] 06/16/2023 E0.8P8 / / [id number] documented as of this encounter Visit Diagnoses Diagnosis Paroxysmal atrial fibrillation (HCC) Atrial fibrillation Anticoagulation management encounter- Primary Encounter for therapeutic drug monitoring Paroxysmal atrial fibrillation (HCC) Atrial fibrillation documented in this encounter Advance Directives Documents on File Type Date Recorded Patient Home Housekeeper Expl anation Advance Directives and Living Will 06/01/2017 LIVING WILL LIVING W ILL Power of Curing Supervisor 06/01/2017 POWER OF A TTORNEY DURABLE HEALTH CARE POWER OF MAIL TRUCK DRIVER Latest Code Status on File Code Status [...] Directives occurred with: Not Discussed Care Teams Claims Attorney Relationship Specialty Start Date End Date BinaFebruary JUDY Montgomery [address] [place] [address] PCP - General Physician Testing Director 12/31/18 documented as of this encounter
--- OUTSIDE RECORDS SUMMARY | 2024-05-01 14:39 | External Medical Summary | Summary of Care ---
Author Name Unknown Organization [facility] Address [address] [place] [address] Phone [phone] Care Team Providers Care Kitchen Runner Name Role Phone Steffany Curran PA-C Primary Care Provider [phone] Reason for Visit * Reason Comments Dosage Adjustment In Person (Anticoag Cl inic) Encounter Details Date Type Department Care Team (Latest Contact Info) Description 03/27/2024 1:30 PM EDT Anticoagulation Pharmacy, [facility] [address] [place] [address] Pharmacist1, [facility] [address] [place] [address] Anticoagulation management encounter*; Paroxysmal atrial fibrillation (HCC) Allergies Active Allergy [...] (FLONASE) 50 MCG/ACT nasal spray Administer 1 [place] into nostril daily as needed. 0 Active saline (OCEAN) 0.65 % nasal spray Administer 1 [place] into nostril as needed. 0 Active vitamin [...] SolutionIndications:C hronic rhinitis Administer into nostril 1 [place] in the morning AND 1 [place] before bedtime. 90 mL 3 05/18/2022 Active [...] Overview: Right 05/20/2014 Dr G[place] [facility] [place] [facility] OTHER*[id number] 04/23/2014 Allergic rhinitis 12/23/2005 ADVANCE DIRECTIVE INFORMATION [...] as of this encounter Progress Notes * Carloz Cerna RPh - 03/27/2024 1:25 PM EDT Images from the original note were not included. Medication Therapy Disease Management - Anticoagulation Steve Zuleta 1945 Current Warfarin Dose As of 03/27/2024 Warfarin maintenance plan: 5 mg (5 mg x 1) every Mon, Wed, Fri; 7.5 mg (5 mg x 1.5) all other days Patient Findings Positives: Change in diet/appetite (he had increased green intake the past 2 days) Negatives: Signs/symptoms of thrombosis, Signs/symptoms of bleeding, Change in health, Change in alcohol use, Change in activity, Upcoming invasive procedure, Missed doses, Extra doses, Change in medications, Bruising INR Result As of 03/27/2024 INR goal: 2.0-3.0 INR used for dosin.6 (03/27/2024) Warfarin Plan As of 03/27/2024 Full warfarin instructions: 03/27: 10 mg; Otherwise 5 mg every Mon, Wed, Fri; 7.5 mg all other days Next INR check: 05/06/2024 Repeat PT/INR in 6 week(s) Weekly dose: not changed Carloz Caldwell RPh, CACP, CDE Clinical Pharmacist Medication Therapy Management [facility] 03/27/2024 1:33 PM documented in this encounter Plan of Treatment Upcoming Encounters Date Type Department Care Team (Late st Contact Info) Description 05/06/2024 9:10 AM EDT Anticoagulation Pharmacy, [place] [address] [facility] [place] [address] Pharmacist1, [facility] [address] [facility] [place] [address] Scheduled Orders Name Type Priority Associated Diagnoses Orde r Schedule PT INR Lab Routine Paroxysmal atrial fibrillation (HCC) Anticoagulation management encounter Every 2 Weeks for 26 Occurrences starting 03/21/2024 until 03/21/2025 INR FINGERSTICK, POINT OF CARE Point of Care Testing - Unsolicited Results STAT Paroxysmal atrial fibrillation (HCC) Anticoagulation management encounter Every 2 Weeks for 26 Occurrences starting 03/21/2024 until 03/21/2025, 1 completed Health Maintenance Due Date Last Done Comments COVID-19 Vaccine (2022- 4 season) 2023 10/18/2022, 10/15/2021, 03/10/2021, Additional history exists Depression Screening 11/16/2023 11/16/2022 TSH 07/13/2024 07/13/2023, 06/20, 06/17/2019, Additional history exists Influenza Vaccine (FLU shot) (Season Ended) 2024 09/08/2022, 07/29/2021, 07/23/2020, Additional history exists O2 ASSESSMENT COMPLETED IN P AST YEAR FOR COPD 09/26/2024 09/26/2023 Zoster Vaccines Completed 06/26/2020, 11/2019, 09/20/2011 documented as of this encounter Medical Devices Implanted Type Area Core Java Engineer Device Identifier Shelf Expiration Date Model / Serial / Lot Shell Sz 56mm - [id number] Implanted:Qty: 1 [place] [facility] [place] Hip BA : ORTHOPAEDICS 02/17/2019 502-03-56E / / [id number] Trident Acetabular X3 0 36 E - [id number] Implanted:Qty: 1 on 05/20/2014 at [facility] Right: Hip BA : ORTHOPAEDICS 04/19/2019 623-00-36E / / [id number] Screw Bone Cancell 9055-5459-1 - [id number] Implanted:Qty: 1 on 05/20/2014 [place] [facility] [place]: Hip [employer] 05/19/2018 3621-3267- 1 / / [id number] Accolade Ii 132 Deg Sz 5 - [id number] Implanted:Qty: 1 on 05/20/2014 at [facility] Right: Hip BA : ORTHOPAEDICS 03/19/2018 7538-1798 / / [id number] Hip Hd Nk Alumina Mod D 36/+5 - [id number] Implanted:Qty: 1 on 05/20/2014 at [facility] Right: Hip BA : ORTHOPAEDICS 02/17/2019 6570-0-236 / / [id number] Patch Xenosure 0.6dvc6nl - [id number] Implanted:Qty: 1 on 10/18/2017 by Daniel Gaming MD at [facility] Right: Carotid [employer] 06/16/2023 E0.8P8 / / [id number] documented as of this encounter Procedures Procedure Name Priority Date/Time Associated Diagnosis Comments INR FINGERSTICK, POINT OF CARE STAT 03/27/2024 1:28 PM EDT Paroxysmal atrial fibrillation (HCC) Anticoagulation management encounter documented in this encounter Results * INR FINGERSTICK, POINT OF CARE (03/27/2024 1:28 PM EDT) Fingerstick INR 1.6 INR 1:29 PM EDT [facility] 56-02 Blood 03/27/2024 1:28 PM EDT 03/27/2024 1:29 PM EDT Narrative [facility] 56-02 - 03/27/2024 1:29 PM EDT Therapeutic ranges for non-operative patients: Prophylaxsis/treatment of DVT: (Range:2.0-3.0) Treatment of pulmonary embolism:(Range:2.0-3.0) Prevention of systemic embolism from: -tissue heart valves -acute myocardial infarction -valvular heart disease -atrial fibrillation (Range: 2.0-3.0) Mechanical prosthetic valves: (Range: 2.5-3.5) Carloz Caldwell [facility] LAB POINT OF CARE TE ST DOCKED DEVICE UNSOLICITED RESULTS [facility] 56-[address] [facility] [place] [address] documented in this encounter Visit Diagnoses Diagnosis Anticoagulation management encounter- Primary Encounter for therapeutic drug monitoring Paroxysmal atrial fibrillation (HCC) Atrial fibrillation documented in this encounter Advance Directives Documents on File Type Date Recorded Patient Lumber Tying Machine Operator Expl anation Advance Directives and Living Will 06/01/2017 LIVING WILL LIVING W ILL Power of Fabrication Manager 06/01/2017 POWER OF A TTORNEY DURABLE HEALTH CARE POWER OF TINT LAYER Latest Code Status on File Code Status [...] Directives occurred with: Not Discussed Care Teams Kitchen Runner Relationship Specialty Start Date End Date BinaFebruary JUDY Montgomery 200 [facility] [place] [address] PCP - General Physician Shuttle Veneering Supervisor 12/31/18 documented as of this encounter
--- OUTSIDE RECORDS SUMMARY | 2024-05-01 14:39 | External Medical Summary | Summary of Care ---
Author Name Unknown Organization [facility] Address [address] [place] [address] Phone [phone] Care Team Providers Care Police Academy Instructor Name Role Phone Steffany Curran PA-C Primary Care Provider [phone] Reason for Visit * Reason Comments Outpatient Testing Encounter Details Date Type Department Care Team (Late st Contact Info) Description 03/14/2024 9:00 AM EDT Laboratory Laboratory [facility] [address] [place] [phone] [place], Lab Scenery [address] [place] [address] History of lung cancer; Pleural effusion on right Allergies Active Allergy Reactions Criticality Noted Date Comments Dust 05/13/2020 Molds & Smuts 05/13/2020 Pollen 03/06/2013 RAGWEED Ragweed 05/13/2020 documented as of this encounter (statuses as of 03/14/2024) Medications Medication Sig Dispensed Refills Start Date [...] (FLONASE) 50 MCG/ACT nasal spray Administer 1 [place] into nostril daily as needed. 0 Active saline (OCEAN) 0.65 % nasal spray Administer 1 [place] into nostril as needed. 0 Active vitamin [...] SolutionIndications:C hronic rhinitis Administer into nostril 1 [place] in the morning AND 1 [place] before bedtime. 90 mL 3 05/18/2022 Active [...] GASIndications:COPD, group B, by GOLD 2017 classification ([facility]) Administer 5 L/min(Oxygen) into nostril continuous. 1 Each 0 11/21/2023 Active Ipratropium-Albuterol 0.5-2.5 (3) MG/3ML Inhalation Solution (Duoneb)Indications:A cute bronchospasm,Malignan t neoplasm of lower lobe of lung, unspecified laterality ([facility]) INHALE 3 ML (1 VIAL) VIA NEBULIZER [...] as of this encounter (statuses as of 03/14/2024) Active Problems Problem Noted Date Diagnosed Date [...] arthroplasty 06/03/2014 Overview: Right 05/20/2014 Dr Gage [facility] [place] OTHER*[id number] 04/23/2014 Allergic rhinitis 12/23/2005 ADVANCE DIRECTIVE INFORMATION 10/05/2005 Overview: Yes, Patient instructed to provide copy of advance directive for provider to review and to be scanned into Electronic Medical Record Tobacco use disorder 01/15/2001 History of lung cancer Palliative care encounter documented as of this encounter (statuses as of 03/14/2024) Resolved Problems Problem Noted Date Diagnosed Date [...] as of this encounter (statuses as of 03/14/2024) Immunizations Name Administration Dates Next Due COVID-19 [...] No 06/04/2020 documented as of this encounter Plan of Treatment Upcoming Encounters Date Type Department Care Team (Late st Contact Info) Description 03/19/2024 10:30 AM EDT Imaging Radiology [address], [place] [address] [facility] [place] [address] 03/27/2024 1:30 PM EDT Anticoagulation Pharmacy, [facility] [address] [place] [address] Pharmacist1, [facility] [address] [place] [address] 03/27/2024 1:45 PM EDT Office Visit Hematology/Oncology [facility] [address] [place] [phone] Ru Brunson MD 200 [facility] [place] [address] Pending Results Name Type Priority Associated Diagnoses Date /Time CREATININE Lab STAT History of lung cancer Pleural effusion on right 03/14/2024 8:59 AM EDT Health Maintenance Due Date Last Done Comments COVID-19 Vaccine (2022- 4 season) 2023 10/18/2022, 10/15/2021, 03/10/2021, Additional history exists Depression Screening 11/16/2023 11/16/2022 TSH 07/13/2024 07/13/2023, 06/20, 06/17/2019, Additional history exists Influenza Vaccine (FLU shot) (Season Ended) 2024 09/08/2022, 07/29/2021, 07/23/2020, Additional history exists O2 ASSESSMENT COMPLETED IN P AST YEAR FOR COPD 09/26/2024 09/26/2023 Zoster Vaccines Completed 06/26/2020, 0611/2019, 09/20/2011 documented as of this encounter Medical Devices Implanted Type Area Capacity Manager Device Identifier Shelf Expiration Date Model / Serial / Lot Shell Sz 56mm - [id number] Implanted:Qty: 1 on 05/20/2014 at [place] [facility] Right: Hip BA : ORTHOPAEDICS 02/17/2019 502-03-56E / / [id number] Trident Acetabular X3 0 36 E - [id number] Implanted:Qty: 1 on 05/20/2014 at [facility] Right: Hip BA : ORTHOPAEDICS 04/19/2019 623-00-36E / / [id number] Screw Bone Cancell 3791-9950-1 - [id number] Implanted:Qty: 1 on 05/20/2014 at [place] [facility] Right: Hip [employer] 05/19/201820298624-2081- 1 / / [id number] Accolade Ii 132 Deg Sz 5 - [id number] Implanted:Qty: 1 on 05/20/2014 at [place] [facility] Right: Hip BA : ORTHOPAEDICS 03/19/2018 2012-7942 / / [id number] Hip Hd Nk Alumina Mod D 36/+5 - [id number] Implanted:Qty: 1 on 05/20/2014 at [place] [facility] Right: Hip BA : ORTHOPAEDICS 02/17/2019 6570-0-236 / / [id number] Patch Xenosure 0.3jcl7is - [id number] Implanted:Qty: 1 on 10/18/2017 by Daniel Gaming MD at [place] [facility] Right: Carotid [employer] 06/16/2023 E0.8P8 / / [id number] documented as of this encounter Visit Diagnoses Diagnosis History of lung cancer Personal history of malignant neoplasm of bronchus and lung Pleural effusion on right Unspecified pleural effusion documented in this encounter Advance Directives Documents on File Type Date Recorded Patient House Wirer Expl anation Advance Directives and Living Will 06/01/2017 LIVING WILL LIVING W ILL Power of Crook Operator 06/01/2017 POWER OF A TTORNEY DURABLE HEALTH CARE POWER OF SERVICER COIN MACHINES Latest Code Status on File Code Status [...] Directives occurred with: Not Discussed Care Teams Police Academy Instructor Relationship Specialty Start Date End Date Bina February JUDY Montgomery [facility] [address] [place] [address] PCP - General Physician Executive Administrative Assistant 12/31/18 documented as of this encounter
--- OUTSIDE RECORDS SUMMARY | 2024-05-01 14:40 | External Medical Summary | Summary of Care ---
Author Name Unknown Organization [facility] Address [address] [place] [address] Phone [phone] Care Team Providers Care Hydrodynamicist Name Role Phone Steffany Curran PA-C Primary Care Provider [phone] Reason for Visit * Reason Onset Date Comments Advice 11/17/2023 Encounter Details Date Type Department Care Team (Late st Contact Info) Description 11/17/2023 Telephone Family Practice [facility] 200 [facility] [place] [address] Steffany Curran PA-C [address] [place] [address] Advice Allergies Active Allergy Reactions Criticality Noted Date Comments Dust 05/13/2020 Molds & Smuts 05/13/2020 Pollen 03/06/2013 RAGWEED Ragweed 05/13/2020 documented as of this encounter (statuses as of 11/21/2023) Medications Medication Sig Dispensed Refills Start Date [...] (FLONASE) 50 MCG/ACT nasal spray Administer 1 [place] into nostril daily as needed. 0 Active saline (OCEAN) 0.65 % nasal spray Administer 1 [place] into nostril as needed. 0 Active vitamin b-12 (CYANOCOBALAMIN) 250 MCG TABS Take 1 Tablet by mouth in the morning. 0 Active Ascorbic Acid (VITAMIN C) 500 MG CAPS Take by mouth. 0 Active Vitamin D, Cholecalciferol, 1000 UNITS TABS Take by mouth. 0 Activ e Nebulizers (NEBULIZER COMPRESSOR) MISCIndications:Acut e bronchospasm,Maligna nt neoplasm of lower lobe of lung, unspecified [...] Active Levothyroxine Sodium 50 MCG Oral Tablet (Levoxyl)Indications :Hypothyroidism due to medication Take by mouth 1 Tablet in the morning. (at least 30 min prior to breakfast or other meds). 30 Tablet 11 05/11/2022 Active Azelastine HCl 0.1 % Nasal SolutionIndications: Chronic rhinitis Administer into nostril 1 [place] in the morning AND 1 [place] before bedtime. 90 mL 3 05/18/2022 Active Breztri Aerosphere 160-9-4.8 MCG/ACT Inhalation Aerosol (Budeson-Glycopyrrol -Formoterol) Inhale by mouth 2 Puffs 2 times a day . 0 08/09/2022 Active Ipratropium-Albutero l 0.5-2.5 (3) MG/3ML Inhalation Solution (Duoneb)Indications: Acute bronchospasm,Maligna nt neoplasm of lower lobe of lung, unspecified laterality (HCC) INHALE 3 ML (1 VIAL) VIA NEBULIZER IN THE MORNING THEN 3 ML AT NOON AND 3 ML IN THE EVENING AND 3 ML BEFORE BEDTIME 360 mL 5 01/09/2023 Active Amoxicillin 500 MG Oral Capsule (Amoxil) TAKE 1 CAPSULE (500 MG) BY ORAL ROUTE 2 TIMES PER DAY. START THIS 2 DAYS BEFORE TOOTH EXTRACTION. 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 90 Capsule 3 07/10/2023 Active Tamsulosin HCl 0.4 MG Oral Capsule (Flomax) Take 1 Capsule by mouth in the morning. 90 Capsule 3 07/10/2023 Active Furosemide 20 MG Oral Tablet (Lasix) Take 3 tabs in the AM and 2 tabs in the PM 450 Tablet 3 07/13/2023 Active Metoprolol Tartrate 100 MG Oral Tablet (Lopressor)Indicatio ns:Paroxysmal atrial fibrillation (HCC) Take 1 Tablet by mouth in the morning and 1 Tablet before bedtime. 180 Tablet 3 08/21/2023 Active Atorvastatin Calcium 20 MG Oral Tablet (Lipitor)Indications :Dyslipidemia TAKE 1 TABLET BY MOUTH EVERY DAY IN THE MORNING 90 Tablet 3 09/01/2023 Active Hospital, Clinic, or Other Facility Administered Medication Ordered Dose Route Frequency Start Date End Date Status Acetaminophen (Tylenol) tab 650 mgIndications:COVID-19 virus infection 650 mg OR ONCE PRN 12/15/2020 Active documented as of this encounter (statuses as of 11/21/2023) Active Problems Problem Noted Date Diagnosed Date [...] arthroplasty 06/03/2014 Overview: Right 05/20/2014 Dr Gage [facility] [facility] OTHER*[id number] 04/23/2014 Allergic rhinitis 12/23/2005 ADVANCE DIRECTIVE INFORMATION 10/05/2005 Overview: Yes, Patient instructed to provide copy of advance directive for provider to review and to be scanned into Electronic Medical Record Tobacco use disorder 01/15/2001 History of lung cancer Palliative care encounter documented as of this encounter (statuses as of 11/21/2023) Resolved Problems Problem Noted Date Diagnosed Date [...] as of this encounter (statuses as of 11/21/2023) Immunizations Name Administration Dates Next Due COVID-19 [...] Date Smoking Tobacco: Former Cigarettes 1 30 Q uit: 11/26/2012 Smokeless Tobacco: Never Alcohol Use Standard [...] encounter Miscellaneous Notes * Telephone Encounter - Cyndie Toribio CMA - 11/21/2023 9:23 AM EST Patient states that if he is ambulating he uses 5 liter flow and if he is at rest then he uses a 2 liter flow * Telephone Encounter - Steffany Curran PA-C - 11/21/2023 9:09 AM EST Please call patient and clarify dose with him as oxygen is not even on his medication list. Thank you * Telephone Encounter - Fernie Darden LPN - 11/17/2023 2:24 PM EST Most recent order is 5 LPM. Please advise. * Telephone Encounter - Steffany Hughes OSA - 11/17/2023 12:28 PM EST Shavon from [facility] called to confirm the correct oxygen litter flow. Shavon received 2 orders. 1.2 liters a minute 2. 5 liters a minute, but the pt is stating he should be at 4 liters a minute. Please contact Shavon at [phone] documented in this encounter Plan of Treatment Upcoming Encounters Date Type Department Care Team (Late st Contact Info) Description 11/22/2023 9:20 AM EST Anticoagulation Pharmacy, Gisselle Colvin [address] [place] [address] Pharmacist1, [facility] 200 [facility] [place] [address] 03/01/2024 10:30 AM EDT Imaging Vascular Lab, [facility] 2nd [address] [place] [address] 03/01/2024 11:30 AM EDT Imaging Vascular Lab, [address] [place] [address] 03/06/2024 9:10 AM EDT Office Visit Vascular Surgery, [address] [place] [address] Daniel Gaming MD [address] [place] [address] 03/14/2024 9:00 AM EDT Laboratory Laboratory [facility] 200 [facility] [address] [place] [id number] [place], Lab [facility] 200 [facility] [place] [address] 03/19/2024 10:30 AM EDT Imaging Radiology [facility] 1st [facility] [address] [place] [address] 03/27/2024 1:45 PM EDT Office Visit Hematology/Oncology [facility] Marii Louin 200 [facility] [address] [place] [address] Ru Brunson MD 200 [facility] [place] [address] Health Maintenance Due Date Last Done Comments COVID-19 Vaccine (2022-2 4 season) 2023 10/18/2022, 10/15/2021, 03/10/2021, Additional history exists Influenza Vaccine (FLU shot) (#1) 2023 09/08/2022, 07/29/2021, 07/23/2020, Additional history exists Depression Screening 11/16/2023 11/16/2022 TSH 07/13/2024 07/13/2023, 06/20, 06/17/2019, Additional history exists O2 ASSESSMENT COMPLETED IN P AST YEAR FOR COPD 09/26/2024 09/26/2023 Zoster Vaccines Completed 06/26/2020, 06/0 11/2019, 09/20/2011 documented as of this encounter Medical Devices Implanted Type Area Sql Tech Device Identifier Shelf Expiration Date Model / Serial / Lot Hip Hd Nk Alumina Mod D 36/+5 - [id number] Implanted:Qty: 1 on 05/20/2014 [place] [facility] [place]: Hip BA : ORTHOPAEDICS 02/17/2019 6570-0-236 / / [id number] Patch Xenosure [id number] - [id number] Implanted:Qty: 1 on 10/18/2017 by Daniel Gaming MD at [place] [facility] Right: Carotid [employer] 06/16/2023 E0.8P8 / / [id number] documented as of this encounter Advance Directives Documents on File Type Date Recorded Patient Bankruptcy Processor Expl anation Advance Directives and Living Will 06/01/2017 LIVING WILL LIVING W ILL Power of Street Cleaner 06/01/2017 POWER OF A TTORNEY DURABLE HEALTH CARE POWER OF POT PRESS OPERATOR Latest Code Status on File Code Status [...] Directives occurred with: Not Discussed Care Teams Hydrodynamicist Relationship Specialty Start Date End Date Steffany Curran PA-C [address] [place], [place] [address] PCP - General Physician Flask Cleaner 12/31/18 documented as of this encounter
--- OUTSIDE RECORDS SUMMARY | 2024-05-01 14:40 | External Medical Summary | Summary of Care ---
Author Name Unknown Organization [facility] Address [address] [place] [address] Phone [phone] Care Team Providers Care Over Hauler Helper Name Role Phone Steffany Olvera PA-C Primary Care Provider [phone] Reason for Visit * Reason Onset Date Comments Advice 11/17/2023 Encounter Details Date Type Department Care Team (Late st Contact Info) Description 11/17/2023 Telephone Family Practice [facility] 200 [facility] [place] [address] Steffany Olvera PA-C [address] [place] [address] Advice Allergies Active Allergy Reactions Criticality Noted [...] (FLONASE) 50 MCG/ACT nasal spray Administer 1 [place] into nostril daily as needed. 0 Active saline (OCEAN) 0.65 % nasal spray Administer 1 [place] into nostril as needed. 0 Active vitamin [...] SolutionIndications:C hronic rhinitis Administer into nostril 1 [place] in the morning AND 1 [place] before bedtime. 90 mL 3 05/18/2022 Active Breztri Aerosphere 160-9-4.8 MCG/ACT Inhalation Aerosol (Budeson-Glycopyrrol- Formoterol) Inhale by mouth 2 Puffs 2 times a day . 0 08/09/2022 Active Ipratropium-Albuterol 0.5-2.5 (3) MG/3ML Inhalation Solution [...] GASIndications:COPD, group B, by GOLD 2017 classification ([facility]) Administer 5 L/min(Oxygen) into nostril continuous. 1 Each 0 11/21/2023 Active Hospital, Clinic, or Other Facility Administered [...] arthroplasty 06/03/2014 Overview: Right 05/20/2014 Dr Gage [facility] OTHER*[id number] 04/23/2014 Allergic rhinitis 12/23/2005 ADVANCE DIRECTIVE INFORMATION [...] as of this encounter Miscellaneous Notes * Addendum Note - Steffany Olvera PA-C - 11/21/2023 1:42 PM ESTAddended by: STEFFANY OLVERA on: 11/21/2023 01:42 PM Modules accepted: Orders * Telephone Encounter - Steffany Olvera PA-C - 11/21/2023 1:41 PM EST New addended script has been printed. * Telephone Encounter - Cyndie Toribio CMA - 11/21/2023 9:23 AM EST Patient states that if he is ambulating he uses 5 liter flow and if he is at rest then he uses a 2 liter flow * Telephone Encounter - Steffany Olvera PA-C - 11/21/2023 9:09 AM EST Please call patient and clarify dose with him as oxygen is not even on his medication list. Thank you * Telephone Encounter - Fernie Darden LPN - 11/17/2023 2:24 PM EST Most recent order is 5 LPM. Please advise. * Telephone Encounter - Steffany Hughes OSA - 11/17/2023 12:28 PM EST Shavon from [facility] called to confirm the correct oxygen litter flow. Shavon received 2 orders. 1.2 liters a minute 2. 5 liters a minute, but the pt is stating he should be at 4 liters a minute. Please contact Shavon at [phone] documented in this encounter Plan of Treatment Upcoming Encounters Date Type Department Care Team (Late st Contact Info) Description 11/22/2023 9:20 AM EST Anticoagulation Pharmacy, [facility] [address] [place] [address] Pharmacist1, [facility] [address] [place] [address] 03/01/2024 10:30 AM EDT Imaging Vascular Lab, [facility] 2nd [facility] 132 [facility] [place] [address] 03/01/2024 11:30 AM EDT Imaging Vascular Lab, [address] 132 [facility] [place] [address] 03/06/2024 9:10 AM EDT Office Visit Vascular Surgery, [address] [place] [address] Daniel Gaming MD [address] [place] [address] 03/14/2024 9:00 AM EDT Laboratory Laboratory [facility] [address] [place] [address] [id number] Josie Colvin [facility] [address] [place] [address] [address] 03/19/2024 10:30 AM EDT Imaging Radiology [facility] 1st [facility] 132 [facility] [place] [address] 03/27/2024 1:45 PM EDT Office Visit Hematology/Oncology [facility] 200 [facility] [place] [address] Ru Brunson MD 200 [facility] [place] [address] Health Maintenance Due Date Last Done Comments [...] this encounter Medical Devices Implanted Type Area Air Cargo Ground Operations Supervisor Device Identifier Shelf Expiration Date Model / Serial / Lot Hip Hd Nk Alumina Mod D 36/+5 - [id number] Implanted:Qty: 1 on 05/20/2014 at [place] [facility] Right: Hip BA : ORTHOPAEDICS 02/17/2019 6570-0-236 / / [id number] Patch Xenosure [id number] - [id number] Implanted:Qty: 1 on 10/18/2017 by Daniel Gaming MD at [place] [facility] Right: Carotid [employer] 06/16/2023 E0.8P8 / / [id number] documented as of this encounter Visit Diagnoses Diagnosis COPD, group B, by GOLD 2017 classification (HCC)- Primary documented in this encounter Advance Directives Documents on File Type Date Recorded Patient Science Consultant Expl anation Advance Directives and Living Will 06/01/2017 LIVING WILL LIVING W ILL Power of Last Repairer 06/01/2017 POWER OF A TTORNEY DURABLE HEALTH CARE POWER OF MANAGER CONSTRUCTION Latest Code Status on File Code Status [...] Directives occurred with: Not Discussed Care Teams Over Hauler Helper Relationship Specialty Start Date End Date Lonifebruary JUDY [place] [address] [place], [place] [address] PCP - General Physician Bender Machine 12/31/18 documented as of this encounter
--- OUTSIDE RECORDS SUMMARY | 2024-05-01 14:40 | External Medical Summary | Summary of Care ---
Author Name Unknown Organization [facility] Address [address] [facility] [address] Phone [phone] Care Team Providers Care Admissions Manager Rn Name Role Phone Bina February JUDY Primary Care Provider [phone] Reason for Visit * Reason Comments Dosage Adjustment In Person (Anticoag Cl inic) Encounter Details Date Type Department Care Team (Latest Contact Info) Description 02/20/2024 9:30 AM EDT Anticoagulation Pharmacy, [facility] 200 [place] [address] Pharmacist1, [facility] [address] [place] [address] Paroxysmal atrial fibrillation (HCC)*; Anticoagulation management encounter; terminal makeup operator current use of anticoagulant therapy Allergies Active Allergy Reactions Criticality Noted Date Comments Dust 05/13/2020 Molds & Smuts 05/13/2020 Pollen 03/06/2013 RAGWEED Ragweed 05/13/2020 documented as of this encounter (statuses as of 02/20/2024) Medications Medication Sig Dispensed Refills Start Date [...] (FLONASE) 50 MCG/ACT nasal spray Administer 1 [place] into nostril daily as needed. 0 Active saline (OCEAN) 0.65 % nasal spray Administer 1 [place] into nostril as needed. 0 Active vitamin [...] SolutionIndications:C hronic rhinitis Administer into nostril 1 [place] in the morning AND 1 [place] before bedtime. 90 mL 3 05/18/2022 Active [...] group B, by GOLD 2017 classification ([facility]) Administer 5 L/min(Oxygen) into nostril continuous. 1 Each 0 11/21/2023 Active Hospital, Clinic, or Other Facility Administered Medication Ordered Dose Route Frequency Start Date End Date Status Acetaminophen (Tylenol) tab 650 mgIndications:COVID-19 virus infection 650 mg OR ONCE PRN 12/15/2020 Active documented as of this encounter (statuses as of 02/20/2024) Active Problems Problem Noted Date Diagnosed Date [...] arthroplasty 06/03/2014 Overview: Right 05/20/2014 Dr Gage [facility] OTHER*[id number] 04/23/2014 Allergic rhinitis 12/23/2005 ADVANCE DIRECTIVE INFORMATION 10/05/2005 Overview: Yes, Patient instructed to provide copy of advance directive for provider to review and to be scanned into Electronic Medical Record Tobacco use disorder 01/15/2001 History of lung cancer Palliative care encounter documented as of this encounter (statuses as of 02/20/2024) Resolved Problems Problem Noted Date Diagnosed Date [...] as of this encounter (statuses as of 02/20/2024) Immunizations Name Administration Dates Next Due COVID-19 [...] Progress Notes * Carloz Cerna RPh - 02/20/2024 9:29 AM EDT Medication Therapy Disease Management - Anticoagulation Steve Delgadillo [place] 1945 Description If eating low carb high protein diet take 10mg Wednesdays Patient Findings Positives: Change in alcohol use (He had a couple of beers yesterday) Negatives: Signs/symptoms of thrombosis, Signs/symptoms of bleeding, Change in health, Change in activity, Upcoming invasive procedure, Missed doses, Extra doses, Change in medications, Change in diet/appetite, Bruising INR Result As of 02/20/2024 INR goal: 2.0-3.0 INR used for dosin.2 (02/20/2024) Warfarin Plan As of 02/20/2024 Full warfarin instructions: 5 mg every Mon, Wed, Fri; 7.5 mg all other days No change documented: Carloz Cerna RPh Next INR check: 03/27/2024 Repeat PT/INR in 5 week(s) Weekly dose: not changed Carloz Caldwell RPh, CACP, CDE Clinical Pharmacist Medication Therapy Management [facility] 02/20/2024 9:34 AM documented in this encounter Plan of Treatment Upcoming Encounters Date Type Department Care Team (Late st Contact Info) Description 03/01/2024 10:30 AM EDT Imaging Vascular Lab, [facility] 2nd [facility], [address] [place] [address] 03/01/2024 11:30 AM EDT Imaging Vascular Lab, [facility] 2nd [facility] [place] 132 [facility] [place] [address] 03/06/2024 9:10 AM EDT Office Visit Vascular Surgery, [facility] 132 [facility] [place] [address] Daniel Gaming MD [address] [place] [address] 03/14/2024 9:00 AM EDT Laboratory Laboratory [facility] [address] [place] [phone] [facility] [address] [address] 03/19/2024 10:30 AM EDT Imaging Radiology [facility] 1st [facility] 132 [facility] [place] [address] 03/27/2024 1:30 PM EDT Anticoagulation Pharmacy, [facility] [address] [place] [address] Pharmacist1, [facility] [address] [facility] [place] [address] 03/27/2024 1:45 PM EDT Office Visit Hematology/Oncology [facility] [place] [address] [place] [phone] Ru Brunson MD 200 [facility] [address] Health Maintenance Due Date Last Done Comments COVID-19 Vaccine (2022- 4 season) 2023 10/18/2022, 10/15/2021, 03/10/2021, Additional history exists Depression Screening 11/16/2023 11/16/2022 TSH 07/13/2024 07/13/2023, 06/20, 06/17/2019, Additional history exists Influenza Vaccine (FLU shot) (Season Ended) 2024 09/08/2022, 07/29/2021, 07/23/2020, Additional history exists O2 ASSESSMENT COMPLETED IN P AST YEAR FOR COPD 09/26/2024 09/26/2023 Zoster Vaccines Completed 06/26/2020, 060 11/2019, 09/20/2011 documented as of this encounter Medical Devices Implanted Type Area Group Fitness Instructor Device Identifier Shelf Expiration Date Model / Serial / Lot Shell Sz 56mm - [id number] Implanted:Qty: 1 on 05/20/2014 at [place] [facility] Right: Hip BA : ORTHOPAEDICS 02/17/2019 [id number] / / [id number] Trident Acetabular X3 0 36 E - [id number] Implanted:Qty: 1 on 05/20/2014 at [place] [facility] Right: Hip BA : ORTHOPAEDICS 04/19/2019 623-00-36E / / [id number] Screw Bone Cancell 0248-8144-1 - [id number] Implanted:Qty: 1 on 05/20/2014 at OR [facility] Right: Hip HOWMEDICA 05/19/[id number]- 1 / / [id number] Accolade Ii 132 Deg Sz 5 - [id number] Implanted:Qty: 1 on 05/20/2014 at OR [facility] Right: Hip BA : ORTHOPAEDICS 03/19/2018 [id number] / / [id number] Hip Hd Nk Alumina Mod D 36/+5 - [id number] Implanted:Qty: 1 on 05/20/2014 at OR [facility] Right: Hip BA : ORTHOPAEDICS 02/17/2019 6570-0-236 / / [id number] Patch Xenosure [id number] - [id number] Implanted:Qty: 1 on 10/18/2017 by Daniel Gaming MD at OR [facility] Right: Carotid [employer] 06/16/2023 E0.8P8 / / [id number] documented as of this encounter Procedures Procedure Name Priority Date/Time Associated Diagnosis Comments INR FINGERSTICK, POINT OF CARE STAT 02/20/2024 9:31 AM EDT Paroxysmal atrial fibrillation (HCC) Anticoagulation management encounter [facility] current use of anticoagulant therapy documented in this encounter Results * INR FINGERSTICK, POINT OF CARE (02/20/2024 9:31 AM EDT) Fingerstick INR 2.2 INR 9:32 AM EDT [facility] 56- Blood 02/20/2024 9:31 AM EDT 02/20/2024 9:32 AM EDT Narrative [facility] 56-02 - 02/20/2024 9:32 AM EDT Therapeutic ranges for non-operative patients: Prophylaxsis/treatment of DVT: (Range:2.0-3.0) Treatment of pulmonary embolism:(Range:2.0-3.0) Prevention of systemic embolism from: -tissue heart valves -acute myocardial infarction -valvular heart disease -atrial fibrillation (Range: 2.0-3.0) Mechanical prosthetic valves: (Range: 2.5-3.5) Carloz Paulette V, RPh LAB POINT OF CARE TE ST DOCKED DEVICE UNSOLICITED RESULTS [facility] [address] [place] [address] documented in this encounter Visit Diagnoses Diagnosis Paroxysmal atrial fibrillation (HCC)- Primary Atrial fibrillation Anticoagulation management encounter Encounter for therapeutic drug monitoring terminal makeup operator current use of anticoagulant therapy documented in this encounter Advance Directives Documents on File Type Date Recorded Patient Tax Services Intern Expl anation Advance Directives and Living Will 06/01/2017 LIVING WILL LIVING W ILL Power of Singer Back Tender 06/01/2017 POWER OF A TTORNEY DURABLE HEALTH CARE POWER OF HUMAN RESOURCE INTERNSHIP Latest Code Status on File Code Status [...] Directives occurred with: Not Discussed Care Teams Admissions Manager Rn Relationship Specialty Start Date End Date Lonifebruary Ulises, JUDY [address] [place] [address] PCP - General Physician Boiler Operator 12/31/18 documented as of this encounter
--- OUTSIDE RECORDS SUMMARY | 2024-05-01 14:40 | External Medical Summary | Summary of Care ---
Author Name Unknown Organization [facility] Address [address] [facility] [address] Phone [phone] Care Team Providers Care Pediatric Social Worker Name Role Phone Bina February JUDY Primary Care Provider [phone] Reason for Visit * Reason Comments Dosage Adjustment In Person (Anticoag Cl inic) Encounter Details Date Type Department Care Team (Latest Contact Info) Description 11/29/2023 9:40 AM EST Anticoagulation Pharmacy, [facility] [address] [place] [address] Pharmacist1, [facility] [address] [place] [address] Paroxysmal atrial fibrillation (HCC)*; Anticoagulation management encounter; joint terminal attack controller current use of anticoagulant therapy Allergies Active Allergy Reactions Criticality Noted Date Comments Dust 05/13/2020 Molds & Smuts 05/13/2020 Pollen 03/06/2013 RAGWEED Ragweed 05/13/2020 documented as of this encounter (statuses as of 11/29/2023) Medications Medication Sig Dispensed Refills Start Date [...] (FLONASE) 50 MCG/ACT nasal spray Administer 1 [place] into nostril daily as needed. 0 Active saline (OCEAN) 0.65 % nasal spray Administer 1 [place] into nostril as needed. 0 Active vitamin [...] SolutionIndications:C hronic rhinitis Administer into nostril 1 [place] in the morning AND 1 [place] before bedtime. 90 mL 3 05/18/2022 Active [...] GASIndications:COPD, group B, by GOLD 2017 classification ([facility]) Administer 5 L/min(Oxygen) into nostril continuous. 1 Each 0 11/21/2023 Active Hospital, Clinic, or Other Facility Administered Medication Ordered Dose Route Frequency Start Date End Date Status Acetaminophen (Tylenol) tab 650 mgIndications:COVID-19 virus infection 650 mg OR ONCE PRN 12/15/2020 Active documented as of this encounter (statuses as of 11/29/2023) Active Problems Problem Noted Date Diagnosed Date [...] Overview: Right 05/20/2014 Dr Gage [facility] [place] OTHER*[id number] 04/23/2014 Allergic rhinitis 12/23/2005 ADVANCE DIRECTIVE INFORMATION 10/05/2005 Overview: Yes, Patient instructed to provide copy of advance directive for provider to review and to be scanned into Electronic Medical Record Tobacco use disorder 01/15/2001 History of lung cancer Palliative care encounter documented as of this encounter (statuses as of 11/29/2023) Resolved Problems Problem Noted Date Diagnosed Date [...] as of this encounter (statuses as of 11/29/2023) Immunizations Name Administration Dates Next Due COVID-19 [...] Progress Notes * Carloz Cerna RPh - 11/29/2023 9:36 AM EST Images from the original note were not included. Medication Therapy Disease Management - Anticoagulation Steve Zuleta 1945 Description If eating low carb high protein diet take 10mg Wednesdays Patient Findings Negatives: Signs/symptoms of thrombosis, Signs/symptoms of bleeding, Change in health, Change in alcohol use, Change in activity, Upcoming invasive procedure, Missed doses, Extra doses, Change in medications, Change in diet/appetite, Bruising INR Result As of 11/29/2023 INR goal: 2.0-3.0 INR used for dosin.3 (11/29/2023) Warfarin Plan As of 11/29/2023 Full warfarin instructions: 5 mg every Mon, Wed, Fri; 7.5 mg all other days Next INR check: 01/10/2024 Repeat PT/INR in 6 week(s) Weekly dose: not changed Carloz Caldwell RPh, CACP, CDE Clinical Pharmacist Medication Therapy Management Clinic 11/29/2023 9:42 AM documented in this encounter Plan of Treatment Upcoming Encounters Date Type Department Care Team (Late st Contact Info) Description 01/10/2024 9:30 AM EST Anticoagulation Pharmacy, [employer] [address] [place] [address] [address] Pharmacist2, [facility] [address] [place] [address] [address] 03/01/2024 10:30 AM EDT Imaging Vascular Lab, [facility] [address] [facility] [place] [address] 03/01/2024 11:30 AM EDT Imaging Vascular Lab, [address] [place] [address] 03/06/2024 9:10 AM EDT Office Visit Vascular Surgery, [facility] [address] [facility] [place] [address] Daniel Gaming MD [address] [place] [address] 03/14/2024 9:00 AM EDT Laboratory Laboratory [facility] [address] [place] [id number] [place], Lab [address] [place] [address] 03/19/2024 10:30 AM EDT Imaging Radiology [facility] [address] [facility] [place] [address] 03/27/2024 1:45 PM EDT Office Visit Hematology/Oncology [facility] [address] [place] [address] Ru Brunson MD [address] [place] [address] Health Maintenance Due Date Last Done Comments [...] this encounter Medical Devices Implanted Type Area Plumber Maintenance Device Identifier Shelf Expiration Date Model / Serial / Lot Hip Hd Nk Alumina Mod D 36/+5 - [id number] Implanted:Qty: 1 on 05/20/2014 [place] [facility] [place]: Hip BA : ORTHOPAEDICS 02/17/2019 6570-0-236 / / [id number] Patch Xenosure [id number] - [id number] Implanted:Qty: 1 on 10/18/2017 by Daniel Gaming MD [place] [facility] [place]: Carotid [employer] 06/16/2023 E0.8P8 / / [id number] documented as of this encounter Procedures Procedure Name Priority Date/Time Associated Diagnosis Comments INR FINGERSTICK, POINT OF CARE STAT 11/29/2023 9:39 AM EST Paroxysmal atrial fibrillation (HCC) Anticoagulation management encounter joint terminal attack controller current use of anticoagulant therapy documented in this encounter Results * INR FINGERSTICK, POINT OF CARE (11/29/2023 9:39 AM EST) Fingerstick INR 3.3 INR 9:40 AM EST [facility] 56- Blood 11/29/2023 9:39 AM EST 11/29/2023 9:40 AM EST Narrative [facility] 56 - 11/29/2023 9:40 AM EST Therapeutic ranges for non-operative patients: Prophylaxsis/treatment of DVT: (Range:2.0-3.0) Treatment of pulmonary embolism:(Range:2.0-3.0) Prevention of systemic embolism from: -tissue heart valves -acute myocardial infarction -valvular heart disease -atrial fibrillation (Range: 2.0-3.0) Mechanical prosthetic valves: (Range: 2.5-3.5) Carloz Eugene RPh LAB POINT OF CARE TE ST DOCKED DEVICE UNSOLICITED RESULTS [facility] 56-02 [address] [place] [address] documented in this encounter Visit Diagnoses Diagnosis Paroxysmal atrial fibrillation (HCC)- Primary Atrial fibrillation Anticoagulation management encounter Encounter for therapeutic drug monitoring senior care current use of anticoagulant therapy documented in this encounter Advance Directives Documents on File Type Date Recorded Patient 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
--- OUTSIDE RECORDS SUMMARY | 2024-05-01 14:40 | External Medical Summary | Summary of Care ---
Author Name Unknown Organization [facility] Address [address] [place] [address] Phone [phone] Care Team Providers Care Electrician Outside Name Role Phone Steffany Curran PA-C Primary Care Provider Reason for Visit * Reason Onset Date Comments Advice 11/17/2023 Encounter Details Date Type Department Care Team (Late st Contact Info) Description 11/17/2023 Telephone Family Practice [facility] [address] [place] [address] Steffany Curran PA-C [address] [place] [address] Advice Allergies Active Allergy Reactions Criticality Noted [...] (FLONASE) 50 MCG/ACT nasal spray Administer 1 [place] into nostril daily as needed. 0 Active saline (OCEAN) 0.65 % nasal spray Administer 1 [place] into nostril as needed. 0 Active vitamin [...] SolutionIndications:C hronic rhinitis Administer into nostril 1 [place] in the morning AND 1 [place] before bedtime. 90 mL 3 05/18/2022 Active [...] GASIndications:COPD, group B, by GOLD 2017 classification ([facility]) Administer 5 L/min(Oxygen) into nostril continuous. 1 [...] arthroplasty 06/03/2014 Overview: Right 05/20/2014 Dr Gage [facility] [place] OTHER*[id number] 04/23/2014 Allergic rhinitis 12/23/2005 ADVANCE DIRECTIVE INFORMATION [...] Encounter - Cyndie Toribio CMA - 11/21/2023 3:24 PM EST Order faxed to [facility] [employer] at [phone] * Addendum Note - Steffany Curran PA-C - 11/21/2023 1:42 PM ESTAddended by: STEFFANY CURRAN on: 11/21/2023 01:42 PM Modules accepted: Orders * Telephone Encounter - Steffany Curran PA-C - 11/21/2023 1:41 PM EST New [...] Thank you * Telephone Encounter - Fernie Dadren LPN - 11/17/2023 2:24 PM EST Most recent order is 5 LPM. Please advise. * Telephone Encounter - Saul February, - 11/17/2023 12:28 PM EST Shavon from [employer] called to confirm the correct oxygen litter flow. Shavon received 2 orders. 1.2 liters a minute 2. 5 liters a minute, but the pt is stating he should be at 4 liters a minute. Please contact Shavon at [phone] documented in this encounter Plan of Treatment Upcoming Encounters Date Type Department Care Team (Late st Contact Info) Description 11/22/2023 9:20 AM EST Anticoagulation Pharmacy, [facility] [address] [place] [address] [address] Pharmacist1, [facility] [address] [place] [address] 03/01/2024 10:30 AM EDT Imaging Vascular Lab, [address] [address] 03/01/2024 11:30 AM EDT Imaging Vascular Lab, [address] [facility] [place] [address] 03/06/2024 9:10 AM EDT Office Visit Vascular Surgery, [address] [place] [address] Daniel Gaming MD [address] [place] [address] 03/14/2024 9:00 AM EDT Laboratory Laboratory [facility] [address] [phone] [address] [place] [address] 03/19/2024 10:30 AM EDT Imaging Radiology [address], [place] [address] [facility] [place] [address] 03/27/2024 1:45 PM EDT Office Visit Hematology/Oncology [facility] [place] [address] [place] [address] Ru Brunson MD [address] [place] [address] Health Maintenance Due Date Last Done Comments [...] this encounter Medical Devices Implanted Type Area Franchise Sales Representative Device Identifier Shelf Expiration Date Model / Serial / Lot Hip Hd Nk Alumina Mod D 36/+5 - [id number] Implanted:Qty: 1 on 05/20/2014 at [place] [facility] Right: Hip BA : ORTHOPAEDICS 02/17/2019 6570-0-236 / / [id number] Patch Xenosure [id number] - [id number] Implanted:Qty: 1 on 10/18/2017 by Daniel Gaming MD at [place] [facility] Right: Carotid [employer] 06/16/2023 E0.8P8 / / [id number] documented as of this encounter Visit Diagnoses Diagnosis COPD, group B, by GOLD 2017 classification (HCC)- Primary documented in this encounter Advance Directives Documents on File Type Date Recorded Patient Filtration Plant Mechanic Expl 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
--- OUTSIDE RECORDS SUMMARY | 2024-05-01 14:40 | External Medical Summary ---
Author Name Unknown Address Unknown Organization K09:[facility] [address] [address] Laboratory Report Ordering Provider Test Date Status DELPHINE OTERO V 02/20/2024 09:31:47 Final Therapeutic ranges for non-o perative patients:
Prophylaxsis/treatment of DVT: (Range:2.0-3.0)
Treatment of pulmonary embolism:(Range:2.0-3.0)
Prevention of systemic embolism from:
-tissue heart valves
-acute myocardial infarction
-valvular heart disease
-atrial fibrillation
(Range: 2.0-3.0)
Mechanical prosthetic valves: (Range: 2.5-3.5) Observation Date Value Abnormality Reference (Units ) Status INR in Capillary blood by Coagulation assay 02/20/2024 09:31:47 2.2 (INR) Final Performing Location [facility] [place] [address]
--- OUTSIDE RECORDS SUMMARY | 2024-05-01 14:40 | External Medical Summary | Summary of Care ---
Author Name Unknown Organization [facility] Address [address] [place] [address] Phone [phone] Care Team Providers Care Litigation Coordinator Name Role Phone Steffany Curran PA-C Primary Care Provider [phone] Reason for Visit * Reason Onset Date Comments Appointment 10/12/2022 Pulmonary Stress Test Encounter Details Date Type Department Care Team (Late st Contact Info) Description 10/12/2022 Telephone Family Practice [facility] 200 [facility] [place] [address] Steffany Curran PA-C 200 [place] [address] Appointment (Pulmonary Stress Test) Allergies Active Allergy Reactions Criticality Noted Date Comments Dust 05/13/2020 Molds & Smuts 05/13/2020 Pollen 03/06/2013 RAGWEED Ragweed 05/13/2020 documented as of this encounter (statuses as of 11/28/2023) Medications Medication Sig Dispensed Refills Start Date [...] (FLONASE) 50 MCG/ACT nasal spray Administer 1 [place] into nostril daily as needed. 0 Active saline (OCEAN) 0.65 % nasal spray Administer 1 [place] into nostril as needed. 0 Active vitamin b-12 (CYANOCOBALAMIN) 250 MCG TABS Take 1 Tablet by mouth in the morning. 0 Active Ascorbic Acid (VITAMIN C) 500 MG CAPS Take by mouth. 0 Active Vitamin D, Cholecalciferol, 1000 UNITS TABS Take by mouth. 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 (at least 30 min prior to breakfast or other meds). 30 Tablet 11 2 Active Azelastine HCl 0.1 % Nasal SolutionIndicatio ns:Chronic rhinitis Administer into nostril 1 [place] in the morning AND 1 [place] before bedtime. 90 mL 3 2 Active Breztri Aerosphere 160-9-4.8 MCG/ACT Inhalation Aerosol (Budeson-Glycopyr rol-Formoterol) Inhale by mouth 2 Puffs 2 times a day . 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 360 mL 5 2 12/28/19 22 Discontinued(Leg acy prescription brought in as discontinued) Atorvastatin Calcium 20 MG Oral Tablet (Lipitor)Indicati ons:Dyslipidemia Take by mouth 1 Tablet in the morning. 90 Tablet 3 2 06/14/20 23 Discontinued(Ref ill) Warfarin Sodium 5 MG Oral Tablet (Coumadin)Indicat ions:Paroxysmal atrial fibrillation (HCC) TAKE 1 TABLET (=5MG) BY MOUTH ON MONDAYS, Wednesdays AND FRIDAYS, THEN TAKE 1 AND 1/2 TABLET (=7.5MG) ON ALL OTHER DAYS OR DIRECTED BY CLINIC 115 Tablet 3 2 04/18/20 23 Discontinued(Ref ill) Furosemide 20 MG Oral Tablet (Lasix) Take 3 tabs in the AM and 2 tabs in the PM 450 Tablet 3 2 05/21/20 23 Discontinued(Ref ill) Potassium Chloride ER 10 MEQ Oral Capsule Extended ReleaseIndication s:Chronic diastolic heart failure due to valvular disease Take by mouth 1 Capsule in the morning. 90 Capsule 3 2 07/09/20 23 Discontinued(Ref ill) Metoprolol Tartrate 100 MG Oral Tablet (Lopressor)Indica tions:Paroxysmal atrial fibrillation (HCC) Take by mouth 1 Tablet in the morning AND 1 Tablet before bedtime. 60 Tablet 11 2 07/23/20 23 Discontinued(Ref ill) Tamsulosin HCl 0.4 MG Oral Capsule (Flomax) Take by mouth 1 Capsule in the morning. 90 Capsule 3 2 01/08/20 23 Discontinued(Ref ill) Hospital, Clinic, or Other Facility Administered Medication Ordered Dose Route Frequency Start Date End Date Status Acetaminophen (Tylenol) tab 650 mgIndications:COVID-19 virus infection 650 mg OR ONCE PRN 12/15/2020 Active documented as of this encounter (statuses as of 11/28/2023) Active Problems Problem Noted Date Diagnosed Date [...] arthroplasty 06/03/2014 Overview: Right 05/20/2014 Dr Gage [facility] [place] OTHER*[id number] 04/23/2014 Allergic rhinitis 12/23/2005 ADVANCE DIRECTIVE INFORMATION 10/05/2005 Overview: Yes, Patient instructed to provide copy of advance directive for provider to review and to be scanned into Electronic Medical Record Tobacco use disorder 01/15/2001 History of lung cancer Palliative care encounter documented as of this encounter (statuses as of 11/28/2023) Resolved Problems Problem Noted Date Diagnosed Date [...] as of this encounter (statuses as of 11/28/2023) Immunizations Name Administration Dates Next Due COVID-19 [...] encounter Miscellaneous Notes * Telephone Encounter - Soniya Steffany Shyam, JOAO - 11/28/2023 4:43 PM EST 6mw comleted on 12/01/22. * Telephone Encounter - Kyle Naylor OSA - 11/16/2022 11:18 AM EST myg sent per note in chart. * Telephone Encounter - Yanet De Luna OSA - 10/12/2022 10:56 AM EST Please call patient to schedule a pulmonary stress test. documented in this encounter Plan of Treatment Upcoming Encounters Date Type Department Care Team (Late st Contact Info) Description 11/29/2023 9:40 AM EST Anticoagulation Pharmacy, [facility] [address] [place] [address] [place] [address] Pharmacist1, [facility] [address] [place] [place] [address] 03/01/2024 10:30 AM EDT Imaging Vascular Lab, [address] [facility] [place] [address] 03/01/2024 11:30 AM EDT Imaging Vascular Lab, [address] [employer] 132 [facility] [place] [address] 03/06/2024 9:10 AM EDT Office Visit Vascular Surgery, [facility] 132 [facility] [place] [address] Daniel Gaming MD [address] [facility] [place] [address] 03/14/2024 9:00 AM EDT Laboratory Laboratory [facility] [address] [place] [phone] [place], [facility] [address] [facility] [place] [address] 03/19/2024 10:30 AM EDT Imaging Radiology [facility] [address] [facility] [place] [address] 03/27/2024 1:45 PM EDT Office Visit Hematology/Oncology [facility] [place] [address] [place] [address] Ru Brunson MD [address] [place] [address] Health Maintenance Due Date Last Done Comments [...] this encounter Medical Devices Implanted Type Area Nicu Rn Device Identifier Shelf Expiration Date Model / Serial / Lot Hip Hd Nk Alumina Mod D 36/+5 - [id number] Implanted:Qty: 1 on 05/20/2014 at [place] [facility] Right: Hip BA : ORTHOPAEDICS 02/17/2019 6570-0-236 / / [id number] Patch Xenosure [id number] - [id number] Implanted:Qty: 1 on 10/18/2017 by Daniel Gaming MD at OR [facility] Right: Carotid [employer] 06/16/2023 E0.8P8 / / [id number] documented as of this encounter Advance Directives Documents on File Type Date Recorded 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
--- OUTSIDE RECORDS SUMMARY | 2024-05-01 14:40 | External Medical Summary | Summary of Care ---
Author Name Unknown Organization [facility] Address [address] [facility] [place] [address] Phone [phone] Care Team Providers Care Industrial Controls Technician Name Role Phone Bina February JUDY Primary Care Provider [phone] Reason for Visit * Reason Comments Dosage Adjustment In Person (Anticoag Cl inic) Encounter Details Date Type Department Care Team (Latest Contact Info) Description 01/10/2024 9:30 AM EST Anticoagulation Pharmacy, 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 0 Active saline (OCEAN) 0.65 % nasal spray Administer 1 [place] into nostril as needed. 0 Active vitamin [...] SolutionIndications:C hronic rhinitis Administer into nostril 1 [place] in the morning AND 1 [place] before bedtime. 90 mL 3 05/18/2022 Active [...] 2017 classification ([facility]) Administer 5 L/min(Oxygen) into nostril continuous. 1 Each 0 11/21/2023 Active Hospital, Clinic, or Other Facility Administered Medication Ordered Dose Route Frequency Start Date End Date Status Acetaminophen (Tylenol) tab 650 mgIndications:COVID-19 virus infection 650 mg OR ONCE PRN 12/15/2020 Active documented as of this encounter (statuses as of 01/10/2024) Active Problems Problem Noted Date Diagnosed Date [...] arthroplasty 06/03/2014 Overview: Right 05/20/2014 Dr Gage [facility] FORCE [facility] [facility] OTHER*[id number] 04/23/2014 Allergic rhinitis 12/23/2005 ADVANCE DIRECTIVE INFORMATION 10/05/2005 Overview: Yes, Patient instructed to provide copy of advance directive for provider to review and to be scanned into Electronic Medical Record Tobacco use disorder 01/15/2001 History of lung cancer Palliative care encounter documented as of this encounter (statuses as of 01/10/2024) Resolved Problems Problem Noted Date Diagnosed Date [...] as of this encounter (statuses as of 01/10/2024) Immunizations Name Administration Dates Next Due COVID-19 [...] as of this encounter Progress Notes * Partha Santos RPh - 01/10/2024 9:39 AM EST Medication Therapy Disease Management - Anticoagulation Patient: Steve Zuleta | : 1945 Subjective 6 Patient-Reported Symptoms: Patient Findings Negatives: Signs/symptoms of thrombosis, Signs/symptoms of bleeding, Change in health, Change in alcohol use, Change in activity, Upcoming invasive procedure, Missed doses, Extra doses, Change in medications, Change in diet/appetite, Bruising Objective Current Warfarin Dose As of 01/10/2024 Warfarin maintenance plan: 5 mg (5 mg x 1) every Mon, Wed, Fri; 7.5 mg (5 mg x 1.5) all other days INR Result As of 01/10/2024 INR goal: 2.0-3.0 INR used for dosin.5 (01/10/2024) Assessment & Plan Warfarin Plan As of 01/10/2024 Full warfarin instructions: 5 mg every Mon, Wed, Fri; 7.5 mg all other days No change documented: Partha Santos RPh Next INR check: 02/20/2024 Repeat PT/INR in 6 week(s) Weekly dose: not changed Additional Dosing Information: Description If eating low carb high protein diet take 10mg Wednesdays Partha Santos RPh Clinical Pharmacist 01/10/2024, 9:39 AM documented in this encounter Plan of Treatment Upcoming Encounters Date Type Department Care Team (Late st Contact Info) Description 02/20/2024 9:30 AM EDT Anticoagulation Pharmacy, [facility] [address] [place] [address] Pharmacist1, [facility] [address] [place] [address] 03/01/2024 10:30 AM EDT Imaging Vascular Lab, [facility] 2nd [facility] [address] [place] [address] 03/01/2024 11:30 AM EDT Imaging Vascular Lab, [address] [place] [address] 03/06/2024 9:10 AM EDT Office Visit Vascular Surgery, [facility] [address] [place] [address] Daniel Gaming MD [address] [place] [address] 03/14/2024 9:00 AM EDT Laboratory Laboratory [facility] [address] [id number] [place], [facility] [address] [address] 03/19/2024 10:30 AM EDT Imaging Radiology [facility] 1st [facility] [address] [place] [address] 03/27/2024 1:45 PM EDT Office Visit Hematology/Oncology [facility] [address] [place] [address] [address] Ru Brunson MD [address] [place] [address] [address] Health Maintenance Due Date Last Done Comments [...] this encounter Medical Devices Implanted Type Area Tilting Saw Operator Device Identifier Shelf Expiration Date Model / Serial / Lot Shell Sz 56mm - [id number] Implanted:Qty: 1 on 05/20/2014 at OR [facility] Right: Hip BA : ORTHOPAEDICS 02/17/2019 [id number] / / [id number] Trident Acetabular X3 0 36 E - [id number] Implanted:Qty: 1 on 05/20/2014 at OR [facility] Right: Hip BA : ORTHOPAEDICS 04/19/2019 [id number] / / [id number] Screw Bone Cancell 8168-5144-1 - [id number] Implanted:Qty: 1 on 05/20/2014 at OR [facility] Right: Hip [employer] 05/19/20187950-1294- 1 / / [id number] Accolade Ii 132 Deg Sz 5 - [id number] Implanted:Qty: 1 on 05/20/2014 at OR [facility] Right: Hip BA : ORTHOPAEDICS 03/19/2018 [id number] / / [id number] Hip Hd Nk Alumina Mod D 36/+5 - [id number] Implanted:Qty: 1 on 05/20/2014 at OR [facility] Right: Hip BA : ORTHOPAEDICS 02/17/2019 6570-0-236 / / [id number] Patch Xenosure 0.1hmb3le - [id number] Implanted:Qty: 1 on 10/18/2017 by Daniel Gaming MD at OR [facility] Right: Carotid [employer] 06/16/2023 E0.8P8 / / [id number] documented as of this encounter Procedures Procedure Name Priority Date/Time Associated Diagnosis Comments INR FINGERSTICK, POINT OF CARE STAT 01/10/2024 9:41 AM EST Paroxysmal atrial fibrillation (HCC) Anticoagulation management encounter [facility] current use of anticoagulant therapy documented in this encounter Results * INR FINGERSTICK, POINT OF CARE (01/10/2024 9:41 AM EST) Fingerstick INR 2.5 INR 9:42 AM EST [facility] Blood 01/10/2024 9:41 AM EST 01/10/2024 9:42 AM EST Narrative [facility] - 01/10/2024 9:42 AM EST Therapeutic ranges for non-operative patients: Prophylaxsis/treatment of DVT: (Range:2.0-3.0) Treatment of pulmonary embolism:(Range:2.0-3.0) Prevention of systemic embolism from: -tissue heart valves -acute myocardial infarction -valvular heart disease -atrial fibrillation (Range: 2.0-3.0) Mechanical prosthetic valves: (Range: 2.5-3.5) Carloz Paulette V, RPh LAB POINT OF CARE TE ST DOCKED DEVICE UNSOLICITED RESULTS [facility]- [address] [place] [address] documented in this encounter Visit Diagnoses Diagnosis Paroxysmal atrial fibrillation (HCC)- Primary Atrial fibrillation Anticoagulation management encounter Encounter for therapeutic drug monitoring [facility] current use of anticoagulant therapy documented in this encounter Advance Directives Documents on File Type Date Recorded Patient Staff Engineer Expl anation Advance Directives and Living Will 06/01/2017 LIVING WILL LIVING W ILL Power of Environmental Attorney 06/01/2017 POWER OF A TTORNEY DURABLE HEALTH CARE POWER OF ANTHROPOLOGY FACULTY MEMBER Latest Code Status on File Code Status [...] Directives occurred with: Not Discussed Care Teams Industrial Controls Technician Relationship Specialty Start Date End Date Bina February TETO MontgomeryC [address] [place] [address] PCP - General Physician Non Destructive Testing Technician 12/31/18 documented as of this encounter"
--- OUTSIDE RECORDS SUMMARY | 2024-05-01 14:40 | External Medical Summary ---
Author Name Unknown Address Unknown Organization K09[facility] [place] [address] Laboratory Report Ordering Provider Test Date Status SHANNADELPHINE V 11/29/2023 09:39:26 Final Therapeutic ranges for non-o perative patients:
Prophylaxsis/treatment of DVT: (Range:2.0-3.0)
Treatment of pulmonary embolism:(Range:2.0-3.0)
Prevention of systemic embolism from:
-tissue heart valves
-acute myocardial infarction
-valvular heart disease
-atrial fibrillation
(Range: 2.0-3.0)
Mechanical prosthetic valves: (Range: 2.5-3.5) Observation Date Value Abnormality Reference (Units ) Status INR in Capillary blood by Coagulation assay 11/29/2023 09:39:26 3.3 (INR) Final Performing Location [facility] [place] [address]
--- OUTSIDE RECORDS SUMMARY | 2024-05-01 14:40 | External Medical Summary ---
Author Name Unknown Address Unknown Organization K09:[facility] [place] [address] Laboratory Report Ordering Provider Test Date Status SHANNADELPHINE V 01/10/2024 09:41:50 Final Therapeutic ranges for non-o perative patients:
Prophylaxsis/treatment of DVT: (Range:2.0-3.0)
Treatment of pulmonary embolism:(Range:2.0-3.0)
Prevention of systemic embolism from:
-tissue heart valves
-acute myocardial infarction
-valvular heart disease
-atrial fibrillation
(Range: 2.0-3.0)
Mechanical prosthetic valves: (Range: 2.5-3.5) Observation Date Value Abnormality Reference (Units ) Status INR in Capillary blood by Coagulation assay 01/10/2024 09:41:50 2.5 (INR) Final Performing Location [facility] [place] [address]
--- OUTSIDE RECORDS SUMMARY | 2024-05-01 14:40 | External Medical Summary | Summary of Care ---
Author Name Unknown Organization [facility] Address [address] [place] [address] Phone [phone] Care Team Providers Care Drain Technician Name Role Phone Steffany Olvera PA-C Primary Care Provider [phone] Reason for Visit * Reason Onset Date Comments Advice 11/17/2023 Encounter Details Date Type Department Care Team (Late st Contact Info) Description 11/17/2023 Telephone Family Practice [facility] [address] [facility] [place] [address] Steffany Olvera PA-C [address] [place] [address] Advice Allergies Active Allergy Reactions Criticality Noted [...] (FLONASE) 50 MCG/ACT nasal spray Administer 1 [place] into nostril daily as needed. 0 Active saline (OCEAN) 0.65 % nasal spray Administer 1 [place] into nostril as needed. 0 Active vitamin [...] SolutionIndications:C hronic rhinitis Administer into nostril 1 [place] in the morning AND 1 [place] before bedtime. 90 mL 3 05/18/2022 Active [...] GASIndications:COPD, group B, by GOLD 2017 classification ([facility]) Administer 5 L/min(Oxygen) into nostril continuous. [...] Right 05/20/2014 Dr Gage [facility] OTHER*[id number] 04/23/2014 Allergic rhinitis 12/23/2005 ADVANCE DIRECTIVE INFORMATION [...] - 11/17/2023 12:28 PM EST Shavon from [facility] called to confirm the correct oxygen litter flow. Shavon received 2 orders. 1.2 liters a minute 2. 5 liters a minute, but the pt is stating he should be at 4 liters a minute. Please contact Shavon at [phone] documented in this encounter Plan of Treatment Upcoming Encounters Date Type Department Care Team (Late st Contact Info) Description 11/22/2023 9:20 AM EST Anticoagulation Pharmacy, [facility] [address] [place] [address] Pharmacist1, [facility] [address] [place] [address] [address] 03/01/2024 10:30 AM EDT Imaging Vascular Lab, [facility] 2nd [facility] [address] [facility] [place] [address] 03/01/2024 11:30 AM EDT Imaging Vascular Lab, [address] 132 [facility] [place] [address] 03/06/2024 9:10 AM EDT Office Visit Vascular Surgery, [address] [place] [address] Daniel Gaming MD [address] [place] [address] 03/14/2024 9:00 AM EDT Laboratory Laboratory [facility] [address] [id number] Josie Colvin [facility] [address] [place] [address] 03/19/2024 10:30 AM EDT Imaging Radiology [facility] 1st [facility] 132 [facility] [place] [address] 03/27/2024 1:45 PM EDT Office Visit Hematology/Oncology [facility] [place] [address] Ru Brunson MD 200 [facility] [place] [address] Health Maintenance Due Date Last Done Comments [...] this encounter Medical Devices Implanted Type Area Leather Parts Matcher Device Identifier Shelf Expiration Date Model / Serial / Lot Hip Hd Nk Alumina Mod D 36/+5 - [id number] Implanted:Qty: 1 on 05/20/2014 at OR [facility] Right: Hip BA : ORTHOPAEDICS 02/17/2019 6570-0-236 / / [id number] Patch Xenosure 0.9eoh0pl - [id number] Implanted:Qty: 1 on 10/18/2017 by Daniel Gaming MD at OR [facility] Right: Carotid [employer] 06/16/2023 E0.8P8 / / [id number] documented as of this encounter Visit Diagnoses Diagnosis COPD, group B, by GOLD 2017 classification (HCC)- Primary documented in this encounter Advance Directives Documents on File Type Date Recorded Patient Healthcare Economics Manager Expl anation Advance Directives and Living Will 06/01/2017 LIVING WILL LIVING W ILL Power of Executive Director Contract Shop 06/01/2017 POWER OF A TTORNEY DURABLE HEALTH CARE POWER OF INTERNET CAFE MANAGER Latest Code Status on File Code Status [...] Directives occurred with: Not Discussed Care Teams Drain Technician Relationship Specialty Start Date End Date Lonifebruary JUDY [place] [address] [place], [place] [address] PCP - General Physician Drain Tile Machine Operator 12/31/18 documented as of this encounter
--- OUTSIDE RECORDS SUMMARY | 2024-05-01 14:41 | External Medical Summary | Summary of Care ---
Author Name Unknown Organization [facility] Address [address] [place] [address] Phone [phone] Care Team Providers Care Estate Planning Counselor Name Role Phone Steffany Curran PA-C Primary Care Provider [phone] Reason for Visit * Reason Onset Date Comments Advice 11/17/2023 Encounter Details Date Type Department Care Team (Late st Contact Info) Description 11/17/2023 Telephone Family Practice [facility] 200 [facility] [place] [address] Steffany Curran PA-C [address] [place] [address] Advice Allergies Active Allergy Reactions Criticality Noted [...] (FLONASE) 50 MCG/ACT nasal spray Administer 1 [place] into nostril daily as needed. 0 Active saline (OCEAN) 0.65 % nasal spray Administer 1 [place] into nostril as needed. 0 Active vitamin [...] SolutionIndications: Chronic rhinitis Administer into nostril 1 [place] in the morning AND 1 [place] before bedtime. 90 mL 3 05/18/2022 Active [...] arthroplasty 06/03/2014 Overview: Right 05/20/2014 Dr Gage [facility] FORCE [employer] [place] OTHER*[id number] 04/23/2014 Allergic rhinitis 12/23/2005 ADVANCE DIRECTIVE INFORMATION [...] encounter Miscellaneous Notes * Telephone Encounter - Steffany Curran PA-C [...] - 11/17/2023 12:28 PM EST Shavon from [employer] called to confirm the correct oxygen litter flow. Shavon received 2 orders. 1.2 liters a minute 2. 5 liters a minute, but the pt is stating he should be at 4 liters a minute. Please contact Shavon at [phone] documented in this encounter Plan of Treatment Upcoming Encounters Date Type Department Care Team (Late st Contact Info) Description 11/22/2023 9:20 AM EST Anticoagulation Pharmacy, [facility] [place] [place] [address] [address] Pharmacist1, [facility] [address] [place] [address] [place] [address] 03/01/2024 10:30 AM EDT Imaging Vascular Lab, [facility] 2nd [facility] [place] 132 [facility] [place] [address] 03/01/2024 11:30 AM EDT Imaging Vascular Lab, [facility] 2nd [facility] [address] 03/06/2024 9:10 AM EDT Office Visit Vascular Surgery, [facility] [address] [place] [address] Daniel Gaming MD [address] [place] [address] 03/14/2024 9:00 AM EDT Laboratory Laboratory [facility] [address] [place] [phone] [place], [facility] [address] [place] [address] 03/19/2024 10:30 AM EDT Imaging Radiology [facility] 1st [facility] 132 [facility] [place] [address] 03/27/2024 1:45 PM EDT Office Visit Hematology/Oncology [facility] [address] [place] [address] Ru Brunson MD [address] [place] [address] Health Maintenance Due Date Last Done Comments [...] this encounter Medical Devices Implanted Type Area Roller Mechanic Device Identifier Shelf Expiration Date Model / Serial / Lot Hip Hd Nk Alumina Mod D 36/+5 - [id number] Implanted:Qty: 1 on 05/20/2014 at OR [facility] Right: Hip BA : ORTHOPAEDICS 02/17/2019 6570-0-236 / / [id number] Patch Xenosure 0.2rhp1ef - [id number] Implanted:Qty: 1 on 10/18/2017 by Daniel Gaming MD at OR [facility] Right: Carotid [employer] 06/16/2023 E0.8P8 / / [id number] documented as of this encounter Advance Directives Documents on File Type Date Recorded Patient Meter Repair Shop Supervisor Expl anation Advance Directives and Living Will 06/01/2017 LIVING WILL LIVING W ILL Power of Structures Assembler 06/01/2017 POWER OF A TTORNEY DURABLE HEALTH CARE POWER OF RESISTANCE WELDER Latest Code Status on File Code Status [...] Directives occurred with: Not Discussed Care Teams Estate Planning Counselor Relationship Specialty Start Date End Date BinaFebruary JUDY [place] [address] [facility] [place] [address] PCP - General Physician Service Plumber 12/31/18 documented as of this encounter
--- OUTSIDE RECORDS SUMMARY | 2024-05-01 14:41 | External Medical Summary | Summary of Care ---
Author Name Unknown Organization [facility] Address [address] [place] [address] Phone [phone] Care Team Providers Care Insurance Sales Executive Name Role Phone Bina Steffany Montgomery PA-C Primary Care Provider [phone] Reason for Visit * Reason Onset Date Comments Order Request 11/01/2023 Encounter Details Date Type Department Care Team (Late st Contact Info) Description 11/01/2023 Telephone Vascular Surg [facility] [address], [place] [id number] Daniel Gaming MD [address] [place], [place] [id number] Order Request Allergies Active Allergy Reactions Criticality Noted Date Comments Dust 05/13/2020 Molds & Smuts 05/13/2020 Pollen 03/06/2013 RAGWEED Ragweed 05/13/2020 documented as of this encounter (statuses as of 11/06/2023) Medications Medication Sig Dispensed Refills Start Date [...] (FLONASE) 50 MCG/ACT nasal spray Administer 1 [place] into nostril daily as needed. 0 Active saline (OCEAN) 0.65 % nasal spray Administer 1 [place] into nostril as needed. 0 Active vitamin [...] SolutionIndications: Chronic rhinitis Administer into nostril 1 [place] in the morning AND 1 [place] before bedtime. 90 mL 3 05/18/2022 Active [...] as of this encounter (statuses as of 11/06/2023) Active Problems Problem Noted Date Diagnosed Date [...] arthroplasty 06/03/2014 Overview: Right 05/20/2014 Dr Gage [facility] [place] OTHER*[id number] 04/23/2014 Allergic rhinitis 12/23/2005 ADVANCE DIRECTIVE INFORMATION 10/05/2005 Overview: Yes, Patient instructed to provide copy of advance directive for provider to review and to be scanned into Electronic Medical Record Tobacco use disorder 01/15/2001 History of lung cancer Palliative care encounter documented as of this encounter (statuses as of 11/06/2023) Resolved Problems Problem Noted Date Diagnosed Date [...] as of this encounter (statuses as of 11/06/2023) Immunizations Name Administration Dates Next Due COVID-19 [...] encounter Miscellaneous Notes * Telephone Encounter - Rin Melo OSA - 11/06/2023 10:39 AM EST Patient was scheduled for the deb and not the carotid. I called and left a message that we had to change the date and schedule the deb with the carotid. If it doesn't work out for him I said for him to call the scheduling number. rrh * Addendum Note - Amanda Titus CRNP - 11/01/2023 3:32 PM ESTAddended by: AMANDA TITUS on: 11/01/2023 03:32 PM Modules accepted: Orders * Telephone Encounter - Amanda Titus CRNP - 11/01/2023 3:31 PM EST DEB order signed as requested * Addendum Note - Dmitry Gary LPN - 11/01/2023 2:03 PM ESTAddended by: DMITRY GARY on: 11/01/2023 02:03 PM Modules accepted: Orders * Telephone Encounter - Dmitry Gary LPN - 11/01/2023 2:00 PM EST Patient was last seen on 02/02/22 in [facility] with Dr. Gaming and plan was to f/u in 2 years withcarotid duplex and deb one week prior to office visit at [facility]. Carotid order is good. New order placed for DEB. Dmitry Gary LPN 11/01/2023 2:02 PM * Telephone Encounter - Rin Melo OSA - 11/01/2023 10:46 AM EST F/u in [address] Gaming at [facility] with carotid duplex and deb completed a week or so prior at [facility]. Patient had his deb on 10/18/[address] and order for Just the deb so patient can be scheduled Thank you [facility] documented in this encounter Plan of Treatment Upcoming Encounters Date Type Department Care Team (Late st Contact Info) Description 11/22/2023 9:20 AM EST Anticoagulation Pharmacy, [facility] [address] [facility] [place] [address] Pharmacist1, [facility] [address] [place] [address] 03/01/2024 10:30 AM EDT Imaging Vascular Lab, [facility] [address] [address] 03/01/2024 11:30 AM EDT Imaging Vascular Lab, [address] [facility] [address] 03/06/2024 9:10 AM EDT Office Visit Vascular Surgery, [address] [place] [address] Daniel Gaming MD [address] [place] [address] 03/14/2024 9:00 AM EDT Laboratory Laboratory [facility] [address] [place] [address] [facility] [address] [place] [address] 03/19/2024 10:30 AM EDT Imaging Radiology [address] 132 [address]irt[address] [place] [address] 03/27/2024 1:45 PM EDT Office Visit Hematology/Oncology [facility] [address] [place] [address] Ru Brunson MD [address] [place] [address] Scheduled Orders Name Type Priority Associated Diagnoses Orde r Schedule VASC ANKLE BRACHIAL INDICES WITHOUT PPG (PAD) Medical Imaging Routine PAD (peripheral artery disease) (HCC) Ordered: 11/01/2023 Health Maintenance Due Date Last Done Comments [...] this encounter Medical Devices Implanted Type Area Global Ceo Device Identifier Shelf Expiration Date Model / Serial / Lot Hip Hd Nk Alumina Mod D 36/+5 - [id number] Implanted:Qty: 1 on 05/20/2014 at [place] [facility] [place]: Hip BA : ORTHOPAEDICS 02/17/2019 6570-0-236 / / [id number] Patch Xenosure [id number] - [id number] Implanted:Qty: 1 on 10/18/2017 by Daniel Gaming MD at [place] [facility] Right: Carotid [employer] 06/16/2023 E0.8P8 / / [id number] documented as of this encounter Visit Diagnoses Diagnosis PAD (peripheral artery disease) (HCC)- Primary Peripheral vascular disease, unspecified documented in this encounter Advance Directives Documents on File Type Date Recorded Patient Slack Cooper Expl anation Advance Directives and Living Will 06/01/2017 LIVING WILL LIVING W ILL Power of Marketing Financial Analyst 06/01/2017 POWER OF A TTORNEY DURABLE HEALTH CARE POWER OF GEAR ROOM KEEPER Latest Code Status on File Code Status [...] Directives occurred with: Not Discussed Care Teams Insurance Sales Executive Relationship Specialty Start Date End Date BinaFebruary JUDY Montgomery [address] [place] [address] PCP - General Physician Client Administrator 12/31/18 documented as of this encounter
--- OUTSIDE RECORDS SUMMARY | 2024-05-01 14:41 | External Medical Summary | Summary of Care ---
Author Name Unknown Organization [facility] Address [address] [place] [address] Phone [phone] Care Team Providers Care Social Sciences Research Scientist Name Role Phone Steffany Curran PA-C Primary Care Provider [phone] Reason for Visit * Reason Onset Date Comments Advice 11/17/2023 Encounter Details Date Type Department Care Team (Late st Contact Info) Description 11/17/2023 Telephone Family Practice [facility] 200 [facility] [place] [address] Steffany Curran PA-C [address] [place] [address] Advice Allergies Active Allergy Reactions Criticality Noted Date Comments Dust 05/13/2020 Molds & Smuts 05/13/2020 Pollen 03/06/2013 RAGWEED Ragweed 05/13/2020 documented as of this encounter (statuses as of 11/17/2023) Medications Medication Sig Dispensed Refills Start Date [...] (FLONASE) 50 MCG/ACT nasal spray Administer 1 [place] into nostril daily as needed. 0 Active saline (OCEAN) 0.65 % nasal spray Administer 1 [place] into nostril as needed. 0 Active vitamin [...] SolutionIndications: Chronic rhinitis Administer into nostril 1 [place] in the morning AND 1 [place] before bedtime. 90 mL 3 05/18/2022 Active [...] as of this encounter (statuses as of 11/17/2023) Active Problems Problem Noted Date Diagnosed Date [...] [facility] [place] [facility] OTHER*[id number] 04/23/2014 Allergic rhinitis 12/23/2005 ADVANCE DIRECTIVE INFORMATION 10/05/2005 Overview: Yes, Patient instructed to provide copy of advance directive for provider to review and to be scanned into Electronic Medical Record Tobacco use disorder 01/15/2001 History of lung cancer Palliative care encounter documented as of this encounter (statuses as of 11/17/2023) Resolved Problems Problem Noted Date Diagnosed Date [...] as of this encounter (statuses as of 11/17/2023) Immunizations Name Administration Dates Next Due COVID-19 [...] encounter Miscellaneous Notes * Telephone Encounter - Fernie Darden LPN - 11/17/2023 2:24 PM EST Most recent order is 5 LPM. Please advise. * Telephone Encounter - Steffany Hughes OSA - 11/17/2023 12:28 PM EST Shavon from [employer] called to confirm the correct oxygen litter flow. Shavon received 2 orders. 1.2 liters a minute 2. 5 liters a minute, but the pt is stating he should be at 4 liters a minute. Please contact Shavon at [phone] documented in this encounter Plan of Treatment Upcoming Encounters Date Type Department Care Team (Late st Contact Info) Description 11/22/2023 9:20 AM EST Anticoagulation Pharmacy, [facility] 200 [facility] [place] [address] Pharmacist1, [facility] 200 [facility] [place] [address] 03/01/2024 10:30 AM EDT Imaging Vascular Lab, [address] 132 [facility] [place] [address] 03/01/2024 11:30 AM EDT Imaging Vascular Lab, [address] 132 [address] [place] [address] 03/06/2024 9:10 AM EDT Office Visit Vascular Surgery, [facility] 132 [facility] [place] [address] Daniel Gaming MD [address] [place] [address] 03/14/2024 9:00 AM EDT Laboratory Laboratory [facility] [address] [place] [id number] [facility] [address] [place] [address] 03/19/2024 10:30 AM EDT Imaging Radiology [address] 132 [facility] [place] [address] 03/27/2024 1:45 PM EDT Office Visit Hematology/Oncology [facility] [address] [place] [address] Ru Brunson MD [address] [place] [address] Health Maintenance Due Date Last Done Comments [...] this encounter Medical Devices Implanted Type Area Safety Deposit Boxes Custodian Device Identifier Shelf Expiration Date Model / Serial / Lot Hip Hd Nk Alumina Mod D 36/+5 - [id number] Implanted:Qty: 1 on 05/20/2014 at OR [facility] Right: Hip BA : ORTHOPAEDICS 02/17/2019 6570-0-236 / / [id number] Patch Xenosure [id number] - [id number] Implanted:Qty: 1 on 10/18/2017 by Daniel Gaming MD at [place] [facility] Right: Carotid [employer] 06/16/2023 E0.8P8 / / [id number] documented as of this encounter Advance Directives Documents on File Type Date Recorded Patient Geology Scientist Expl anation Advance Directives and Living Will 06/01/2017 LIVING WILL LIVING W ILL Power of Skoog Patching Machine Operator 06/01/2017 POWER OF A TTORNEY DURABLE HEALTH CARE POWER OF HUMAN RESOURCES REPRESENTATIVE Latest Code Status on File Code Status [...] Directives occurred with: Not Discussed Care Teams Social Sciences Research Scientist Relationship Specialty Start Date End Date Bina February JUDY Montgomery [address] [place], [place] [address] PCP - General Physician Nurse Obgyn 12/31/18 documented as of this encounter
--- OUTSIDE RECORDS SUMMARY | 2024-05-01 14:41 | External Medical Summary | Summary of Care ---
Author Name Unknown Organization [facility] Address [address] [place] [address] Phone [phone] Care Team Providers Care Feed And Farm Management Adviser Name Role Phone Steffany Curran PA-C Primary Care Provider [phone] Reason for Visit * Reason Onset Date Comments Appointment 11/06/2023 Encounter Details Date Type Department Care Team (Late st Contact Info) Description 11/06/2023 Telephone Vascular Surg [facility] [address] [place], [place] [phone] Daniel Gaming MD [address] [place], [place] [phone] Appointment Allergies Active Allergy Reactions Criticality Noted [...] (FLONASE) 50 MCG/ACT nasal spray Administer 1 [place] into nostril daily as needed. 0 Active saline (OCEAN) 0.65 % nasal spray Administer 1 [place] into nostril as needed. 0 Active vitamin [...] SolutionIndications: Chronic rhinitis Administer into nostril 1 [place] in the morning AND 1 [place] before bedtime. 90 mL 3 05/18/2022 Active [...] arthroplasty 06/03/2014 Overview: Right 05/20/2014 Dr Gage [facility] T[place] RESEARCH OTHER*[id number] 04/23/2014 Allergic rhinitis 12/23/2005 ADVANCE DIRECTIVE INFORMATION [...] Description 11/22/2023 9:20 AM EST Anticoagulation Pharmacy, [place] [address] [place] [address] Pharmacist1, [facility] [address] [facility] [place] [address] 03/01/2024 10:30 AM EDT Imaging Vascular Lab, [address] 132 [facility] [place] [address] 03/01/2024 11:30 AM EDT Imaging Vascular Lab, [address] 132 [facility] [place] [address] 03/06/2024 9:10 AM EDT Office Visit Vascular Surgery, [address] [place] [address] Daniel Gaming MD [address] [place] [address] 03/14/2024 9:00 AM EDT Laboratory [facility] [place]ony [place] [address] [place] [id number] Josie Colvin [facility] [address] [facility] [place] [address] 03/19/2024 10:30 AM EDT Imaging Radiology [address] [place] [address] 03/27/2024 1:45 PM EDT Office Visit Hematology/Oncology [facility] Marii [place] [address] [address] [address] Ru Brunson MD [address] [place] [address] Health Maintenance Due Date Last Done Comments [...] this encounter Medical Devices Implanted Type Area Chucking Machine Set Up Operator Device Identifier Shelf Expiration Date Model / Serial / Lot Hip Hd Nk Alumina Mod D 36/+5 - [id number] Implanted:Qty: 1 on 05/20/2014 at [place] [facility] [place] Right: Hip BA : ORTHOPAEDICS 02/17/2019 6570-0-236 / / [id number] Patch Xenosure [id number] - [id number] Implanted:Qty: 1 on 10/18/2017 by Daniel Gaming MD at [facility] Right: Carotid [employer] 06/16/2023 E0.8P8 / / [id number] documented as of this encounter Advance Directives Documents on File Type Date Recorded Patient Associate Financial Analyst Expl anation Advance Directives and Living Will 06/01/2017 LIVING WILL LIVING W ILL Power of Drum Filler 06/01/2017 POWER OF A TTORNEY DURABLE HEALTH CARE POWER OF ACCOUNT MANAGER B2B Latest Code Status on File Code Status [...] Directives occurred with: Not Discussed Care Teams Feed And Farm Management Adviser Relationship Specialty Start Date End Date BinaFebruary Ulises, PALucindaC [address] [place] [address] PCP - General Physician Quilt Maker 12/31/18 documented as of this encounter
[2024-05-01] MEDS: WARFARIN SOD 5 MG TAB PO SCH (15:51)
--- NOTE | 2024-05-01 16:00 | Hospitalist Progress Note ---
Date of Service May 01, 2024 Assessment & Plan (1) Paroxysmal atrial fibrillation: (2) Acute respiratory failure with hypoxia and hypercapnia: (3) COPD exacerbation: (4) Chronic hypoxic respiratory failure, on home oxygen therapy: Plan Patient with acute exacerbation of COPD most likely due to viral upper respiratory infection in the setting of chronic hypoxic respiratory failure on home oxygen. Patient has significantly improved, titrate to usual home oxygen flow 2 L Transition to oral steroids Continue oral Zithromax for anti-inflammatory effects Increase activity Continue warfarin, INR therapeutic. Continue to monitor Monitor electrolytes and replace as needed, potassium improved today Possible discharge tomorrow if patient continues to improve and remained stable on his usual home oxygen Admission and Anticipated Discharge Date Admission Date: April 30, 2024 Anticipated date of discharge: 05/02/24 Subjective Patient feeling significantly improved compared to yesterday. Actually was found to be off oxygen when I entered the room and he was not having any symptoms. However his O2 sat was 86%. 92% on his usual home 2 L of oxygen Physical Exam Physical Exam: Constitutional: Alert HEENT: Mucous membranes moist. Lungs: Decreased breath sounds, prolonged expiratory phase, few scattered wheezes, poor airflow CV: S1-S2, irregular, rate controlled Abdomen: Soft, nontender, nondistended Extremities: No significant edema Neuro: No focal deficits Psych: Cooperative, normal mood Results & Data Results & Data Vital Signs (Past 12 Hours) Vital Signs Temp Pulse Pulse Resp BP Pulse Ox O2 Del Method 05/01/24 15:46 36.5 C 63 20 131/76 92 Nasal Cannula 05/01/24 14:25 65 18 91 Nasal Cannula 05/01/24 14:04 65 05/01/24 10:44 36.3 C L 65 16 132/77 96 Nasal Cannula 05/01/24 10:26 63 18 92 Nasal Cannula 05/01/24 09:47 Nasal Cannula 05/01/24 07:29 36.4 C L 59 L 16 128/75 96 Oxymask 05/01/24 07:03 62 18 99 Oxymask 05/01/24 07:00 58 L 05/01/24 04:01 36.7 C 58 L 18 124/77 96 Oxymask O2 Flow Rate 05/01/24 15:46 2 05/01/24 14:25 2 05/01/24 14:04 05/01/24 10:44 2 05/01/24 10:26 2 05/01/24 09:47 2 05/01/24 07:29 4 05/01/24 07:03 4 05/01/24 07:00 05/01/24 04:01 6 Diagnostic Findings Reviewed imaging, laboratory and diagnostic studies. Pertinent findings as below. Potassium 3.8 INR 2.0
[2024-05-01] MEDS: MONTELUKAST SODIUM 10 MG TABLET PO SCH (20:24)
[2024-05-02 08:00] LABS: INR 2.2 (0.9-1.1); Prothrombin Time 22.7 Seconds (9.0-12.0)
[2024-05-02] MEDS: predniSONE 20 MG TAB PO SCH (08:14)
[2024-05-02 11:41] VITALS: BP 138/78; RESP 18; TEMP 97.7; O2SAT 92
--- NOTE | 2024-05-02 13:22 | Discharge Summary ---
Discharge Summary Date of Service May 02, 2024 Principal Dx & Hospital Course #1 = Principal Diagnosis (1) Acute respiratory failure with hypoxia and hypercapnia: (2) Chronic hypoxic respiratory failure, on home oxygen therapy: (3) Paroxysmal atrial fibrillation: (4) COPD exacerbation: Plan Patient presented to the hospital with increased symptoms. Patient was noted to be more hypoxic even on his usual home oxygen. Also noted to be hypercapnic. He was treated for acute exacerbation of COPD with nebulizer treatments and steroids. With these interventions he is significantly improved. His oxygen was titrated back down to his usual flow and his hypercapnia improved. He was treated with Zithromax for exacerbation of COPD as well. He is continued on his warfarin and his INR was therapeutic. He was also treated with antitussives and mucolytic's. On the day of discharge he is at his baseline oxygen requirement. His shortness of breath and chest tightness is essentially resolved. Patient was feeling improved and was confident that he would be able to recuperate at home. He will continue to follow-up with his outpatient providers. He will continue to follow his INR per his usual process with instructions to recheck it on Monday. Notes For Next Care Provider PT/INR per usual process on 05/06/2024 Medication Changes From Visit Warfarin dose adjusted slightly Zithromax Prednisone for COPD Admission HPI Per Admitting Provider This is a 79-year-old male who has a significant past medical history of PAF, chronic diastolic CHF, R carotid stenosis s/p CEA 2016, COPD, right lower lobe lung CA, HLD, hypothyroidism, tobacco use disorder who presents to ED 2/2 SOB. He recently had to stop his allergy injections. Last Monday he sat on the porch and it was very windy. The next day he woke up he had a lot of sinus drain age. This then progressed to his chest. He has been complaining of increased SOB with exertion and at rest. Upon arrival to ED he was hypoxic requiring supplemental oxygen. He does utilize 2L at HS, and during the day depends on activity. With activity he uses 3-4L. He has hx of COPD exac in the past. He states he requires antibiotics and steroids. He has never required hospitalized for COPD in the past. Spring and fall tend to be the worst. He does have a productive cough. "I feel I have a sinus infection." He denies any sick contacts as he lives alone. He has been compliant with his maintenance inhaler. He also has been using nebulizer 4x a day. 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 He underwent chemotherapy with paclitaxel and carboplatin and concomitant radiation therapy as well as 1 year of immunotherapy. He is currently on observation followed by Dr. Brunson. He was last seen and evaluated by Dr. Brunson in March. He last had a follow up CT in February of 2024 and will have a repeat in 6 months. Discharge Exam Constitutional: Alert HEENT: Mucous membranes moist. Lungs: Decreased airflow, prolonged expiratory phase, scattered wheezes CV: S1-S2, regular Abdomen: Soft, nontender, nondistended Extremities: No significant edema Neuro: No focal deficits Psych: Cooperative, normal mood Updated Medication List Medication Instructions Recorded Confirmed Type metoprolol tartrate 100 mg tablet 100 mg PO BID 10/25/18 04/30/24 History montelukast 10 mg tablet 10 mg PO QAM 10/25/18 04/30/24 History warfarin 5 mg tablet (Jantoven) See Rx Instructions .Route .COMPLEX 10/25/18 04/30/24 History atorvastatin 20 mg tablet (Lipitor) 20 mg PO QAM 07/11/21 04/30/24 History furosemide 20 mg tablet (Lasix) 40 mg PO PM 07/11/21 04/30/24 History potassium chloride 10 mEq 10 meq PO QAM 11/26/21 04/30/24 History capsule,extended release tamsulosin 0.4 mg capsule 0.4 mg PO QAM 11/26/21 04/30/24 History albuterol sulfate 90 mcg/actuation 2 puff inhalation Q4H PRN 06/02/22 04/30/24 History aerosol inhaler (Proventil HFA) shortness of breath or wheezing ascorbic acid (vitamin C) 500 mg 500 mg PO QAM 06/02/22 04/30/24 History capsule aspirin 81 mg tablet,delayed 81 mg PO QPM 06/02/22 04/30/24 History release (Enteric Coated Aspirin) budesonide 160 mcg-glycopyr 9 2 inh inhalation BID 06/02/22 04/30/24 History mcg-formot 4.8 mcg/actuation HFA inhaler (Breztri Aerosphere) cholecalciferol (vitamin D3) 25 25 mcg PO QAM 06/02/22 04/30/24 History mcg (1,000 unit) tablet cyanocobalamin (vitamin B-12) 250 250 mcg PO QAM 06/02/22 04/30/24 History mcg tablet diphenhydramine HCl 25 mg capsule 50 mg PO HS PRN Rhinitis 06/02/22 04/30/24 History (Allergy (diphenhydramine)) fexofenadine 180 mg tablet 180 mg PO DAILY PRN allergies 06/02/22 04/30/24 History (Allergy Relief (fexofenadine)) fluticasone propionate 50 1 spray intranasal DAILY PRN nasal 06/02/22 04/30/24 History mcg/actuation nasal congestion spray,suspension (Allergy Relief (fluticasone)) ipratropium 0.5 mg-albuterol 3 mg 3 ml inhalation Q6H PRN sob 06/02/22 04/30/24 History (2.5 mg base)/3 mL nebulization soln furosemide 20 mg tablet 60 mg PO DAILY 04/30/24 04/30/24 History levothyroxine 50 mcg capsule 50 mcg PO DAILY 04/30/24 04/30/24 History azithromycin 250 mg tablet 250 mg PO QAM 2 days #2 tabs 05/02/24 Rx guaifenesin 1,200 mg tablet, 1,200 mg PO BID #30 tabs 05/02/24 Rx extended release 12 hr (Mucus Relief ER) prednisone 20 mg tablet 40 mg (2 x 20 mg) PO DAILY 4 days 05/02/24 Rx #8 tabs warfarin 5 mg tablet 5 mg PO MoWeFr@1600 #60 tabs 05/02/24 Rx warfarin 5 mg tablet 7.5 mg (1.5 x 5 mg) PO 05/02/24 Rx SuTuThSa@1600 #30 tabs Hospital Stay Data Consultations 04/30/24 16:09 ED Decision to Admit Stat Diagnostic Imagining Performed Reviewed imaging, laboratory and diagnostic studies. Pertinent findings as below. INR 2.2 CTA chest negative for PE Pending Results Patient Have Any Pending Studies at Discharge: No Discharge Instructions Given to Patient (Per Discharging Provider) Resume and continue usual home oxygen Get PT/INR done per your usual process on Monday Total Time Total Time Spent Total Time Spent (In Minutes): 34
[2024-05-02 13:38] VITALS: PULSE 63
== END 2024-05-02 14:33 | disposition home or self-care (01) | DRG 190 ==
LOC: ED 12:38 → 2N 16:13 → SUATTDRO 16:13 → 2N 17:44